=== PATIENT | female | born 1980 | race Caucasian/White ===

== ENCOUNTER 2017-05-16 14:51 | Emergency (ER) | payer OTHER ==
[~2017-05-16] VITALS: Wt 93.5 kg
[~2017-05-16 14:51] MED LIST: ACET500C5 PO; BEN25 PO; SULF15DR19 RIGHT EYE
[2017-05-16] MEDS ORDERED: PRED20TA PO (15:53)
[2017-05-16] MEDS ORDERED: BEN25 PO (15:53)
[2017-05-16] MEDS ORDERED: DIPHENHYDRAMINE 50 MG INJ IM ONE (16:00)
[2017-05-16] MEDS ORDERED: predniSONE 20 MG TAB PO ONE (16:00)
--- NOTE | 2017-05-16 23:01 | ERD ---
ER Documentation Chief Complaint Date/Time DATE: 05/16/17 TIME: 22:58 Chief Complaint rash x 3 days, no sob HPI 36-year-old woman complains of itchy red rash to her low back and abdomen just below the breasts. Rash 3 days. She has been wearing very tight fitting clothes and spanks type clothing in the heat. She denies fevers or chills, no chest pain or shortness of breath, no vomiting or diarrhea, no difficulty breathing. ROS All systems reviewed and are negative except as per history of present illness. Medications Home Meds Active Scripts Prednisone* (Prednisone*) 20 Mg Tab, 40 MG PO DAILY for 2 Days, TAB Prov:AUDI MIDDLETON MD 05/16/17 Diphenhydramine Hcl* (Benadryl*) 25 Mg Cap, 25 MG PO Q6 Y for ITCHING/RASH, #30 TAB Prov:AUDI MIDDLETON MD 05/16/17 Diphenhydramine Hcl* (Benadryl*) 25 Mg Cap, 25 MG PO Q6, #15 CAP Prov:KELLI MCCLELLAN MD 07/18/15 Acetaminophen* (Tylophen*) 500 Mg Capsule, 500 MG PO Q6H Y for PAIN, #15 TAB Prov:KELLI MCCLELLAN MD 07/18/15 Sulfacetamide Sodium* (Bleph-10*) 10%-15 Ml Opht Drops, 1 DROP RIGHT EYE QID for 7 Days, EA Prov:KELLI MCCLELLAN MD 07/18/15 Allergies Allergies: Uncoded Allergies: PCN (Allergy, Intermediate, Hives, 07/18/15) PMhx/Soc Obesity History of Surgery: Yes (csection) Anesthesia Reaction: No Hx Neurological Disorder: No Hx Respiratory Disorders: No Hx Cardiac Disorders: No Hx Psychiatric Problems: No Hx Miscellaneous Medical Probl: No Hx Alcohol Use: No Hx Substance Use: No Hx Tobacco Use: No Smoking Status: Never smoker FmHx Family History: No diabetes Physical Exam Vitals Vital Signs Date Time Temp Pulse Resp B/P Pulse Ox O2 Delivery O2 Flow Rate FiO2 05/16/17 14:53 98.9 81 18 138/90 99 Physical Exam GENERAL: Well-developed, well-nourished, well-hydrated, in no apparent distress , looks nontoxic in appearance HEENT: Moist mucous membranes, pink conjunctiva, no cervical spine tenderness or step-off deformities, no goiter, no jaundice or icterus, extraocular movements intact without pain. No submandibular induration, and no pharyngeal erythema NEURO: Alert and oriented 3, cranial nerves II through XII intact bilaterally, pupils equal round reactive to light, no focal deficits or facial asymmetry, sensation intact distally Strength 5/5 in upper and lower extremities bilaterally CARDIAC: Regular rate and rhythm, no murmurs rubs or gallops LUNGS: Clear bilaterally no wheezing crackles or stridor ABDOMEN: Soft nontender, no guarding, no rigidity, no rebound, no psoas sign no obturator sign. Normoactive bowel sounds SKIN: Localized maculopapular eruptions over the low back and over the skin just underneath the breasts, concerning for miliaria rubra. There are no ulcers or target lesions noted. EXTREMITIES: No clubbing cyanosis or edema, calves are bilaterally symmetrical, no Homans sign, no popliteal cord sign. Distal pulses equal and bilateral PSYCH: Normal affect without agitation or irritability Results 24 hrs Current Medications Medications (Trade) Dose Ordered Sig/Gigi Route PRN Reason Start Time Stop Time Status Last Admin Dose Admin Diphenhydramine HCl (Benadryl) 25 mg ONCE ONCE IM 05/16/17 16:00 05/16/17 16:01 DC 05/16/17 15:41 Prednisone (Prednisone) 40 mg ONCE ONCE PO 05/16/17 16:00 05/16/17 16:01 DC 05/16/17 15:40 Procedures/MDM I administered diphenhydramine 25 mg intramuscular injection and prednisone 40 mg p.o. Reassurance was provided. Differential diagnoses considered, included but not limited to acute coronary syndrome, pulmonary embolism, aortic dissection, abdominal aortic aneurysm, sepsis, stroke, meningitis, encephalitis, pneumonia, appendicitis, cholecystitis , bowel obstruction, pyelonephritis, nephrolithiasis, cystitis, as well as metabolic, hematologic, and electrolyte abnormalities. As well as abscess, cellulitis, fractures, and dislocations. Patient feels much better at this time, and vital signs are normal, symptoms have improved. I did give strict instructions to return to the ED if symptoms continue or worsen, patient will otherwise follow-up with primary care physician. Patient understood instructions and agreed to plan. Disclaimer: Inadvertent spelling and grammatical errors are likely due to EHR/ dictation software use and do not reflect on the overall quality of patient care. Also, please note that the electronic time recorded on this note does not necessarily reflect the actual time of the patient encounter. Departure Diagnosis: Primary Impression: Miliaria rubra Condition: Good Patient Instructions: When Your Child Has Heat Rash (Prickly Heat), Dermatitis , Non-Specific AUDI MIDDLETON MD May 16, 2017 23:00
== END 2017-05-16 16:20 | disposition home or self-care (01) ==
LOC: FTE 14:51
DX: L74.0 Miliaria rubra (principal)
CPT/HCPCS: 96372; J1200; J7512; Z7502

== ENCOUNTER 2017-06-19 07:44 | Emergency (ER) | payer OTHER ==
[~2017-06-19] VITALS: Ht 160 cm; Wt 94.0 kg
[~2017-06-19 07:44] MED LIST changes: +PRED20TA PO
[2017-06-19 07:50] VITALS: Ht 160 cm; Wt 94.0 kg
[2017-06-19] MEDS ORDERED: LIDOCAINE/MYLANTA 40 ML BTL PO STA (08:13)
[2017-06-19] MEDS ORDERED: ONDANSETRON 4 MG INJ IV STA (08:13)
[2017-06-19] MEDS ORDERED: HYDROmorphONE 1 MG/ML SYG IV STA (08:13)
[2017-06-19 08:51] LABS: BASOPHIL # 0.1 10^3/ul (0.0-0.1); BASOPHILS % 0.5 % (0.0-2.0); EOSINOPHILS # 0.3 10^3/ul (0.0-0.5); EOSINOPHILS % 2.3 % (0.0-7.0); HEMATOCRIT 40.6 % (37.0-47.0); HEMOGLOBIN 13.8 g/dl (12.0-16.0); LYMPHOCYTES # 2.3 10^3/ul (0.8-2.9); LYMPHOCYTES % 20.3 % (15.0-51.0); MEAN CORPUSCULAR HEMOGLOBIN 27.2 pg (29.0-33.0); MEAN CORPUSCULAR VOLUME 80.1 fl (82.0-101.0); MEAN PLATELET VOLUME 9.6 fl (7.4-10.4); MONOCYTE # 0.7 10^3/ul (0.3-0.9); MONOCYTES % 6.3 % (0.0-11.0); NEUTROPHIL # 7.9 10^3/ul (1.6-7.5); NEUTROPHILS % 70.2 % (39.0-77.0); PLATELET COUNT 331 10^3/UL (140-415); RED BLOOD COUNT 5.07 10^6/ul (4.20-5.40); WHITE BLOOD COUNT 11.3 10^3/ul (4.8-10.8)
[2017-06-19 09:09] LABS: ALBUMIN 4.1 g/dl (3.3-4.9); ALBUMIN/GLOBULIN RATIO 1.2; BILIRUBIN,INDIRECT 0.4 mg/dl (0-1.1); BILIRUBIN,TOTAL 0.4 mg/dl (0.2-1.3); CALCIUM 9.2 mg/dl (8.4-10.2); CREATININE 0.68 mg/dl (0.44-1.00); POTASSIUM 4.1 mmol/L (3.5-5.1); TOTAL PROTEIN 7.5 g/dl (6.1-8.1)
--- NOTE | 2017-06-19 09:13 | RADRPT ---
PROCEDURE: US Abdomen. CLINICAL INDICATION: abdominal pain TECHNIQUE: Multiple real-time images were acquired of the patient's right upper quadrant abdomen a nd retroperitoneum utilizing a high resolution transducer. COMPARISON: None FINDINGS: The liver demonstrates increased echogenicity. The liver is enlarged in size and no focal solid les ions are seen. The liver measures 19.5 cm in length. The portal vein is patent with normal direction of flow. No intrahepatic biliary dilatation is seen. Multiple calcified gallstones are identified within the gallbladder. There is no pericholecystic fl uid or gallbladder wall thickening. The common bile duct measures 4.7 mm in maximal dimension. The pancreas is not well seen due to overlying bowel gas. No free fluid is identified. The right kidney is normal in size, and demonstrate normal echogenicity and cortical thickness. The right kidney measures 11.0 cm in long dimension. There is no evidence of hydronephrosis. There are no kidney stones. RPTAT: AA IMPRESSION: Hepatomegaly with diffuse fatty infiltration of the liver. Cholelithiasis. No evidence of gallbladder wall thickening or pericholecystic fluid. .Ted Dominguez MD, MD Date Time Electronically viewed and signed by .Ted Dominguez MD, MD on 06/19/2017 09:13 .S/
[2017-06-19] MEDS ORDERED: DICY10CA60 PO (10:02)
[2017-06-19] MEDS ORDERED: HYDR-902 PO (10:02)
--- NOTE | 2017-06-19 10:05 | ERD ---
ER Documentation Chief Complaint Date/Time DATE: 06/19/17 TIME: 10:02 Chief Complaint epigastric pain this morning and vomiting HPI This a 36-year-old female complains of this morning onset of epigastric right upper quadrant pain described as sharp and crampy without radiation. No chest pain shortness of breath. She has nausea but no vomiting or diarrhea. She has never had this before. No pain in the back ROS All systems reviewed and are negative except as per history of present illness. Medications Home Meds Active Scripts Dicyclomine Hcl* (Bentyl*) 10 Mg Capsule, 20 MG PO QID, #60 CAP Prov:TRINH THOMAS DO 06/19/17 Hydrocodone/Acetaminophen ([place] 10-325 Tablet) 1 Each Tablet, 1 TAB PO Q6H Y for PAIN, #20 TAB Prov:TRINH THOMAS DO 06/19/17 Prednisone* (Prednisone*) 20 Mg Tab, 40 MG PO DAILY for 2 Days, TAB Prov:AUDI MIDDLETON MD 05/16/17 Diphenhydramine Hcl* (Benadryl*) 25 Mg Cap, 25 MG PO Q6 Y for ITCHING/RASH, #30 TAB Prov:AUDI MIDDLETON MD 05/16/17 Diphenhydramine Hcl* (Benadryl*) 25 Mg Cap, 25 MG PO Q6, #15 CAP Prov:KELLI MCCLELLAN MD 07/18/15 Acetaminophen* (Tylophen*) 500 Mg Capsule, 500 MG PO Q6H Y for PAIN, #15 TAB Prov:KELLI MCCLELLAN MD 07/18/15 Sulfacetamide Sodium* (Bleph-10*) 10%-15 Ml Opht Drops, 1 DROP RIGHT EYE QID for 7 Days, EA Prov:KELLI MCCLELLAN MD 07/18/15 Allergies Allergies: Uncoded Allergies: PCN (Allergy, Intermediate, Hives, 07/18/15) PMhx/Soc History of Surgery: Yes (c section) Anesthesia Reaction: No Hx Neurological Disorder: No Hx Respiratory Disorders: No Hx Cardiac Disorders: No Hx Psychiatric Problems: No Hx Miscellaneous Medical Probl: No Hx Alcohol Use: No Hx Substance Use: No Hx Tobacco Use: No Smoking Status: Never smoker FmHx Family History: No coronary disease Physical Exam Vitals Vital Signs Date Time Temp Pulse Resp B/P Pulse Ox O2 Delivery O2 Flow Rate FiO2 06/19/17 09:06 98.0 66 18 101/57 96 Room Air 06/19/17 07:50 97.5 55 18 164/104 98 Physical Exam Const: Well-developed, well-nourished Head: Atraumatic, normocephalic Eyes: Normal Conjunctiva, PERRLA, EOMI, normal sclera, no nystagmus ENT: Normal External Ears, Nose and Mouth, moist mucus membranes. Neck: Full range of motion. No meningismus, no lymphadenopathy. Resp: Clear to auscultation bilaterally, no wheezing, rhonchi, rales Cardio: Regular rate and rhythm, no murmurs, S1 S2 present Abd: Soft, tender epigastric and right upper quadrant mild to moderate , non distended. Normal bowel sounds, no guarding or rebound, no pulsitile abdominal masses or bruits Skin: No petechiae or rashes, no ecchymosis , no maculopapular rash Back: No midline or flank tenderness Ext: No cyanosis, or edema, FROM x 4, normal inspection, neurovascularly intact x 4 Neur: Awake and alert, STR 5/5 x 4, sensation intact x 4, no focal findings, cerebellum intact Psych: Normal Mood and Affect Result Diagram: 06/19/1720 06/19/17 0820 Results 24 hrs Laboratory Tests Test 06/19/17 08:20 White Blood Count 11.310^3/ul Red Blood Count 5.0710^6/ul Hemoglobin 13.8g/dl Hematocrit 40.6% Mean Corpuscular Volume 80.1fl Mean Corpuscular Hemoglobin 27.2pg Mean Corpuscular Hemoglobin Concent 34.0g/dl Red Cell Distribution Width 13.0% Platelet Count 25423^3/UL Mean Platelet Volume 9.6fl Neutrophils % 70.2% Lymphocytes % 20.3% Monocytes % 6.3% Eosinophils % 2.3% Basophils % 0.5% Nucleated Red Blood Cells % 0.0/100WBC Neutrophils # 7.910^3/ul Lymphocytes # 2.310^3/ul Monocytes # 0.710^3/ul Eosinophils # 0.310^3/ul Basophils # 0.110^3/ul Nucleated Red Blood Cells # 0.010^3/ul Sodium Level 142mmol/L Potassium Level 4.1mmol/L Chloride Level 103mmol/L Carbon Dioxide Level 25mmol/L Anion Gap 18 Blood Urea Nitrogen 11mg/dl Creatinine 0.68mg/dl Glucose Level 107mg/dl Calcium Level 9.2mg/dl Total Bilirubin 0.4mg/dl Direct Bilirubin 0.00mg/dl Indirect Bilirubin 0.4mg/dl Aspartate Amino Transf (AST/SGOT) 40IU/L Alanine Aminotransferase (ALT/SGPT) 67IU/L Alkaline Phosphatase 106IU/L Total Protein 7.5g/dl Albumin 4.1g/dl Globulin 3.40g/dl Albumin/Globulin Ratio 1.20 Lipase 106U/L Current Medications Medications (Trade) Dose Ordered Sig/Gigi Route PRN Reason Start Time Stop Time Status Last Admin Dose Admin Hydromorphone HCl (Dilaudid) 1 mg ONCE STAT IV 06/19/17 08:13 06/19/17 08:14 DC 06/19/17 08:30 Ondansetron HCl (Zofran Inj) 4 mg ONCE STAT IV 06/19/17 08:13 06/19/17 08:15 DC 06/19/17 08:30 Miscellaneous Medication (Gi Cocktail (2)) 40 ml ONCE STAT PO 06/19/17 08:13 06/19/17 08:15 DC 06/19/17 08:30 Procedures/MDM PROCEDURE: US Abdomen. CLINICAL INDICATION: abdominal pain TECHNIQUE: Multiple real-time images were acquired of the patient's right upper quadrant abdomen and retroperitoneum utilizing a high resolution transducer. COMPARISON: None FINDINGS: The liver demonstrates increased echogenicity. The liver is enlarged in size and no focal solid lesions are seen. The liver measures 19.5 cm in length. The portal vein is patent with normal direction of flow. No intrahepatic biliary dilatation is seen. Multiple calcified gallstones are identified within the gallbladder. There is no pericholecystic fluid or gallbladder wall thickening. The common bile duct measures 4.7 mm in maximal dimension. The pancreas is not well seen due to overlying bowel gas. No free fluid is identified. The right kidney is normal in size, and demonstrate normal echogenicity and cortical thickness. The right kidney measures 11.0 cm in long dimension. There is no evidence of hydronephrosis. There are no kidney stones. RPTAT: AA IMPRESSION: Hepatomegaly with diffuse fatty infiltration of the liver. Cholelithiasis. No evidence of gallbladder wall thickening or pericholecystic fluid. .Ted Dominguez MD, MD Date Time Electronically viewed and signed by .Ted Dominguez MD, MD on 06/19/2017 09: 13 .S/ CC: TRINH THOMAS DO Patient is pain-free. No signs of elevated liver function tests or cholecystitis. Discharged home on [place] and Bentyl. Follow up with general surgery Departure Diagnosis: Primary Impression: Gallstones Condition: Stable Patient Instructions: Biliary Colic With Gallstone (Confirmed) Referrals: ISAAC OJEDA APOSTOLOS A. DO Jun 19, 2017 10:05
[2017-06-19 10:25] VITALS: BP 104/58; PULSE 60; RESP 16; TEMP 97.1
[2017-06-19] MEDS ORDERED: HYDROCODONE/APAP (10/325) TAB PO ONE (10:30)
== END 2017-06-19 10:25 | disposition home or self-care (01) ==
LOC: E/R 07:44
DX: K80.20 Calculus of gallbladder without cholecystitis without obstruction (principal); R11.10 Vomiting, unspecified
CPT/HCPCS: 36415; 76705; 80053; 83690; 85025; 96374; 96375; J1170; J2405; Z7502; Z7610

== ENCOUNTER 2017-08-02 05:37 | Emergency (ER) | payer OTHER ==
[~2017-08-02] VITALS: Ht 160 cm; Wt 92.5 kg
[~2017-08-02 05:37] MED LIST changes: +DICY10CA60 PO; +HYDR-902 PO
[2017-08-02 05:50] VITALS: Ht 160 cm; Wt 92.5 kg
[2017-08-02] MEDS ORDERED: SOD CHLORIDE 0.9% 1,000 ML IV STA (06:31)
[2017-08-02] MEDS ORDERED: ONDANSETRON 4 MG INJ IV STA (06:31)
[2017-08-02] MEDS ORDERED: morphine 4 MG/ML VIAL IV STA (06:31)
[2017-08-02 07:06] LABS: BASOPHIL # 0.1 10^3/ul (0.0-0.1); BASOPHILS % 0.6 % (0.0-2.0); EOSINOPHILS # 0.4 10^3/ul (0.0-0.5); EOSINOPHILS % 3.3 % (0.0-7.0); HEMATOCRIT 41.9 % (37.0-47.0); HEMOGLOBIN 14.1 g/dl (12.0-16.0); LYMPHOCYTES # 2.3 10^3/ul (0.8-2.9); LYMPHOCYTES % 21.6 % (15.0-51.0); MEAN CORPUSCULAR HEMOGLOBIN 27.7 pg (29.0-33.0); MEAN CORPUSCULAR HGB CONC 33.7 g/dl (32.0-37.0); MEAN CORPUSCULAR VOLUME 82.3 fl (82.0-101.0); MEAN PLATELET VOLUME 9.4 fl (7.4-10.4); MONOCYTE # 0.7 10^3/ul (0.3-0.9); MONOCYTES % 6.6 % (0.0-11.0); NEUTROPHIL # 7.3 10^3/ul (1.6-7.5); NEUTROPHILS % 67.7 % (39.0-77.0); PLATELET COUNT 342 10^3/UL (140-415); RED BLOOD COUNT 5.09 10^6/ul (4.20-5.40); RED CELL DISTRIBUTION WIDTH 12.5 % (11.5-14.5); WHITE BLOOD COUNT 10.8 10^3/ul (4.8-10.8)
[2017-08-02 07:14] LABS: ADD UMIC YES; UR ASCORBIC ACID 20 mg/dL (NEGATIVE); UR BACTERIA FEW /HPF (NONE SEEN); UR BILIRUBIN (Dip) NEGATIVE (NEGATIVE); UR BLOOD (Dip) NEGATIVE (NEGATIVE); UR CLARITY SLIGHTLY CLOUDY (CLEAR); UR COLOR YELLOW (YELLOW); UR GLUCOSE (Dip) NEGATIVE (NEGATIVE); UR KETONES (Dip) NEGATIVE (NEGATIVE); UR LEUKOCYTE ESTERASE (Dip) TRACE Leu/ul (NEGATIVE); UR MUCUS MODERATE /HPF (NONE SEEN); UR NITRITE (Dip) NEGATIVE (NEGATIVE); UR RBC 1 /HPF (0-5); UR SPECIFIC GRAVITY (Dip) 1.031 (1.003-1.030); UR SQUAMOUS EPITHELIAL CELL MODERATE /HPF (FEW); UR TOTAL PROTEIN (Dip) NEGATIVE (NEGATIVE); UR UROBILINOGEN (Dip) NEGATIVE (NEGATIVE)
[2017-08-02 07:30] LABS: ALBUMIN 4.3 g/dl (3.3-4.9); ALBUMIN/GLOBULIN RATIO 1.19; BILIRUBIN,INDIRECT 0.3 mg/dl (0-1.1); BILIRUBIN,TOTAL 0.3 mg/dl (0.2-1.3); CALCIUM 9.1 mg/dl (8.4-10.2); CREATININE 0.69 mg/dl (0.44-1.00); TOTAL PROTEIN 7.9 g/dl (6.1-8.1)
--- NOTE | 2017-08-02 07:36 | RADRPT ---
PROCEDURE: US Abdomen Limited . CLINICAL INDICATION: Abdominal pain TECHNIQUE: Multiple real-time images were acquired of the patient's right upper quadrant abdomen u tilizing a high resolution transducer. COMPARISON: June 19, 2017 FINDINGS: The liver measures 19.6 cm and demonstrates a coarsened echogenicity. The gallbladder is filled with a moderate amount of bile. Multiple echogenic, shadowing stones are identified in the gallbladder. The largest distinct stone measures up to approximately 13 mm. A non mobile stone is identified in the gallbladder neck. The gallbladder wall is not thickened at 1.0 mm. No pericholecystic fluid is n oted. The common bile duct measures 5.4 mm in diameter. The visualized portions of the proximal de jesus creas are unremarkable. The tail of the pancreas is not well visualized. Antegrade flow is seen in the portal vein. Right kidney measures 11.6 cm. Right kidney demonstrates a normal echogenicity. No hydronephrosis, masses or stones are noted. IMPRESSION: Diffuse fatty infiltration of an enlarged liver. Cholelithiasis. Tail of the pancreas not well visualized. If characterization of this structure is needed repeat exa m or CT/MRI is recommended. RPTAT: AA .Jay Carey MD, Date Time Electronically viewed and signed by .Jay Carey MD, on 08/02/2017 07:36 .P/
--- NOTE | 2017-08-02 07:53 | ERD ---
ER Documentation Chief Complaint Date/Time DATE: 08/02/17 TIME: 07:46 Chief Complaint upper abd pain/vomiting since last night, hx of gallstone HPI This is a 36-year-old female presents the emergency department today complaining of abdominal pain and nausea and vomiting that started last night. Patient states she has a known history of gallstones and she has seen a surgeon who she is unsure of his name but she is waiting for authorization for surgery. Denies any fevers or chills, dysuria. ROS All systems reviewed and are negative except as per history of present illness. Medications Home Meds Active Scripts Acetaminophen* (Tylophen*) 500 Mg Capsule, 1 CAP PO Q6H Y for PAIN AND OR ELEVATED TEMP, #30 CAP Prov:EDDA DACOSTA PA-C 08/02/17 Famotidine* (Pepcid*) 20 Mg Tablet, 20 MG PO BID for 10 Days, TAB Prov:EDDA DACOSTA PA-C 08/02/17 Ondansetron Hcl* (Zofran*) 4 Mg Tablet, 4 MG PO Q6H for NAUSEA AND/OR VOMITING, #30 TAB Prov:EDDA DACOSTA PA-C 08/02/17 Hydrocodone/Acetaminophen ([place] 5-325 Tablet) 1 Each Tablet, 1 TAB PO Q6H Y for PAIN, #12 TAB Prov:EDDA DACOSTA PA-C 08/02/17 Dicyclomine Hcl* (Bentyl*) 10 Mg Capsule, 20 MG PO QID, #60 CAP Prov:TRINH THOMAS DO 06/19/17 Hydrocodone/Acetaminophen ([place] 10-325 Tablet) 1 Each Tablet, 1 TAB PO Q6H Y for PAIN, #20 TAB Prov:TRINH THOMAS DO 06/19/17 Prednisone* (Prednisone*) 20 Mg Tab, 40 MG PO DAILY for 2 Days, TAB Prov:AUDI MIDDLETON MD 05/16/17 Diphenhydramine Hcl* (Benadryl*) 25 Mg Cap, 25 MG PO Q6 Y for ITCHING/RASH, #30 TAB Prov:AUDI MIDDLETON MD 05/16/17 Diphenhydramine Hcl* (Benadryl*) 25 Mg Cap, 25 MG PO Q6, #15 CAP Prov:KELLI MCCLELLAN MD 07/18/15 Acetaminophen* (Tylophen*) 500 Mg Capsule, 500 MG PO Q6H Y for PAIN, #15 TAB Prov:KELLI MCCLELLAN MD 07/18/15 Sulfacetamide Sodium* (Bleph-10*) 10%-15 Ml Opht Drops, 1 DROP RIGHT EYE QID for 7 Days, EA Prov:KELLI MCCLELLAN MD 07/18/15 Allergies Allergies: Coded Allergies: Penicillins (Verified Allergy, Unknown, rash, 08/02/17) Uncoded Allergies: PCN (Allergy, Intermediate, Hives, 07/18/15) PMhx/Soc History of Surgery: Yes (c section) Anesthesia Reaction: No Hx Neurological Disorder: No Hx Respiratory Disorders: No Hx Cardiac Disorders: No Hx Psychiatric Problems: No Hx Miscellaneous Medical Probl: Yes (gall stones ) Hx Alcohol Use: No Hx Substance Use: No Hx Tobacco Use: No Smoking Status: Never smoker Physical Exam Vitals Vital Signs Date Time Temp Pulse Resp B/P Pulse Ox O2 Delivery O2 Flow Rate FiO2 08/02/17 05:50 97.0 62 20 143/76 99 Physical Exam Const: NAD Head: Atraumatic Eyes: Normal Conjunctiva ENT: Normal External Ears, Nose and Mouth. Neck: Full range of motion..~ No meningismus. Resp: Clear to auscultation bilaterally Cardio: Regular rate and rhythm, no murmurs Abd: Soft, epigastric and right upper quadrant tenderness non distended. Normal bowel sounds no lower abdominal pain. No tenderness to McBurney's. Skin: No petechiae or rashes Back: No midline or flank tenderness Ext: No cyanosis, or edema Neur: Awake and alert Psych: Normal Mood and Affect Result Diagram: 08/02/17 0640 08/02/17 0640 Results 24 hrs Laboratory Tests Test 08/02/17 06:40 08/02/17 06:45 White Blood Count 10.810^3/ul Red Blood Count 5.0910^6/ul Hemoglobin 14.1g/dl Hematocrit 41.9% Mean Corpuscular Volume 82.3fl Mean Corpuscular Hemoglobin 27.7pg Mean Corpuscular Hemoglobin Concent 33.7g/dl Red Cell Distribution Width 12.5% Platelet Count 92863^3/UL Mean Platelet Volume 9.4fl Neutrophils % 67.7% Lymphocytes % 21.6% Monocytes % 6.6% Eosinophils % 3.3% Basophils % 0.6% Nucleated Red Blood Cells % 0.0/100WBC Neutrophils # 7.310^3/ul Lymphocytes # 2.310^3/ul Monocytes # 0.710^3/ul Eosinophils # 0.410^3/ul Basophils # 0.110^3/ul Nucleated Red Blood Cells # 0.010^3/ul Sodium Level 143mmol/L Potassium Level 4.0mmol/L Chloride Level 109mmol/L Carbon Dioxide Level 25mmol/L Anion Gap 13 Blood Urea Nitrogen 11mg/dl Creatinine 0.69mg/dl Glucose Level 103mg/dl Calcium Level 9.1mg/dl Total Bilirubin 0.3mg/dl Direct Bilirubin 0.00mg/dl Indirect Bilirubin 0.3mg/dl Aspartate Amino Transf (AST/SGOT) 35IU/L Alanine Aminotransferase (ALT/SGPT) 51IU/L Alkaline Phosphatase 104IU/L Total Protein 7.9g/dl Albumin 4.3g/dl Globulin 3.60g/dl Albumin/Globulin Ratio 1.19 Lipase 108U/L Urine Color YELLOW Urine Clarity SLIGHTLY CLOUDY Urine pH 5.0 Urine Specific [place] 1.031 Urine Ketones NEGATIVEmg/dL Urine Nitrite NEGATIVEmg/dL Urine Bilirubin NEGATIVEmg/dL Urine Urobilinogen NEGATIVEmg/dL Urine Leukocyte Esterase TRACELeu/ul Urine Microscopic RBC 1/HPF Urine Microscopic WBC 4/HPF Urine Squamous Epithelial Cells MODERATE/HPF Urine Bacteria FEW/HPF Urine Mucus MODERATE/HPF Urine Hemoglobin NEGATIVEmg/dL Urine Glucose NEGATIVEmg/dL Urine Total Protein NEGATIVEmg/dl Current Medications Medications (Trade) Dose Ordered Sig/Gigi Route PRN Reason Start Time Stop Time Status Last Admin Dose Admin Sodium Chloride (NS) 1,000 ml @ 1,000 mls/hr Q1H STAT IV 08/02/17 06:31 08/02/17 07:30 DC 08/02/17 06:52 Morphine Sulfate (morphine) 4 mg ONCE STAT IV 08/02/17 06:31 08/02/17 06:33 DC 08/02/17 06:51 Ondansetron HCl (Zofran Inj) 4 mg ONCE STAT IV 08/02/17 06:31 08/02/17 06:33 DC 08/02/17 06:52 Famotidine (Pepcid) 20 mg ONCE ONCE PO 08/02/17 10:00 08/02/17 10:01 08/02/17 09:36 DIAGNOSTIC IMAGING REPORT Patient: PAYAL MOSS : 1980 Age: 36 Sex: F MR #: [id number] DOS: 08/02/17 0631 Ordering MD: EDDA DACOSTA PA-C Location: [facility] Room/Bed: PROCEDURE: US Abdomen Limited . CLINICAL INDICATION: Abdominal pain TECHNIQUE: Multiple real-time images were acquired of the patient's right upper quadrant abdomen utilizing a high resolution transducer. COMPARISON: June 19, 2017 FINDINGS: The liver measures 19.6 cm and demonstrates a coarsened echogenicity. The gallbladder is filled with a moderate amount of bile. Multiple echogenic, shadowing stones are identified in the gallbladder. The largest distinct stone measures up to approximately 13 mm. A non mobile stone is identified in the gallbladder neck. The gallbladder wall is not thickened at 1.0 mm. No pericholecystic fluid is noted. The common bile duct measures 5.4 mm in diameter. The visualized portions of the proximal pancreas are unremarkable. The tail of the pancreas is not well visualized. Antegrade flow is seen in the portal vein. Right kidney measures 11.6 cm. Right kidney demonstrates a normal echogenicity. No hydronephrosis, masses or stones are noted. IMPRESSION: Diffuse fatty infiltration of an enlarged liver. Cholelithiasis. Tail of the pancreas not well visualized. If characterization of this structure is needed repeat exam or CT/MRI is recommended. RPTAT: AA .Jay Carey MD, MD Date Time Electronically viewed and signed by .Jay Carey MD, MD on 08/02/2017 07:36 .P/ CC: EDDA DACOSTA PA-C Procedures/MDM This is a 36-year-old female who presents emergency department today complaining of abdominal pain and nausea vomiting. 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 Patient does have a known history of gallstones as I did do laboratory workup as well as an ultrasound Laboratory workup shows no elevated white blood cell count. She is not anemic. Platelets are within normal limits. Electrolytes are within normal limits. Glucose within normal limits. Bilirubin is within normal limits. Liver enzymes within normal limits. Lipase is normal limits. UA shows trace leukocyte esterase. Negative nitrites. urine test is negative right upper quadrant ultrasound shows multiple gallstones. Largest stone measures approximately 13 mm. There is a nonmobile stone identified in the gallbladder neck. Gallbladder wall is not thickened. There is no pericholecystic fluid. There is diffuse fatty infiltration of an enlarged liver. Symptoms at this time is consistent with gallstones and biliary colic. There is no evidence to suggest acute surgical abdomen at this time or acute cholecystitis. Patient was given morphine, Zofran, Pepcid .IV fluids here in the emergency department and pain improved. Patient was given a prescription for [place], Zofran, Pepcid and Tylenol for home. She was instructed to follow back up with her surgeon to find out about her referral. Patient understood. She was given a work note. Discussed patient with Dr. Thomas and he is in agreement with the plan. Departure Diagnosis: Primary Impression: Biliary colic Condition: EDDA Becker PA-C Aug 02, 2017 07:53
[2017-08-02] MEDS ORDERED: FAMO-96 PO (09:37)
[2017-08-02] MEDS ORDERED: HYDR-906 PO (09:37)
[2017-08-02] MEDS ORDERED: ONDA4TAB8 PO (09:37)
[2017-08-02] MEDS ORDERED: ACET500C5 PO (09:38)
[2017-08-02 09:46] VITALS: BP 115/60; PULSE 72; RESP 20; TEMP 98.1
[2017-08-02] MEDS ORDERED: FAMOTIDINE 20 MG TAB PO ONE (10:00)
== END 2017-08-02 09:47 | disposition home or self-care (01) ==
LOC: FTE 05:37
DX: K80.50 Calculus of bile duct without cholangitis or cholecystitis without obstruction (principal)
CPT/HCPCS: 36415; 76705; 80053; 81001; 83690; 85025; 96374; 96375; J2270; J2405; J7030; Z7502; Z7610

== ENCOUNTER 2017-08-10 07:45 | Emergency (ER) | payer OTHER ==
[~2017-08-10] VITALS: Wt 78.0 kg
[~2017-08-10 07:45] MED LIST changes: +FAMO-96 PO; +HYDR-906 PO; +ONDA4TAB8 PO
[2017-08-10] MEDS ORDERED: ONDANSETRON (ODT) 4 MG TAB ODT STA (07:54)
[2017-08-10] MEDS ORDERED: MECLIZINE 12.5 MG TAB PO ONE (08:00)
[2017-08-10] MEDS ORDERED: IBUPROFEN 800 MG TAB PO ONE (08:00)
[2017-08-10] MEDS ORDERED: SOD CHLORIDE 0.9% 1,000 ML IV STA (08:23)
[2017-08-10 08:41] LABS: BASOPHIL # 0.1 10^3/ul (0.0-0.1); BASOPHILS % 0.6 % (0.0-2.0); EOSINOPHILS # 0.2 10^3/ul (0.0-0.5); EOSINOPHILS % 2.1 % (0.0-7.0); HEMOGLOBIN 13.7 g/dl (12.0-16.0); LYMPHOCYTES # 2.5 10^3/ul (0.8-2.9); LYMPHOCYTES % 25.2 % (15.0-51.0); MEAN CORPUSCULAR HEMOGLOBIN 27.2 pg (29.0-33.0); MEAN CORPUSCULAR HGB CONC 33.4 g/dl (32.0-37.0); MEAN CORPUSCULAR VOLUME 81.3 fl (82.0-101.0); MEAN PLATELET VOLUME 9.2 fl (7.4-10.4); MONOCYTE # 0.7 10^3/ul (0.3-0.9); MONOCYTES % 6.6 % (0.0-11.0); NEUTROPHIL # 6.4 10^3/ul (1.6-7.5); PLATELET COUNT 335 10^3/UL (140-415); RED BLOOD COUNT 5.04 10^6/ul (4.20-5.40); RED CELL DISTRIBUTION WIDTH 12.7 % (11.5-14.5); WHITE BLOOD COUNT 9.8 10^3/ul (4.8-10.8)
[2017-08-10 08:59] LABS: ALBUMIN 4.1 g/dl (3.3-4.9); ALBUMIN/GLOBULIN RATIO 1.07; BILIRUBIN,INDIRECT 0.5 mg/dl (0-1.1); BILIRUBIN,TOTAL 0.5 mg/dl (0.2-1.3); CALCIUM 9.1 mg/dl (8.4-10.2); CREATININE 0.74 mg/dl (0.44-1.00); POTASSIUM 3.8 mmol/L (3.5-5.1); TOTAL PROTEIN 7.9 g/dl (6.1-8.1)
[2017-08-10] MEDS ORDERED: ONDA4TAB14 PO (10:14)
[2017-08-10] MEDS ORDERED: MECL-77 PO (10:14)
--- NOTE | 2017-08-10 10:15 | ERD ---
ER Documentation Chief Complaint Date/Time DATE: 08/10/17 TIME: 10:15 Chief Complaint dizziness while at work. nausea and vomiting. mild epigastric pain HPI Patient is a 36-year-old female with gallstones who presents as a code green. 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 She was recently diagnosed with gallstones and is seeing a surgeon tomorrow the plan for gallbladder removal. She is taking [place] for pain. She had no fever today. She denies diarrhea. Upon review of old medical records this is the patient's fifth visit to the ER since 2014. She does complain of right upper quadrant abdominal pain. ROS All systems reviewed and are negative except as per history of present illness. Medications Home Meds Active Scripts Ondansetron (Ondansetron Odt) 4 Mg Tab.rapdis, 4 MG PO Q6H Y for NAUSEA AND/OR VOMITING, #10 TAB Prov:LOLLY BARRON MD 08/10/17 Meclizine Hcl* (Meclizine Hcl*) 25 Mg Tablet, 25 MG PO Q8H Y for DIZZINESS, #20 TAB Prov:LOLLY BARRON MD 08/10/17 Discontinued Scripts Acetaminophen* (Tylophen*) 500 Mg Capsule, 1 CAP PO Q6H Y for PAIN AND OR ELEVATED TEMP, #30 CAP Prov:EDDA DACOSTA PA-C 08/02/17 Famotidine* (Pepcid*) 20 Mg Tablet, 20 MG PO BID for 10 Days, TAB Prov:EDDA DACOSTA PA-C 08/02/17 Ondansetron Hcl* (Zofran*) 4 Mg Tablet, 4 MG PO Q6H for NAUSEA AND/OR VOMITING, #30 TAB Prov:EDDA DACOSTA PA-C 08/02/17 Hydrocodone/Acetaminophen ([place] 5-325 Tablet) 1 Each Tablet, 1 TAB PO Q6H Y for PAIN, #12 TAB Prov:EDDA DACOSTA PA-C 08/02/17 Dicyclomine Hcl* (Bentyl*) 10 Mg Capsule, 20 MG PO QID, #60 CAP Prov:TRINH THOMAS DO 06/19/17 Hydrocodone/Acetaminophen ([place] 10-325 Tablet) 1 Each Tablet, 1 TAB PO Q6H Y for PAIN, #20 TAB Prov:TRINH THOMAS DO 06/19/17 Prednisone* (Prednisone*) 20 Mg Tab, 40 MG PO DAILY for 2 Days, TAB Prov:AUDI MIDDLETON MD 05/16/17 Diphenhydramine Hcl* (Benadryl*) 25 Mg Cap, 25 MG PO Q6 Y for ITCHING/RASH, #30 TAB Prov:AUDI MIDDLETON MD 05/16/17 Diphenhydramine Hcl* (Benadryl*) 25 Mg Cap, 25 MG PO Q6, #15 CAP Prov:KELLI MCCLELLAN MD 07/18/15 Acetaminophen* (Tylophen*) 500 Mg Capsule, 500 MG PO Q6H Y for PAIN, #15 TAB Prov:KELLI MCCLELLAN MD 07/18/15 Sulfacetamide Sodium* (Bleph-10*) 10%-15 Ml Opht Drops, 1 DROP RIGHT EYE QID for 7 Days, EA Prov:KELLI MCCLELLAN MD 07/18/15 Allergies Allergies: Coded Allergies: Penicillins (Verified Allergy, Unknown, rash, 08/02/17) PMhx/Soc History of Surgery: Yes (c section) Anesthesia Reaction: No Hx Neurological Disorder: No Hx Respiratory Disorders: No Hx Cardiac Disorders: No Hx Psychiatric Problems: No Hx Miscellaneous Medical Probl: Yes (gall stones ) Hx Alcohol Use: No Hx Substance Use: No Hx Tobacco Use: No Smoking Status: Never smoker FmHx Family History: diabetes Physical Exam Vitals Vital Signs Date Time Temp Pulse Resp B/P Pulse Ox O2 Delivery O2 Flow Rate FiO2 08/10/17 08:02 97.6 84 20 129/84 98 Physical Exam Const: Moderate distress secondary to pain and vomiting Head: Atraumatic Eyes: Normal Conjunctiva ENT: Normal External Ears, Nose and Mouth. Neck: Full range of motion..~ No meningismus. Resp: Clear to auscultation bilaterally Cardio: Regular rate and rhythm, no murmurs Abd: Right upper quadrant tenderness to palpation without rebound or guarding Skin: No petechiae or rashes Back: No midline or flank tenderness Ext: No cyanosis, or edema Neur: Awake and alert Psych: Normal Mood and Affect Result Diagram: 08/10/17 0830 08/10/17 0830 Results 24 hrs Laboratory Tests Test 08/10/17 08:30 White Blood Count 9.810^3/ul Red Blood Count 5.0410^6/ul Hemoglobin 13.7g/dl Hematocrit 41.0% Mean Corpuscular Volume 81.3fl Mean Corpuscular Hemoglobin 27.2pg Mean Corpuscular Hemoglobin Concent 33.4g/dl Red Cell Distribution Width 12.7% Platelet Count 89099^3/UL Mean Platelet Volume 9.2fl Neutrophils % 65.0% Lymphocytes % 25.2% Monocytes % 6.6% Eosinophils % 2.1% Basophils % 0.6% Nucleated Red Blood Cells % 0.0/100WBC Neutrophils # 6.410^3/ul Lymphocytes # 2.510^3/ul Monocytes # 0.710^3/ul Eosinophils # 0.210^3/ul Basophils # 0.110^3/ul Nucleated Red Blood Cells # 0.010^3/ul Sodium Level 143mmol/L Potassium Level 3.8mmol/L Chloride Level 108mmol/L Carbon Dioxide Level 25mmol/L Anion Gap 14 Blood Urea Nitrogen 14mg/dl Creatinine 0.74mg/dl Glucose Level 95mg/dl Calcium Level 9.1mg/dl Total Bilirubin 0.5mg/dl Direct Bilirubin 0.00mg/dl Indirect Bilirubin 0.5mg/dl Aspartate Amino Transf (AST/SGOT) 35IU/L Alanine Aminotransferase (ALT/SGPT) 60IU/L Alkaline Phosphatase 110IU/L Total Protein 7.9g/dl Albumin 4.1g/dl Globulin 3.80g/dl Albumin/Globulin Ratio 1.07 Lipase 143U/L Serum HCG, Qualitative NEGATIVE Current Medications Medications (Trade) Dose Ordered Sig/Gigi Route PRN Reason Start Time Stop Time Status Last Admin Dose Admin Ibuprofen (Motrin) 800 mg ONCE ONCE PO 08/10/17 08:00 08/10/17 08:01 DC Ondansetron HCl (Zofran Odt) 4 mg ONCE STAT ODT 08/10/17 07:54 08/10/17 07:56 DC 08/10/17 07:54 Meclizine HCl 25 mg 25 mg ONCE ONCE PO 08/10/17 08:00 08/10/17 08:01 DC Sodium Chloride (NS) 1,000 ml @ 1,000 mls/hr Q1H STAT IV 08/10/17 08:23 08/10/17 09:22 DC 08/10/17 08:42 Procedures/MDM EKG read by me: Rate/Rhythm: Regular rate and rhythm at a rate of 61 Intervals: Normal Impression: No evidence of ischemia or arrhythmia Patient is a 36-year-old female with gallstones who presents with right upper quadrant abdominal pain and vomiting and dizziness. Laboratory studies are normal. EKG shows no signs of ischemia or arrhythmia. Vital signs are normal. At this point I doubt acute cholecystitis, pancreatitis, appendicitis, or bowel obstruction. The patient will be seeing a surgeon tomorrow to discuss gallbladder removal. I believe outpatient management is appropriate but the patient will be given meclizine, ibuprofen, and Zofran. The patient could return for any worsening symptoms. Departure Diagnosis: Primary Impression: Vomiting Vomiting type: unspecified Vomiting Intractability: non-intractable Nausea presence: with nausea Qualified Code: R11.2 - Non-intractable vomiting with nausea, unspecified vomiting type Additional Impressions: Dizziness Abdominal pain Abdominal location: right upper quadrant Qualified Code: R10.11 - Right upper quadrant abdominal pain Condition: Fair Patient Instructions: Nausea and Vomiting-Adult, Abdominal Pain, Unknown Cause , (Female), Dizziness, Unk Cause Additional Instructions: Llame al doctor MAANA y lurdes jacobo MATEO PARA DENTRO DE 1-2 FLORES.Dgale a la secretaria que nosotros le instruimos hacer esta mateo.Avise o llame si finnegan condicin se empeora antes de la mateo. Regresa aqui si peor o no mejor. LOLLY BARRON MD Aug 10, 2017 10:15
[2017-08-10 11:50] VITALS: BP 128/69; PULSE 88; RESP 18; TEMP 98.6
== END 2017-08-10 11:51 | disposition home or self-care (01) ==
LOC: E/R 07:45
DX: R11.2 Nausea with vomiting, unspecified (principal); R10.11 Right upper quadrant pain; R40.2142 Coma scale, eyes open, spontaneous, at arrival to emergency department; R40.2252 Coma scale, best verbal response, oriented, at arrival to emergency department; R40.2362 Coma scale, best motor response, obeys commands, at arrival to emergency department
CPT/HCPCS: 36415; 80053; 83690; 84703; 85025; 93005; J7030; Z7502; Z7610

== ENCOUNTER 2017-08-18 10:23 | Inpatient (IN) | payer OTHER ==
[~2017-08-18] VITALS: Ht 160 cm; Wt 100.0 kg
[~2017-08-18 10:23] MED LIST changes: -ACET500C5 PO; -BEN25 PO; -DICY10CA60 PO; -FAMO-96 PO; -HYDR-902 PO; -HYDR-906 PO; +MECL-77 PO; +ONDA4TAB14 PO; -ONDA4TAB8 PO; -PRED20TA PO; -SULF15DR19 RIGHT EYE
[2017-08-18] MEDS ORDERED: SOD CHLORIDE 0.9% 1,000 ML IV STA (12:44)
[2017-08-18] MEDS ORDERED: morphine 4 MG/ML VIAL IV STA (12:44)
[2017-08-18] MEDS ORDERED: ONDANSETRON 4 MG INJ IV STA (12:44)
[2017-08-18 13:29] LABS: BASOPHIL # 0.1 10^3/ul (0.0-0.1); BASOPHILS % 0.6 % (0.0-2.0); EOSINOPHILS # 0.3 10^3/ul (0.0-0.5); EOSINOPHILS % 2.9 % (0.0-7.0); HEMATOCRIT 44.6 % (37.0-47.0); LYMPHOCYTES # 2.7 10^3/ul (0.8-2.9); MEAN CORPUSCULAR HEMOGLOBIN 27.7 pg (29.0-33.0); MEAN CORPUSCULAR HGB CONC 33.6 g/dl (32.0-37.0); MEAN CORPUSCULAR VOLUME 82.3 fl (82.0-101.0); MEAN PLATELET VOLUME 9.7 fl (7.4-10.4); MONOCYTE # 0.6 10^3/ul (0.3-0.9); MONOCYTES % 6.2 % (0.0-11.0); NEUTROPHIL # 6.6 10^3/ul (1.6-7.5); NEUTROPHILS % 64.1 % (39.0-77.0); PLATELET COUNT 381 10^3/UL (140-415); RED BLOOD COUNT 5.42 10^6/ul (4.20-5.40); RED CELL DISTRIBUTION WIDTH 12.5 % (11.5-14.5); WHITE BLOOD COUNT 10.3 10^3/ul (4.8-10.8)
[2017-08-18 13:38] LABS: ADD UMIC YES; UR ASCORBIC ACID NEGATIVE (NEGATIVE); UR BACTERIA FEW /HPF (NONE SEEN); UR BILIRUBIN (Dip) NEGATIVE (NEGATIVE); UR BLOOD (Dip) NEGATIVE (NEGATIVE); UR CLARITY SLIGHTLY CLOUDY (CLEAR); UR COLOR YELLOW (YELLOW); UR GLUCOSE (Dip) NEGATIVE (NEGATIVE); UR KETONES (Dip) NEGATIVE (NEGATIVE); UR LEUKOCYTE ESTERASE (Dip) TRACE Leu/ul (NEGATIVE); UR NITRITE (Dip) NEGATIVE (NEGATIVE); UR RBC 1 /HPF (0-5); UR SPECIFIC GRAVITY (Dip) 1.019 (1.003-1.030); UR SQUAMOUS EPITHELIAL CELL FEW /HPF (FEW); UR TOTAL PROTEIN (Dip) NEGATIVE (NEGATIVE); UR UROBILINOGEN (Dip) NEGATIVE (NEGATIVE)
[2017-08-18 13:44] LABS: INR 0.9; PROTIME 12.1 Sec (12.2-14.2); PT RATIO 0.9
[2017-08-18 13:49] LABS: ALANINE AMINOTRANSFERASE 55 IU/L (13-69); ALBUMIN 4.7 g/dl (3.3-4.9); ALBUMIN/GLOBULIN RATIO 1.17; ALKALINE PHOSPHATASE 99 IU/L (42-121); ANION GAP 15 (8-16); ASPARTATE AMINO TRANSFERASE 44 IU/L (15-46); BILIRUBIN,INDIRECT 0.7 mg/dl (0-1.1); BILIRUBIN,TOTAL 0.7 mg/dl (0.2-1.3); BLOOD UREA NITROGEN 11 mg/dl (7-20); CALCIUM 9.3 mg/dl (8.4-10.2); CARBON DIOXIDE 26 mmol/L (21-31); CHLORIDE 104 mmol/L (97-110); CREATININE 0.72 mg/dl (0.44-1.00); GLUCOSE 83 mg/dl (70-220); POTASSIUM 4.3 mmol/L (3.5-5.1); SODIUM 141 mmol/L (135-144); TOTAL PROTEIN 8.7 g/dl (6.1-8.1)
[2017-08-18 14:03] LABS: TROPONIN-I < 0.012 ng/ml (0.00-0.12)
[2017-08-18] MEDS ORDERED: FAMOTIDINE 20 MG TAB PO STA (14:28)
[2017-08-18] MEDS ORDERED: LIDOCAINE/MYLANTA 40 ML BTL PO STA (14:28)
[2017-08-18] MEDS ORDERED: BELLADONNA/PHENOBARBITAL TAB PO STA (14:28)
--- NOTE | 2017-08-18 15:14 | ERA ---
ER Documentation Chief Complaint Date/Time DATE: 08/18/17 TIME: 14:59 Chief Complaint sent by PCP for surgery HPI 36-year-old woman complains of right upper quadrant abdominal pain similar previous episodes, she has had multiple episodes of clear nonbloody nonbilious emesis yesterday. Patient has been using oral opioid analgesics at home without relief. She has a history of cholelithiasis and is scheduled for possible ERCP versus cholecystectomy tomorrow. Surgeon is Dr. Smith. Patient denies hematemesis, no fevers or chills, no blood per rectum or melena, no chest pain or shortness of breath. Patient was seen and evaluated here last week and diagnosed with cholelithiasis. ROS All systems reviewed and are negative except as per history of present illness. Medications Home Meds Active Scripts Ondansetron (Ondansetron Odt) 4 Mg Tab.rapdis, 4 MG PO Q6H Y for NAUSEA AND/OR VOMITING, #10 TAB Prov:LOLLY BARRON MD 08/10/17 Meclizine Hcl* (Meclizine Hcl*) 25 Mg Tablet, 25 MG PO Q8H Y for DIZZINESS, #20 TAB Prov:LOLLY BARRON MD 08/10/17 Allergies Allergies: Coded Allergies: Penicillins (Verified Allergy, Unknown, rash, 08/18/17) PMhx/Soc Cholelithiasis History of Surgery: Yes (c section) Anesthesia Reaction: No Hx Neurological Disorder: No Hx Respiratory Disorders: No Hx Cardiac Disorders: No Hx Psychiatric Problems: No Hx Miscellaneous Medical Probl: Yes (gall stones ) Hx Alcohol Use: No Hx Substance Use: No Hx Tobacco Use: No Smoking Status: Never smoker FmHx Family History: No diabetes Physical Exam Vitals Vital Signs Date Time Temp Pulse Resp B/P Pulse Ox O2 Delivery O2 Flow Rate FiO2 08/18/17 10:37 97.6 64 19 134/64 99 Physical Exam GENERAL: Well-developed, well-nourished, moderate discomfort, afebrile HEENT: Moist mucous membranes, pink conjunctiva, no cervical spine tenderness or step-off deformities, no goiter, no jaundice or icterus, extraocular movements intact without pain. No submandibular induration, and no pharyngeal erythema NEURO: Alert and oriented 3, cranial nerves II through XII intact bilaterally, pupils equal round reactive to light, no focal deficits or facial asymmetry, sensation intact distally Strength 5/5 in upper and lower extremities bilaterally CARDIAC: Bradycardic and regular, no murmurs rubs or gallops LUNGS: Clear bilaterally no wheezing crackles or stridor ABDOMEN: Positive Llanes sign with voluntary guarding, no rigidity, no rebound, no psoas sign no obturator sign. SKIN: Warm and dry to touch, no abrasions, contusions, or hematomas, no lacerations, no ecchymosis, no target lesions, and without ulcers EXTREMITIES: No clubbing cyanosis or edema, calves are bilaterally symmetrical, no Homans sign, no popliteal cord sign. Distal pulses equal and bilateral PSYCH: Normal affect without agitation or irritability Result Diagram: 08/18/17 1255 08/18/17 1255 Results 24 hrs Laboratory Tests Test 08/18/17 12:55 08/18/17 13:05 White Blood Count 10.310^3/ul Red Blood Count 5.4210^6/ul Hemoglobin 15.0g/dl Hematocrit 44.6% Mean Corpuscular Volume 82.3fl Mean Corpuscular Hemoglobin 27.7pg Mean Corpuscular Hemoglobin Concent 33.6g/dl Red Cell Distribution Width 12.5% Platelet Count 36389^3/UL Mean Platelet Volume 9.7fl Neutrophils % 64.1% Lymphocytes % 26.0% Monocytes % 6.2% Eosinophils % 2.9% Basophils % 0.6% Nucleated Red Blood Cells % 0.0/100WBC Neutrophils # 6.610^3/ul Lymphocytes # 2.710^3/ul Monocytes # 0.610^3/ul Eosinophils # 0.310^3/ul Basophils # 0.110^3/ul Nucleated Red Blood Cells # 0.010^3/ul Prothrombin Time 12.1Sec Prothrombin Time Ratio 0.9 INR International Normalized Ratio 0.90 Sodium Level 141mmol/L Potassium Level 4.3mmol/L Chloride Level 104mmol/L Carbon Dioxide Level 26mmol/L Anion Gap 15 Blood Urea Nitrogen 11mg/dl Creatinine 0.72mg/dl Glucose Level 83mg/dl Calcium Level 9.3mg/dl Total Bilirubin 0.7mg/dl Direct Bilirubin 0.00mg/dl Indirect Bilirubin 0.7mg/dl Aspartate Amino Transf (AST/SGOT) 44IU/L Alanine Aminotransferase (ALT/SGPT) 55IU/L Alkaline Phosphatase 99IU/L Troponin I < 0.012ng/ml Total Protein 8.7g/dl Albumin 4.7g/dl Globulin 4.00g/dl Albumin/Globulin Ratio 1.17 Lipase 120U/L Urine Color YELLOW Urine Clarity SLIGHTLY CLOUDY Urine pH 5.0 Urine Specific [place] 1.019 Urine Ketones NEGATIVEmg/dL Urine Nitrite NEGATIVEmg/dL Urine Bilirubin NEGATIVEmg/dL Urine Urobilinogen NEGATIVEmg/dL Urine Leukocyte Esterase TRACELeu/ul Urine Microscopic RBC 1/HPF Urine Microscopic WBC 2/HPF Urine Squamous Epithelial Cells FEW/HPF Urine Bacteria FEW/HPF Urine Hemoglobin NEGATIVEmg/dL Urine Glucose NEGATIVEmg/dL Urine Total Protein NEGATIVEmg/dl Current Medications Medications (Trade) Dose Ordered Sig/Gigi Route PRN Reason Start Time Stop Time Status Last Admin Dose Admin Sodium Chloride (NS) 1,000 ml @ 1,000 mls/hr Q1H STAT IV 08/18/17 12:44 08/18/17 13:43 DC 08/18/17 13:07 Morphine Sulfate (morphine) 4 mg ONCE STAT IV 08/18/17 12:44 08/18/17 12:46 DC 08/18/17 13:07 Ondansetron HCl (Zofran Inj) 4 mg ONCE STAT IV 08/18/17 12:44 08/18/17 12:46 DC 08/18/17 13:07 Famotidine (Pepcid) 40 mg ONCE STAT PO 08/18/17 14:28 08/18/17 14:29 DC 08/18/17 14:43 Miscellaneous Medication (Gi Cocktail (2)) 40 ml ONCE STAT PO 08/18/17 14:28 08/18/17 14:29 DC 08/18/17 14:44 [place]/ Phenobarbital () 2 tab ONCE STAT PO 08/18/17 14:28 08/18/17 14:29 DC 08/18/17 14:42 Procedures/MDM IV line was established patient was placed on surveillance monitor rhythm strip revealed a sinus bradycardia at about 60 bpm. Patient was afebrile. EKG performed, read by me: Sinus bradycardia at 54 bpm, normal sinus rhythm, normal axis, no acute ST segment changes, narrow QRS complex, with good R-wave progression in precordial leads. I administered 1 L normal saline intravenously, morphine 4 mg IV, Zofran 4 mg IV with good response. For later epigastric discomfort I administered a GI cocktail 30 cc p.o., and famotidine 40 mg p.o. CBC and electrolytes were within normal limits, liver function tests were normal , coagulation profile was normal. Troponin was negative urinalysis was unremarkable. I spoke to surgeon Dr. Smith regarding the patient's presentation and symptomatology, he recommended admission for possible surgical intervention, and recommended MRCP. I ordered MRCP. Patient's pain has improved although she remains symptomatic and has continued discomfort, she will be admitted to [facility] for continued medical management, MRCP, and surgery consultation. Departure Diagnosis: Primary Impression: Intractable abdominal pain Additional Impressions: Cholelithiasis and acute cholecystitis without obstruction Gastritis Qualified Code: K29.00 - Acute superficial gastritis, presence of bleeding unspecified Condition: AUDI Grier MD Aug 18, 2017 15:09
--- NOTE | 2017-08-18 17:03 | RADRPT ---
PROCEDURE: MRCP. CLINICAL INDICATION: Abdominal pain. Gallstones. TECHNIQUE: MRCP was performed on the a high-resolution, high Elsy field strength scanner. No intr avenous contrast. 3-D coronal rotating MIP images of the biliary tree were reviewed. COMPARISON: Ultrasound 08/02/2017 FINDINGS: Nondistended gallbladder with multiple stones. No intrahepatic nor extrahepatic biliary dilatation. Common bile duct measures 5 mm. No biliary duct filling defect. No obstructing mass visualized. The pancreatic duct is nondilated. No pleural effusion. No peritoneal free fluid. Normal T2 signal of the liver, pancreas, spleen, adrenal glands and kidneys. No hydronephrosis. IMPRESSION: Gallbladder contains multiple stones. No evidence of biliary duct obstruction. RPTAT:AAJJ Physician Van Date Time Electronically viewed and signed by Physician Van on 08/18/2017 17:03 /
[2017-08-18] MEDS ORDERED: ONDANSETRON 4 MG INJ IV PRN (18:30)
[2017-08-18 21:25] VITALS: Ht 160 cm; Wt 100.0 kg
[2017-08-18 21:35] VITALS: BP 109/68; PULSE 58; RESP 18
[2017-08-18] MEDS: FAMOTIDINE 20 MG INJ IV SCH (22:25)
[2017-08-18] MEDS: morphine 2 MG INJ IV PRN (22:28)
[2017-08-19] VITALS (14 sets, daily range): BP systolic 91–119; BP diastolic 54–61; PULSE 52–61; RESP 16–24
[2017-08-19] MEDS: D5W-0.45 NACL + KCL 20 MEQ 1,000 ML IV SCH ×3 (04:12→14:12)
--- NOTE | 2017-08-19 04:42 | HP ---
DATE OF ADMISSION: 08/18/2017 CHIEF COMPLAINT: Significant right upper quadrant pain and fever. HISTORY OF PRESENT ILLNESS: The patient is a 36-year-old female with known gallstones. The patient denies any other chronic condition except for the patient has a claustrophobia. The patient was di agnosed with cholelithiasis and was evaluated by Dr. Smith in surgical consultation and patient was sent to the emergency room from his office. The patient complains of right upper quadrant abdominal pain with multiple episodes of clear, nonbloody, nonbilious emesis yesterday. Patient also stated she had fever a couple of days ago. Patient was taking some oral p.o. analgesic; however, it did no t relieve her pain. Patient denies any shortness of breath, denies any chest pain, denies any bilat eral lower extremity swelling. Denies any diarrhea. The patient will undergo MRCP and patient will be admitted for further evaluation and management. PAST MEDICAL HISTORY: Per HPI. PAST SURGICAL HISTORY: Patient is status post x2 with history of some postoperative bleed ing. FAMILY HISTORY: Negative for diabetes. SOCIAL HISTORY: Patient lives at home with her family. The patient denies any tobacco, denies any alcohol use, denies any illicit drug use. ALLERGIES: THE PATIENT IS ALLERGIC TO PENICILLIN ANTIBIOTICS. HOME MEDICATIONS: Include: 1. Zofran. 2. Meclizine p.r.n. REVIEW OF SYSTEMS: A 12-point review of systems is negative unless what mentioned in the HPI. PHYSICAL ASSESSMENT: GENERAL: Well-developed, obese female currently is awake, alert. VITAL SIGNS: Temperature is 97.6, pulse is 76, blood pressure 118/65, respiratory rate 20, oxygen s aturation 99% on room air. HEENT: Head is atraumatic, normocephalic. Pupils equal, round, reactive to light and accommodation . Oral mucosa is pink and moist. NECK: Supple, no cervical lymphadenopathy, no thyromegaly. CHEST: Lungs clear bilaterally. There are no rhonchi, wheezes, rales noted. CARDIOVASCULAR: Normal S1, S2. No murmurs, gallops, clicks, rubs noted. ABDOMEN: Round, soft. Patient has right upper quadrant tenderness, no guarding, no rebound tendern ess. EXTREMITIES: No edema, clubbing, cyanosis. Pulses equal bilaterally 2+. SKIN: There is no rash, petechiae noted. NEUROLOGIC: Patient is awake, alert and oriented x4. No focal deficits noted. MUSCULOSKELETAL: Patient moves all extremities. LABORATORY DATA: On admission, CBC: White blood cells 10.3, hemoglobin 15.0, hematocrit 44.6, plat elets 381. Chemistry: Sodium is 141, potassium 3.4, chloride 104, carbon dioxide 26, anion gap is 10, BUN is 11, creatinine 0.72, glucose 83. Troponin is less than 0.012. Lipase is 120. PT is 12. 1, INR 0.9. PT ratio 0.9. Urine is with trace leukocyte esterase. ASSESSMENT AND PLAN 1. Intractable abdominal pain. We will continue morphine p.r.n. for pain and Zofran p.r.n. for [place]. 2. Cholelithiasis and acute cholecystitis. I will start patient on Zosyn. Dr. Smith will see rosalee ent in general surgery consultation. We will continue IV fluids. Monitor electrolytes. 3. Rule out choledocholithiasis. The patient will undergo magnetic resonance cholangiopancreatogra phy. We will continue sequential compression devices for deep venous thrombosis prophylaxis and Pro tonix for peptic ulcer disease prophylaxis. Further recommendations based on clinical course. Plan of care discussed with Dr. Wright. Dictated By: JAROCHO YOUNG PULP SCREEN OPERATOR for KATHLEEN WRIGHT MD, SR/NTS Conf#: [id number] DID#: [id number]
[2017-08-19 07:22] LABS: WHITE BLOOD COUNT 8.5 10^3/ul (4.8-10.8)
[2017-08-19 07:23] LABS: BASOPHIL # 0.1 10^3/ul (0.0-0.1); BASOPHILS % 0.6 % (0.0-2.0); EOSINOPHILS # 0.3 10^3/ul (0.0-0.5); EOSINOPHILS % 3.9 % (0.0-7.0); HEMATOCRIT 40.8 % (37.0-47.0); HEMOGLOBIN 13.5 g/dl (12.0-16.0); LYMPHOCYTES # 2.1 10^3/ul (0.8-2.9); LYMPHOCYTES % 25.1 % (15.0-51.0); MEAN CORPUSCULAR HEMOGLOBIN 27.4 pg (29.0-33.0); MEAN CORPUSCULAR HGB CONC 33.1 g/dl (32.0-37.0); MEAN CORPUSCULAR VOLUME 82.9 fl (82.0-101.0); MEAN PLATELET VOLUME 9.7 fl (7.4-10.4); MONOCYTE # 0.5 10^3/ul (0.3-0.9); MONOCYTES % 5.8 % (0.0-11.0); NEUTROPHIL # 5.5 10^3/ul (1.6-7.5); NEUTROPHILS % 64.2 % (39.0-77.0); PLATELET COUNT 352 10^3/UL (140-415); RED BLOOD COUNT 4.92 10^6/ul (4.20-5.40); RED CELL DISTRIBUTION WIDTH 12.6 % (11.5-14.5)
[2017-08-19 07:45] LABS: ALBUMIN 3.6 g/dl (3.3-4.9); ALBUMIN/GLOBULIN RATIO 1.09; BILIRUBIN,INDIRECT 0.7 mg/dl (0-1.1); BILIRUBIN,TOTAL 0.7 mg/dl (0.2-1.3); CALCIUM 8.3 mg/dl (8.4-10.2); CREATININE 0.8 mg/dl (0.44-1.00); MAGNESIUM 1.9 mg/dl (1.7-2.5); POTASSIUM 4.2 mmol/L (3.5-5.1); TOTAL PROTEIN 6.9 g/dl (6.1-8.1)
[2017-08-19] MEDS: FAMOTIDINE 20 MG INJ IV SCH ×2 (09:00→20:28)
[2017-08-19] MEDS: morphine 2 MG INJ IV PRN ×2 (12:17→21:02)
[2017-08-19] MEDS: CIPROFLOXACIN 400MG/D5W 200 ML IVPB SCH (16:57)
--- NOTE | 2017-08-19 17:19 | CONS ---
DATE OF ADMISSION: 08/18/2017 DATE OF CONSULTATION: 08/19/2017 REQUESTING PHYSICIAN: Dr. Smith and I see the patient for Dr. Smith. REASON FOR CONSULTATION: Gallbladder disease. CHIEF COMPLAINT: This is a 36-year-old female who was referred to the emergency room last night com plaining of intractable right upper quadrant abdominal pain for almost 3 weeks' duration, nausea, so metimes vomiting and 5 days ago had also probably fever. The patient states that about 3 weeks ago had this pain, came to the emergency room here, ultrasound . They told her that she has a gallstone and she was referred to Dr. Smith' office yesterday. She was seen in the morning with Dr. Smith' office and the impression was that she has acute cholecystit is and was sent to the emergency room, was evaluated and was admitted with the impression of acute c holecystitis and intractable abdominal pain. PAST MEDICAL HISTORY: Unremarkable. PAST SURGICAL HISTORY: Two sections. ALLERGIES: PENICILLIN. MEDICATIONS: 1. Zofran. 2. Meclizine p.r.n. PHYSICAL EXAMINATION: GENERAL: The patient is awake, alert, oriented x3. VITAL SIGNS: Temperature 97.8, heart rate 61 regular, respirations 18, blood pressure 110/60, satur ation 98% room air. It should be mentioned that the patient's BMI is 39 kilograms per square meter. She weighs 100 kilograms. HEAD: Normocephalic. EYES: Pupils equally round, reactive to light and accommodative. Extraocular muscles, full range o f motion. CHEST: Symmetrical expansion of hemithorax. LUNGS: Clear. HEART: Regular rhythm, no murmur. ABDOMEN: Protruded with fat. Bowel sound is present. Abdomen is soft, all around except in the righ t upper quadrant which is painful on pressure and Llanes sign is positive. There is no guarding. T here is no rebound tenderness. LOWER EXTREMITIES: No pitting edema. LABS ON ADMISSION LAST NIGHT: WBC 10,300. Today 8500 shift 64% neutrophils, which is normal. Hemo globin 13.5, hematocrit 40. Chemistry: Sodium, potassium, BUN and creatinine normal. Note: AST i s elevated at 179, ALT 171, elevated alkaline phosphatase 129, elevated bilirubin is 0.7, normal. C oagulation profile is normal. Urinalysis is normal. IMAGING: Yesterday she had MRCP which the impression was gallbladder containing multiple stones and no evidence of biliary obstruction. IMPRESSION: This is a 36-year-old female who has been having symptomatic gallbladder disease and ga llstones since 3 weeks ago, recently got worse and pain has been intractable associated nausea and s ome vomiting. The chemistry shows elevated liver enzymes, but no bilirubin so the impression is pos sibly she has passed the stone or she is passing a stone from common bile duct. PLAN: Dr. Smith wants the GI colleague, Dr. Christiansen, to proceed with doing an ERCP and I consulted w issac Christiansen myself. I called him and he is planning to do that considering that the MRCP has not been conclusive and enzymes are elevated and after that we will make further decision for removal o f the gallbladder. Meanwhile, the patient is going to be started on antibiotics, ciprofloxacin and pain medication. Dictated By: BRANDO CHRISTINE/MAVERICK Conf#: [id number] DID#: [id number]
--- NOTE | 2017-08-19 17:53 | PN ---
Date/Time of Note Date/Time of Note DATE: 08/19/17 TIME: 17:47 Assessment/Plan Lines/Catheters IV Catheter Type (from Nrsg): Peripheral IV Assessment/Plan Assessment/Plan 1. Intractable abdominal pain. We will continue morphine p.r.n. for pain and Zofran p.r.n. for nausea. 2. Cholelithiasis and acute cholecystitis. I will start patient on Zosyn. Dr. Smith will see patient in general surgery consultation. We will continue IV fluids. Monitor electrolytes. 3. Rule out choledocholithiasis. The patient will undergo magnetic resonance cholangiopancreatography. We will continue sequential compression devices for deep venous thrombosis prophylaxis and Protonix for peptic ulcer disease prophylaxis. Further recommendations based on clinical course. Plan of care discussed with Dr. Wright. Exam/Review of Systems Vital Signs Vitals Vital Signs Date Time Temp Pulse Resp B/P Pulse Ox O2 Delivery O2 Flow Rate FiO2 08/19/17 07:00 97.8 61 18 110/60 100 Room Air Results Result Diagram: 08/19/17 0643 08/19/17 0643 Results 24 hrs Laboratory Tests Test 08/19/17 06:43 White Blood Count 8.5 Red Blood Count 4.92 Hemoglobin 13.5 Hematocrit 40.8 Mean Corpuscular Volume 82.9 Mean Corpuscular Hemoglobin 27.4 L Mean Corpuscular Hemoglobin Concent 33.1 Red Cell Distribution Width 12.6 Platelet Count 352 Mean Platelet Volume 9.7 Neutrophils % 64.2 Lymphocytes % 25.1 Monocytes % 5.8 Eosinophils % 3.9 Basophils % 0.6 Nucleated Red Blood Cells % 0.0 Neutrophils # 5.5 Lymphocytes # 2.1 Monocytes # 0.5 Eosinophils # 0.3 Basophils # 0.1 Nucleated Red Blood Cells # 0.0 Sodium Level 140 Potassium Level 4.2 Chloride Level 107 Carbon Dioxide Level 27 Anion Gap 10 # Blood Urea Nitrogen 11 Creatinine 0.80 Glucose Level 97 Calcium Level 8.3 L Magnesium Level 1.9 Total Bilirubin 0.7 Direct Bilirubin 0.00 Indirect Bilirubin 0.7 Aspartate Amino Transf (AST/SGOT) 179 H Alanine Aminotransferase (ALT/SGPT) 171 H Alkaline Phosphatase 129 H Total Protein 6.9 # Albumin 3.6 # Globulin 3.30 H Albumin/Globulin Ratio 1.09 Medications Medications Current Medications Potassium Chloride/Dextrose/ Sod Cl (D5-1/2ns + KCl 20 Meq) 1,000 ml @ 100 mls/ hr Q10H IV Last administered on 08/19/17 04:12; Admin Dose 100 MLS/HR; Start 08/18/17 at 18:12 Ondansetron HCl (Zofran Inj) 4 mg Q6H PRN IV NAUSEA AND/OR VOMITING; Start 09/24 at 18:30 Morphine Sulfate (morphine) 2 mg Q4H PRN IV SEVERE PAIN LEVEL 7-10 Last administered on 08/19/17 12:17; Admin Dose 2 MG; Start 08/18/17 at 18:30 Famotidine 20 mg 20 mg Q12 IV Last administered on 08/19/17 09:00; Admin Dose 20 MG; Start 08/18/17 at 21:00 Ciprofloxacin/ Dextrose (Cipro Ivpb) 200 ml @ 200 mls/hr Q12 IVPB Last administered on 08/19/17 16:57; Admin Dose 200 MLS/HR; Start 08/19/17 at 16: 45 GABRIEL EPSTEIN Aug 19, 2017 17:53
[2017-08-19] MEDS ORDERED: ROCURONIUM 50 MG INJ ONE (18:03)
[2017-08-19] MEDS ORDERED: PROPOFOL 20 ML ONE (18:03)
[2017-08-19] MEDS ORDERED: FENTAnyl 50 MCG/ML VIAL ONE (18:17)
[2017-08-19] MEDS ORDERED: KETOROLAC 30 MG INJ IV PRN (18:30)
[2017-08-19] MEDS ORDERED: DIPHENHYDRAMINE 50 MG INJ IV PRN (18:30)
[2017-08-19] MEDS ORDERED: hydrALAzine 20 MG INJ IV PRN (18:30)
[2017-08-19] MEDS ORDERED: ONDANSETRON 4 MG INJ IV PRN (18:30)
[2017-08-19] MEDS ORDERED: LABETALOL HCL 20MG INJ IV PRN (18:30)
[2017-08-19] MEDS ORDERED: METOCLOPRAMIDE 10 MG INJ IV PRN (18:30)
[2017-08-19] MEDS ORDERED: OXYCODONE/ACETAMINOPHEN (5/325) TAB PO PRN ×2 (18:30)
[2017-08-19] MEDS ORDERED: FENTAnyl 50 MCG/ML VIAL IV PRN ×3 (18:30)
[2017-08-19] MEDS ORDERED: HYDROmorphONE (0.2 MG/ML) 10ML SYG IV PRN ×3 (18:30)
[2017-08-19] MEDS ORDERED: MEPERIDINE 25 MG INJ IV PRN (18:30)
[2017-08-19] MEDS ORDERED: EPHEDrine SULFATE 50 MG/5 ML SYG IV PRN (18:30)
[2017-08-19] MEDS ORDERED: DEXAMETHASONE 4 MG/ML 1 ML INJ ONE (18:37)
[2017-08-19] MEDS ORDERED: ONDANSETRON 4 MG INJ ONE (18:37)
[2017-08-19] MEDS ORDERED: LIDOCAINE 2% (SDV) 5 ML INJ ONE (18:37)
[2017-08-19] MEDS ORDERED: GLYCOPYRROLATE 0.4 MG INJ ONE (19:03)
[2017-08-19] MEDS ORDERED: NEOSTIGMINE 3 MG/3 ML SYRINGE ONE (19:03)
--- NOTE | 2017-08-19 19:12 | OPR ---
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
--- NOTE | 2017-08-19 20:43 | RADRPT ---
PROCEDURE: Intraoperative imaging for ERCP with fluoroscopy. CLINICAL INDICATION: Right upper quadrant pain. Intraoperative. TECHNIQUE: 6 images of the right upper quadrant of the abdomen were obtained in the operating room with an image intensifier. No radiologist was in attendance. 125 seconds of fluoroscopy time was used. COMPARISON: MRCP dated 08/18/2017. FINDINGS: Images demonstrate the endoscope in position. Contrast was initially injected into the pancreatic du ct which appears normal. Contrast was injected into the common bile duct. There is no filling defect or dilation. The common bile duct stent was placed. IMPRESSION: 1. ERCP as described above. RPTAT: QQ .Marcin Gross MD, MD Date Time Electronically viewed and signed by .Marcin Gross MD, on 08/19/2017 20:43 .R/
[2017-08-20] MEDS: D5W-0.45 NACL + KCL 20 MEQ 1,000 ML IV SCH ×4 (00:12→19:48)
[2017-08-20] MEDS ORDERED: HYDROmorphONE 1 MG/ML SYG IV ONE (00:18)
[2017-08-20] MEDS: ONDANSETRON 4 MG INJ IV PRN ×3 (00:25→22:12)
[2017-08-20 01:37] VITALS: BP 132/74; RESP 20
[2017-08-20] MEDS: CIPROFLOXACIN 400MG/D5W 200 ML IVPB SCH ×3 (01:47→19:46)
[2017-08-20] MEDS: morphine 2 MG INJ IV PRN (03:33)
[2017-08-20 05:43] LABS: BASOPHILS % 0.1 % (0.0-2.0); HEMATOCRIT 43.8 % (37.0-47.0); HEMOGLOBIN 14.4 g/dl (12.0-16.0); LYMPHOCYTES # 0.7 10^3/ul (0.8-2.9); LYMPHOCYTES % 5.7 % (15.0-51.0); MEAN CORPUSCULAR HEMOGLOBIN 26.9 pg (29.0-33.0); MEAN CORPUSCULAR HGB CONC 32.9 g/dl (32.0-37.0); MEAN CORPUSCULAR VOLUME 81.9 fl (82.0-101.0); MEAN PLATELET VOLUME 9.8 fl (7.4-10.4); MONOCYTE # 0.2 10^3/ul (0.3-0.9); MONOCYTES % 1.3 % (0.0-11.0); NEUTROPHIL # 11.8 10^3/ul (1.6-7.5); NEUTROPHILS % 92.3 % (39.0-77.0); PLATELET COUNT 363 10^3/UL (140-415); RED BLOOD COUNT 5.35 10^6/ul (4.20-5.40); RED CELL DISTRIBUTION WIDTH 12.6 % (11.5-14.5); WHITE BLOOD COUNT 12.7 10^3/ul (4.8-10.8)
[2017-08-20] MEDS: HYDROmorphONE 2 MG/ML SYG IV PRN ×5 (05:53→22:11)
[2017-08-20 06:32] LABS: CALCIUM 9.2 mg/dl (8.4-10.2); CREATININE 0.81 mg/dl (0.44-1.00); POTASSIUM 4.2 mmol/L (3.5-5.1)
--- NOTE | 2017-08-20 07:00 | CONS ---
DATE OF ADMISSION: 08/18/2017 DATE OF CONSULTATION: Dear Dr. Casarez and Dr. Smith: Thank you for asking me to see Mrs. Berumen in GI consultation. HISTORY OF PRESENT ILLNESS: As you know, the patient is a 36-year-old female who has been experiencing right upper quadrant pain radiating to the right back, in the middle of the back which has been going on for the past 3 weeks. She was seen in the emergency room, she was also seen by Dr Jose C Voss. She does have cholelithiasis, cholecystectomy has been planned. Because of the persistent abdominal pain she has been admitted to the hospital. No history of alcoholism. No history of any other GI problems. PAST MEDICAL HISTORY: She had 2 C-sections in the past. REVIEW OF SYSTEM: Grossly unremarkable. MEDICATION LIST: Please review the chart. SOCIAL HISTORY: Does not smoke or drink. No history of hepatitis in the past. PHYSICAL EXAMINATION: GENERAL: The patient is a 36-year-old female who at this time she is well built. VITAL SIGNS: Afebrile. CARDIOVASCULAR: Normal heart sounds. RESPIRATORY: Normal breath sounds. ABDOMEN: Showed very minimal right upper quadrant tenderness. The MRCP showed multiple gallstones but no significant dilatation of the common bile duct. LABORATORY FUNCTIONS: Her white count is not very high and the liver enzymes are in the range of 4 0 to 50 on admission, however the liver enzymes went up to almost close to 200 and patient continues to have the pain. CLINICAL IMPRESSION: Right upper quadrant pain persistent for the past 3 weeks. Patient seen by a surgeon and surgeon has requested ERCP and MRCP. Dictated By: BREA FRANKLIN MD NC/NTS Conf#: [id number] DID#: [id number] CC: KATHLEEN CASAREZ MD; BREA FRANKLIN MD; ANUEL SMITH MD;*EndCC*
[2017-08-20 07:19] VITALS: BP 149/74; RESP 20
[2017-08-20] MEDS: FAMOTIDINE 20 MG INJ IV SCH ×2 (11:35→19:46)
[2017-08-20 13:57] VITALS: BP 138/86; RESP 20
--- NOTE | 2017-08-20 16:40 | PN ---
Date/Time of Note Date/Time of Note DATE: 08/20/17 TIME: 16:33 Assessment/Plan VTE Prophylaxis VTE Prophylaxis Intervention: SCD's Lines/Catheters IV Catheter Type (from Nrs): Peripheral IV Assessment/Plan Chief Complaint/Hosp Course Patient's continues to have non-bilious nonbloody emesis and nausea and abdominal pain. Problems: Assessment/Plan - Intractable abdominal pain. Continue Dilaudid p.r.n. for pain and Zofran p.r.n. for nausea. - Cholelithiasis and acute cholecystitis. Dr. Smith is following in general surgery consultation. Patient is allergic to penicillin antibiotics, continue ciprofloxacin and Flagyl. - Rule out choledocholithiasis. S/P ERCP and common bile duct stent placement by Dr Christiansen. Further recommendations based on clinical course. Plan of care discussed with Dr. Wright. Exam/Review of Systems Vital Signs Vitals Vital Signs Date Time Temp Pulse Resp B/P Pulse Ox O2 Delivery O2 Flow Rate FiO2 08/20/17 13:57 97.6 59 20 138/86 96 08/19/17 20:02 Room Air Intake and Output 08/19/17 08/19/17 08/20/17 15:00 23:00 07:00 Intake Total 700 ml 2080 ml Balance 700 ml 2080 ml Exam Constitutional: oriented Neck: supple Respiratory: normal air movement Cardiovascular: nl pulses Gastrointestinal: soft, tender Extremities: normal pulses Results Result Diagram: 08/20/17 0501 08/20/17 0501 Results 24 hrs Laboratory Tests Test 08/20/17 05:01 White Blood Count 12.7 #H Red Blood Count 5.35 Hemoglobin 14.4 Hematocrit 43.8 Mean Corpuscular Volume 81.9 L Mean Corpuscular Hemoglobin 26.9 L Mean Corpuscular Hemoglobin Concent 32.9 Red Cell Distribution Width 12.6 Platelet Count 363 Mean Platelet Volume 9.8 Neutrophils % 92.3 H Lymphocytes % 5.7 L Monocytes % 1.3 Eosinophils % 0.0 Basophils % 0.1 Nucleated Red Blood Cells % 0.0 Neutrophils # 11.8 H Lymphocytes # 0.7 L Monocytes # 0.2 L Eosinophils # 0.0 Basophils # 0.0 Nucleated Red Blood Cells # 0.0 Sodium Level 137 Potassium Level 4.2 Chloride Level 103 Carbon Dioxide Level 24 Anion Gap 14 Blood Urea Nitrogen 12 Creatinine 0.81 Glucose Level 216 # Calcium Level 9.2 Medications Medications Current Medications Potassium Chloride/Dextrose/ Sod Cl (D5-1/2ns + KCl 20 Meq) 1,000 ml @ 100 mls/ hr Q10H IV Last administered on 08/20/17 16:29; Admin Dose 100 MLS/HR; Start 08/18/17 at 18:12 Famotidine 20 mg 20 mg Q12 IV Last administered on 08/20/17 11:35; Admin Dose 20 MG; Start 08/18/17 at 21:00 Ciprofloxacin/ Dextrose (Cipro Ivpb) 200 ml @ 200 mls/hr Q12 IVPB Last administered on 08/20/17 10:03; Admin Dose 200 MLS/HR; Start 08/19/17 at 16: 45 Ondansetron HCl (Zofran Inj) 4 mg Q4H PRN IV NAUSEA AND/OR VOMITING Last administered on 08/20/17 13:32; Admin Dose 4 MG; Start 08/20/17 at 00:10 Hydromorphone HCl (Dilaudid) 2 mg Q3H PRN IV PAIN Last administered on 14:25; Admin Dose 2 MG; Start 08/20/17 at 15:00 JAROCHO YOUNG Aug 20, 2017 16:40
[2017-08-20] MEDS: metroNIDAZOLE 500 MG/NS (PMX) 100 ML IVPB SCH (17:40)
[2017-08-20] MEDS: KETOROLAC 30 MG INJ IV SCH ×2 (18:30→19:46)
[2017-08-20 20:00] VITALS: BP 127/74; RESP 20
[2017-08-20 20:00] LABS: ALBUMIN 4.1 g/dl (3.3-4.9); BILIRUBIN,INDIRECT 0.3 mg/dl (0-1.1); BILIRUBIN,TOTAL 0.3 mg/dl (0.2-1.3); CALCIUM 8.6 mg/dl (8.4-10.2); CREATININE 0.73 mg/dl (0.44-1.00); POTASSIUM 4.4 mmol/L (3.5-5.1); TOTAL PROTEIN 8.2 g/dl (6.1-8.1)
[2017-08-21] MEDS: KETOROLAC 30 MG INJ IV SCH ×4 (00:49→18:26)
[2017-08-21] MEDS: metroNIDAZOLE 500 MG/NS (PMX) 100 ML IVPB SCH ×4 (00:50→22:26)
[2017-08-21 02:00] VITALS: BP 119/64; RESP 20
[2017-08-21] MEDS: HYDROmorphONE 2 MG/ML SYG IV PRN ×6 (03:20→22:28)
[2017-08-21] MEDS: D5W-0.45 NACL + KCL 20 MEQ 1,000 ML IV SCH ×3 (03:48→19:35)
--- NOTE | 2017-08-21 06:19 | PN ---
DATE: 08/20/2017 Post-ERCP postop day #1 SUBJECTIVE: The patient continues to complain of severe upper quadrant right and left abdominal alex n with nausea and vomiting, even has not tolerated liquid diet. Has required pain medication, 2 mg of Dilaudid every 4 hours. The patient is on antibiotics, Flagyl and ciprofloxacin. Dr. Christiansen, GI colleague, yesterday did ERCP and the report is in the computer. OBJECTIVE: GENERAL: Alert, awake, oriented x3. VITAL SIGNS: Temperature 98.5, heart rate 59, respirations 20, blood pressure 138/86, saturation 96 % on room air. HEAD: Normocephalic. HEART: Regular. LUNGS: Clear. ABDOMEN: Not distended, is soft but is tender all over the right upper quadrant and left upper quad rant and epigastric area and also some part of the right lower quadrant. No rebound tenderness. No rigidity. LABORATORY DATA: Sodium, potassium, BUN and creatinine is normal today. Glucose was reported today 216. Unfortunately, today they have not done CMP. They did BMP and we do not know what is the res ult of AST, alkaline phosphatase and lipase today. Hematology: WBC increased to 12,700 with 92% ne utrophils, which is shift to the left, hemoglobin 14.4, hematocrit 43.8. ASSESSMENT AND PLAN: A 36-year-old female who was admitted with gallbladder disease and gallstones. Magnetic resonance cholangiopancreatography showed only gallbladder stone. They did not mention a nything about acute cholecystitis, but the patient continues to complain of pain and enzymes were el evated. Therefore, GI colleague was consulted. They recommended endoscopic retrograde cholangiopan creatography. Endoscopic retrograde cholangiopancreatography was done last night and patient states that since his endoscopic retrograde cholangiopancreatography, the pain has gotten worse today and more nausea and more vomiting, so I am going to get a stat CMP and lipase and keep the patient n.p.o . and increase the IV to 125 mL per hour and keep the patient in the hospital to see what happens an d how the patient is going to be doing by tomorrow. Dictated By: BRANDO CHRISTINE/MAVERICK Conf#: [id number] DID#: [id number]
[2017-08-21 06:31] LABS: ABNORMAL IP MESSAGE 1; HEMATOCRIT 43.9 % (37.0-47.0); HEMOGLOBIN 15.1 g/dl (12.0-16.0); MEAN CORPUSCULAR HEMOGLOBIN 28.3 pg (29.0-33.0); MEAN CORPUSCULAR HGB CONC 34.4 g/dl (32.0-37.0); MEAN CORPUSCULAR VOLUME 82.2 fl (82.0-101.0); MEAN PLATELET VOLUME 9.8 fl (7.4-10.4); PLATELET COUNT 355 10^3/UL (140-415); RED BLOOD COUNT 5.34 10^6/ul (4.20-5.40); RED CELL DISTRIBUTION WIDTH 12.9 % (11.5-14.5); WHITE BLOOD COUNT 27.2 10^3/ul (4.8-10.8)
[2017-08-21 06:41] LABS: POSITIVE DIFF @See below
--- NOTE | 2017-08-21 07:05 | CONS ---
DATE OF ADMISSION: 08/18/2017 DATE OF CONSULTATION: The patient had an ERCP yesterday. She has some abdominal pain at this time, with little vomiting. PHYSICAL EXAMINATION: Examination of the abdomen is unremarkable, soft and nontender. LABORATORY WORKUP: WBC is 12,700 and liver panel is pending. CLINICAL IMPRESSION: The patient presenting with what appeared like cholangitis. Endoscopic retrog rade cholangiopancreatography was performed which showed evidence of a small distal bile duct strict ure and because of that, a CBD stent was placed after balloon sweeping. Sludge was removed at that time. Clinical impression was cholangitis, improving. She has got some white count elevation. Forest t for the liver panel. PLAN: Continue n.p.o. and continue present management, IV fluids, antibiotics and I will be happy t o follow this patient with you. Dictated By: BREA HOOK/NTS Conf#: [id number] DID#: [id number] CC: KATHLEEN CASAREZ MD;*EndCC*
[2017-08-21 07:07] LABS: ALBUMIN 3.7 g/dl (3.3-4.9); ALBUMIN/GLOBULIN RATIO 1.15; BILIRUBIN,INDIRECT 0.7 mg/dl (0-1.1); BILIRUBIN,TOTAL 0.7 mg/dl (0.2-1.3); CALCIUM 7.7 mg/dl (8.4-10.2); CREATININE 0.72 mg/dl (0.44-1.00); POTASSIUM 4.5 mmol/L (3.5-5.1); TOTAL PROTEIN 6.9 g/dl (6.1-8.1)
[2017-08-21 07:37] LABS: MONOCYTES % (M) 4 % (0-11); PLATELET ESTIMATE NORMAL; POLYCHROMASIA 1+ (0-0)
[2017-08-21 07:50] VITALS: BP 142/75; RESP 18
[2017-08-21] MEDS: FAMOTIDINE 20 MG INJ IV SCH ×2 (08:17→20:45)
[2017-08-21] MEDS: CIPROFLOXACIN 400MG/D5W 200 ML IVPB SCH ×2 (08:17→20:45)
--- NOTE | 2017-08-21 10:52 | PN ---
Date/Time of Note Date/Time of Note DATE: 08/21/17 TIME: 10:51 Assessment/Plan VTE Prophylaxis VTE Prophylaxis Intervention: other Lines/Catheters IV Catheter Type (from Nrs): Peripheral IV Assessment/Plan Chief Complaint/Hosp Course - Intractable abdominal pain. Continue Dilaudid p.r.n. for pain and Zofran p.r.n. for nausea. - Cholelithiasis and acute cholecystitis. Dr. Smith is following in general surgery consultation. Patient is allergic to penicillin antibiotics, continue ciprofloxacin and Flagyl. - Rule out choledocholithiasis. S/P ERCP and common bile duct stent placement by Dr Christiansen. Problems: Subjective 24 Hr Interval Summary Free Text/Dictation Patient complain of abdominal pain, awaiting cholecystectomy Exam/Review of Systems Vital Signs Vitals Vital Signs Date Time Temp Pulse Resp B/P Pulse Ox O2 Delivery O2 Flow Rate FiO2 08/21/17 07:50 98.8 76 18 142/75 96 08/19/17 20:02 Room Air Intake and Output 08/20/17 08/20/17 08/21/17 15:00 23:00 07:00 Intake Total 600 ml 1380 ml 500 ml Output Total 0 ml Balance 600 ml 1380 ml 500 ml Exam Constitutional: well developed Head: atraumatic, normocephalic Neck: supple Respiratory: clear to auscultation Cardiovascular: regular rate and rhythm Gastrointestinal: non-tender, soft Extremities: normal pulses Results Result Diagram: 08/21/17 0510 08/21/17 0510 Results 24 hrs Laboratory Tests Test 08/20/17 19:17 08/21/17 05:10 Sodium Level 131 L 137 Potassium Level 4.4 4.5 Chloride Level 102 104 Carbon Dioxide Level 26 23 Anion Gap 7 L 15 # Blood Urea Nitrogen 10 8 Creatinine 0.73 0.72 Glucose Level 145 # 125 Calcium Level 8.6 7.7 L Total Bilirubin 0.3 0.7 Direct Bilirubin 0.00 0.00 Indirect Bilirubin 0.3 0.7 Aspartate Amino Transf (AST/SGOT) 119 H 82 H Alanine Aminotransferase (ALT/SGPT) 233 H 164 H Alkaline Phosphatase 154 H 137 H Total Protein 8.2 H 6.9 # Albumin 4.1 3.7 Globulin 4.10 H 3.20 Albumin/Globulin Ratio 1.00 1.15 Lipase 10529 H White Blood Count 27.2 #H Red Blood Count 5.34 Hemoglobin 15.1 Hematocrit 43.9 Mean Corpuscular Volume 82.2 Mean Corpuscular Hemoglobin 28.3 L Mean Corpuscular Hemoglobin Concent 34.4 Red Cell Distribution Width 12.9 Platelet Count 355 Mean Platelet Volume 9.8 Neutrophils % Segmented Neutrophils % (Manual) 73 Band Neutrophils % (Manual) 20 H Lymphocytes % Lymphocytes % (Manual) 3 L Monocytes % Monocytes % (Manual) 4 Eosinophils % Basophils % Nucleated Red Blood Cells % 0.0 Neutrophils # Neutrophils # (Manual) 21.3 H Band Neutrophils # 5.4 H Absolute Lymphocytes (Manual) 0.8 Lymphocytes # Monocytes # Absolute Monocytes (Manual) 1.0 H Eosinophils # Basophils # Nucleated Red Blood Cells # Platelet Estimate NORMAL Polychromasia 1+ Medications Medications Current Medications Potassium Chloride/Dextrose/ Sod Cl (D5-1/2ns + KCl 20 Meq) 1,000 ml @ 125 mls/ hr Q8H IV Last administered on 08/21/17 08:19; Admin Dose 125 MLS/HR; Start 08/18/17 at 18:12 Famotidine 20 mg 20 mg Q12 IV Last administered on 08/21/17 08:17; Admin Dose 20 MG; Start 08/18/17 at 21:00 Ciprofloxacin/ Dextrose (Cipro Ivpb) 200 ml @ 200 mls/hr Q12 IVPB Last administered on 08/21/17 08:17; Admin Dose 200 MLS/HR; Start 08/19/17 at 16: 45 Ondansetron HCl (Zofran Inj) 4 mg Q4H PRN IV NAUSEA AND/OR VOMITING Last administered on 08/20/17 22:12; Admin Dose 4 MG; Start 08/20/17 at 00:10 Hydromorphone HCl 2 mg 2 mg Q3H PRN IV PAIN Last administered on 08/21/17 08: 08; Admin Dose 2 MG; Start 08/20/17 at 15:00 Metronidazole (Flagyl 500 Mg (Pmx)) 100 ml @ 100 mls/hr Q8 IVPB Last administered on 08/21/17 06:08; Admin Dose 100 MLS/HR; Start 08/20/17 at 17: 00 Ketorolac Tromethamine (Toradol) 30 mg Q6H IV Last administered on 08/21/17 06:07; Admin Dose 30 MG; Start 08/20/17 at 18:30; Stop 08/23/17 at 18:29 JESSI FAUST Aug 21, 2017 10:52
[2017-08-21 20:00] VITALS: BP 113/54; RESP 20
[2017-08-21] MEDS: ONDANSETRON 4 MG INJ IV PRN (21:56)
[2017-08-22] MEDS: KETOROLAC 30 MG INJ IV SCH ×4 (00:32→19:28)
[2017-08-22 02:00] VITALS: BP 122/59; RESP 20
[2017-08-22] MEDS: HYDROmorphONE 2 MG/ML SYG IV PRN ×8 (02:10→23:48)
[2017-08-22] MEDS: D5W-0.45 NACL + KCL 20 MEQ 1,000 ML IV SCH ×4 (05:17→19:28)
[2017-08-22] MEDS: metroNIDAZOLE 500 MG/NS (PMX) 100 ML IVPB SCH ×3 (05:17→22:31)
[2017-08-22 06:39] LABS: ABNORMAL IP MESSAGE 1; BASOPHIL # 0.1 10^3/ul (0.0-0.1); BASOPHILS % 0.2 % (0.0-2.0); HEMATOCRIT 39.8 % (37.0-47.0); HEMOGLOBIN 13.3 g/dl (12.0-16.0); LYMPHOCYTES # 1.2 10^3/ul (0.8-2.9); LYMPHOCYTES % 4.7 % (15.0-51.0); MEAN CORPUSCULAR HEMOGLOBIN 28.2 pg (29.0-33.0); MEAN CORPUSCULAR HGB CONC 33.4 g/dl (32.0-37.0); MEAN CORPUSCULAR VOLUME 84.5 fl (82.0-101.0); MONOCYTE # 1.2 10^3/ul (0.3-0.9); MONOCYTES % 4.4 % (0.0-11.0); NEUTROPHIL # 23.3 10^3/ul (1.6-7.5); NEUTROPHILS % 89.1 % (39.0-77.0); PLATELET COUNT 272 10^3/UL (140-415); RED BLOOD COUNT 4.71 10^6/ul (4.20-5.40); RED CELL DISTRIBUTION WIDTH 13.1 % (11.5-14.5); WHITE BLOOD COUNT 26.1 10^3/ul (4.8-10.8)
[2017-08-22 06:41] LABS: POSITIVE DIFF @See below
[2017-08-22 07:20] LABS: ALBUMIN 3.3 g/dl (3.3-4.9); ALBUMIN/GLOBULIN RATIO 1.06; BILIRUBIN,INDIRECT 0.8 mg/dl (0-1.1); BILIRUBIN,TOTAL 0.8 mg/dl (0.2-1.3); CALCIUM 7.1 mg/dl (8.4-10.2); CREATININE 0.7 mg/dl (0.44-1.00); POTASSIUM 4.1 mmol/L (3.5-5.1); TOTAL PROTEIN 6.4 g/dl (6.1-8.1)
[2017-08-22] MEDS: FAMOTIDINE 20 MG INJ IV SCH ×2 (08:00→20:21)
[2017-08-22] MEDS: CIPROFLOXACIN 400MG/D5W 200 ML IVPB SCH ×2 (08:00→20:21)
[2017-08-22 08:26] VITALS: BP 104/56; RESP 18
--- NOTE | 2017-08-22 11:09 | CONS ---
DATE OF ADMISSION: 08/18/2017 DATE OF CONSULTATION: SUBJECTIVE: Subjectively, at this time is not complaining of anything. She is sleepy. PHYSICAL EXAMINATION: GENERAL: The patient is a 36-year-old female who at this time is alert and to some extent is sleepy because she is on a sleeping medication. VITAL SIGNS: She is afebrile. Pulse is 76, blood pressure 142/75. ABDOMEN: Unremarkable. LABORATORY WORKUP: White count went up to 27,000. The liver enzymes are coming down, AST is 82, ALT is 164, alkaline phosphatase 137. The lipase is 1 7,066 yesterday and to be coming down. CLINICAL IMPRESSION: 1. Post-ERCP pancreatitis. She has evidence of cholangitis which seems to be improving. 2. She has cholelithiasis, possible cholecystitis. PLAN: At this time, recommend continue present management with antibiotic therapy. Dictated By: BREA HOOK/MAVERICK Conf#: [id number] DID#: [id number]
--- NOTE | 2017-08-22 11:54 | PN ---
Date/Time of Note Date/Time of Note DATE: 08/22/17 TIME: 11:54 Assessment/Plan VTE Prophylaxis VTE Prophylaxis Intervention: other Lines/Catheters IV [facility]from [facility] Peripheral IV Urinary Cath still in place: No Assessment/Plan Chief Complaint/Hosp Course - Intractable abdominal pain. Continue Dilaudid p.r.n. for pain and Zofran p.r.n. for nausea. - Cholelithiasis and acute cholecystitis. Dr. Smith is following in general surgery consultation. Patient is allergic to penicillin antibiotics, continue ciprofloxacin and Flagyl. - Rule out choledocholithiasis. S/P ERCP and common bile duct stent placement by Dr Christiansen. Problems: Subjective 24 Hr Interval Summary Free Text/Dictation Patient is complaining of severe abdominal pain Exam/Review of Systems Vital Signs Vitals Vital Signs Date Time Temp Pulse Resp B/P Pulse Ox O2 Delivery O2 Flow Rate FiO2 08/22/17 08:26 98.4 91 18 104/56 91 08/19/17 20:02 Room Air Intake and Output 08/21/17 08/21/17 08/22/17 15:00 23:00 07:00 Intake Total 1700 ml 500 ml 1325 ml Balance 1700 ml 500 ml 1325 ml Exam Constitutional: well developed Head: atraumatic, normocephalic Neck: supple Respiratory: clear to auscultation Cardiovascular: regular rate and rhythm Gastrointestinal: non-tender, soft Extremities: normal pulses Results Result Diagram: 08/22/17 0537 08/22/17 0537 Results 24 hrs Laboratory Tests Test 08/22/17 05:37 White Blood Count 26.1 H Red Blood Count 4.71 Hemoglobin 13.3 Hematocrit 39.8 Mean Corpuscular Volume 84.5 Mean Corpuscular Hemoglobin 28.2 L Mean Corpuscular Hemoglobin Concent 33.4 Red Cell Distribution Width 13.1 Platelet Count 272 # Mean Platelet Volume 10.0 Neutrophils % 89.1 H Lymphocytes % 4.7 L Monocytes % 4.4 Eosinophils % 0.0 Basophils % 0.2 Nucleated Red Blood Cells % 0.0 Neutrophils # 23.3 H Lymphocytes # 1.2 Monocytes # 1.2 H Eosinophils # 0.0 Basophils # 0.1 Nucleated Red Blood Cells # 0.0 Sodium Level 136 Potassium Level 4.1 Chloride Level 105 Carbon Dioxide Level 23 Anion Gap 12 Blood Urea Nitrogen 7 Creatinine 0.70 Glucose Level 108 Calcium Level 7.1 L Total Bilirubin 0.8 Direct Bilirubin 0.00 Indirect Bilirubin 0.8 Aspartate Amino Transf (AST/SGOT) 48 H Alanine Aminotransferase (ALT/SGPT) 105 H Alkaline Phosphatase 129 H Total Protein 6.4 Albumin 3.3 Globulin 3.10 Albumin/Globulin Ratio 1.06 Lipase 6100 H Medications Medications Current Medications Potassium Chloride/Dextrose/ Sod Cl (D5-1/2ns + KCl 20 Meq) 1,000 ml @ 125 mls/ hr Q8H IV Last administered on 08/22/17 05:17; Admin Dose 125 MLS/HR; Start 08/18/17 at 18:12 Famotidine 20 mg 20 mg Q12 IV Last administered on 08/22/17 08:00; Admin Dose 20 MG; Start 08/18/17 at 21:00 Ciprofloxacin/ Dextrose (Cipro Ivpb) 200 ml @ 200 mls/hr Q12 IVPB Last administered on 08/22/17 08:00; Admin Dose 200 MLS/HR; Start 08/19/17 at 16: 45 Ondansetron HCl (Zofran Inj) 4 mg Q4H PRN IV NAUSEA AND/OR VOMITING Last administered on 08/21/17 21:56; Admin Dose 4 MG; Start 08/20/17 at 00:10 Hydromorphone HCl 2 mg 2 mg Q3H PRN IV PAIN Last administered on 08/22/17 11: 01; Admin Dose 2 MG; Start 08/20/17 at 15:00 Metronidazole (Flagyl 500 Mg (Pmx)) 100 ml @ 100 mls/hr Q8 IVPB Last administered on 08/22/17 05:17; Admin Dose 100 MLS/HR; Start 08/20/17 at 17: 00 Ketorolac Tromethamine (Toradol) 30 mg Q6H IV Last administered on 08/22/17 07:02; Admin Dose 30 MG; Start 08/20/17 at 18:30; Stop 08/23/17 at 18:29 JESSI FAUST Aug 22, 2017 11:54
[2017-08-22 14:00] VITALS: BP 135/63; RESP 20
[2017-08-22] MEDS: ONDANSETRON 4 MG INJ IV PRN (14:13)
[2017-08-22] MEDS ORDERED: CALCIUM GLUCONATE 10% 2 GM in SOD CHLORIDE 0.9% 100 ML IVPB ONE (14:30)
--- NOTE | 2017-08-22 15:35 | PN ---
DATE: 08/22/2017 SUBJECTIVE: Complaining of too much pain in the epigastric area and right upper quadrant and left u pper quadrant. Also, nausea and occasional vomiting. The patient is status post ERCP, sphincteroto my and common bile duct sweep and placement of common bile duct stent. OBJECTIVE: GENERAL: Awake, alert, oriented x3. VITAL SIGNS: Temperature 98.4, heart rate 91, respirations 18, blood pressure 104/66, saturation 91 %. LABORATORY DATA: Sodium and potassium normal, BUN 7, creatinine 0.70. Calcium dropped to 7.1, bili contreras 0.8, AST dropped to 48, ALT decreased to 105. Alkaline phosphatase is decreased to 129. Lipa se has decreased to 6100, WBC 26,000 with 89% neutrophils, but no bands today. Hemoglobin 13.3, hem atocrit 39.8. ASSESSMENT AND PLAN: This is a 36-year-old female who presented to emergency room complaining of se demi lower quadrant abdominal pain radiating to the back. An ultrasound showed that the patient has gallstones and MRCP showed that the patient has gallstones and also enzymes AST, ALT, alkaline joshua sphatase are elevated. GI consultation from Dr. Christiansen was obtained suspecting common bile duct sto ne. ERCP was done 08/19/2017. Following that, the next day the patient was complaining of more alex n in the abdomen, especially in the upper quadrant and epigastric status. Lipase revealed 17,000 wi th a diagnosis of post-ERCP pancreatitis was made. The patient was kept n.p.o., IV hydration and pa in medication. WBC yesterday was 27,000 and today 26,000 and lipase today decreased to 6000, but pa tient is still complaining of too much pain. Calcium was following yesterday was 7.7, while a lbumin was normal. Today's calcium is 7.1. I checked with Dr. Wright, the primary care physician of this patient, and the decision was made to give her 2 grams of 10% calcium gluconate IV piggybac k today. Will check lab results again tomorrow and keep the patient n.p.o., IV hydration, pain medi cation and antibiotics. Dictated By: BRANDO ENRIQUEZ MD PS/MAVERICK Conf#: [id number] [facility]#: [id number]
[2017-08-22 19:48] VITALS: BP 113/59; RESP 18
[2017-08-23] MEDS: KETOROLAC 30 MG INJ IV SCH ×3 (00:21→12:14)
[2017-08-23 01:41] VITALS: BP 116/66; RESP 19
[2017-08-23] MEDS: HYDROmorphONE 2 MG/ML SYG IV PRN ×7 (02:42→22:33)
[2017-08-23 05:57] LABS: BASOPHILS % 0.2 % (0.0-2.0); EOSINOPHILS # 0.1 10^3/ul (0.0-0.5); EOSINOPHILS % 0.4 % (0.0-7.0); HEMATOCRIT 36.5 % (37.0-47.0); HEMOGLOBIN 11.8 g/dl (12.0-16.0); LYMPHOCYTES # 1.3 10^3/ul (0.8-2.9); MEAN CORPUSCULAR HEMOGLOBIN 26.9 pg (29.0-33.0); MEAN CORPUSCULAR HGB CONC 32.3 g/dl (32.0-37.0); MEAN CORPUSCULAR VOLUME 83.3 fl (82.0-101.0); MEAN PLATELET VOLUME 9.5 fl (7.4-10.4); MONOCYTE # 1.3 10^3/ul (0.3-0.9); MONOCYTES % 6.3 % (0.0-11.0); NEUTROPHIL # 17.8 10^3/ul (1.6-7.5); NEUTROPHILS % 85.8 % (39.0-77.0); PLATELET COUNT 247 10^3/UL (140-415); RED BLOOD COUNT 4.38 10^6/ul (4.20-5.40); RED CELL DISTRIBUTION WIDTH 13.4 % (11.5-14.5); WHITE BLOOD COUNT 20.7 10^3/ul (4.8-10.8)
[2017-08-23] MEDS: metroNIDAZOLE 500 MG/NS (PMX) 100 ML IVPB SCH ×3 (06:18→22:25)
[2017-08-23] MEDS: D5W-0.45 NACL + KCL 20 MEQ 1,000 ML IV SCH ×4 (06:19→16:27)
[2017-08-23 06:31] LABS: ALBUMIN 2.9 g/dl (3.3-4.9); ALBUMIN/GLOBULIN RATIO 0.85; BILIRUBIN,INDIRECT 0.6 mg/dl (0-1.1); BILIRUBIN,TOTAL 0.6 mg/dl (0.2-1.3); CREATININE 0.69 mg/dl (0.44-1.00); PHOSPHORUS 2.1 mg/dl (2.5-4.9); TOTAL PROTEIN 6.3 g/dl (6.1-8.1)
--- NOTE | 2017-08-23 07:13 | PN ---
DATE: 08/22/2017 HISTORY OF PRESENT ILLNESS: The patient underwent ERCP a few days ago and sludge was removed from t he common bile duct. She had a stitch in the distal bile duct. CBD stent was placed and she develo ped post-ERCP pancreatitis, now she is improving very much. PHYSICAL EXAMINATION: VITAL SIGNS: She is afebrile. The blood pressure is 104/56. CARDIOVASCULAR: Normal heart sounds. RESPIRATORY: Normal breath sounds. ABDOMEN: Shows soft abdomen. No tenderness noted. Currently, she is on Dilaudid. LABORATORY WORKUP: The serum lipase is down to 6100 from 17,000. The WBC count improving to 26,000 from 27,000. IMPRESSION: Post-ERCP pancreatitis, improving. The cholangitis is getting better. PLAN: At this time, recommend continue present management. Keep her n.p.o. Dictated By: BREA FRANKLIN MD NC/NTS Conf#: [id number] DID#: [id number] CC: KATHLEEN CASAREZ MD;*EndCC*
[2017-08-23 08:00] VITALS: BP 101/53; RESP 18
[2017-08-23] MEDS: ONDANSETRON 4 MG INJ IV PRN ×3 (09:21→22:28)
[2017-08-23] MEDS: FAMOTIDINE 20 MG INJ IV SCH ×2 (09:21→20:40)
[2017-08-23] MEDS: CIPROFLOXACIN 400MG/D5W 200 ML IVPB SCH (09:24)
--- NOTE | 2017-08-23 12:30 | PN ---
DATE: 08/21/2017 Postop day #2 status post ERCP and sphincterotomy and placement of a stent in the common bile duct. SUBJECTIVE: Still is complaining of too much pain in the epigastric area, but may be slightly better, but also has been nauseous all the day and vomited a couple of times, yellowish fluid. No blood. OBJECTIVE: GENERAL: Awake, alert, oriented x3. VITAL SIGNS: Temperature 98.8, heart rate 76, respirations 18, blood pressure 142/75, saturation 96% on room air. HEART: Regular. LUNGS: Clear. ABDOMEN: Soft, but there is tenderness in the right upper quadrant and more tenderness in the epigastric and left upper quadrant and some tenderness in the right lower quadrant. Bowel sounds hypoactive. LABORATORY DATA: HEENT: Last night at 7 p.m. the lipase was 17,066. Today, sodium and potassium are normal, BUN and creatinine are normal. Calcium is slightly low at 7.7. AST decreased to 82, ALT decreased to 164, alkaline phosphatase was obtained, . Unfortunately, lipase has not been done. HEMATOLOGY: WBC increased to 27,200 with 70% neutrophils and 20% bands. Hemoglobin is stable at _14,, hematocrit 43.9. ASSESSMENT: A 36-year-old female with gallstones and elevated enzymes, for which she underwent ERCP with sphincterotomy and removal of sludge and placement of a stent. Postop, she developed severe pancreatitis. Lipase is elevated to 17,000. WBC increased to 27,000. PLAN: We are going to keep the patient n.p.o., continue IV 125 mL/hour. The patient is already on antibiotics, Flagyl and ciprofloxacin, pain medications, Toradol and also Dilaudid. Plan to continue. Keep patient n.p.o. and repeat blood test . Dictated By: BRANDO ENRIQUEZ MD PS/MAVERICK Conf#: [id number] DID#: [id number] [facility]
[2017-08-23 14:00] VITALS: BP 136/62; RESP 20
[2017-08-23] MEDS ORDERED: BARIUM SULFATE 0.1% 450 ML BTL (VOLUMEN) PO ONE (17:02)
[2017-08-23] MEDS ORDERED: SOD CHLORIDE 0.9% 100 ML ONE (17:42)
[2017-08-23] MEDS ORDERED: IOHEXOL 100 ML ONE (17:42)
--- NOTE | 2017-08-23 18:28 | PN ---
Date/Time of Note Date/Time of Note DATE: 08/23/17 TIME: 18:23 Assessment/Plan VTE Prophylaxis VTE Prophylaxis Intervention: SCD's Lines/Catheters IV Catheter Type (from [facility]): Saline Lock Urinary Cath still in place: No Assessment/Plan Chief Complaint/Hosp Course Patient's complaints of nausea and vomiting, going for a CT of the abdomen Assessment/Plan - Post ERCP pancreatitis, continue IV fluids and antiemetics. - Intractable abdominal pain. Continue Dilaudid p.r.n. for pain and Zofran p.r.n. for nausea. - Cholelithiasis and acute cholecystitis. Dr. Smith is following in general surgery consultation. Patient is allergic to penicillin antibiotics, continue ciprofloxacin and Flagyl. - S/P ERCP and common bile duct stent placement by Dr Christiansen. Further recommendations based on clinical course. Plan of care discussed with Dr. Wright. Problems: Exam/Review of Systems Vital Signs Vitals Vital Signs Date Time Temp Pulse Resp B/P Pulse Ox O2 Delivery O2 Flow Rate FiO2 08/23/17 14:00 97.6 62 20 136/62 97 08/19/17 20:02 Room Air Intake and Output 08/22/17 08/22/17 08/23/17 15:00 23:00 07:00 Intake Total 200 ml 420 ml 100 ml Balance 200 ml 420 ml 100 ml Exam Constitutional: alert, oriented Head: normocephalic Neck: supple Respiratory: normal air movement Cardiovascular: nl pulses Gastrointestinal: soft, tender Extremities: normal pulses Results Result Diagram: 08/23/17 0534 08/23/17 0534 Results 24 hrs Laboratory Tests Test 08/23/17 05:34 White Blood Count 20.7 #H Red Blood Count 4.38 Hemoglobin 11.8 L Hematocrit 36.5 L Mean Corpuscular Volume 83.3 Mean Corpuscular Hemoglobin 26.9 L Mean Corpuscular Hemoglobin Concent 32.3 Red Cell Distribution Width 13.4 Platelet Count 247 Mean Platelet Volume 9.5 Neutrophils % 85.8 H Lymphocytes % 6.0 L Monocytes % 6.3 Eosinophils % 0.4 Basophils % 0.2 Nucleated Red Blood Cells % 0.0 Neutrophils # 17.8 H Lymphocytes # 1.3 Monocytes # 1.3 H Eosinophils # 0.1 Basophils # 0.0 Nucleated Red Blood Cells # 0.0 Sodium Level 136 Potassium Level 4.0 Chloride Level 102 Carbon Dioxide Level 27 Anion Gap 11 Blood Urea Nitrogen 6 L Creatinine 0.69 Glucose Level 105 Calcium Level 8.0 L Phosphorus Level 2.1 L Total Bilirubin 0.6 Direct Bilirubin 0.00 Indirect Bilirubin 0.6 Aspartate Amino Transf (AST/SGOT) 35 Alanine Aminotransferase (ALT/SGPT) 84 H Alkaline Phosphatase 116 Total Protein 6.3 Albumin 2.9 L Globulin 3.40 H Albumin/Globulin Ratio 0.85 Lipase 693 H Medications Medications Current Medications Potassium Chloride/Dextrose/ Sod Cl (D5-1/2ns + KCl 20 Meq) 1,000 ml @ 150 mls/ hr Q6H40M IV Last administered on 08/23/17 16:27; Admin Dose 150 MLS/HR; Start 08/18/17 at 18:12 Famotidine (Pepcid Iv) 20 mg Q12 IV Last administered on 08/23/17 09:21; Admin Dose 20 MG; Start 08/18/17 at 21:00 Ondansetron HCl 4 mg 4 mg Q4H PRN IV NAUSEA AND/OR VOMITING Last administered on 08/23/17 16:23; Admin Dose 4 MG; Start 08/20/17 at 00:10 Metronidazole (Flagyl 500 Mg (Pmx)) 100 ml @ 100 mls/hr Q8 IVPB Last administered on 08/23/17 14:07; Admin Dose 100 MLS/HR; Start 08/20/17 at 17: 00 Ketorolac Tromethamine (Toradol) 30 mg Q6H IV Last administered on 08/23/17 12:14; Admin Dose 30 MG; Start 08/20/17 at 18:30; Stop 08/23/17 at 18:29 Hydromorphone HCl 3 mg 3 mg Q3H PRN IV PAIN Last administered on 08/23/17 16: 27; Admin Dose 3 MG; Start 08/22/17 at 15:00 Meropenem/Sodium Chloride 50 ml @ 100 mls/hr Q8 IVPB ; Start 08/23/17 at 17:30 Potassium Phosphate/Sodium Chloride (K Phos (Meq)/NS) 254.5455 ml @ 63.636 m... ONCE ONCE IVPB ; Start 08/23/17 at 19:30; Stop 10/16/17 at 23:29 JAROCHO YOUNG Aug 23, 2017 18:27
[2017-08-23] MEDS: MEROPENEM 1 GM/50ML(PMX) 50 ML IVPB SCH ×2 (18:38→22:33)
[2017-08-23] MEDS ORDERED: POTASSIUM PHOSPHATE 20 MEQ in SOD CHLORIDE 0.9% 250 ML IVPB ONE (19:30)
[2017-08-23 19:44] VITALS: BP 130/61; RESP 18
[2017-08-24] MEDS: HYDROmorphONE 2 MG/ML SYG IV PRN ×6 (01:35→21:39)
[2017-08-24 01:45] VITALS: BP 131/69; RESP 19
[2017-08-24] MEDS: D5W-0.45 NACL + KCL 20 MEQ 1,000 ML IV SCH ×4 (04:20→23:03)
[2017-08-24] MEDS: metroNIDAZOLE 500 MG/NS (PMX) 100 ML IVPB SCH ×3 (05:58→23:02)
[2017-08-24] MEDS: MEROPENEM 1 GM/50ML(PMX) 50 ML IVPB SCH ×3 (05:59→22:23)
[2017-08-24 06:38] LABS: BASOPHILS % 0.2 % (0.0-2.0); EOSINOPHILS # 0.1 10^3/ul (0.0-0.5); EOSINOPHILS % 0.4 % (0.0-7.0); HEMOGLOBIN 11.3 g/dl (12.0-16.0); LYMPHOCYTES # 1.3 10^3/ul (0.8-2.9); LYMPHOCYTES % 7.2 % (15.0-51.0); MEAN CORPUSCULAR HGB CONC 32.3 g/dl (32.0-37.0); MEAN CORPUSCULAR VOLUME 83.5 fl (82.0-101.0); MEAN PLATELET VOLUME 9.8 fl (7.4-10.4); MONOCYTE # 1.3 10^3/ul (0.3-0.9); PLATELET COUNT 286 10^3/UL (140-415); RED BLOOD COUNT 4.19 10^6/ul (4.20-5.40); RED CELL DISTRIBUTION WIDTH 13.5 % (11.5-14.5); WHITE BLOOD COUNT 17.9 10^3/ul (4.8-10.8)
[2017-08-24 07:03] LABS: CALCIUM 7.7 mg/dl (8.4-10.2); CREATININE 0.64 mg/dl (0.44-1.00); MAGNESIUM 1.7 mg/dl (1.7-2.5); PHOSPHORUS 3.1 mg/dl (2.5-4.9); POTASSIUM 3.8 mmol/L (3.5-5.1)
--- NOTE | 2017-08-24 07:12 | PN ---
DATE: 08/23/2017 Status post ERCP, sphincterotomy, placement of a stent for elevated liver enzymes. Status post ERCP, pancreatitis. SUBJECTIVE: Patient is still complaining of pain mainly on the left upper quadrant. No bowel movement, no passing gas. Nausea positive, vomiting positive, greenish in color. OBJECTIVE: GENERAL: Awake, alert. VITAL SIGNS: Temperature 97.6, heart rate 62, on one occasion 91, respirations 20, blood pressure 136/62, saturation 97% on room air. LABORATORY DATA: WBC dropped to 20,700 with 85% segmented. Hemoglobin dropped to 11.8, hematocrit 36.5. Bilirubin total is 0.6. Calcium increased to 8. AST dropped to 35, normal, ALT dropped to 84, slightly elevated, alkaline phosphatase dropped to 116, normal. Albumin dropped to 2.9. Lipase dropped to 693, ___it was 17,000. HEART: Regular. LUNGS: Clear. ABDOMEN: Softer than before. Some tenderness left upper quadrant and milder tenderness right upper quadrant. No rigidity. ASSESSMENT: A 36-year-old female who presented with abdominal pain. Ultrasound revealed presence of gallstones. MRCP revealed presence of gallstones, but did not mention acute cholecystitis. But enzymes are elevated, AST, ALT, alkaline phosphatase. Consultation with GI colleague was performed, recommended ERCP. ERCP was done. Post-ERCP, patient developed severe abdominal pain, elevated enzymes including lipase to 17,000, and gradually WBC increased to 27,000, now today decreased to 20,000. Patient was in severe pain , now is better today. PLAN: 1. Continue to keep patient n.p.o. 2. Consider TPN if the patient is not going to be able to eat anything within the next couple of days. Today we are getting a CT scan of the abdomen to figure out the extent of the damage. Dictated By: BRANDO ENRIQUEZ MD PS/NTS Conf#: [id number] DID#: [id number] CC: KATHLEEN CASAREZ MD;*EndCC* MTDD
--- NOTE | 2017-08-24 07:12 | PN ---
DATE: 08/23/2017 CHIEF COMPLAINT: Abdominal pain is much better, although still has minimal degree of the pain. The patient underwent ERCP, sphincterotomy, removal of sludge. There was a small stricture noted in the distal bile duct. CBD stent was placed. She developed post-ERCP pancreatitis, but the laborat ory functions are improving. The lipase is 693, it came down from 17,000. The WBC is improved to 2 0,000 from 26,000. Examination of the abdomen showed no tenderness, no significant distention. CAT scan of the abdomen was done, report is pending. CLINICAL IMPRESSION: Improving pancreatitis. PLAN: At this time, continue present management, maybe we will start clear liquids in a day or 2. Dictated By: BREA FRANKLIN MD NC/MAVERICK Conf#: [id number] DID#: [id number] CC: KATHLEEN CASAREZ MD;*EndCC*
[2017-08-24 07:48] VITALS: BP 126/62; RESP 20
[2017-08-24] MEDS: FAMOTIDINE 20 MG INJ IV SCH ×2 (08:50→20:58)
--- NOTE | 2017-08-24 09:51 | RADRPT ---
PROCEDURE: CT Abdomen with and without contrast CLINICAL INDICATION: post ERCP pancreatitis TECHNIQUE: CT scan of the abdomen with and without contrast was performed on a multidetector high- resolution CT scan. Images were obtained during the arterial, and portal venous phases. Coronal and sagittal reformatted images were obtained from the axial source images. Images were reviewed on a h igh-resolution PACS workstation. The total exam CTDI equals 19.66, 19.54, 19.60 mGy and the total ex am DLP equals 2347.57 mGy-cm. One or more of the following dose reduction techniques were used: auto mated exposure control, adjustment of the mA and/or kV according to patient size, or use of iterativ e reconstruction technique. COMPARISON: MR 08/18/2017 FINDINGS: CT abdomen: There is subsegmental atelectasis in the lingula and lung bases. Small bilateral pleural effusions. The heart size is normal, without pericardial thickening or effusion. The liver is enlarged and de creased in density without focal mass or intrahepatic biliary dilatation. The portal veins are patel nt. The spleen is normal in size and homogeneous in density. The stomach is distended with fluid.. There are retroperitoneal, diffuse peripancreatic inflammatory changes and fluid. Normal enhanceme nt of the pancreas is visualized. The gallbladder is contracted with multiple stones. CBD stent is in place. The adrenal glands are symmetric and normal. The kidneys are normal in size and contour. No renal calculus or obstructive uropathy or mass lesion is seen. Symmetric renal enhancement is d emonstrated. The aorta is of normal caliber. There is no retroperitoneal lymphadenopathy. Mildly enlarged mese nteric lymph nodes. The tia hepatis region is edematous. Multiple fluid-filled distended loops of small bowel are present in the left abdomen. There is no evidence of bowel obstruction. The ascendin g and transverse colon are distended. There is moderate retained fecal material and residual contras t in the ascending colon. The appendix is not visualized. There is a small amount of free fluid. The osseous structures are intact. No osteolytic or osteoblastic lesion is detected. IMPRESSION: Interval development of acute pancreatitis. No evidence of an abscess. Contracted gallbladder with multiple stones. CBD stent in place. Mild ascites. Enlarged, fatty liver. Lingular and bibasilar atelectasis. Small pleural effusions. Phill Nieto, Physician Date Time Electronically viewed and signed by Phill Nieto, Physician on 08/24/2017 09:51 CS/
--- NOTE | 2017-08-24 11:42 | PN ---
Date/Time of Note Date/Time of Note DATE: 08/24/17 TIME: 11:41 Assessment/Plan VTE Prophylaxis VTE Prophylaxis Intervention: SCD's Lines/Catheters IV Catheter Type (from [facility]): Saline Lock Urinary Cath still in place: No Assessment/Plan Chief Complaint/Hosp Course Assessment/Plan - Post ERCP pancreatitis, continue IV fluids and antiemetics. - Intractable abdominal pain. Continue Dilaudid p.r.n. for pain and Zofran p.r.n. for nausea. - Cholelithiasis and acute cholecystitis. Dr. Smith is following in general surgery consultation. Patient is allergic to penicillin antibiotics, continue Meropenem and Flagyl. - S/P ERCP and common bile duct stent placement by Dr Christiansen. Further recommendations based on clinical course. Plan of care discussed with Dr. Wright. Problems: Exam/Review of Systems Vital Signs Vitals Vital Signs Date Time Temp Pulse Resp B/P Pulse Ox O2 Delivery O2 Flow Rate FiO2 08/24/17 07:48 97.4 88 20 126/62 95 Intake and Output 08/23/17 08/23/17 08/24/17 15:00 23:00 07:00 Intake Total 200 ml 1225 ml 900 ml Output Total 0 ml Balance 200 ml 1225 ml 900 ml Exam Constitutional: alert, oriented Head: normocephalic Neck: supple Respiratory: normal air movement Cardiovascular: nl pulses Gastrointestinal: soft, tender Extremities: normal pulses Results Result Diagram: 08/24/17 0525 08/24/17 0525 Results 24 hrs Laboratory Tests Test 08/24/17 05:25 White Blood Count 17.9 H Red Blood Count 4.19 L Hemoglobin 11.3 L Hematocrit 35.0 L Mean Corpuscular Volume 83.5 Mean Corpuscular Hemoglobin 27.0 L Mean Corpuscular Hemoglobin Concent 32.3 Red Cell Distribution Width 13.5 Platelet Count 286 Mean Platelet Volume 9.8 Neutrophils % 84.0 H Lymphocytes % 7.2 L Monocytes % 7.0 Eosinophils % 0.4 Basophils % 0.2 Nucleated Red Blood Cells % 0.0 Neutrophils # 15.0 H Lymphocytes # 1.3 Monocytes # 1.3 H Eosinophils # 0.1 Basophils # 0.0 Nucleated Red Blood Cells # 0.0 Sodium Level 136 Potassium Level 3.8 Chloride Level 102 Carbon Dioxide Level 26 Anion Gap 12 Blood Urea Nitrogen 7 Creatinine 0.64 Glucose Level 110 Calcium Level 7.7 L Phosphorus Level 3.1 Magnesium Level 1.7 Medications Medications Current Medications Potassium Chloride/Dextrose/ Sod Cl (D5-1/2ns + KCl 20 Meq) 1,000 ml @ 150 mls/ hr Q6H40M IV Last administered on 08/24/17 10:27; Admin Dose 150 MLS/HR; Start 08/18/17 at 18:12 Famotidine (Pepcid Iv) 20 mg Q12 IV Last administered on 08/24/17 08:50; Admin Dose 20 MG; Start 08/18/17 at 21:00 Ondansetron HCl 4 mg 4 mg Q4H PRN IV NAUSEA AND/OR VOMITING Last administered on 08/23/17 22:28; Admin Dose 4 MG; Start 08/20/17 at 00:10 Metronidazole (Flagyl 500 Mg (Pmx)) 100 ml @ 100 mls/hr Q8 IVPB Last administered on 08/24/17 05:58; Admin Dose 100 MLS/HR; Start 08/20/17 at 17: 00 Hydromorphone HCl 3 mg 3 mg Q3H PRN IV PAIN Last administered on 08/24/17 10: 57; Admin Dose 3 MG; Start 08/22/17 at 15:00 Meropenem/Sodium Chloride (Merrem 1 Gm/50 ml (Pmx)) 50 ml @ 100 mls/hr Q8 IVPB Last administered on 08/24/17 05:59; Admin Dose 100 MLS/HR; Start 08/23/17 at 17:30 JAROCHO YOUNG Aug 24, 2017 11:42
[2017-08-24 14:00] VITALS: BP 111/63; RESP 18
--- NOTE | 2017-08-24 14:05 | PN ---
DATE: 08/24/2017 PROGRESS NOTE FOLLOWUP Status post ERCP and post-ERCP pancreatitis. SUBJECTIVE: Still complaining of pain, is slightly better than days before, no bowel movement, is not passing gas and some nausea. OBJECTIVE GENERAL: Awake, alert, oriented x3. VITAL SIGNS: Temperature 99.1 to 97.4, heart rate 80, respirations 20, blood pressure 126/62, saturation 95% room air. LABORATORY: WBC dropped to 17,900 with 84% segmented, hemoglobin 11.3, hematocrit 35. Chemistry: Sodium, potassium normal, BUN and creatinine normal. Calcium is down to 7.7. Phosphorus is okay, normal. Magnesium is normal. CT scan of the abdomen performed yesterday has revealed the followin. Interval development of acute pancreatitis. No evidence of an abscess, contracted gallbladder with multiple stones. CBD stent in place. 1. Mild ascites, enlarged fatty liver. 2. Lingular and bibasilar atelectasis and small pleural effusions. ASSESSMENT: A 36-year-old female who has presented with abdominal pain. Ultrasound and magnetic resonance cholangiopancreatography revealed presence of gallstones, probably no cholecystitis. Enzymes, AST, alkaline phosphatase elevated. A consultation was obtained cholangitis. Endoscopic retrograde cholangiopancreatography was performed and a stent was placed and sludge was removed. Post endoscopic retrograde cholangiopancreatography, the patient developed pancreatitis, very severe. Now has not recovered from that yet but getting better. PLAN: Continue current regimen. Continue antibiotic and IV fluids. Starting today on ice chips. If the patient cannot tolerate, take fluids and diet for a couple of more days, we probably will have to start patient on total parenteral nutrition. Discussed with the medical service. Dictated By: BRANDO CHRISTINE/MAVERICK Conf#: [id number] DID#: [id number] PALOMA
[2017-08-24] MEDS ORDERED: HYDROmorphONE 2 MG/ML SYG IV PRN (15:00)
[2017-08-24 19:28] VITALS: BP 141/77; RESP 20
[2017-08-24] MEDS: CIPROFLOXACIN 400MG/D5W 200 ML IVPB SCH (20:57)
[2017-08-25] MEDS: HYDROmorphONE 2 MG/ML SYG IV PRN ×10 (00:42→23:43)
[2017-08-25 01:52] VITALS: BP 121/64; RESP 20
[2017-08-25] MEDS: MEROPENEM 1 GM/50ML(PMX) 50 ML IVPB SCH ×3 (05:20→21:30)
[2017-08-25] MEDS: metroNIDAZOLE 500 MG/NS (PMX) 100 ML IVPB SCH ×3 (05:52→22:17)
[2017-08-25] MEDS: D5W-0.45 NACL + KCL 20 MEQ 1,000 ML IV SCH ×3 (06:10→17:43)
[2017-08-25 06:41] LABS: BASOPHIL # 0.1 10^3/ul (0.0-0.1); BASOPHILS % 0.3 % (0.0-2.0); EOSINOPHILS # 0.2 10^3/ul (0.0-0.5); HEMATOCRIT 34.7 % (37.0-47.0); HEMOGLOBIN 11.3 g/dl (12.0-16.0); LYMPHOCYTES # 1.5 10^3/ul (0.8-2.9); LYMPHOCYTES % 9.6 % (15.0-51.0); MEAN CORPUSCULAR HEMOGLOBIN 27.1 pg (29.0-33.0); MEAN CORPUSCULAR HGB CONC 32.6 g/dl (32.0-37.0); MEAN CORPUSCULAR VOLUME 83.2 fl (82.0-101.0); MEAN PLATELET VOLUME 9.9 fl (7.4-10.4); MONOCYTE # 1.4 10^3/ul (0.3-0.9); MONOCYTES % 8.8 % (0.0-11.0); NEUTROPHIL # 12.4 10^3/ul (1.6-7.5); NEUTROPHILS % 76.9 % (39.0-77.0); PLATELET COUNT 275 10^3/UL (140-415); RED BLOOD COUNT 4.17 10^6/ul (4.20-5.40); RED CELL DISTRIBUTION WIDTH 13.4 % (11.5-14.5); WHITE BLOOD COUNT 16.1 10^3/ul (4.8-10.8)
[2017-08-25 07:03] LABS: ALBUMIN 2.9 g/dl (3.3-4.9); ALBUMIN/GLOBULIN RATIO 0.96; BILIRUBIN,INDIRECT 0.3 mg/dl (0-1.1); BILIRUBIN,TOTAL 0.3 mg/dl (0.2-1.3); CREATININE 0.62 mg/dl (0.44-1.00); TOTAL PROTEIN 5.9 g/dl (6.1-8.1)
[2017-08-25 07:20] VITALS: BP 126/70; RESP 18
[2017-08-25] MEDS: CIPROFLOXACIN 400MG/D5W 200 ML IVPB SCH (09:54)
[2017-08-25] MEDS: FAMOTIDINE 20 MG INJ IV SCH ×2 (09:54→20:45)
--- NOTE | 2017-08-25 12:02 | PN ---
DATE: 08/24/2017 CHIEF COMPLAINT: At this time, patient admitted with cholecystitis with abnormal liver functions an d cholangitis. ERCP showed a stricture in the distal bile duct. Patient underwent ERCP and stent p lacement. Patient showed evidence of pancreatitis, but now patient's abdominal pain is much better. VITAL SIGNS: Show a temperature of 99.6, blood pressure 111/63. MEDICATIONS: Include hydromorphone. LABORATORY WORKUP: WBC came down from 17,900. The AST 35, ALT is 84, alkaline phosphatase is 116. The lipase is 693, that is as of yesterday. IMAGING: CAT scan of the abdomen shows pancreatitis. CLINICAL IMPRESSION: The patient at this time recovering slowly and seems to be resolving the pancr eatitis. PLAN: Recommend continue present management. It appears that patient is not on any antibiotics. I would recommend Zosyn. I must mention, patient is on Flagyl, which needs to be continued. Dictated By: BREA FRANKLIN MD NC/NTS Conf#: [id number] DID#: [id number] CC: KATHLEEN CASAREZ MD;*EndCC*
[2017-08-25 13:50] VITALS: BP 112/63; RESP 18
--- NOTE | 2017-08-25 17:26 | PN ---
Date/Time of Note Date/Time of Note DATE: 08/25/17 TIME: 17:26 Assessment/Plan VTE Prophylaxis VTE Prophylaxis Intervention: SCD's Lines/Catheters [facility] Saline Lock Urinary Cath still in place: No Assessment/Plan Chief Complaint/Hosp Course Patient's continues to have mild nausea and abdominal pain, started on clear liquid diet Assessment/Plan - Post ERCP pancreatitis, continue IV fluids and antiemetics. - Intractable abdominal pain. Continue Dilaudid p.r.n. for pain and Zofran p.r.n. for nausea. - Cholelithiasis and acute cholecystitis. Dr. Smith is following in general surgery consultation. Patient is allergic to penicillin antibiotics, continue Meropenem and Flagyl. - S/P ERCP and common bile duct stent placement by Dr Christiansen. Further recommendations based on clinical course. Plan of care discussed with Dr. Wright. Problems: Exam/Review of Systems Vital Signs Vitals Vital Signs Date Time Temp Pulse Resp B/P Pulse Ox O2 Delivery O2 Flow Rate FiO2 08/25/17 13:50 98.7 86 18 112/63 93 Intake and Output 08/24/17 08/24/17 08/25/17 15:00 23:00 07:00 Intake Total 325 ml 1400 ml 1050 ml Output Total 1 ml Balance 325 ml 1399 ml 1050 ml Exam Constitutional: alert, oriented Head: normocephalic Neck: supple Respiratory: normal air movement Cardiovascular: nl pulses Gastrointestinal: soft, tender Extremities: normal pulses Results Result Diagram: 08/25/17 0559 08/25/17 0559 Results 24 hrs Laboratory Tests Test 08/25/17 05:59 White Blood Count 16.1 H Red Blood Count 4.17 L Hemoglobin 11.3 L Hematocrit 34.7 L Mean Corpuscular Volume 83.2 Mean Corpuscular Hemoglobin 27.1 L Mean Corpuscular Hemoglobin Concent 32.6 Red Cell Distribution Width 13.4 Platelet Count 275 Mean Platelet Volume 9.9 Neutrophils % 76.9 Lymphocytes % 9.6 L Monocytes % 8.8 Eosinophils % 1.0 Basophils % 0.3 Nucleated Red Blood Cells % 0.0 Neutrophils # 12.4 H Lymphocytes # 1.5 Monocytes # 1.4 H Eosinophils # 0.2 Basophils # 0.1 Nucleated Red Blood Cells # 0.0 Sodium Level 135 Potassium Level 4.0 Chloride Level 101 Carbon Dioxide Level 29 Anion Gap 9 Blood Urea Nitrogen 6 L Creatinine 0.62 Glucose Level 109 Calcium Level 8.0 L Total Bilirubin 0.3 Direct Bilirubin 0.00 Indirect Bilirubin 0.3 Aspartate Amino Transf (AST/SGOT) 23 Alanine Aminotransferase (ALT/SGPT) 48 Alkaline Phosphatase 124 H Total Protein 5.9 L Albumin 2.9 L Globulin 3.00 Albumin/Globulin Ratio 0.96 Lipase 116 Medications Medications Current Medications Potassium Chloride/Dextrose/ Sod Cl (D5-1/2ns + KCl 20 Meq) 1,000 ml @ 150 mls/ hr Q6H40M IV Last administered on 08/25/17 08:22; Admin Dose 150 MLS/HR; Start 08/18/17 at 18:12 Famotidine (Pepcid Iv) 20 mg Q12 IV Last administered on 08/25/17 09:54; Admin Dose 20 MG; Start 08/18/17 at 21:00 Ondansetron HCl 4 mg 4 mg Q4H PRN IV NAUSEA AND/OR VOMITING Last administered on 08/23/17 22:28; Admin Dose 4 MG; Start 08/20/17 at 00:10 Metronidazole 100 ml @ 100 mls/hr Q8 IVPB Last administered on 08/25/17 13: 59; Admin Dose 100 MLS/HR; Start 08/20/17 at 17:00 Meropenem/Sodium Chloride 50 ml @ 100 mls/hr Q8 IVPB Last administered on 13:24; Admin Dose 100 MLS/HR; Start 08/23/17 at 17:30 Ciprofloxacin/ Dextrose (Cipro Ivpb) 200 ml @ 200 mls/hr Q12 IVPB Last administered on 08/25/17 09:54; Admin Dose 200 MLS/HR; Start 08/24/17 at 21: 00 Hydromorphone HCl (Dilaudid) 2 mg Q2H PRN IV PAIN Last administered on 16:21; Admin Dose 2 MG; Start 08/25/17 at 03:30 JAROCHO YOUNG Aug 25, 2017 17:26
[2017-08-25 19:25] VITALS: BP 127/73; RESP 20
[2017-08-26] MEDS: HYDROmorphONE 2 MG/ML SYG IV PRN ×7 (01:52→21:54)
[2017-08-26 01:54] VITALS: BP 139/67; RESP 20
--- NOTE | 2017-08-26 02:30 | CONS ---
DATE OF ADMISSION: 08/18/2017 DATE OF CONSULTATION: 08/25/2017 Patient at this time has a little pain, but it has been improving every day. No nausea, no vomiting , no GI bleeding, no fever. PHYSICAL EXAMINATION: GENERAL: Patient appears to be alert. VITAL SIGNS: Temperature is 98.7, blood pressure 112/63. CARDIOVASCULAR: Normal heart sounds. RESPIRATORY: Normal breath sounds. ABDOMEN: No significant tenderness. LABORATORY WORKUP: WBC count is down to 16,100, hemoglobin 11.3, potassium is 4.0. Lipase is 116. CLINICAL IMPRESSION: Improving pancreatitis. Patient has been started on clear liquids. PLAN: Continue clear liquids. Continue to observe the patient. She can probably be discharged melisa n. Dictated By: BREA HOOK/MAVERICK Conf#: [id number] DID#: [id number]
--- NOTE | 2017-08-26 02:56 | GILP ---
DATE OF PROCEDURE: 08/19/2017 PREOPERATIVE DIAGNOSIS: Patient presenting with history of abdominal pain, abnormal liver functions with a history of cholangitis. Because of the cholangitis and because the patient has cholelithias is. At this time, procedure is performed to rule out choledocholithiasis. POSTOPERATIVE DIAGNOSES: Small stricture noted in the distal common bile duct, and because of the stricture, sphincterotomy w as performed and CBD stent was placed. DESCRIPTION OF PROCEDURE: After informed written consent was obtained, the patient was intubated by anesthesiologist. While the patient was in prone position, Olympus video side-viewing duodenoscope was inserted into the oropharynx, then into the esophagus, subsequently into the stomach and duoden um. Ampulla was located in normal location with normal morphology. At this time, cannulation was p erformed. Initially pancreatic duct was cannulated. Subsequently common bile duct was also cannula belem. Common bile duct showed evidence of a stricture in the distal bile duct. There were no fillin g defects noted. Because of the stricture, which may be contributing to cholangitis, I elected to d o a sphincterotomy. About a 6 mm cut was made with the cutting wire of the Dreamtome and following this, the bile drained freely. No filling defects noted. At this time, a 10 x 7 Estero type of endobiliary prosthesis was inserted into the bile duct across the ampulla into the duodenum, and sev eral photographs were obtained and the procedure was terminated. PLAN: Recommend to remove the stent in about 4 weeks. Dictated By: BREA HOOK/MAVERICK Conf#: [id number] DID#: [id number] CC: KATHLEEN CASAREZ MD;*EndCC*
[2017-08-26] MEDS: D5W-0.45 NACL + KCL 20 MEQ 1,000 ML IV SCH ×3 (03:56→16:31)
[2017-08-26] MEDS: MEROPENEM 1 GM/50ML(PMX) 50 ML IVPB SCH ×3 (05:11→22:40)
[2017-08-26 05:43] LABS: ABNORMAL IP MESSAGE 1; BASOPHILS % 0.3 % (0.0-2.0); EOSINOPHILS # 0.3 10^3/ul (0.0-0.5); EOSINOPHILS % 1.9 % (0.0-7.0); HEMATOCRIT 34.8 % (37.0-47.0); HEMOGLOBIN 11.4 g/dl (12.0-16.0); LYMPHOCYTES # 1.5 10^3/ul (0.8-2.9); LYMPHOCYTES % 11.1 % (15.0-51.0); MEAN CORPUSCULAR HEMOGLOBIN 27.1 pg (29.0-33.0); MEAN CORPUSCULAR HGB CONC 32.8 g/dl (32.0-37.0); MEAN CORPUSCULAR VOLUME 82.7 fl (82.0-101.0); MEAN PLATELET VOLUME 9.5 fl (7.4-10.4); MONOCYTE # 1.4 10^3/ul (0.3-0.9); NEUTROPHIL # 9.8 10^3/ul (1.6-7.5); NEUTROPHILS % 70.9 % (39.0-77.0); PLATELET COUNT 286 10^3/UL (140-415); RED BLOOD COUNT 4.21 10^6/ul (4.20-5.40); RED CELL DISTRIBUTION WIDTH 13.4 % (11.5-14.5); WHITE BLOOD COUNT 13.8 10^3/ul (4.8-10.8)
--- NOTE | 2017-08-26 05:53 | PN ---
DATE: 08/25/2017 Status post endoscopic retrograde cholangiopancreatography, placement of a stent in the common bile duct, status post endoscopic retrograde cholangiopancreatography pancreatitis. SUBJECTIVE: The patient is complaining of pain requiring pain medication, Dilaudid 2 mg every 2 deborah rs. Has passed gas. No bowel movement, no vomiting, some nausea. OBJECTIVE: Alert, awake, oriented x3. VITAL SIGNS: Temperature 99.8 and 98.7, heart rate 85 regular, respirations 18, blood pressure 126/ 70, saturation 95% room air. HEAD AND NECK: Normocephalic chest symmetrical expansion. HEART: Regular. LUNGS: Minimal. Decreased breathing sound at bases. ABDOMEN: Soft, bowel sounds present. Tenderness in both upper quadrants and epigastric on deep pre ssure. LABORATORY DATA: Sodium, potassium normal, BUN and creatinine normal. AST, ALT dropped to normal a lkaline phosphatase 174, AST is elevated lipase today is 116, which is normal. Hematology: WBC nando pped to 16,100 with 76% segmented, hemoglobin is stable at 11.3. ASSESSMENT AND PLAN: A 36-year-old female presented with abdominal pain, epigastric and right upper quadrant, was found to have gallstones by ultrasound and MRCP. AST, alkaline phosphatase elevated. Gastroenterology colleague consulted decided to do ERCP, possible impacted stone or passed a stone and cholangitis. There was fibrosis of the distal common bile duct at the ampulla. He did remove the sludge, put a stent. Post-ERCP patient developed severe pancreatitis, and lipase 17,000, leukoc yte eventually went up to 27,000, today is now back down to 16,000. Lipase is normalized. Enzymes within normal limits. The patient is better but still has a lot of pain. We are going to start on clear liquids and observe. Dictated By: BRANDO CHRISTINE/MAVERICK Conf#: [id number] DID#: [id number]
[2017-08-26] MEDS: metroNIDAZOLE 500 MG/NS (PMX) 100 ML IVPB SCH ×3 (06:27→21:07)
[2017-08-26 06:37] LABS: POSITIVE DIFF @See below
[2017-08-26 07:48] VITALS: BP_SYST 101; RESP 16
[2017-08-26] MEDS: FAMOTIDINE 20 MG INJ IV SCH ×2 (08:57→21:05)
[2017-08-26] MEDS: ONDANSETRON 4 MG INJ IV PRN ×3 (09:15→21:48)
[2017-08-26] MEDS ORDERED: SENNA TAB PO PRN (10:30)
[2017-08-26] MEDS: HYDROCODONE/APAP (5/325) TAB PO PRN ×2 (11:18→16:22)
[2017-08-26 13:50] VITALS: BP 126/75; RESP 16
[2017-08-26 20:00] VITALS: BP 118/69; RESP 20
[2017-08-26 20:04] LABS: ALBUMIN 2.8 g/dl (3.3-4.9); ALBUMIN/GLOBULIN RATIO 0.96; BILIRUBIN,INDIRECT 0.3 mg/dl (0-1.1); BILIRUBIN,TOTAL 0.3 mg/dl (0.2-1.3); CALCIUM 7.9 mg/dl (8.4-10.2); CREATININE 0.58 mg/dl (0.44-1.00); POTASSIUM 3.5 mmol/L (3.5-5.1); TOTAL PROTEIN 5.7 g/dl (6.1-8.1)
--- NOTE | 2017-08-26 21:04 | RADRPT ---
PROCEDURE: XR Abdomen. CLINICAL INDICATION: Pain TECHNIQUE: AP abdomen x-ray. COMPARISON: None. FINDINGS: Right upper quadrant biliary stent is present. The bowel gas pattern is normal. There is no evidence of obstruction or ileus. There are no abnormal calcifications. The osseus structures are unremar kable. IMPRESSION: No evidence for obstruction or ileus. Right upper quadrant biliary stent. RPTAT: HMVK .Giorgio Vera MD, MD Date Time Electronically viewed and signed by .Giorgio Vera MD, MD on 08/26/2017 21:03 .K/
--- NOTE | 2017-08-26 23:03 | PN ---
DATE: 08/26/2017 Status post ERCP and status post ERCP-induced pancreatitis. SUBJECTIVE: Feels slightly better. Has been passing gas. No bowel movement. She vomited twice today. OBJECTIVE: GENERAL: Awake, alert, oriented x3. VITAL SIGNS: Temperature 98.8, heart rate 65, respirations 16, blood pressure 126/75, saturation 98% on room air. HEART: Regular. LUNGS: Clear. ABDOMEN: Soft with tenderness in right upper quadrant and left upper quadrant. LABORATORIES: WBC dropped to 13,800 with 71% segmented, hemoglobin 11.4, hematocrit 34.8. Chemistry: Sodium and potassium normal. BUN and creatinine normal. Calcium 8. . Albumin is 3.9. Lipase is 85, normal. ASSESSMENT AND PLAN: A 36-year-old female with a body mass index of 39.1 kilograms per square meter who presented with abdominal pain. Was found to have a gallstone but ultrasound or MRCP did not show cholecystitis. Enzymes were elevated with the impression of cholangitis and possibly passed a stone. Was seen by gastroenterology colleague. Decided to perform ERCP. ERCP was done. A stent was placed. Sludge was removed. Postop, the patient developed pancreatitis. Now, gradually pancreatitis is resolving, although the patient is still not able to tolerate diet, but the lipase has been normalized. The WBC was 55373 ,. Now, it is down to 13,000. PLAN: Continue current care and observation and only clear liquids. Dictated By: BRANDO ENRIQUEZ MD PS/NTS Conf#: [id number] DID#: [id number] MTDD
[2017-08-27] MEDS: D5W-0.45 NACL + KCL 20 MEQ 1,000 ML IV SCH ×5 (00:52→23:34)
--- NOTE | 2017-08-27 01:03 | PN ---
DATE: 08/26/2017 SUBJECTIVE: Follow up on pancreatitis. The patient also has gallstone and recently had post-ERCP s evere pancreatitis. The patient continues to have abdominal pain. The patient in the morning reque sted to reduce the dose of Dilaudid she was on, and the patient's dose was reduced to 1 mg Dilaudid from 2 mg and also the patient was started on Aurora. The patient did receive p.o. Aurora; however, t he patient started having vomiting. The patient also has increasing abdominal pain. The patient re ported that she has not had any BM for the last 9 days, although she does have flatus. The patient did not have fever, chills or shortness of breath. The patient remains awake, alert. PHYSICAL EXAMINATION: GENERAL: The patient is conscious, awake, alert. VITAL SIGNS: Temperature 98.8, pulse 65, respirations 16, blood pressure 126/75, O2 saturation 98% on room air. NECK: No mass. CHEST: Fairly clear. CARDIOVASCULAR: S1, S2 normal. No murmur. ABDOMEN: Upper abdominal tenderness present, obese. EXTREMITIES: No leg tenderness. SKIN: Without acute rash. NEUROLOGIC: The patient is awake, alert, fairly oriented. LABORATORIES: WBC 13.8, hemoglobin 11.4. Labs this morning: Lipase was 85. IMPRESSION: Post-ERCP pancreatitis. The patient has continued to be symptomatic. Will increase in travenous Dilaudid. Will also continue intravenous meropenem and intravenous Flagyl. The patient i s being followed by Dr. Daly from surgery standpoint and Dr. Christiansen from gastroenterology standpoi nt. Will also repeat chemistry and repeat stat lipase and also will do a KUB. Further recommendati ons will depend on the patient's hospital course. Will also notify Dr. Christiansen due to increasing abd ominal pain. Dictated By: KATHLEEN PLAM/MAVERICK Conf#: [id number] DID#: [id number]
[2017-08-27] MEDS: HYDROmorphONE 2 MG/ML SYG IV PRN ×6 (02:16→21:57)
[2017-08-27] MEDS: ONDANSETRON 4 MG INJ IV PRN ×3 (02:16→21:57)
[2017-08-27 02:42] VITALS: BP 114/61; RESP 18
[2017-08-27] MEDS: metroNIDAZOLE 500 MG/NS (PMX) 100 ML IVPB SCH ×3 (05:05→21:59)
[2017-08-27] MEDS: MEROPENEM 1 GM/50ML(PMX) 50 ML IVPB SCH ×3 (06:13→21:59)
[2017-08-27 08:01] VITALS: BP 114/64; RESP 20
[2017-08-27] MEDS: FAMOTIDINE 20 MG INJ IV SCH ×2 (09:00→21:57)
--- NOTE | 2017-08-27 11:54 | PN ---
DATE: 08/27/2017 SUBJECTIVE: She feels slightly better. She had nausea but no vomiting today. No chills, no fever. No bowel movement today. OBJECTIVE GENERAL: Awake, alert, oriented. VITAL SIGNS: Temperature 98, 65, 20, 114/67, saturation 96% on room air. No CBC today. Chemistry lipase is 110 today is within normal limits. HEART: Regular. LUNGS: Clear. ABDOMEN: Soft, mild tenderness in the right and left upper quadrant on deep pressure. KUB done yesterday, which is normal. ASSESSMENT: A 36-year-old female followed by post-ERCP pancreatitis that was very severe, but the patient is getting gradually better and the lipase has normalized from 17,000. Patient is nauseous, vomited yesterday. The patient is on clear liquid. We will observe a few more days before advancing to regular diet. Dictated By: BRANDO ENRIQUEZ MD PS/MAVERICK Conf#: [id number] DID#: [id number] MTDD
--- NOTE | 2017-08-27 15:30 | CONS ---
DATE OF ADMISSION: 08/18/2017 DATE OF CONSULTATION: At this time, she complains of having abdominal pain. She had 3 episodes of vomiting yesterday. A KUB was done which was unremarkable. Apparently through the night she slept well and this morning she has no abdominal pain, no vomiting. PHYSICAL EXAMINATION: GENERAL: Patient is alert. VITAL SIGNS: Temperature 98, blood pressure 114/64, pulse is 65. HEART: Normal heart sounds. RESPIRATORY: Normal breath sounds. ABDOMEN: Showed very minimal tenderness in the right upper quadrant. LABORATORY WORKUP: Improved to 13,800 from 26,000. The amylase is 35 yesterday. Normal liver pane l this morning. The lipase is 110. CLINICAL IMPRESSION: Patient seems to be stabilizing from the pain. One should rule out the possib ility of acute cholecystitis. She does have gallstones. PLAN: Recommend HIDA scan. Once again doctor, thank you for this consultation. Dictated By: BREA HOOK/MAVERICK Conf#: [id number] DID#: [id number]
--- NOTE | 2017-08-27 16:50 | PN ---
Date/Time of Note Date/Time of Note DATE: 08/27/17 TIME: 16:48 Assessment/Plan VTE Prophylaxis VTE Prophylaxis Intervention: SCD's Lines/Catheters IV C[facility]ter Type (from [facility]): Peripheral IV Urinary Cath still in place: No Assessment/Plan Chief Complaint/Hosp Course Patient continues to have nausea and significant abdominal pain requiring IV Dilaudid, pending HIDA scan Assessment/Plan - Intractable abdominal pain. Continue Dilaudid p.r.n. for pain and Zofran p.r.n. for nausea. - Post ERCP pancreatitis, resolving, lipase is within normal limits, continue IV fluids and antiemetics. - Cholelithiasis and acute cholecystitis. Dr. Smith is following in general surgery consultation. Patient is allergic to penicillin antibiotics, continue Meropenem and Flagyl. - S/P ERCP and common bile duct stent placement by Dr Christiansen. Further recommendations based on clinical course. Plan of care discussed with Dr. Wright. Problems: Exam/Review of Systems Vital Signs Vitals Vital Signs Date Time Temp Pulse Resp B/P Pulse Ox O2 Delivery O2 Flow Rate FiO2 08/27/17 08:01 98.0 65 20 114/64 96 Intake and Output 08/26/17 08/26/17 08/27/17 15:00 23:00 07:00 Intake Total 900 ml 1070 ml 800 ml Output Total 800 ml Balance 100 ml 1070 ml 800 ml Exam Constitutional: alert, oriented Head: normocephalic Neck: supple Respiratory: normal air movement Cardiovascular: nl pulses Gastrointestinal: soft, tender Extremities: normal pulses Results Result Diagram: 08/26/17 0526 08/26/17 192 Results 24 hrs Laboratory Tests Test 08/26/17 19:21 08/27/17 05:19 Sodium Level 136 Potassium Level 3.5 Chloride Level 101 Carbon Dioxide Level 26 Anion Gap 13 Blood Urea Nitrogen 3 L Creatinine 0.58 Glucose Level 102 Calcium Level 7.9 L Total Bilirubin 0.3 Direct Bilirubin 0.00 Indirect Bilirubin 0.3 Aspartate Amino Transf (AST/SGOT) 19 Alanine Aminotransferase (ALT/SGPT) 39 Alkaline Phosphatase 97 Total Protein 5.7 L Albumin 2.8 L Globulin 2.90 Albumin/Globulin Ratio 0.96 Amylase Level 35 Lipase 87 110 Medications Medications Current Medications Potassium Chloride/Dextrose/ Sod Cl (D5-1/2ns + KCl 20 Meq) 1,000 ml @ 150 mls/ hr Q6H40M IV Last administered on 08/27/17 09:00; Admin Dose 150 MLS/HR; Start 08/18/17 at 18:12 Famotidine (Pepcid Iv) 20 mg Q12 IV Last administered on 08/27/17 09:00; Admin Dose 20 MG; Start 08/18/17 at 21:00 Ondansetron HCl 4 mg 4 mg Q4H PRN IV NAUSEA AND/OR VOMITING Last administered on 08/27/17 06:14; Admin Dose 4 MG; Start 08/20/17 at 00:10 Metronidazole 100 ml @ 100 mls/hr Q8 IVPB Last administered on 08/27/17 05: 05; Admin Dose 100 MLS/HR; Start 08/20/17 at 17:00 Meropenem/Sodium Chloride (Merrem 1 Gm/50 ml (Pmx)) 50 ml @ 100 mls/hr Q8 IVPB Last administered on 08/27/17 06:13; Admin Dose 100 MLS/HR; Start 08/23/17 at 17:30 Senna (Senokot) 1 tab BID PRN PO CONSTIPATION Last administered on 08/26/17 11:18; Admin Dose 1 TAB; Start 08/26/17 at 10:30 Hydromorphone HCl (Dilaudid) 2 mg Q3 PRN IV PAIN Last administered on 15:44; Admin Dose 2 MG; Start 08/26/17 at 21:00 JAROCHO YOUNG Aug 27, 2017 16:50
--- NOTE | 2017-08-27 17:52 | RADRPT ---
PROCEDURE: HIDA scan CLINICAL INDICATION: 36 -year-old patient with abdominal pain, CBD stent. TECHNIQUE: Following the intravenous injection of 8.4 mCi of Tc-99m Mebrofenin, multiple anterior dynamic images of the abdomen along with numerous planar spot images of the abdomen were obtained up to 3 hours post injection. COMPARISON: No prior HIDA scans. CT scan of the abdomen and pelvis dated August 23, 2017. FINDINGS: The liver is promptly visualized, demonstrates homogeneous distribution of radionuclide. There is a visualization of the common bile duct and gastrointestinal activity within normal time. The gallbladder is not visualized up to 3 hours post injection. IMPRESSION: 1. Nonvisualization of the gallbladder up to 3 hours post injection. 2. No evidence of a common bile duct obstruction. RPTAT: HH .Alicia Craig MD, Date Time Electronically viewed and signed by .Alicia Craig MD, on 08/27/2017 17:52 .L/
[2017-08-27 20:29] VITALS: BP 115/69; RESP 19
[2017-08-28] MEDS: HYDROmorphONE 2 MG/ML SYG IV PRN ×6 (01:14→23:14)
[2017-08-28 01:21] VITALS: BP 111/56; RESP 18
[2017-08-28] MEDS: MEROPENEM 1 GM/50ML(PMX) 50 ML IVPB SCH ×3 (05:28→21:17)
[2017-08-28] MEDS: metroNIDAZOLE 500 MG/NS (PMX) 100 ML IVPB SCH ×3 (05:31→22:13)
[2017-08-28 06:38] LABS: BASOPHIL # 0.1 10^3/ul (0.0-0.1); BASOPHILS % 0.5 % (0.0-2.0); EOSINOPHILS # 0.3 10^3/ul (0.0-0.5); EOSINOPHILS % 2.9 % (0.0-7.0); HEMATOCRIT 36.8 % (37.0-47.0); HEMOGLOBIN 12.2 g/dl (12.0-16.0); LYMPHOCYTES # 1.5 10^3/ul (0.8-2.9); LYMPHOCYTES % 13.7 % (15.0-51.0); MEAN CORPUSCULAR HEMOGLOBIN 27.4 pg (29.0-33.0); MEAN CORPUSCULAR HGB CONC 33.2 g/dl (32.0-37.0); MEAN CORPUSCULAR VOLUME 82.5 fl (82.0-101.0); MEAN PLATELET VOLUME 9.7 fl (7.4-10.4); MONOCYTE # 0.8 10^3/ul (0.3-0.9); NEUTROPHILS % 71.8 % (39.0-77.0); PLATELET COUNT 309 10^3/UL (140-415); RED BLOOD COUNT 4.46 10^6/ul (4.20-5.40); RED CELL DISTRIBUTION WIDTH 13.2 % (11.5-14.5); WHITE BLOOD COUNT 11.1 10^3/ul (4.8-10.8)
[2017-08-28 07:23] LABS: ALBUMIN 2.7 g/dl (3.3-4.9); ALBUMIN/GLOBULIN RATIO 0.77; BILIRUBIN,INDIRECT 0.2 mg/dl (0-1.1); BILIRUBIN,TOTAL 0.2 mg/dl (0.2-1.3); CALCIUM 8.5 mg/dl (8.4-10.2); CREATININE 0.64 mg/dl (0.44-1.00); TOTAL PROTEIN 6.2 g/dl (6.1-8.1)
[2017-08-28 07:32] VITALS: BP 113/57; RESP 18
[2017-08-28] MEDS: ONDANSETRON 4 MG INJ IV PRN (08:30)
[2017-08-28] MEDS: FAMOTIDINE 20 MG INJ IV SCH ×2 (08:30→21:16)
[2017-08-28] MEDS: D5W-0.45 NACL + KCL 20 MEQ 1,000 ML IV SCH ×4 (08:31→21:32)
[2017-08-28 14:10] VITALS: BP 112/63; RESP 18
--- NOTE | 2017-08-28 16:08 | PN ---
Date/Time of Note Date/Time of Note DATE: 08/28/17 TIME: 16:07 Assessment/Plan Lines/Catheters IV Catheter Type (from [facility]): Saline Lock Urinary Cath still in place: No Assessment/Plan Assessment/Plan - Intractable abdominal pain. Continue Dilaudid p.r.n. for pain and Zofran p.r.n. for nausea. - Post ERCP pancreatitis, resolving, lipase is within normal limits, continue IV fluids and antiemetics. - Cholelithiasis and acute cholecystitis. Dr. Smith is following in general surgery consultation. Patient is allergic to penicillin antibiotics, continue Meropenem and Flagyl. - S/P ERCP and common bile duct stent placement by Dr Christiansen. Further recommendations based on clinical course. Plan of care discussed with Dr. Wright Subjective 24 Hr Interval Summary Respiratory: no complaints Cardiovascular: no complaints Gastrointestinal: pain Genitourinary: no complaints Musculoskeletal: no complaints Exam/Review of Systems Vital Signs Vitals Vital Signs Date Time Temp Pulse Resp B/P Pulse Ox O2 Delivery O2 Flow Rate FiO2 08/28/17 14:10 98.2 62 18 112/63 96 Intake and Output 08/27/17 08/27/17 08/28/17 15:00 23:00 07:00 Intake Total 600 ml 1450 ml Balance 600 ml 1450 ml Exam Constitutional: alert, oriented, well developed Respiratory: clear to auscultation, diminished breath sounds Cardiovascular: nl pulses Gastrointestinal: non-tender, soft Musculoskeletal: nl extremities to inspection Extremities: normal pulses Neurological: nl mental status, nl speech Results Result Diagram: 08/28/17 0508 08/28/17 0508 Results 24 hrs Laboratory Tests Test 08/28/17 05:08 White Blood Count 11.1 H Red Blood Count 4.46 Hemoglobin 12.2 Hematocrit 36.8 L Mean Corpuscular Volume 82.5 Mean Corpuscular Hemoglobin 27.4 L Mean Corpuscular Hemoglobin Concent 33.2 Red Cell Distribution Width 13.2 Platelet Count 309 Mean Platelet Volume 9.7 Neutrophils % 71.8 Lymphocytes % 13.7 L Monocytes % 7.0 Eosinophils % 2.9 Basophils % 0.5 Nucleated Red Blood Cells % 0.0 Neutrophils # 8.0 H Lymphocytes # 1.5 Monocytes # 0.8 Eosinophils # 0.3 Basophils # 0.1 Nucleated Red Blood Cells # 0.0 Sodium Level 136 Potassium Level 4.0 Chloride Level 102 Carbon Dioxide Level 29 Anion Gap 9 Blood Urea Nitrogen 3 L Creatinine 0.64 Glucose Level 100 Calcium Level 8.5 Total Bilirubin 0.2 Direct Bilirubin 0.00 Indirect Bilirubin 0.2 Aspartate Amino Transf (AST/SGOT) 25 Alanine Aminotransferase (ALT/SGPT) 37 Alkaline Phosphatase 111 Total Protein 6.2 Albumin 2.7 L Globulin 3.50 H Albumin/Globulin Ratio 0.77 Lipase 231 Medications Medications Current Medications Potassium Chloride/Dextrose/ Sod Cl (D5-1/2ns + KCl 20 Meq) 1,000 ml @ 150 mls/ hr Q6H40M IV Last administered on 08/28/17 08:31; Admin Dose 150 MLS/HR; Start 08/18/17 at 18:12 Famotidine (Pepcid Iv) 20 mg Q12 IV Last administered on 08/28/17 08:30; Admin Dose 20 MG; Start 08/18/17 at 21:00 Ondansetron HCl 4 mg 4 mg Q4H PRN IV NAUSEA AND/OR VOMITING Last administered on 08/28/17 08:30; Admin Dose 4 MG; Start 08/20/17 at 00:10 Metronidazole 100 ml @ 100 mls/hr Q8 IVPB Last administered on 08/28/17 14: 33; Admin Dose 100 MLS/HR; Start 08/20/17 at 17:00 Meropenem/Sodium Chloride (Merrem 1 Gm/50 ml (Pmx)) 50 ml @ 100 mls/hr Q8 IVPB Last administered on 08/28/17 14:33; Admin Dose 100 MLS/HR; Start 08/23/17 at 17:30 Senna (Senokot) 1 tab BID PRN PO CONSTIPATION Last administered on 08/26/17 11:18; Admin Dose 1 TAB; Start 08/26/17 at 10:30 Hydromorphone HCl (Dilaudid) 1.5 mg Q3 PRN IV PAIN Last administered on 12:13; Admin Dose 1.5 MG; Start 08/28/17 at 11:30 GABRIEL EPSTEIN Aug 28, 2017 16:08
[2017-08-28 20:00] VITALS: BP 112/64; RESP 20
[2017-08-29 02:00] VITALS: BP 122/58; RESP 20
--- NOTE | 2017-08-29 02:32 | PN ---
DATE: 08/28/2017 SUBJECTIVE: Feels slightly better. She vomited this morning when she woke up, about half a cup of greenish fluid. No chills, no fever. No bowel movement, no passing gas today, requiring pain medic ation, Dilaudid 1 mg IV q.3 hours she is getting, but she is to get 3 mg before, so some improvement . OBJECTIVE: GENERAL: Alert, awake, oriented x3. She is taking a shower. VITAL SIGNS: Temperature 98, heart rate 71, respiration 18, blood pressure 111/56, saturation 93% t o 96% on room air. LABORATORY DATA: Sodium and potassium normal. BUN and creatinine normal. Albumin 2.7. Lipase is 231, which is normal range. WBC 11,100 today, yesterday was 14,000 with neutrophils today 71.8%, p latelet count 309. Hemoglobin is stable here. IMAGING: HIDA scan was ordered by the colleagues yesterday. The impression is nonvisualization of the gallbladder, up to 3 hours post-injection. No evidence of common bile duct obstruction. (Comme nt: I do not know what is the significance of this test at stage because the patient, as we know, h as a stent in the common bile duct. Therefore, the orifice of the cystic duct, assuming it is obstr ucted by the stent, therefore there is no visualization because the dye does not get to the cystic d uct. It just goes through the liver and through the common bile duct). ASSESSMENT AND PLAN: A 36-year-old female who was admitted because of the symptomatic gallstone, bi liary colic, most probably. She had the enzymes elevated, AST, alkaline phosphatase. She underwent ERCP for investigation and sludge was removed and a stent was placed. Postop, the patient develope d severe pancreatitis and is recovering from pancreatitis gradually. The amylase was 17,000, now to day is normal at 230, and WBC increased to 27,000, today is 11,000. Patient's requirement of pain m edication has decreased much, is on clear liquids, but sometimes vomits. PLAN: Continue current care. Do not advance the diet from my opinion. Continue antibiotics. Dictated By: BRANDO ENRIQUEZ MD PS/MAVERICK Conf#: [id number] DID#: [id number]
[2017-08-29] MEDS: ONDANSETRON 4 MG INJ IV PRN (02:38)
[2017-08-29] MEDS: D5W-0.45 NACL + KCL 20 MEQ 1,000 ML IV SCH ×4 (04:20→21:27)
[2017-08-29] MEDS: MEROPENEM 1 GM/50ML(PMX) 50 ML IVPB SCH ×3 (05:24→21:24)
[2017-08-29] MEDS: HYDROmorphONE 2 MG/ML SYG IV PRN ×4 (05:25→21:30)
[2017-08-29] MEDS: metroNIDAZOLE 500 MG/NS (PMX) 100 ML IVPB SCH ×3 (06:24→22:18)
[2017-08-29 07:40] VITALS: BP 110/57; RESP 18
[2017-08-29] MEDS: FAMOTIDINE 20 MG INJ IV SCH ×2 (09:44→20:06)
[2017-08-29 11:32] LABS: BASOPHIL # 0.1 10^3/ul (0.0-0.1); BASOPHILS % 0.5 % (0.0-2.0); EOSINOPHILS # 0.3 10^3/ul (0.0-0.5); EOSINOPHILS % 3.3 % (0.0-7.0); HEMATOCRIT 36.9 % (37.0-47.0); HEMOGLOBIN 12.2 g/dl (12.0-16.0); LYMPHOCYTES # 1.8 10^3/ul (0.8-2.9); LYMPHOCYTES % 17.8 % (15.0-51.0); MEAN CORPUSCULAR HEMOGLOBIN 27.5 pg (29.0-33.0); MEAN CORPUSCULAR HGB CONC 33.1 g/dl (32.0-37.0); MEAN CORPUSCULAR VOLUME 83.3 fl (82.0-101.0); MEAN PLATELET VOLUME 9.8 fl (7.4-10.4); MONOCYTE # 0.6 10^3/ul (0.3-0.9); MONOCYTES % 5.5 % (0.0-11.0); NEUTROPHILS % 70.5 % (39.0-77.0); PLATELET COUNT 323 10^3/UL (140-415); RED BLOOD COUNT 4.43 10^6/ul (4.20-5.40); RED CELL DISTRIBUTION WIDTH 13.1 % (11.5-14.5)
[2017-08-29 11:58] LABS: CALCIUM 8.4 mg/dl (8.4-10.2); CREATININE 0.67 mg/dl (0.44-1.00)
--- NOTE | 2017-08-29 15:29 | PN ---
DATE: 08/29/2017 SUBJECTIVE: She still has some pain about 4/10. She vomited today, morning, about half a cup. Some nausea is present too, but so far, somehow tolerating clear liquids. OBJECTIVE: GENERAL: Alert and oriented x3, in no acute distress. VITAL SIGNS: Temperature today 98.4, heart rate 62, respirations 18, blood pressure 110/57, saturation 97% room air. ABDOMEN: Soft, minimal tenderness in the right and left upper quadrant on deep pressure. EXTREMITIES: Legs: No calf tenderness. GASTROINTESTINAL: Has passed gas. LABORATORY DATA: WBC dropped to 10,000, which is normal. Differential is 70, which is normal. Hemoglobin 12.31, Chemistry was not done. ASSESSMENT: A 36-year-old female who presented with biliary colic, had the enzymes elevated, had ERCP, developed pancreatitis post-ERCP, gradually the pancreatitis is resolving. As of yesterday, lipase is normal. Today, WBC down to normal. She has been on clear liquids for a couple of days and continues to have some nausea and occasional vomiting. Vomiting is about 2 to 3 hours postprandial, she says. PLAN: We will increase diet to full liquid today and observe for any changes in the lipase and amylase and abdominal pain pattern. Dictated By: BRANDO CHRISTINE/MAVERICK Conf#: [id number] DID#: [id number] MTDD
[2017-08-29 16:07] VITALS: BP 114/72; RESP 18
--- NOTE | 2017-08-29 18:12 | PN ---
Date/Time of Note Date/Time of Note DATE: 08/29/17 TIME: 18:10 Assessment/Plan VTE Prophylaxis VTE Prophylaxis Intervention: other Lines/Catheters Urinary Cath still in place: No Assessment/Plan Assessment/Plan - Intractable abdominal pain. Continue Dilaudid p.r.n. for pain and Zofran p.r.n. for nausea. - Post ERCP pancreatitis, resolving, lipase is within normal limits, continue IV fluids and antiemetics. - Cholelithiasis and acute cholecystitis. Dr. Smith is following in general surgery consultation. Patient is allergic to penicillin antibiotics, continue Meropenem and Flagyl. - S/P ERCP and common bile duct stent placement by Dr Christiansen. Further recommendations based on clinical course. Plan of care discussed with Dr. Wright Subjective 24 Hr Interval Summary ENT: no complaints ( ) Respiratory: no complaints Cardiovascular: no complaints Gastrointestinal: pain Genitourinary: no complaints Exam/Review of Systems Vital Signs Vitals Vital Signs Date Time Temp Pulse Resp B/P Pulse Ox O2 Delivery O2 Flow Rate FiO2 08/29/17 16:07 97.4 60 18 114/72 96 Intake and Output 08/28/17 08/28/17 08/29/17 15:00 23:00 07:00 Intake Total 300 ml 1730 ml 1350 ml Balance 300 ml 1730 ml 1350 ml Exam Constitutional: alert, oriented, well developed Respiratory: clear to auscultation Cardiovascular: nl pulses Gastrointestinal: soft, tender Results Result Diagram: 08/29/17 1022 08/29/17 1021 Results 24 hrs Laboratory Tests Test 08/29/17 10:21 08/29/17 10:22 Sodium Level 138 Potassium Level 4.0 Chloride Level 100 Carbon Dioxide Level 30 Anion Gap 12 Blood Urea Nitrogen 3 L Creatinine 0.67 Glucose Level 93 Calcium Level 8.4 White Blood Count 10.0 Red Blood Count 4.43 Hemoglobin 12.2 Hematocrit 36.9 L Mean Corpuscular Volume 83.3 Mean Corpuscular Hemoglobin 27.5 L Mean Corpuscular Hemoglobin Concent 33.1 Red Cell Distribution Width 13.1 Platelet Count 323 Mean Platelet Volume 9.8 Neutrophils % 70.5 Lymphocytes % 17.8 Monocytes % 5.5 Eosinophils % 3.3 Basophils % 0.5 Nucleated Red Blood Cells % 0.0 Neutrophils # 7.0 Lymphocytes # 1.8 Monocytes # 0.6 Eosinophils # 0.3 Basophils # 0.1 Nucleated Red Blood Cells # 0.0 Medications Medications Current Medications Potassium Chloride/Dextrose/ Sod Cl (D5-1/2ns + KCl 20 Meq) 1,000 ml @ 100 mls/ hr Q10H IV Last administered on 08/29/17 09:44; Admin Dose 150 MLS/HR; Start 08/18/17 at 18:12 Famotidine (Pepcid Iv) 20 mg Q12 IV Last administered on 08/29/17 09:44; Admin Dose 20 MG; Start 08/18/17 at 21:00 Ondansetron HCl 4 mg 4 mg Q4H PRN IV NAUSEA AND/OR VOMITING Last administered on 08/29/17 02:38; Admin Dose 4 MG; Start 08/20/17 at 00:10 Metronidazole 100 ml @ 100 mls/hr Q8 IVPB Last administered on 08/29/17 13: 49; Admin Dose 100 MLS/HR; Start 08/20/17 at 17:00 Meropenem/Sodium Chloride (Merrem 1 Gm/50 ml (Pmx)) 50 ml @ 100 mls/hr Q8 IVPB Last administered on 08/29/17 13:49; Admin Dose 100 MLS/HR; Start 08/23/17 at 17:30 Senna (Senokot) 1 tab BID PRN PO CONSTIPATION Last administered on 08/26/17 11:18; Admin Dose 1 TAB; Start 08/26/17 at 10:30 Hydromorphone HCl (Dilaudid) 1.5 mg Q3 PRN IV PAIN Last administered on 17:46; Admin Dose 1.5 MG; Start 08/28/17 at 11:30 GABRIEL EPSTEIN Aug 29, 2017 18:12
[2017-08-29 19:36] VITALS: BP 111/65; RESP 18
--- NOTE | 2017-08-29 21:50 | CONS ---
DATE OF ADMISSION: 08/18/2017 DATE OF CONSULTATION: The patient was seen by me for cholecystitis, pancreatitis, cholangitis. ERCP was done. Following the ERCP, she developed ERCP pancreatitis. Now completely resolved. Abdominal pain is much better. Vomiting is much better. PHYSICAL EXAMINATION: GENERAL: The patient is alert. VITAL SIGNS: Afebrile, blood pressure 114/72. CARDIOVASCULAR: Normal heart sounds. RESPIRATORY: Normal breath sounds. ABDOMEN: Showed no significant tenderness. LABORATORY WORKUP: As of yesterday, the liver panel is perfectly normal. Yesterday, lipase was 231 which is normal. WBC count is 10,000. It came down from 20,000 plus. CLINICAL IMPRESSION: HIDA scan shows evidence of nonvisualization of the gallbladder, but it is to be noted that she has a common bile duct stent in place which may or may not cause blockage of the c ystic duct opening. This needs to be reviewed in the literature and see the significance of the non visualization of the gallbladder in the presence of a stent in the bile duct. PLAN: Discussed with Dr. Daly. The patient will be discharged. Once the patient gets stabilized , laparoscopic cholecystectomy will be performed. Dictated By: BREA HOOK/MAVERICK Conf#: [id number] DID#: [id number]
[2017-08-30] MEDS: HYDROmorphONE 2 MG/ML SYG IV PRN ×2 (01:24→07:26)
[2017-08-30] MEDS: ONDANSETRON 4 MG INJ IV PRN ×3 (01:24→09:42)
[2017-08-30 02:00] VITALS: BP 112/54; RESP 18
[2017-08-30] MEDS: MEROPENEM 1 GM/50ML(PMX) 50 ML IVPB SCH ×3 (05:21→21:13)
[2017-08-30] MEDS: D5W-0.45 NACL + KCL 20 MEQ 1,000 ML IV SCH ×2 (05:35→11:20)
[2017-08-30] MEDS: metroNIDAZOLE 500 MG/NS (PMX) 100 ML IVPB SCH ×3 (06:00→22:10)
[2017-08-30 06:04] LABS: BASOPHIL # 0.1 10^3/ul (0.0-0.1); BASOPHILS % 0.5 % (0.0-2.0); EOSINOPHILS # 0.4 10^3/ul (0.0-0.5); EOSINOPHILS % 3.7 % (0.0-7.0); HEMATOCRIT 38.3 % (37.0-47.0); HEMOGLOBIN 12.5 g/dl (12.0-16.0); LYMPHOCYTES # 1.7 10^3/ul (0.8-2.9); LYMPHOCYTES % 17.2 % (15.0-51.0); MEAN CORPUSCULAR HEMOGLOBIN 27.1 pg (29.0-33.0); MEAN CORPUSCULAR HGB CONC 32.6 g/dl (32.0-37.0); MEAN CORPUSCULAR VOLUME 83.1 fl (82.0-101.0); MEAN PLATELET VOLUME 9.7 fl (7.4-10.4); MONOCYTE # 0.6 10^3/ul (0.3-0.9); MONOCYTES % 6.3 % (0.0-11.0); NEUTROPHILS % 70.7 % (39.0-77.0); PLATELET COUNT 328 10^3/UL (140-415); RED BLOOD COUNT 4.61 10^6/ul (4.20-5.40); RED CELL DISTRIBUTION WIDTH 13.2 % (11.5-14.5); WHITE BLOOD COUNT 9.9 10^3/ul (4.8-10.8)
[2017-08-30 06:42] LABS: CALCIUM 8.8 mg/dl (8.4-10.2); CREATININE 0.66 mg/dl (0.44-1.00); POTASSIUM 4.2 mmol/L (3.5-5.1)
[2017-08-30 07:46] VITALS: BP 106/58; RESP 20
[2017-08-30] MEDS: FAMOTIDINE 20 MG INJ IV SCH ×2 (10:20→21:13)
--- NOTE | 2017-08-30 12:09 | PN ---
DATE: 08/30/2017 Status post ERCP and placement of a stent and removal of sludge, and ERCP induced pancreatitis. SUBJECTIVE: She states that she feels dizzy. She believes this is due to pain medication which is Dilaudid 1.5 mg. Some nausea and vomiting today morning, but usually is not following the ingestion, but 2 to 3 hours after that. No fever, passing gas, no bowel movement. OBJECTIVE: GENERAL: Alert, awake, oriented x3. VITAL SIGNS: Temperature 98.1, heart rate 58, respirations 20, blood pressure 106/50, saturation 96%. HEART: Regular. LUNGS: Clear. ABDOMEN: Soft, some mild tenderness on the left upper quadrant and right upper epigastric area on deep pressure. LABORATORY DATA: Sodium, potassium, BUN, creatinine, calcium is normal. Today , lipase has increased slightly to 305. Two days ago it was 231. WBC 9900 today, is 70% segmented, normal. Hemoglobin 12.5, hematocrit 38.5, . ASSESSMENT: A 36-year-old female who presented with epigastric and right upper quadrant abdominal pain and ultrasound and MRCP showed the stone. neither emphasized presence of edema or diagnostic of cholecystitis. Patient had enzymes: AST, ALT, alkaline phosphatase was elevated, underwent ERCP and possibly a sphincterotomy and removal of sludge and placement of a stent. Postop, she developed pancreatitis, severe. Gradually, it is getting better. Leukocyte has dropped to normal from 27,000. Lipase has come down to 305 from 17,000. The patient almost tolerating full liquid and sometimes vomiting in the morning. We are going to cut down on Dilaudid and continue full liquid. I will observe her for a couple more days with checking the lipase. If okay, then we may discharge the patient to be followed in Dr. Smith' office for elective scheduling for a laparoscopic cholecystectomy. Dictated By: BRANDO CHRISTNIE/MAVERICK Conf#: [id number] DID#: [id number] MTDJay
[2017-08-30 13:43] VITALS: BP 115/70; RESP 18
--- NOTE | 2017-08-30 17:28 | PN ---
Date/Time of Note Date/Time of Note DATE: 08/30/17 TIME: 17:26 Assessment/Plan VTE Prophylaxis VTE Prophylaxis Intervention: SCD's Lines/Catheters [facility] Peripheral IV Urinary Cath still in place: No Assessment/Plan Chief Complaint/Hosp Course Patient continues to have nausea in AM, tolerated full liquid lunch, less pain. Assessment/Plan - Intractable abdominal pain. Continue Dilaudid p.r.n. for pain and Zofran p.r.n. for nausea. - Post ERCP pancreatitis, resolving, lipase is within normal limits, continue IV fluids and antiemetics. - Cholelithiasis and acute cholecystitis. Dr. Smith is following in general surgery consultation. Patient is allergic to penicillin antibiotics, continue Meropenem and Flagyl. - S/P ERCP and common bile duct stent placement by Dr Christiansen. Further recommendations based on clinical course. Plan of care discussed with Dr. Wright. Problems: Exam/Review of Systems Vital Signs Vitals Vital Signs Date Time Temp Pulse Resp B/P Pulse Ox O2 Delivery O2 Flow Rate FiO2 08/30/17 13:43 97.4 66 18 115/70 96 Intake and Output 08/29/17 08/29/17 08/30/17 15:00 23:00 07:00 Intake Total 250 ml 1750 ml 850 ml Balance 250 ml 1750 ml 850 ml Exam Constitutional: alert, oriented Head: normocephalic Neck: supple Respiratory: normal air movement Cardiovascular: nl pulses Gastrointestinal: soft, tender Extremities: normal pulses Results Result Diagram: 08/30/17 0505 08/30/17 0505 Results 24 hrs Laboratory Tests Test 08/30/17 05:05 White Blood Count 9.9 Red Blood Count 4.61 Hemoglobin 12.5 Hematocrit 38.3 Mean Corpuscular Volume 83.1 Mean Corpuscular Hemoglobin 27.1 L Mean Corpuscular Hemoglobin Concent 32.6 Red Cell Distribution Width 13.2 Platelet Count 328 Mean Platelet Volume 9.7 Neutrophils % 70.7 Lymphocytes % 17.2 Monocytes % 6.3 Eosinophils % 3.7 Basophils % 0.5 Nucleated Red Blood Cells % 0.0 Neutrophils # 7.0 Lymphocytes # 1.7 Monocytes # 0.6 Eosinophils # 0.4 Basophils # 0.1 Nucleated Red Blood Cells # 0.0 Sodium Level 137 Potassium Level 4.2 Chloride Level 103 Carbon Dioxide Level 28 Anion Gap 10 Blood Urea Nitrogen 3 L Creatinine 0.66 Glucose Level 99 Calcium Level 8.8 Lipase 305 H Medications Medications Current Medications Potassium Chloride/Dextrose/ Sod Cl (D5-1/2ns + KCl 20 Meq) 1,000 ml @ 100 mls/ hr Q10H IV Last administered on 08/30/17 11:20; Admin Dose 100 MLS/HR; Start 08/18/17 at 18:12 Famotidine (Pepcid Iv) 20 mg Q12 IV Last administered on 08/30/17 10:20; Admin Dose 20 MG; Start 08/18/17 at 21:00 Ondansetron HCl 4 mg 4 mg Q4H PRN IV NAUSEA AND/OR VOMITING Last administered on 08/30/17 09:42; Admin Dose 4 MG; Start 08/20/17 at 00:10 Metronidazole 100 ml @ 100 mls/hr Q8 IVPB Last administered on 08/30/17 14: 22; Admin Dose 100 MLS/HR; Start 08/20/17 at 17:00 Meropenem/Sodium Chloride (Merrem 1 Gm/50 ml (Pmx)) 50 ml @ 100 mls/hr Q8 IVPB Last administered on 08/30/17 13:07; Admin Dose 100 MLS/HR; Start 08/23/17 at 17:30 Senna (Senokot) 1 tab BID PRN PO CONSTIPATION Last administered on 08/26/17 11:18; Admin Dose 1 TAB; Start 08/26/17 at 10:30 Hydromorphone HCl (Dilaudid) 1.5 mg Q3 PRN IV PAIN Last administered on 07:26; Admin Dose 1.5 MG; Start 08/28/17 at 11:30; Status Future Hold Hydromorphone HCl (Dilaudid) 0.5 mg Q4H PRN IV PAIN; Start 08/30/17 at 12:00 Acetaminophen/ Hydrocodone Bitart ([place] (5/325)) 1 tab Q4H PRN PO Pain; Start 08/30/17 at 12:00 JAROCHO YOUNG Aug 30, 2017 17:28
[2017-08-30 19:09] LABS: ALBUMIN 3.2 g/dl (3.3-4.9); ALBUMIN/GLOBULIN RATIO 0.82; BILIRUBIN,INDIRECT 0.3 mg/dl (0-1.1); BILIRUBIN,TOTAL 0.3 mg/dl (0.2-1.3); CREATININE 0.74 mg/dl (0.44-1.00); POTASSIUM 4.2 mmol/L (3.5-5.1); TOTAL PROTEIN 7.1 g/dl (6.1-8.1)
[2017-08-30 20:19] VITALS: BP 108/67; RESP 18
[2017-08-30] MEDS: HYDROmorphONE 0.5 MG/0.5 ML SYG IV PRN (21:15)
[2017-08-31] MEDS: D5W-0.45 NACL + KCL 20 MEQ 1,000 ML IV SCH ×2 (01:25→11:35)
[2017-08-31 02:12] VITALS: BP 114/64; RESP 18
[2017-08-31] MEDS: MEROPENEM 1 GM/50ML(PMX) 50 ML IVPB SCH ×3 (05:11→21:34)
[2017-08-31] MEDS: HYDROmorphONE 0.5 MG/0.5 ML SYG IV PRN (05:13)
[2017-08-31] MEDS: metroNIDAZOLE 500 MG/NS (PMX) 100 ML IVPB SCH ×3 (05:46→22:10)
[2017-08-31 07:46] VITALS: BP 103/57; RESP 18
[2017-08-31] MEDS: FAMOTIDINE 20 MG INJ IV SCH (09:34)
[2017-08-31 09:53] LABS: BASOPHIL # 0.1 10^3/ul (0.0-0.1); BASOPHILS % 0.5 % (0.0-2.0); EOSINOPHILS # 0.3 10^3/ul (0.0-0.5); EOSINOPHILS % 3.2 % (0.0-7.0); HEMATOCRIT 40.5 % (37.0-47.0); HEMOGLOBIN 13.2 g/dl (12.0-16.0); LYMPHOCYTES # 2.3 10^3/ul (0.8-2.9); LYMPHOCYTES % 23.7 % (15.0-51.0); MEAN CORPUSCULAR HEMOGLOBIN 27.1 pg (29.0-33.0); MEAN CORPUSCULAR HGB CONC 32.6 g/dl (32.0-37.0); MEAN CORPUSCULAR VOLUME 83.2 fl (82.0-101.0); MEAN PLATELET VOLUME 9.9 fl (7.4-10.4); MONOCYTE # 0.6 10^3/ul (0.3-0.9); MONOCYTES % 6.4 % (0.0-11.0); NEUTROPHIL # 6.2 10^3/ul (1.6-7.5); NEUTROPHILS % 64.9 % (39.0-77.0); PLATELET COUNT 395 10^3/UL (140-415); RED BLOOD COUNT 4.87 10^6/ul (4.20-5.40); RED CELL DISTRIBUTION WIDTH 13.3 % (11.5-14.5); WHITE BLOOD COUNT 9.5 10^3/ul (4.8-10.8)
--- NOTE | 2017-08-31 12:19 | PN ---
Date/Time of Note Date/Time of Note DATE: 08/31/17 TIME: 12:16 Assessment/Plan VTE Prophylaxis VTE Prophylaxis Intervention: SCD's Lines/Catheters IV C[facility] Type (from [facility] Peripheral IV Central line still needed: Yes Urinary Cath still in place: No Assessment/Plan Chief Complaint/Hosp Course Patient denies any nausea and vomiting, tolerates full liquid diet well, will advance diet to regular. If patient tolerates regular diet well she could be discharged home tomorrow and follow-up with Dr. Smith in 2 weeks for laparoscopic cholecystectomy. Assessment/Plan - Intractable abdominal pain, resolving. Continue Dilaudid p.r.n. for pain and Zofran p.r.n. for nausea. - Post ERCP pancreatitis, resolving, lipase is within normal limits, continue IV fluids and antiemetics. - Cholelithiasis and acute cholecystitis. Dr. Smith is following in general surgery consultation. Patient is allergic to penicillin antibiotics, continue Meropenem and Flagyl. - S/P ERCP and common bile duct stent placement by Dr Christiansen. Further recommendations based on clinical course. Plan of care discussed with Dr. Wright. Problems: Exam/Review of Systems Vital Signs Vitals Vital Signs Date Time Temp Pulse Resp B/P Pulse Ox O2 Delivery O2 Flow Rate FiO2 08/31/17 07:46 97.5 56 18 103/57 94 Intake and Output 08/30/17 08/30/17 08/31/17 14:59 22:59 06:59 Intake Total 400 ml 920 ml 1810 ml Output Total 700 ml Balance 400 ml 220 ml 1810 ml Exam Constitutional: alert, oriented Head: normocephalic Neck: supple Respiratory: normal air movement Cardiovascular: nl pulses Gastrointestinal: soft Extremities: normal pulses Results Result Diagram: 08/31/17 0837 08/30/17 1832 Results 24 hrs Laboratory Tests Test 08/30/17 18:32 08/31/17 08:37 Sodium Level 138 Potassium Level 4.2 Chloride Level 103 Carbon Dioxide Level 29 Anion Gap 10 Blood Urea Nitrogen 3 L Creatinine 0.74 Glucose Level 102 Calcium Level 9.0 Total Bilirubin 0.3 Direct Bilirubin 0.00 Indirect Bilirubin 0.3 Aspartate Amino Transf (AST/SGOT) 27 Alanine Aminotransferase (ALT/SGPT) 37 Alkaline Phosphatase 95 Total Protein 7.1 Albumin 3.2 L Globulin 3.90 H Albumin/Globulin Ratio 0.82 White Blood Count 9.5 Red Blood Count 4.87 Hemoglobin 13.2 Hematocrit 40.5 Mean Corpuscular Volume 83.2 Mean Corpuscular Hemoglobin 27.1 L Mean Corpuscular Hemoglobin Concent 32.6 Red Cell Distribution Width 13.3 Platelet Count 395 # Mean Platelet Volume 9.9 Neutrophils % 64.9 Lymphocytes % 23.7 Monocytes % 6.4 Eosinophils % 3.2 Basophils % 0.5 Nucleated Red Blood Cells % 0.0 Neutrophils # 6.2 Lymphocytes # 2.3 Monocytes # 0.6 Eosinophils # 0.3 Basophils # 0.1 Nucleated Red Blood Cells # 0.0 Medications Medications Current Medications Potassium Chloride/Dextrose/ Sod Cl (D5-1/2ns + KCl 20 Meq) 1,000 ml @ 100 mls/ hr Q10H IV Last administered on 08/31/17 01:25; Admin Dose 100 MLS/HR; Start 08/18/17 at 18:12 Ondansetron HCl 4 mg 4 mg Q4H PRN IV NAUSEA AND/OR VOMITING Last administered on 08/30/17 09:42; Admin Dose 4 MG; Start 08/20/17 at 00:10 Metronidazole 100 ml @ 100 mls/hr Q8 IVPB Last administered on 08/31/17 05: 46; Admin Dose 100 MLS/HR; Start 08/20/17 at 17:00 Meropenem/Sodium Chloride (Merrem 1 Gm/50 ml (Pmx)) 50 ml @ 100 mls/hr Q8 IVPB Last administered on 08/31/17 05:11; Admin Dose 100 MLS/HR; Start 08/23/17 at 17:30 Senna (Senokot) 1 tab BID PRN PO CONSTIPATION Last administered on 08/26/17 11:18; Admin Dose 1 TAB; Start 08/26/17 at 10:30 Hydromorphone HCl (Dilaudid) 1.5 mg Q3 PRN IV PAIN Last administered on 07:26; Admin Dose 1.5 MG; Start 08/28/17 at 11:30; Status Future Hold Hydromorphone HCl (Dilaudid) 0.5 mg Q4H PRN IV PAIN Last administered on 05:13; Admin Dose 0.5 MG; Start 08/30/17 at 12:00 Acetaminophen/ Hydrocodone Bitart ([place] (5/325)) 1 tab Q4H PRN PO Pain; Start 08/30/17 at 12:00 Famotidine (Pepcid) 20 mg Q12 PO ; Start 08/31/17 at 21:00 JAROCHO YOUNG Aug 31, 2017 12:19
[2017-08-31 13:57] VITALS: BP 105/55; RESP 18
--- NOTE | 2017-08-31 18:20 | PN ---
DATE: 08/31/2017 SUBJECTIVE: Feels much better. Minimal pain. No nausea. No vomiting. Tolerated diet. Passing gas. OBJECTIVE: GENERAL: Awake, alert, oriented x3. VITAL SIGNS: Temperature 97.7, heart rate 60 and regular, respiration 18, blood pressure 105/55, saturation 97% on room air. HEART: Regular. LUNGS: Clear. ABDOMEN: Soft. LEGS: No calf tenderness. LABORATORIES: WBC 9500 with 64% segmented, normal.. Chemistry: No chem has been done today. ASSESSMENT AND PLAN: A 36-year-old female who presented to the emergency room with abdominal pain, epigastric and right upper quadrant. Ultrasound and MRCP showed evidence of gallstones but no diagnosis of cholecystitis on this basis. The patient had elevated AST, alkaline phosphatase. Gastroenterology consultation was obtained. Recommended ERCP which was done. Post-ERCP, the patient developed pancreatitis. The patient was kept n.p.o. Intravenous antibiotics. Gradually, the patient got better. Her pancreatitis is almost resolved. Today, WBC is normal. Lipase was 305 yesterday. Today, we do not have it. We are going to repeat it tomorrow. If tolerating regular diet, which was started today, and lipase is normal, the patient can be discharged tomorrow or the day after tomorrow, to be followed in the office by Dr. Pena. Planning for elective cholecystectomy. It should be mentioned that the patient has also common bile duct stent. Dictated By: BRANDO ENRIQUEZ MD PS/NTS Conf#: [id number] DID#: [id number] CC: ANUEL PENA MD;*EndCC* MTDD
[2017-08-31] MEDS: FAMOTIDINE 20 MG TAB PO SCH (20:33)
[2017-08-31 21:00] VITALS: BP 112/61; RESP 20
[2017-09-01] MEDS: HYDROmorphONE 0.5 MG/0.5 ML SYG IV PRN ×4 (02:05→23:55)
[2017-09-01 02:42] VITALS: BP 118/65; RESP 20
[2017-09-01] MEDS: MEROPENEM 1 GM/50ML(PMX) 50 ML IVPB SCH ×3 (05:34→21:37)
[2017-09-01 06:12] LABS: BASOPHIL # 0.1 10^3/ul (0.0-0.1); BASOPHILS % 0.6 % (0.0-2.0); EOSINOPHILS # 0.3 10^3/ul (0.0-0.5); EOSINOPHILS % 2.6 % (0.0-7.0); HEMATOCRIT 38.8 % (37.0-47.0); HEMOGLOBIN 12.9 g/dl (12.0-16.0); LYMPHOCYTES # 2.3 10^3/ul (0.8-2.9); LYMPHOCYTES % 22.6 % (15.0-51.0); MEAN CORPUSCULAR HEMOGLOBIN 27.3 pg (29.0-33.0); MEAN CORPUSCULAR HGB CONC 33.2 g/dl (32.0-37.0); MEAN PLATELET VOLUME 9.5 fl (7.4-10.4); MONOCYTE # 0.7 10^3/ul (0.3-0.9); MONOCYTES % 6.8 % (0.0-11.0); NEUTROPHIL # 6.9 10^3/ul (1.6-7.5); NEUTROPHILS % 66.8 % (39.0-77.0); PLATELET COUNT 410 10^3/UL (140-415); RED BLOOD COUNT 4.73 10^6/ul (4.20-5.40); RED CELL DISTRIBUTION WIDTH 13.2 % (11.5-14.5); WHITE BLOOD COUNT 10.3 10^3/ul (4.8-10.8)
[2017-09-01] MEDS: metroNIDAZOLE 500 MG/NS (PMX) 100 ML IVPB SCH ×2 (06:18→17:44)
[2017-09-01 06:44] LABS: CALCIUM 9.3 mg/dl (8.4-10.2); CREATININE 0.66 mg/dl (0.44-1.00); POTASSIUM 4.3 mmol/L (3.5-5.1)
[2017-09-01 07:46] VITALS: BP 99/55; RESP 16
[2017-09-01] MEDS: FAMOTIDINE 20 MG TAB PO SCH ×2 (08:45→20:38)
[2017-09-01 14:39] VITALS: BP 99/63; RESP 16
[2017-09-01] MEDS ORDERED: LEVO500T72 PO (16:08)
[2017-09-01] MEDS ORDERED: METR500T PO (16:08)
[2017-09-01] MEDS ORDERED: HYDR-3498 PO (16:08)
--- NOTE | 2017-09-01 17:00 | PN ---
Date/Time of Note Date/Time of Note DATE: 09/01/17 TIME: 16:59 Assessment/Plan VTE Prophylaxis VTE Prophylaxis Intervention: SCD's Lines/Catheters IV C[facility]ter Type (from [facility]): Saline Lock Urinary Cath still in place: No Assessment/Plan Chief Complaint/Hosp Course Patient rates regular diet well without nausea and vomiting. Patient can be discharged home after cleared by surgery. Prescription left on the chart. Patient is to to follow-up with Dr. Smith in 2 weeks for possible laparoscopic cholecystectomy. Assessment/Plan - Intractable abdominal pain, resolving. Continue Dilaudid p.r.n. for pain and Zofran p.r.n. for nausea. - Post ERCP pancreatitis, resolving, lipase is within normal limits, continue IV fluids and antiemetics. - Cholelithiasis and acute cholecystitis. Dr. Smith is following in general surgery consultation. Patient is allergic to penicillin antibiotics, continue Meropenem and Flagyl. - S/P ERCP and common bile duct stent placement by Dr Christiansen. Further recommendations based on clinical course. Plan of care discussed with Dr. Wright. Problems: Exam/Review of Systems Vital Signs Vitals Vital Signs Date Time Temp Pulse Resp B/P Pulse Ox O2 Delivery O2 Flow Rate FiO2 09/01/17 14:39 97.3 58 16 99/63 98 Intake and Output 08/31/17 08/31/17 09/01/17 15:00 23:00 07:00 Intake Total 30 ml 920 ml 1600 ml Output Total 400 ml 1400 ml Balance 30 ml 520 ml 200 ml Exam Constitutional: alert, oriented Head: normocephalic Neck: supple Respiratory: normal air movement Cardiovascular: nl pulses Gastrointestinal: soft Extremities: normal pulses Results Result Diagram: 09/01/17 0543 09/01/17 0553 Results 24 hrs Laboratory Tests Test 09/01/17 05:43 09/01/17 05:53 White Blood Count 10.3 Red Blood Count 4.73 Hemoglobin 12.9 Hematocrit 38.8 Mean Corpuscular Volume 82.0 Mean Corpuscular Hemoglobin 27.3 L Mean Corpuscular Hemoglobin Concent 33.2 Red Cell Distribution Width 13.2 Platelet Count 410 Mean Platelet Volume 9.5 Neutrophils % 66.8 Lymphocytes % 22.6 Monocytes % 6.8 Eosinophils % 2.6 Basophils % 0.6 Nucleated Red Blood Cells % 0.0 Neutrophils # 6.9 Lymphocytes # 2.3 Monocytes # 0.7 Eosinophils # 0.3 Basophils # 0.1 Nucleated Red Blood Cells # 0.0 Sodium Level 139 Potassium Level 4.3 Chloride Level 107 Carbon Dioxide Level 24 Anion Gap 12 Blood Urea Nitrogen 8 Creatinine 0.66 Glucose Level 95 Calcium Level 9.3 Lipase 472 H Medications Medications Current Medications Ondansetron HCl 4 mg 4 mg Q4H PRN IV NAUSEA AND/OR VOMITING Last administered on 08/30/17 09:42; Admin Dose 4 MG; Start 08/20/17 at 00:10 Metronidazole 100 ml @ 100 mls/hr Q8 IVPB Last administered on 09/01/17 06: 18; Admin Dose 100 MLS/HR; Start 08/20/17 at 17:00 Meropenem/Sodium Chloride (Merrem 1 Gm/50 ml (Pmx)) 50 ml @ 100 mls/hr Q8 IVPB Last administered on 09/01/17 13:46; Admin Dose 100 MLS/HR; Start 08/23/17 at 17:30 Senna (Senokot) 1 tab BID PRN PO CONSTIPATION Last administered on 08/26/17 11:18; Admin Dose 1 TAB; Start 08/26/17 at 10:30 Hydromorphone HCl (Dilaudid) 1.5 mg Q3 PRN IV PAIN Last administered on 07:26; Admin Dose 1.5 MG; Start 08/28/17 at 11:30; Status Future Hold Hydromorphone HCl (Dilaudid) 0.5 mg Q4H PRN IV PAIN Last administered on 09:04; Admin Dose 0.5 MG; Start 08/30/17 at 12:00 Acetaminophen/ Hydrocodone Bitart ([place] (5/325)) 1 tab Q4H PRN PO Pain; Start 08/30/17 at 12:00 Famotidine (Pepcid) 20 mg Q12 PO Last administered on 09/01/17 08:45; Admin Dose 20 MG; Start 08/31/17 at 21:00 JAROCHO YOUNG Sep 01, 2017 17:00
[2017-09-01 20:00] VITALS: BP 103/58; RESP 20
[2017-09-02] MEDS: metroNIDAZOLE 500 MG/NS (PMX) 100 ML IVPB SCH ×3 (01:59→17:48)
[2017-09-02 02:00] VITALS: BP 92/53; RESP 20
[2017-09-02] MEDS: MEROPENEM 1 GM/50ML(PMX) 50 ML IVPB SCH ×3 (05:32→21:26)
[2017-09-02 05:56] LABS: BASOPHIL # 0.1 10^3/ul (0.0-0.1); BASOPHILS % 0.6 % (0.0-2.0); EOSINOPHILS # 0.3 10^3/ul (0.0-0.5); EOSINOPHILS % 3.3 % (0.0-7.0); HEMATOCRIT 40.2 % (37.0-47.0); HEMOGLOBIN 13.2 g/dl (12.0-16.0); LYMPHOCYTES # 2.2 10^3/ul (0.8-2.9); LYMPHOCYTES % 22.4 % (15.0-51.0); MEAN CORPUSCULAR HGB CONC 32.8 g/dl (32.0-37.0); MEAN CORPUSCULAR VOLUME 82.2 fl (82.0-101.0); MEAN PLATELET VOLUME 9.5 fl (7.4-10.4); MONOCYTE # 0.7 10^3/ul (0.3-0.9); MONOCYTES % 6.5 % (0.0-11.0); NEUTROPHIL # 6.6 10^3/ul (1.6-7.5); NEUTROPHILS % 66.6 % (39.0-77.0); PLATELET COUNT 428 10^3/UL (140-415); RED BLOOD COUNT 4.89 10^6/ul (4.20-5.40); RED CELL DISTRIBUTION WIDTH 13.3 % (11.5-14.5)
[2017-09-02 06:33] LABS: AMYLASE 104 U/L (11-123)
[2017-09-02] MEDS: HYDROmorphONE 0.5 MG/0.5 ML SYG IV PRN ×3 (06:52→20:01)
[2017-09-02 07:28] VITALS: BP 103/53; RESP 18
--- NOTE | 2017-09-02 08:37 | PN ---
DATE: 09/01/2017 Status post ERCP and status post pancreatitis-induced BY ercp. SUBJECTIVE: States that today she has pain in the mid back after having breakfast. No nausea, no vomiting, no fever. Mild abdominal pain. OBJECTIVE: GENERAL: Awake, alert, oriented x3. VITAL SIGNS: Temperature 97.9, heart rate 67, respirations 16, blood pressure 99/55, saturation 96% on room air. LABORATORY DATA: Lipase has increased today to 472. Two days ago, it was 305. WBC 10,300 with 66% segmented within normal range. HEART: Regular. LUNGS: Clear. ABDOMEN: Soft. ASSESSMENT AND PLAN: A 36-year-old female with gallstones, symptomatic, possibly related to passed cbd stone with elevated enzymes, was admitted to the emergency room, underwent ERCP and placement of stent in the common bile duct. Post-ERCP, the patient developed pancreatitis, gradually got better. Eventually , was started on clear liquid and full liquid, and low fat, low cholesterol solid diet. Since regular solid diet has been started, the patient's lipase has been starting to go gradually up. Last one today 472. We will continue with low fat, low cholesterol solid diet and see what happens by tomorrow. If continues to go up, we have to cut back to liquid diet. Dictated By: BRANDO ENRIQUEZ MD PS/MAVERICK Conf#: [id number] DID#: [id number] CC: KATHLEEN CASAREZ MD;*EndCC* MTDD
[2017-09-02] MEDS: FAMOTIDINE 20 MG TAB PO SCH ×2 (09:04→21:26)
--- NOTE | 2017-09-02 12:23 | PN ---
Date/Time of Note Date/Time of Note DATE: 09/02/17 TIME: 12:18 Assessment/Plan VTE Prophylaxis VTE Prophylaxis Intervention: other Lines/Catheters [facility] Type (from [facility] Saline Lock Urinary Cath still in place: No Assessment/Plan Assessment/Plan - Intractable abdominal pain, resolving. Continue Dilaudid p.r.n. for pain and Zofran p.r.n. for nausea. - Post ERCP pancreatitis, resolving, lipase is within normal limits, continue IV fluids and antiemetics. - Cholelithiasis and acute cholecystitis. Dr. Smith is following in general surgery consultation. Patient is allergic to penicillin antibiotics, continue Meropenem and Flagyl. - S/P ERCP and common bile duct stent placement by Dr Christiansen. Further recommendations based on clinical course. Plan of care discussed with Dr. Wright. Subjective 24 Hr Interval Summary Free Text/Dictation On regular diet- Lipase tended up today- upto surgery. afebrile, WBC wnl Patient can be discharged home after cleared by surgery. Patient is to to follow-up with Dr. Smith in 2 weeks for possible laparoscopic cholecystectomy. staff Respiratory: no complaints Cardiovascular: no complaints Gastrointestinal: pain Genitourinary: no complaints Musculoskeletal: no complaints Skin: no complaints Exam/Review of Systems Vital Signs Vitals Vital Signs Date Time Temp Pulse Resp B/P Pulse Ox O2 Delivery O2 Flow Rate FiO2 09/02/17 07:28 97.3 64 18 103/53 98 Intake and Output 09/01/17 09/01/17 09/02/17 15:00 23:00 07:00 Intake Total 1230 ml 1800 ml Balance 1230 ml 1800 ml Exam Constitutional: alert, oriented, well developed Respiratory: clear to auscultation Cardiovascular: nl pulses, regular rate and rhythm Gastrointestinal: non-tender, soft Musculoskeletal: nl extremities to inspection Extremities: normal pulses Neurological: nl mental status, nl speech Results Result Diagram: 09/02/17 0501 09/01/17 0553 Results 24 hrs Laboratory Tests Test 09/02/17 05:01 White Blood Count 10.0 Red Blood Count 4.89 Hemoglobin 13.2 Hematocrit 40.2 Mean Corpuscular Volume 82.2 Mean Corpuscular Hemoglobin 27.0 L Mean Corpuscular Hemoglobin Concent 32.8 Red Cell Distribution Width 13.3 Platelet Count 428 H Mean Platelet Volume 9.5 Neutrophils % 66.6 Lymphocytes % 22.4 Monocytes % 6.5 Eosinophils % 3.3 Basophils % 0.6 Nucleated Red Blood Cells % 0.0 Neutrophils # 6.6 Lymphocytes # 2.2 Monocytes # 0.7 Eosinophils # 0.3 Basophils # 0.1 Nucleated Red Blood Cells # 0.0 Amylase Level 104 Lipase 559 H Medications Medications Current Medications Ondansetron HCl 4 mg 4 mg Q4H PRN IV NAUSEA AND/OR VOMITING Last administered on 08/30/17 09:42; Admin Dose 4 MG; Start 08/20/17 at 00:10 Meropenem/Sodium Chloride ([place]rem 1 Gm/50 ml (Pmx)) 50 ml @ 100 mls/hr Q8 IVPB Last administered on 09/02/17 05:32; Admin Dose 100 MLS/HR; Start 08/23/17 at 17:30 Senna (Senokot) 1 tab BID PRN PO CONSTIPATION Last administered on 08/26/17 11:18; Admin Dose 1 TAB; Start 08/26/17 at 10:30 Hydromorphone HCl (Dilaudid) 1.5 mg Q3 PRN IV PAIN Last administered on 07:26; Admin Dose 1.5 MG; Start 08/28/17 at 11:30; Status Future Hold Hydromorphone HCl (Dilaudid) 0.5 mg Q4H PRN IV PAIN Last administered on 06:52; Admin Dose 0.5 MG; Start 08/30/17 at 12:00 Acetaminophen/ Hydrocodone Bitart ([place] (5/325)) 1 tab Q4H PRN PO Pain; Start 08/30/17 at 12:00 Famotidine 20 mg 20 mg Q12 PO Last administered on 09/02/17 09:04; Admin Dose 20 MG; Start 08/31/17 at 21:00 Metronidazole (Flagyl 500 Mg (Pmx)) 100 ml @ 100 mls/hr Q8H IVPB Last administered on 09/02/17 10:26; Admin Dose 100 MLS/HR; Start 09/02/17 at 02: 00 GABRIEL EPSTEIN Sep 02, 2017 12:23
[2017-09-02 14:11] VITALS: BP 108/59; RESP 18
--- NOTE | 2017-09-02 19:05 | PN ---
DATE: 09/02/2017 Status post pancreatitis following the ERCP about 2 weeks ago. SUBJECTIVE: The patient states that she has minimal abdominal pain, some mid back pain. Tolerating having had low-fat regular diet for the past 3 days. OBJECTIVE: GENERAL: Awake, alert, oriented x3. VITAL SIGNS: 97.3, 64, 18, 103/63, saturation 98% on room air. HEART: Regular. LUNGS: Clear. ABDOMEN: Soft, mild tenderness in the epigastric area. LABORATORIES: WBC 10,000 with 66% segmented. Hemoglobin 13.2, hematocrit 40.2. Platelet has increased to 428. Amylase today is 104. Lipase increased to 559. It was 472 on the , was 305 on the and 110 on the . ASSESSMENT: A 36-year-old female who presented with abdominal pain, epigastric pain, Right upper quadrant ultrasound and MRCP showed gallstones. The patient had AST,ALT, Alkaline phosphatase elevated with the impression of cholangitis, possibly passing a stone. Was seen by gastroenterology colleague. Recommended ERCP. Was done, a stent was placed, sludge was removed. Post-ERCP, the patient developed pancreatitis with lipase 17,000, WBC increased to 27,000. The patient kept n.p.o. and gradually responded, got better. Leukocytes normalized. Lipase came down to normal. At this time, we started the patient on full liquid diet and gradually advancing to low-fat, low-cholesterol, solid diet, but lipase trended gradually. Today, it is 559. PLAN: I think we have to switch back to clear liquid diet and watch for a few days and maybe get a CT scan considering the possibility of pseudocyst formation. Discussed with the patient. The patient agrees with that. Dictated By: BRANDO CHRISTINE/MAVERICK Conf#: [id number] DID#: [id number] [place]
[2017-09-02 20:00] VITALS: BP 120/68; RESP 18
[2017-09-03] MEDS: ACETAMINOPHEN 325 MG TAB PO PRN (00:47)
[2017-09-03 02:00] VITALS: BP 100/58; RESP 18
[2017-09-03] MEDS: metroNIDAZOLE 500 MG/NS (PMX) 100 ML IVPB SCH ×3 (02:05→17:50)
[2017-09-03] MEDS: HYDROmorphONE 0.5 MG/0.5 ML SYG IV PRN ×4 (02:08→22:49)
[2017-09-03] MEDS: MEROPENEM 1 GM/50ML(PMX) 50 ML IVPB SCH ×4 (05:44→22:49)
[2017-09-03 06:31] LABS: BASOPHIL # 0.1 10^3/ul (0.0-0.1); BASOPHILS % 0.9 % (0.0-2.0); EOSINOPHILS # 0.3 10^3/ul (0.0-0.5); EOSINOPHILS % 3.7 % (0.0-7.0); HEMATOCRIT 40.1 % (37.0-47.0); HEMOGLOBIN 13.1 g/dl (12.0-16.0); LYMPHOCYTES # 2.1 10^3/ul (0.8-2.9); LYMPHOCYTES % 27.5 % (15.0-51.0); MEAN CORPUSCULAR HGB CONC 32.7 g/dl (32.0-37.0); MEAN CORPUSCULAR VOLUME 82.7 fl (82.0-101.0); MEAN PLATELET VOLUME 9.3 fl (7.4-10.4); MONOCYTE # 0.6 10^3/ul (0.3-0.9); NEUTROPHIL # 4.6 10^3/ul (1.6-7.5); NEUTROPHILS % 59.5 % (39.0-77.0); PLATELET COUNT 445 10^3/UL (140-415); RED BLOOD COUNT 4.85 10^6/ul (4.20-5.40); RED CELL DISTRIBUTION WIDTH 13.2 % (11.5-14.5); WHITE BLOOD COUNT 7.8 10^3/ul (4.8-10.8)
[2017-09-03 06:49] LABS: CALCIUM 9.3 mg/dl (8.4-10.2); CREATININE 0.64 mg/dl (0.44-1.00); POTASSIUM 4.5 mmol/L (3.5-5.1)
--- NOTE | 2017-09-03 06:56 | PN ---
DATE: 09/02/2017 The patient complains of mild abdominal pain. The patient was admitted for gallstone disease and cholangitis. ERCP was done and distal biliary du ctal stricture was noted. After performing the sphincterotomy, the CBD stent was placed. However, the patient developed pancreatitis. She improved gradually. The amylase and lipase became normal. WBC count became normal. However, she was started on a low fat diet, but she started experiencing abdominal pain. Amylase went up to 300 to 400; hence, she was put back on a liquid diet. PHYSICAL EXAMINATION: GENERAL: The patient is alert. VITAL SIGNS: Afebrile, blood pressure 108/59. Pulse is 68. CARDIOVASCULAR: Normal heart sounds. RESPIRATORY: Normal breath sounds. ABDOMEN: Showed unremarkable findings. CLINICAL IMPRESSION: History of cholangitis, status post ERCP and pancreatitis which is resolving; however, she developed pancreatitis upon eating regular low fat diet. PLAN: At this time, she is on clear liquid diet. Continue clear liquid diet. Dictated By: BREA HOOK/MAVERICK Conf#: [id number] DID#: [id number]
[2017-09-03 07:57] VITALS: BP 105/65; RESP 18
[2017-09-03] MEDS: FAMOTIDINE 20 MG TAB PO SCH ×2 (09:20→22:49)
--- NOTE | 2017-09-03 11:32 | PN ---
DATE: 09/03/2017 SUBJECTIVE: A 36-year-old female status post ERCP, sphincterotomy/removal of sludge, placement of cbd stent. Post procedure, the patient proctitis. Patient was doing fine. After about 2 weeks started back on low fat, low cholesterol, regular diet, but the lipase started to go up 110 which was normal , gradually up to 520. So we changed the diet yesterday to clear liquids. Also , the patient complained of pain 2 nights ago of intensity 5/10. Today, patient has had pain, but the intensity is 2/10. SUBJECTIVE: No specific complaint. No nausea, no vomiting. OBJECTIVE: VITAL SIGNS: Temperature 98.1, 61, 18, blood pressure 105/65, saturation 97% room air. LABORATORY DATA: WBC 7800 with 59% segmented, platelets are increasing, today is up to 445, high. Chemistry: Lipase was 559 yesterday, today dropped to 516. Sodium, potassium, BUN, creatinine normal. ASSESSMENT AND PLAN: A 36-year-old female with post-ERCP pancreatitis has responded to n.p.o. on clear liquids, but after starting the patient back on low fat, low cholesterol regular diet, lipase increased up to 559 yesterday, we put the patient back on clear liquids. We are going to repeat CT scan of the abdomen and pelvis with IV and oral contrast considering possibility of pseudocyst. Dictated By: BRANDO CHRISTINE/MAVERICK Conf#: [id number] DID#: [id number] MTDD
[2017-09-03] MEDS ORDERED: BARIUM SULF 2% 450 ML BTL (BERRY SMOOTHIE) PO SCH (13:00)
[2017-09-03] MEDS ORDERED: IOHEXOL 14.3 MG(I)/ML (ADULT) BTL PO SCH (13:00)
[2017-09-03 15:32] VITALS: BP 111/55; RESP 18
--- NOTE | 2017-09-03 17:20 | PN ---
Date/Time of Note Date/Time of Note DATE: 09/03/17 TIME: 17:18 Assessment/Plan VTE Prophylaxis VTE Prophylaxis Intervention: SCD's Lines/Catheters IV Catheter Type (from [facility]): Saline Lock Urinary Cath still in place: No Assessment/Plan Chief Complaint/Hosp Course Patient patient with elevated lipase when started on regular diet, the patient is on clear liquid diet without nausea and vomiting. Pending CT of the abdomen with contrast. Assessment/Plan - Intractable abdominal pain, resolving. Continue Dilaudid p.r.n. for pain and Zofran p.r.n. for nausea. - Post ERCP pancreatitis, resolving, lipase is within normal limits, continue IV fluids and antiemetics. - Cholelithiasis and acute cholecystitis. Dr. Smith is following in general surgery consultation. Patient is allergic to penicillin antibiotics, continue Meropenem and Flagyl. - S/P ERCP and common bile duct stent placement by Dr Christiansen. Further recommendations based on clinical course. Plan of care discussed with Dr. Wright. Problems: Exam/Review of Systems Vital Signs Vitals Vital Signs Date Time Temp Pulse Resp B/P Pulse Ox O2 Delivery O2 Flow Rate FiO2 09/03/17 15:32 97.6 54 18 111/55 98 Intake and Output 09/02/17 09/02/17 09/03/17 15:00 23:00 07:00 Intake Total 100 ml 1240 ml 970 ml Output Total 801 ml 1250 ml Balance 100 ml 439 ml -280 ml Exam Constitutional: alert, oriented Head: normocephalic Neck: supple Respiratory: normal air movement Cardiovascular: nl pulses Gastrointestinal: soft Extremities: normal pulses Results Result Diagram: 09/03/17 0602 09/03/17 0602 Results 24 hrs Laboratory Tests Test 09/03/17 06:02 09/03/17 12:35 White Blood Count 7.8 # Red Blood Count 4.85 Hemoglobin 13.1 Hematocrit 40.1 Mean Corpuscular Volume 82.7 Mean Corpuscular Hemoglobin 27.0 L Mean Corpuscular Hemoglobin Concent 32.7 Red Cell Distribution Width 13.2 Platelet Count 445 H Mean Platelet Volume 9.3 Neutrophils % 59.5 Lymphocytes % 27.5 Monocytes % 8.0 Eosinophils % 3.7 Basophils % 0.9 Nucleated Red Blood Cells % 0.0 Neutrophils # 4.6 Lymphocytes # 2.1 Monocytes # 0.6 Eosinophils # 0.3 Basophils # 0.1 Nucleated Red Blood Cells # 0.0 Sodium Level 138 Potassium Level 4.5 Chloride Level 105 Carbon Dioxide Level 24 Anion Gap 14 Blood Urea Nitrogen 9 Creatinine 0.64 Glucose Level 86 Calcium Level 9.3 Lipase 516 H Urine Test NEGATIVE Medications Medications Current Medications Ondansetron HCl 4 mg 4 mg Q4H PRN IV NAUSEA AND/OR VOMITING Last administered on 08/30/17 09:42; Admin Dose 4 MG; Start 08/20/17 at 00:10 Meropenem/Sodium Chloride (Merrem 1 Gm/50 ml (Pmx)) 50 ml @ 100 mls/hr Q8 IVPB Last administered on 09/03/17 14:37; Admin Dose 100 MLS/HR; Start 08/23/17 at 17:30 Senna (Senokot) 1 tab BID PRN PO CONSTIPATION Last administered on 08/26/17 11:18; Admin Dose 1 TAB; Start 08/26/17 at 10:30 Hydromorphone HCl (Dilaudid) 1.5 mg Q3 PRN IV PAIN Last administered on 07:26; Admin Dose 1.5 MG; Start 08/28/17 at 11:30; Status Future Hold Hydromorphone HCl (Dilaudid) 0.5 mg Q4H PRN IV PAIN Last administered on 16:05; Admin Dose 0.5 MG; Start 08/30/17 at 12:00 Acetaminophen/ Hydrocodone Bitart ([place] (5/325)) 1 tab Q4H PRN PO Pain; Start 08/30/17 at 12:00 Famotidine 20 mg 20 mg Q12 PO Last administered on 09/03/17 09:20; Admin Dose 20 MG; Start 08/31/17 at 21:00 Metronidazole (Flagyl 500 Mg (Pmx)) 100 ml @ 100 mls/hr Q8H IVPB Last administered on 09/03/17 10:32; Admin Dose 100 MLS/HR; Start 09/02/17 at 02: 00 Acetaminophen (Tylenol Tab) 650 mg Q4H PRN PO PAIN AND OR ELEVATED TEMP Last administered on 09/03/17 00:47; Admin Dose 650 MG; Start 09/02/17 at 22:00 JAROCHO YOUNG Sep 03, 2017 17:20
[2017-09-03] MEDS: ONDANSETRON 4 MG INJ IV PRN (19:26)
[2017-09-03 20:00] VITALS: BP 100/62; RESP 20
[2017-09-03] MEDS ORDERED: IOHEXOL 300MG/ML 150 ML BTL ONE (22:05)
[2017-09-03] MEDS ORDERED: SOD CHLORIDE 0.9% 100 ML ONE (22:05)
[2017-09-04] MEDS: metroNIDAZOLE 500 MG/NS (PMX) 100 ML IVPB SCH ×3 (02:08→17:29)
[2017-09-04 02:43] VITALS: BP 96/57; RESP 16
[2017-09-04] MEDS: ONDANSETRON 4 MG INJ IV PRN ×2 (06:04→17:47)
[2017-09-04] MEDS: MEROPENEM 1 GM/50ML(PMX) 50 ML IVPB SCH ×3 (06:06→21:23)
[2017-09-04] MEDS: HYDROmorphONE 0.5 MG/0.5 ML SYG IV PRN ×3 (06:06→19:58)
[2017-09-04 06:14] LABS: BASOPHIL # 0.1 10^3/ul (0.0-0.1); EOSINOPHILS # 0.3 10^3/ul (0.0-0.5); EOSINOPHILS % 3.2 % (0.0-7.0); HEMATOCRIT 41.5 % (37.0-47.0); HEMOGLOBIN 13.7 g/dl (12.0-16.0); LYMPHOCYTES # 2.1 10^3/ul (0.8-2.9); LYMPHOCYTES % 26.2 % (15.0-51.0); MEAN CORPUSCULAR HEMOGLOBIN 27.3 pg (29.0-33.0); MEAN CORPUSCULAR VOLUME 82.8 fl (82.0-101.0); MEAN PLATELET VOLUME 9.2 fl (7.4-10.4); MONOCYTE # 0.7 10^3/ul (0.3-0.9); NEUTROPHILS % 61.2 % (39.0-77.0); PLATELET COUNT 477 10^3/UL (140-415); RED BLOOD COUNT 5.01 10^6/ul (4.20-5.40); RED CELL DISTRIBUTION WIDTH 13.2 % (11.5-14.5); WHITE BLOOD COUNT 8.1 10^3/ul (4.8-10.8)
[2017-09-04 07:01] LABS: CALCIUM 9.4 mg/dl (8.4-10.2); CREATININE 0.76 mg/dl (0.44-1.00); POTASSIUM 5.3 mmol/L (3.5-5.1)
[2017-09-04 07:36] VITALS: BP 91/50; RESP 18
--- NOTE | 2017-09-04 09:26 | PN ---
Date/Time of Note Date/Time of Note DATE: 09/04/17 TIME: 09:25 Assessment/Plan VTE Prophylaxis VTE Prophylaxis Intervention: other Lines/Catheters IV [facility]ter Type (from [facility]): Saline Lock Urinary Cath still in place: No Assessment/Plan Chief Complaint/Hosp Course - Intractable abdominal pain. Continue Dilaudid p.r.n. for pain and Zofran p.r.n. for nausea. - Cholelithiasis and acute cholecystitis. Dr. Smith is following in general surgery consultation. Patient is allergic to penicillin antibiotics, continue ciprofloxacin and Flagyl. - Rule out choledocholithiasis. S/P ERCP and common bile duct stent placement by Dr Christiansen. Problems: Subjective 24 Hr Interval Summary Free Text/Dictation Patient complain of abdominal pain and dizziness Exam/Review of Systems Vital Signs Vitals Vital Signs Date Time Temp Pulse Resp B/P Pulse Ox O2 Delivery O2 Flow Rate FiO2 09/04/17 07:36 98.5 54 18 91/50 98 Intake and Output 09/03/17 09/03/17 09/04/17 15:00 23:00 07:00 Intake Total 100 ml 1350 ml 510 ml Output Total 1450 ml 1100 ml Balance 100 ml -100 ml -590 ml Exam Constitutional: well developed Head: atraumatic, normocephalic Neck: supple Respiratory: diminished breath sounds Cardiovascular: regular rate and rhythm Gastrointestinal: non-tender, soft Extremities: normal pulses Results Result Diagram: 09/04/17 0531 09/04/17 0531 Results 24 hrs Laboratory Tests Test 09/03/17 12:35 09/04/17 05:31 Urine Test NEGATIVE White Blood Count 8.1 Red Blood Count 5.01 Hemoglobin 13.7 Hematocrit 41.5 Mean Corpuscular Volume 82.8 Mean Corpuscular Hemoglobin 27.3 L Mean Corpuscular Hemoglobin Concent 33.0 Red Cell Distribution Width 13.2 Platelet Count 477 H Mean Platelet Volume 9.2 Neutrophils % 61.2 Lymphocytes % 26.2 Monocytes % 8.0 Eosinophils % 3.2 Basophils % 1.0 Nucleated Red Blood Cells % 0.0 Neutrophils # 5.0 Lymphocytes # 2.1 Monocytes # 0.7 Eosinophils # 0.3 Basophils # 0.1 Nucleated Red Blood Cells # 0.0 Sodium Level 139 Potassium Level 5.3 H Chloride Level 102 Carbon Dioxide Level 26 Anion Gap 16 Blood Urea Nitrogen 8 Creatinine 0.76 Glucose Level 82 Calcium Level 9.4 Lipase 562 H Medications Medications Current Medications Ondansetron HCl 4 mg 4 mg Q4H PRN IV NAUSEA AND/OR VOMITING Last administered on 09/04/17 06:04; Admin Dose 4 MG; Start 08/20/17 at 00:10 Meropenem/Sodium Chloride (Merrem 1 Gm/50 ml (Pmx)) 50 ml @ 100 mls/hr Q8 IVPB Last administered on 09/04/17 06:06; Admin Dose 100 MLS/HR; Start 08/23/17 at 17:30 Senna (Senokot) 1 tab BID PRN PO CONSTIPATION Last administered on 08/26/17 11:18; Admin Dose 1 TAB; Start 08/26/17 at 10:30 Hydromorphone HCl (Dilaudid) 1.5 mg Q3 PRN IV PAIN Last administered on 07:26; Admin Dose 1.5 MG; Start 08/28/17 at 11:30; Status Future Hold Hydromorphone HCl (Dilaudid) 0.5 mg Q4H PRN IV PAIN Last administered on 06:06; Admin Dose 0.5 MG; Start 08/30/17 at 12:00 Acetaminophen/ Hydrocodone Bitart ([place] (5/325)) 1 tab Q4H PRN PO Pain; Start 08/30/17 at 12:00 Famotidine 20 mg 20 mg Q12 PO Last administered on 09/03/17 22:49; Admin Dose 20 MG; Start 08/31/17 at 21:00 Metronidazole (Flagyl 500 Mg (Pmx)) 100 ml @ 100 mls/hr Q8H IVPB Last administered on 09/04/17 02:08; Admin Dose 100 MLS/HR; Start 09/02/17 at 02: 00 Acetaminophen (Tylenol Tab) 650 mg Q4H PRN PO PAIN AND OR ELEVATED TEMP Last administered on 09/03/17 00:47; Admin Dose 650 MG; Start 09/02/17 at 22:00 JESSI FAUST Sep 04, 2017 09:26
[2017-09-04] MEDS: FAMOTIDINE 20 MG TAB PO SCH ×2 (09:50→19:57)
--- NOTE | 2017-09-04 10:09 | RADRPT ---
PROCEDURE: CT ABDOMEN AND PELVIS WITH IV CONTRAST. CLINICAL INDICATION: Follow up pancreatitis TECHNIQUE: CT scan of the abdomen and pelvis without contrast was performed on a multidetector hig h-resolution CT scanner following the use of IV contrast. 100 cc Omnipaque-300 was administered. Cor onal and sagittal reformatted images were obtained from the axial source images. Images were reviewe d on a high-resolution PACS workstation. The total exam CTDI equals 17.7 mGy and the total exam DLP equals 1009.5 mGy-cm. One or more of the following dose reduction techniques were used: Automated exposure control. Adjustment of the mA and/or kV according to patient size. Use of iterative reconstruction technique. COMPARISON: August 23, 2017 FINDINGS: CT abdomen: The lung bases are clear. The heart size is within limits. There is no significant pericardial effus ion. Hepatic morphology is within limits. No gross masses or lesions. The gallbladder is contracted, cont aining stones. Pneumobilia is identified. There is a common bile duct stent, with distal tip within the duodenum. This is unchanged in appearance since prior examination. Intrahepatic pneumobilia is n ew since prior study. The spleen is unremarkable. The pancreas is identified with peripancreatic fluid and fatty stranding . There is homogeneous enhancement of the pancreas , and there is mild improvement of the inflammati on in comparison to prior study. Adjacent phlegmon is noted between the head of the pancreas and ozzy er and anterior to the third and fourth segment of the duodenum. No definitive focal fluid collectio n noted at this time. Both adrenal glands are within normal limits. Both kidneys are in normal anatomic position. No evidence of obstruction or hydronephrosis. No gross renal/ureteric calculi. The visualized GI tract demonstrates normal caliber loops of small and large bowel. No evidence of b owel obstruction. There is adjacent inflammation and thickening of the alvarez of the duodenum. The aorta is unremarkable. There is no significant retroperitoneal lymphadenopathy. CT pelvis: The bladder is within normal limits. The uterus is unremarkable. Free fluid noted is noted within th e pelvis. Rectosigmoid colon is within normal limits. There is mild diverticulosis. The visualized osseous structures demonstrate multilevel degenerative disease of the spine. IMPRESSION: 1. Again identified is acute pancreatitis, with mild improved inflammation since prior examination. There is persistent peripancreatic fluid and fatty stranding. Phlegmon is noted anterior to the thir d and fourth segments of the duodenum and between the head of the pancreas and liver. No definitive focal fluid collection noted at this time. 2. Contracted gallbladder, containing multiple stones. Unchanged, common bile duct stent. There is i nterval development of intrahepatic pneumobilia. Correlate clinically. Cannot exclude the possibilit y of ascending cholangitis. 3. No evidence of bowel obstruction. There is thickening of the alvarez of the stomach and duodenum, s econdary to adjacent inflammation. 4. Small amount of ascites, improved since prior exam. RPTAT: AAPP Physician Nela Date Time Electronically viewed and signed by Physician Nela on 09/04/2017 10:09 JL/
[2017-09-04 14:06] VITALS: BP 106/53; RESP 18
[2017-09-04] MEDS ORDERED: NA POLYST SULFON 15 GM/60 ML BTL PO ONE (15:00)
[2017-09-04 20:25] VITALS: BP 101/60; RESP 18
--- NOTE | 2017-09-04 23:15 | PN ---
DATE: 09/04/2017 SUBJECTIVE: Feels slightly better but vomited twice, has required pain medication once last night and once today at 4:00 a.m. OBJECTIVE: VITAL SIGNS: Temperature 98.5, heart rate 54, respiratory rate 18, blood pressure 91/50, saturation 98% on room air. LABORATORY DATA: WBC 8100, hemoglobin 13.7, hematocrit 41.5. Differential: Neutrophils 61%. Today, platelet has increased to 477, high. Chemistry: Lipase is increased to 562 today, yesterday was 516. The patient is on clear liquids. CT scan was done yesterday, abdomen and pelvis , has shown the followin. Again identified is acute pancreatitis with mildly improved inflammation since prior examination. There is persistent, very fibrotic fluid and fatty surrounding phlegmon is noted anterior to the third and fourth segments of the duodenum and between the head of the pancreas and liver. No definite focal fluid collection noted at this time. 2. Contracted gallbladder containing multiple stones, unchanged common bile duct stent. There is interval development of intrahepatic pneumobilia, correct clinically, cannot exclude the possibility of ascending cholangitis. 3. No evidence of bowel obstruction. There is thickening of the alvarez of the stomach and duodenum secondary to pancreatic inflammation. 4. A small amount of ascites, improved since prior examination. ASSESSMENT AND PLAN: The patient is 36 years old, is status post endoscopic retrograde cholangiopancreatography, sphincterotomy and placement of a stent, removal of sludge. Patient developed pancreatitis post-ERCP, gradually improved. Lipase normalized. At that time, we started the patient on diet, low fat, low cholesterol, but the pain increased a little bit, requiring pain medication and the lipase gradually increased from 110, which was normal, to 562 today. We have put the patient back on clear liquids. From CT scan, it appears that we have a long way to go, and I think we should start the patient on TPN and keep the patient completely n.p.o. I am going to discuss with Dr. Wright, the admitting physician, and the GI doctor, Dr. Christiansen, and make a final decision on this matter on Wednesday. Today is Wednesday. Dictated By: BRANDO CHRISTINE/MAVERICK Conf#: [id number] DID#: [id number] MTDD
[2017-09-05] MEDS: metroNIDAZOLE 500 MG/NS (PMX) 100 ML IVPB SCH ×3 (02:34→17:42)
[2017-09-05 02:41] VITALS: BP 100/58; RESP 16
--- NOTE | 2017-09-05 02:57 | CONS ---
DATE OF ADMISSION: 08/18/2017 DATE OF CONSULTATION: CHIEF COMPLAINT: At this time she has no abdominal pain, no nausea. She had a little vomiting last night. PHYSICAL EXAMINATION: VITAL SIGNS: She is afebrile. Blood pressure is 106/53, pulse is 68. CARDIOVASCULAR: Normal heart sounds. RESPIRATORY: Normal breath sounds. ABDOMEN: Shows soft abdomen. No tenderness noted. LABORATORY WORKUP: WBC is 8100. The lipase is 562, potassium 5.3. CLINICAL IMPRESSION: Mild pancreatitis, although she seems to be nontoxic. Apparently, when she ea ts food, regular diet, she develops mild pancreatitis. PLAN: At this time, continue present management. Dictated By: BREA HOOK/MAVERICK Conf#: [id number] DID#: [id number]
[2017-09-05] MEDS: MEROPENEM 1 GM/50ML(PMX) 50 ML IVPB SCH ×3 (05:54→21:25)
[2017-09-05] MEDS: HYDROmorphONE 0.5 MG/0.5 ML SYG IV PRN ×3 (06:46→20:07)
[2017-09-05 07:25] VITALS: BP 92/60; RESP 16
[2017-09-05] MEDS: FAMOTIDINE 20 MG TAB PO SCH ×2 (10:06→21:25)
--- NOTE | 2017-09-05 10:42 | PN ---
Date/Time of Note Date/Time of Note DATE: 09/05/17 TIME: 10:41 Assessment/Plan VTE Prophylaxis VTE Prophylaxis Intervention: other Lines/Catheters [facility] Saline Lock Urinary Cath still in place: No Assessment/Plan Chief Complaint/Hosp Course - Intractable abdominal pain. Continue Dilaudid p.r.n. for pain and Zofran p.r.n. for nausea. - Cholelithiasis and acute cholecystitis. Dr. Smith is following in general surgery consultation. Patient is allergic to penicillin antibiotics, continue ciprofloxacin and Flagyl. - Rule out choledocholithiasis. S/P ERCP and common bile duct stent placement by Dr Christiansen. Problems: Subjective 24 Hr Interval Summary Free Text/Dictation Patient has some abdominal pain Exam/Review of Systems Vital Signs Vitals Vital Signs Date Time Temp Pulse Resp B/P Pulse Ox O2 Delivery O2 Flow Rate FiO2 09/05/17 07:25 98.2 63 16 92/60 97 Intake and Output 09/04/17 09/04/17 09/05/17 15:00 23:00 07:00 Intake Total 200 ml 1050 ml 310 ml Output Total 800 ml 300 ml Balance 200 ml 250 ml 10 ml Exam Constitutional: well developed Head: atraumatic, normocephalic Neck: supple Respiratory: diminished breath sounds Cardiovascular: regular rate and rhythm Gastrointestinal: non-tender, soft Extremities: normal pulses Results Result Diagram: 09/04/1731 09/04/17530 Results 24 hrs Laboratory Tests Test 09/05/17 05:09 Lipase 564 H Medications Medications Current Medications Ondansetron HCl 4 mg 4 mg Q4H PRN IV NAUSEA AND/OR VOMITING Last administered on 09/04/17 17:47; Admin Dose 4 MG; Start 08/20/17 at 00:10 Meropenem/Sodium Chloride (Merrem 1 Gm/50 ml (Pmx)) 50 ml @ 100 mls/hr Q8 IVPB Last administered on 09/05/17 05:54; Admin Dose 100 MLS/HR; Start 08/23/17 at 17:30 Senna (Senokot) 1 tab BID PRN PO CONSTIPATION Last administered on 08/26/17 11:18; Admin Dose 1 TAB; Start 08/26/17 at 10:30 Hydromorphone HCl (Dilaudid) 1.5 mg Q3 PRN IV PAIN Last administered on 07:26; Admin Dose 1.5 MG; Start 08/28/17 at 11:30; Status Future Hold Hydromorphone HCl (Dilaudid) 0.5 mg Q4H PRN IV PAIN Last administered on 06:46; Admin Dose 0.5 MG; Start 08/30/17 at 12:00 Acetaminophen/ Hydrocodone Bitart ([place] (5/325)) 1 tab Q4H PRN PO Pain; Start 08/30/17 at 12:00 Famotidine 20 mg 20 mg Q12 PO Last administered on 09/05/17 10:06; Admin Dose 20 MG; Start 08/31/17 at 21:00 Metronidazole (Flagyl 500 Mg (Pmx)) 100 ml @ 100 mls/hr Q8H IVPB Last administered on 09/05/17 10:06; Admin Dose 100 MLS/HR; Start 09/02/17 at 02: 00 Acetaminophen (Tylenol Tab) 650 mg Q4H PRN PO PAIN AND OR ELEVATED TEMP Last administered on 09/03/17 00:47; Admin Dose 650 MG; Start 09/02/17 at 22:00 JESSI FAUST Sep 05, 2017 10:42
[2017-09-05 13:11] VITALS: BP 110/60; RESP 16
--- NOTE | 2017-09-05 15:52 | CONS ---
DATE OF ADMISSION: 08/18/2017 DATE OF CONSULTATION: CHIEF COMPLAINT: At this time she has no abdominal pain. OBJECTIVE: GENERAL: She appears to be alert, well-built. She is not in distress. VITAL SIGNS: Temperature is 98.2, blood pressure 92/60. CARDIOVASCULAR: Revealed well heard heart sounds. RESPIRATORY: Breath sounds well heard. ABDOMEN: Nontender. LABORATORY WORKUP: Her WBC count is 8100, hemoglobin 13.7. The potassium 5.3, lipase is 564. CAT scan of the abdomen on the showed evidence of phlegmon of the pancreas with acute pancreatitis, but no fluid collection noted and there is some improvement noted. CLINICAL IMPRESSION: Improving pancreatitis. PLAN: 1. At this time, recommend to advance the diet. 2. Follow the patient closely. Dictated By: BREA HOOK/MAVERICK Conf#: [id number] DID#: [id number]
--- NOTE | 2017-09-05 16:31 | PN ---
DATE: 09/05/2017 Status post ERCP and status post pancreatitis. SUBJECTIVE: Has epigastric pain about 1 to 2/10. Dr. Christiansen has increased the diet to a regular low fat diet. OBJECTIVE GENERAL: Awake, alert, oriented x3. VITAL SIGNS: Temperature one episode today 99.8, heart rate 63, respirations 16 , blood pressure 110/60, saturation 97% room air. LABORATORY DATA: Lipase today increased to 564. HEART: Regular. LUNGS: Clear. ABDOMEN: Soft, mild tenderness to deep pressure in the epigastric area. EXTREMITIES: Legs no calf tenderness. ASSESSMENT: A 36-year-old with gallstones, presented with abdominal pain. The enzymes are elevated, required ERCP, sphincterotomy and stent placement and sludge removal. Post-ERCP, the patient developed pancreatitis 17,000 lipase and WBC up to 27,000, gradually came down while n.p.o. and gradually started clear liquid. Lipase normalized on 08/27/2017 gradually, started the patient on low fat, low cholesterol diet, but as of the , the lipase started going up to 472, then 559, then 516, 562, [address] scan done 2 days ago revealed acute pancreatitis with mildly improved inflammation since prior examination. There is persistent peripancreatic fluid and fatty stranding, phlegmon is noted anterior to the third and fourth segment of the duodenum and between the head of the pancreas and duedenum with fluid collection focally could be noted at this time. Contracted gallbladder with a stone. No obstruction. Small amount of ascites, improved since prior exam. PLAN: Discuss with Dr. Christiansen. He believes since the patient does not have that much of pain, we can advance the diet to low fat, low cholesterol, regular diet. My opinion is that we should keep the patient n.p.o. and probably start him on TPN, but will go with Dr. Christiansen's plan. Will put her back on low fat, low cholesterol, regular diet and monitor with lipase and amylase. Meanwhile, we will start the patient on Creon enzyme capsule one t.i.d. with food. Dictated By: BRANDO CHRISTINE/MAVERICK Conf#: [id number] DID#: [id number] [facility] CENTERJay
[2017-09-05] MEDS: CREON (12k-38k-60k) 1 CAP PO SCH (17:42)
[2017-09-05 20:00] VITALS: BP 99/54; RESP 20
[2017-09-05] MEDS ORDERED: CREON (12k-38k-60k) 1 CAP PO ONE (21:00)
[2017-09-06] MEDS: ONDANSETRON 4 MG INJ IV PRN ×2 (00:11→21:59)
[2017-09-06] MEDS: HYDROmorphONE 0.5 MG/0.5 ML SYG IV PRN ×5 (00:11→23:36)
[2017-09-06 02:00] VITALS: BP 103/50; RESP 20
[2017-09-06] MEDS: metroNIDAZOLE 500 MG/NS (PMX) 100 ML IVPB SCH ×3 (02:08→17:49)
[2017-09-06] MEDS: MEROPENEM 1 GM/50ML(PMX) 50 ML IVPB SCH ×3 (05:26→21:59)
[2017-09-06 07:35] VITALS: BP 113/63; RESP 18
[2017-09-06] MEDS: FAMOTIDINE 20 MG TAB PO SCH ×2 (08:04→20:28)
[2017-09-06] MEDS: CREON (12k-38k-60k) 1 CAP PO SCH ×3 (08:04→17:45)
[2017-09-06] MEDS: D5W-0.45 NACL + KCL 20 MEQ 1,000 ML IV SCH ×2 (12:53→21:59)
[2017-09-06 14:01] VITALS: BP 110/60; RESP 18
--- NOTE | 2017-09-06 16:07 | PN ---
Date/Time of Note Date/Time of Note DATE: 09/06/17 TIME: 16:04 Assessment/Plan VTE Prophylaxis VTE Prophylaxis Intervention: SCD's Lines/Catheters IV Catheter Type (from [facility] [place]): Saline Lock Urinary Cath still in place: No Assessment/Plan Chief Complaint/Hosp Course Patient continues to have pain with food ingestion, currently is n.p.o., plan of care discussed with Dr. Daly was recommendations for TPN. I discussed the patient regarding starting a PICC line and total parenteral nutrition, however patient did not consent to PICC line, stated that she needs to think about that. Assessment/Plan - Intractable abdominal pain, resolving. Continue Dilaudid p.r.n. for pain and Zofran p.r.n. for nausea. - Acute pancreatitis s/p ERCP, continue IV fluids and antiemetics. - Cholelithiasis and acute cholecystitis. Dr. Smith is following in general surgery consultation. Patient is allergic to penicillin antibiotics, continue Meropenem and Flagyl. - S/P ERCP and common bile duct stent placement by Dr Christiansen. Further recommendations based on clinical course. Plan of care discussed with Dr. Wright. Problems: Exam/Review of Systems Vital Signs Vitals Vital Signs Date Time Temp Pulse Resp B/P Pulse Ox O2 Delivery O2 Flow Rate FiO2 09/06/17 14:01 98.6 55 18 110/60 98 Intake and Output 09/05/17 09/05/17 09/06/17 15:00 23:00 07:00 Intake Total 100 ml 900 ml 270 ml Output Total 700 ml Balance 100 ml 200 ml 270 ml Exam Constitutional: alert, oriented Head: normocephalic Neck: supple Respiratory: normal air movement Cardiovascular: nl pulses Gastrointestinal: soft Extremities: normal pulses Results Result Diagram: 09/04/1753009/04/17530 Results 24 hrs Laboratory Tests Test 09/06/17 05:18 Lipase 487 H Medications Medications Current Medications Ondansetron HCl 4 mg 4 mg Q4H PRN IV NAUSEA AND/OR VOMITING Last administered on 09/06/17 00:11; Admin Dose 4 MG; Start 08/20/17 at 00:10 Meropenem/Sodium Chloride ([place]rem 1 Gm/50 ml (Pmx)) 50 ml @ 100 mls/hr Q8 IVPB Last administered on 09/06/17 14:29; Admin Dose 100 MLS/HR; Start 08/23/17 at 17:30 Senna (Senokot) 1 tab BID PRN PO CONSTIPATION Last administered on 08/26/17 11:18; Admin Dose 1 TAB; Start 08/26/17 at 10:30 Hydromorphone HCl (Dilaudid) 1.5 mg Q3 PRN IV PAIN Last administered on 07:26; Admin Dose 1.5 MG; Start 08/28/17 at 11:30; Status Future Hold Hydromorphone HCl (Dilaudid) 0.5 mg Q4H PRN IV PAIN Last administered on 13:56; Admin Dose 0.5 MG; Start 08/30/17 at 12:00 Acetaminophen/ Hydrocodone Bitart ([place] (5/325)) 1 tab Q4H PRN PO Pain; Start 08/30/17 at 12:00 Famotidine 20 mg 20 mg Q12 PO Last administered on 09/06/17 08:04; Admin Dose 20 MG; Start 08/31/17 at 21:00 Metronidazole (Flagyl 500 Mg (Pmx)) 100 ml @ 100 mls/hr Q8H IVPB Last administered on 09/06/17 10:38; Admin Dose 100 MLS/HR; Start 09/02/17 at 02: 00 Acetaminophen 650 mg 650 mg Q4H PRN PO PAIN AND OR ELEVATED TEMP Last administered on 09/03/17 00:47; Admin Dose 650 MG; Start 09/02/17 at 22:00 Potassium Chloride/Dextrose/ Sod Cl (D5-1/2ns + KCl 20 Meq) 1,000 ml @ 100 mls/ hr Q10H IV Last administered on 09/06/17 12:53; Admin Dose 100 MLS/HR; Start 09/06/17 at 12:00 JAROCHO YOUNG Sep 06, 2017 16:07
[2017-09-06 19:48] VITALS: BP 109/58; RESP 20
[2017-09-06] MEDS: ACETAMINOPHEN 325 MG TAB PO PRN (22:09)
[2017-09-07 02:00] VITALS: BP 104/58; RESP 20
[2017-09-07] MEDS: metroNIDAZOLE 500 MG/NS (PMX) 100 ML IVPB SCH ×2 (02:11→11:34)
[2017-09-07] MEDS: D5W-0.45 NACL + KCL 20 MEQ 1,000 ML IV SCH ×3 (04:53→17:43)
[2017-09-07] MEDS: MEROPENEM 1 GM/50ML(PMX) 50 ML IVPB SCH (05:39)
[2017-09-07 05:51] LABS: BASOPHIL # 0.1 10^3/ul (0.0-0.1); BASOPHILS % 1.3 % (0.0-2.0); EOSINOPHILS # 0.2 10^3/ul (0.0-0.5); EOSINOPHILS % 3.8 % (0.0-7.0); HEMATOCRIT 39.3 % (37.0-47.0); HEMOGLOBIN 12.7 g/dl (12.0-16.0); LYMPHOCYTES % 35.3 % (15.0-51.0); MEAN CORPUSCULAR HEMOGLOBIN 26.5 pg (29.0-33.0); MEAN CORPUSCULAR HGB CONC 32.3 g/dl (32.0-37.0); MONOCYTE # 0.5 10^3/ul (0.3-0.9); MONOCYTES % 9.6 % (0.0-11.0); NEUTROPHIL # 2.8 10^3/ul (1.6-7.5); NEUTROPHILS % 49.8 % (39.0-77.0); PLATELET COUNT 461 10^3/UL (140-415); RED BLOOD COUNT 4.79 10^6/ul (4.20-5.40); RED CELL DISTRIBUTION WIDTH 13.2 % (11.5-14.5); WHITE BLOOD COUNT 5.5 10^3/ul (4.8-10.8)
[2017-09-07 06:29] LABS: CALCIUM 9.4 mg/dl (8.4-10.2); CREATININE 0.73 mg/dl (0.44-1.00); POTASSIUM 4.1 mmol/L (3.5-5.1)
[2017-09-07] MEDS: HYDROmorphONE 0.5 MG/0.5 ML SYG IV PRN ×4 (06:37→21:52)
--- NOTE | 2017-09-07 06:42 | PN ---
DATE: 09/06/2017 SUBJECTIVE: Apparently had severe pain in the epigastric area and right upper quadrant today after having lunch. No vomiting. The pain level is 5/10. OBJECTIVE: GENERAL: Alert, awake, oriented x3. VITAL SIGNS: Temperature 98.6, heart rate 65, respirations 18, blood pressure 110/60, saturation 98% on room air. LABORATORY DATA: Today, lipase is 487 still, of course, is high. No hematology tests done today. HEAD AND NECK: Within normal limits. HEART: Regular. LUNGS: Clear. ABDOMEN: There is deep tenderness in the epigastric area and right upper quadrant more than the other days. Also, she states that she has had left lower quadrant and left flank pain early in the morning. No urinary symptomatology. ASSESSMENT: The patient is a 36-year-old presented with abdominal pain and ultrasound revealing the presence of gallstones. MRCP showed evidence of gallstones but no evidence of cholecystitis. Enzymes were elevated. GI consultant technology recommended ERCP, which was done with sphincterotomy and stent placement and sludge removal. Post-ERCP, the patient developed pancreatitis with 17,000 lipase and WBC up to 27,000, gradually decreased. Lipase became normal. When her lipase normalized we started the patient on liquid and then full liquid and then low fat, low cholesterol regular diet. Following the regular diet, the patient's lipase started going up to 564. This is stopped today. Considering the pain and the increased lipase, we will stop the fluid and keep patient n.p.o. consider to start patient on TPN. Meanwhile, we are getting Nutritional assessment, dietary assessment for recommendation of the TPN. Dictated By: BRANDO CHRISTINE/MAVERICK Conf#: [id number] DID#: [id number] MTDD
--- NOTE | 2017-09-07 07:32 | PN ---
DATE: 09/06/2017 The patient has been recovering from the pancreatitis. She ate a banana today and she vomited; chiang link, at this moment, she is very comfortable. She is cheerful and laughing. She says she is not in pain, no vomiting at this time. PHYSICAL EXAMINATION: VITAL SIGNS: Temperature 98.6, blood pressure 110/60. ABDOMEN: Nontender, nondistended. LABORATORY WORKUP: Sodium 139, potassium 5.3, lipase came down to 487 from 564, WBC count was 8100 the day before yesterday. CLINICAL IMPRESSION: Ongoing pancreatitis. The patient is unable to tolerate the solid food. I wi ll start the patient on Creon if she is not already on it. Dictated By: BREA HOOK/MAVERICK Conf#: [id number] DID#: [id number]
[2017-09-07 07:44] VITALS: BP 101/54; RESP 17
[2017-09-07] MEDS: CREON (12k-38k-60k) 1 CAP PO SCH ×3 (08:00→17:02)
[2017-09-07] MEDS: FAMOTIDINE 20 MG TAB PO SCH ×2 (08:41→21:00)
[2017-09-07 13:52] VITALS: BP 102/59; RESP 18
--- NOTE | 2017-09-07 13:55 | PN ---
Date/Time of Note Date/Time of Note DATE: 09/07/17 TIME: 13:53 Assessment/Plan VTE Prophylaxis VTE Prophylaxis Intervention: SCD's Lines/Catheters IV [facility] [place] Urinary Cath still in place: No Assessment/Plan Chief Complaint/Hosp Course Patient is currently n.p.o. pending PICC line placement and starting TPN, encouraged to get out of bed. Assessment/Plan - Intractable abdominal pain, resolving. Continue Dilaudid p.r.n. for pain and Zofran p.r.n. for nausea. - Acute pancreatitis s/p ERCP, continue IV fluids and antiemetics. N.p.o. TPN - Cholelithiasis and acute cholecystitis. Dr. Smith is following in general surgery consultation. Continue Meropenem and Flagyl. - S/P ERCP and common bile duct stent placement by Dr Christiansen. Further recommendations based on clinical course. Plan of care discussed with Dr. Wright. Problems: Exam/Review of Systems Vital Signs Vitals Vital Signs Date Time Temp Pulse Resp B/P Pulse Ox O2 Delivery O2 Flow Rate FiO2 09/07/17 13:52 98.1 56 18 102/59 96 Intake and Output 09/06/17 09/06/17 09/07/17 15:00 23:00 07:00 Intake Total 150 ml 440 ml 1120 ml Output Total 1400 ml 1000 ml Balance 150 ml -960 ml 120 ml Exam Constitutional: alert, oriented Head: normocephalic Neck: supple Respiratory: normal air movement Cardiovascular: nl pulses Gastrointestinal: soft Extremities: normal pulses Results Result Diagram: 09/07/17 0523 09/07/17 0523 Results 24 hrs Laboratory Tests Test 09/07/17 05:23 White Blood Count 5.5 # Red Blood Count 4.79 Hemoglobin 12.7 Hematocrit 39.3 Mean Corpuscular Volume 82.0 Mean Corpuscular Hemoglobin 26.5 L Mean Corpuscular Hemoglobin Concent 32.3 Red Cell Distribution Width 13.2 Platelet Count 461 H Mean Platelet Volume 9.0 Neutrophils % 49.8 Lymphocytes % 35.3 Monocytes % 9.6 Eosinophils % 3.8 Basophils % 1.3 Nucleated Red Blood Cells % 0.0 Neutrophils # 2.8 Lymphocytes # 2.0 Monocytes # 0.5 Eosinophils # 0.2 Basophils # 0.1 Nucleated Red Blood Cells # 0.0 Sodium Level 141 Potassium Level 4.1 Chloride Level 106 Carbon Dioxide Level 26 Anion Gap 13 Blood Urea Nitrogen 5 L Creatinine 0.73 Glucose Level 101 Calcium Level 9.4 Medications Medications Current Medications Ondansetron HCl (Zofran Inj) 4 mg Q4H PRN IV NAUSEA AND/OR VOMITING Last administered on 09/06/17 21:59; Admin Dose 4 MG; Start 08/20/17 at 00:10 Senna (Senokot) 1 tab BID PRN PO CONSTIPATION Last administered on 08/26/17 11:18; Admin Dose 1 TAB; Start 08/26/17 at 10:30 Hydromorphone HCl (Dilaudid) 1.5 mg Q3 PRN IV PAIN Last administered on 07:26; Admin Dose 1.5 MG; Start 08/28/17 at 11:30; Status Future Hold Hydromorphone HCl (Dilaudid) 0.5 mg Q4H PRN IV PAIN Last administered on 11:27; Admin Dose 0.5 MG; Start 08/30/17 at 12:00 Acetaminophen/ Hydrocodone Bitart ([place] (5/325)) 1 tab Q4H PRN PO Pain; Start 08/30/17 at 12:00 Famotidine (Pepcid) 20 mg Q12 PO Last administered on 09/07/17 08:41; Admin Dose 20 MG; Start 08/31/17 at 21:00 Acetaminophen 650 mg 650 mg Q4H PRN PO PAIN AND OR ELEVATED TEMP Last administered on 09/06/17 22:09; Admin Dose 650 MG; Start 09/02/17 at 22:00 Potassium Chloride/Dextrose/ Sod Cl (D5-1/2ns + KCl 20 Meq) 1,000 ml @ 100 mls/ hr Q10H IV Last administered on 09/07/17 04:53; Admin Dose 100 MLS/HR; Start 09/06/17 at 12:00 JAROCHO YOUNG Sep 07, 2017 13:55
--- NOTE | 2017-09-07 15:01 | PN ---
DATE: 09/07/2017 SUBJECTIVE: Still has abdominal pain, the level she states is about 4 to 5/10. No nausea or vomiti ng today. OBJECTIVE GENERAL: Awake, alert, oriented x3. VITAL SIGNS: Temperature 98.1, 56, 17, blood pressure 101/54, saturation 97% on room air. HEART: Regular. LUNGS: Clear. ABDOMEN: Soft. Deep tenderness in the right upper quadrant, left upper quadrant and epigastric are a. Today, lipase has not been done. ASSESSMENT AND PLAN: This is a 36-year-old female status post ERCP, sphincterotomy, sludge removal and placement of a stent in the common bile duct. Postop, the patient developed pancreatitis with h ighly elevated lipase 17,000 and WBC 27,000. The patient was kept n.p.o. for about 2 weeks. The di et was gradually started. Lipase was normalized before starting diet. Again, lipase is starting to raise up to 582. A CT scan repeated showed ongoing acute pancreatitis with some phlegmon at the he ad of the pancreas formation, no definite pseudocyst or fluid collection. PLAN: Considering that the patient has not been eating in about 2 weeks and continuing pancre atitis and needs time to resolve. Nutritional assessment was requested. Suggested TPN with certain amount of calorie and protein. Discussed with the patient. The patient agreed eventually to place ment of PICC line and starting of TPN. It is going to be done today hopefully and then start this p atient on TPN. Dictated By: BRANDO ENRIQUEZ MD PS/NTS Conf#: [id number] DID#: [id number] CC: KATHLEEN CASAREZ MD;*EndCC*
[2017-09-07 19:45] VITALS: BP 104/61; RESP 20
[2017-09-08] VITALS (13 sets, daily range): BP systolic 79–131; BP diastolic 45–62; PULSE 68–88; RESP 15–27
[2017-09-08] MEDS: ONDANSETRON 4 MG INJ IV PRN (00:47)
[2017-09-08] MEDS: HYDROmorphONE 0.5 MG/0.5 ML SYG IV PRN ×4 (03:31→22:17)
[2017-09-08] MEDS: D5W-0.45 NACL + KCL 20 MEQ 1,000 ML IV SCH ×4 (04:00→20:25)
--- NOTE | 2017-09-08 05:46 | PN ---
DATE: 09/08/2017 SUBJECTIVE: Upon discussion with the patient, the patient has been n.p.o. all day, but she admitted that she did throw up today. She has some abdominal pain. No vomiting blood. No history of passi ng blood from the rectum. PHYSICAL EXAMINATION: GENERAL: The patient is alert. VITAL SIGNS: Normal. ABDOMEN: Soft, nontender. CLINICAL IMPRESSION: In spite of patient being n.p.o., she has been vomiting. She definitely has _ ___ as noted on the CAT scan, elevated lipase, but because of the persistent vomiting, the reason fo r this is not very clear. Rule out ulcer disease or any other reason for vomiting, gastric outlet o bstruction or penetrating ulcer from the pancreatitis. ____ was ruled out. PLAN: At this time, I discussed with Dr. Wright, and I discussed with the patient and I think it seems to be appropriate to do endoscopy to explain why patient has persistent vomiting. We will pro ceed with endoscopy in the morning. Dictated By: BREA HOOK/MAVERICK Conf#: [id number] DID#: [id number] CC: KATHLEEN WRIGHT MD;*EndCC*
[2017-09-08 05:55] LABS: BASOPHIL # 0.1 10^3/ul (0.0-0.1); BASOPHILS % 1.1 % (0.0-2.0); EOSINOPHILS # 0.2 10^3/ul (0.0-0.5); EOSINOPHILS % 3.6 % (0.0-7.0); HEMATOCRIT 39.2 % (37.0-47.0); HEMOGLOBIN 13.3 g/dl (12.0-16.0); LYMPHOCYTES # 1.9 10^3/ul (0.8-2.9); LYMPHOCYTES % 29.8 % (15.0-51.0); MEAN CORPUSCULAR HEMOGLOBIN 27.9 pg (29.0-33.0); MEAN CORPUSCULAR HGB CONC 33.9 g/dl (32.0-37.0); MEAN CORPUSCULAR VOLUME 82.4 fl (82.0-101.0); MONOCYTE # 0.7 10^3/ul (0.3-0.9); MONOCYTES % 10.1 % (0.0-11.0); NEUTROPHIL # 3.5 10^3/ul (1.6-7.5); NEUTROPHILS % 55.2 % (39.0-77.0); PLATELET COUNT 477 10^3/UL (140-415); RED BLOOD COUNT 4.76 10^6/ul (4.20-5.40); WHITE BLOOD COUNT 6.4 10^3/ul (4.8-10.8)
[2017-09-08] MEDS ORDERED: PANTOPRAZOLE 40 MG INJ IV SCH (06:00)
[2017-09-08 06:33] LABS: ALBUMIN 4.2 g/dl (3.3-4.9); ALBUMIN/GLOBULIN RATIO 1.31; BILIRUBIN,INDIRECT 0.5 mg/dl (0-1.1); BILIRUBIN,TOTAL 0.5 mg/dl (0.2-1.3); CALCIUM 9.3 mg/dl (8.4-10.2); CREATININE 0.64 mg/dl (0.44-1.00); POTASSIUM 4.4 mmol/L (3.5-5.1); TOTAL PROTEIN 7.4 g/dl (6.1-8.1)
[2017-09-08] MEDS: CREON (12k-38k-60k) 1 CAP PO SCH ×3 (08:00→17:45)
[2017-09-08] MEDS: FAMOTIDINE 20 MG TAB PO SCH (08:03)
[2017-09-08] MEDS ORDERED: LIDOCAINE 4% SOLUTION 50 ML BTL ONE (10:28)
[2017-09-08] MEDS ORDERED: PROPOFOL 20 ML ONE (10:48)
--- NOTE | 2017-09-08 10:49 | OPPN ---
Date/Time of Note Date/Time of Note DATE: 09/08/17 TIME: 10:47 Proc Note GI Procedure Date 09/08/17 Indication: diagnostic Pre-procedure Diagnosis persistant vomitting Post-procedure Diagnosis diffuse mod gastritis mod gerd Procedure Performed: Endoscopy Surgeon see signature line Can Line Examiner none Anesthesia Type: general, MAC Tourniquet Time none EBL none Transfusion required none Biopsy 1: gastric and esophageal bx Grafts/Implants none Tubes/Drains none Complication(s) none Procedure Description egd done under mac egd and gastritis noted bx done BREA FRANKLIN MD Sep 08, 2017 10:49
[2017-09-08] MEDS ORDERED: EPHEDrine SULFATE 50 MG/5 ML SYG ONE (11:11)
[2017-09-08] MEDS ORDERED: morphine (1 MG/ML) 10ML SYRINGE IV ONE (11:27)
[2017-09-08] MEDS ORDERED: morphine (1 MG/ML) 10ML SYRINGE IV PRN (11:30)
[2017-09-08] MEDS ORDERED: EPHEDrine SULFATE 50 MG/5 ML SYG IV PRN (11:30)
--- NOTE | 2017-09-08 14:32 | PN ---
DATE: 09/08/2017 SUBJECTIVE: She just came back from endoscopy and apparently Dr. Christiansen, GI colleague, did an EGD on the patient. OBJECTIVE: VITAL SIGNS: Temperature 98, heart rate 75, respirations 15, blood pressure 121 /56, saturation 97% room air. LABORATORY DATA: WBC 6400 with 55% neutrophils. Hemoglobin 13.3, hematocrit 39.2. Platelet count 477. Chemistry: Sodium, potassium normal. BUN and creatinine normal. AST is slightly elevated. Lipase 585, increased comparing to yesterday. ABDOMEN: Soft, mild tenderness in epigastric area. HEART: Regular rhythm. ASSESSMENT: A 36-year-old female with gallstones symptomatic and elevated enzymes, presented to emergency room for evaluation. EGD was done and a sphincterotomy was performed. Post sphincterotomy the patient developed pancreatitis, gradually resolved, but still is not tolerating diet, also abdominal pain, lipase which was normal, but upon starting solid food increase to 500. We keep the patient n.p.o. Plan is to start patient on TPN. Yesterday , Dr. Christiansen, a gastroenterology colleague, was concerned about vomiting even though the patient is not eating. He was suspicious of some other pathology, so today, morning, he did the EGD which revealed some esophagitis and gastritis. PLAN: Continue current care. Keep the patient n.p.o. Start the patient on TPN. Dictated By: BRANDO ENRIQUEZ MD PS/MAVERICK Conf#: [id number] DID#: [id number] MTDD
--- NOTE | 2017-09-08 15:09 | PN ---
Date/Time of Note Date/Time of Note DATE: 09/08/17 TIME: 15:07 Assessment/Plan VTE Prophylaxis VTE Prophylaxis Intervention: SCD's Lines/Catheters [facility]from [facility] Peripheral IV Urinary Cath still in place: No Assessment/Plan Chief Complaint/Hosp Course Patient looks comfortable status post EGD today. Pending PICC line placement and starting TPN. Continue n.p.o. Assessment/Plan - Status post EGD with notion of gastritis on 09/08. Continue Pepcid. - Intractable abdominal pain, resolving. Continue Dilaudid p.r.n. for pain and Zofran p.r.n. for nausea. - Acute pancreatitis s/p ERCP, continue IV fluids and antiemetics. N.p.o. TPN - Cholelithiasis and acute cholecystitis. Dr. Smith is following in general surgery consultation. Continue Meropenem and Flagyl. - S/P ERCP and common bile duct stent placement by Dr Christiansen. Further recommendations based on clinical course. Plan of care discussed with Dr. Wright. Problems: Exam/Review of Systems Vital Signs Vitals Vital Signs Date Time Temp Pulse Resp B/P Pulse Ox O2 Delivery O2 Flow Rate FiO2 09/08/17 14:22 97.7 66 16 106/55 93 09/08/17 11:42 Room Air Intake and Output 09/07/17 09/07/17 09/08/17 15:00 23:00 07:00 Intake Total 150 ml 1020 ml 1000 ml Output Total 1100 ml 900 ml Balance 150 ml -80 ml 100 ml Exam Constitutional: alert, oriented Head: normocephalic Neck: supple Respiratory: normal air movement Cardiovascular: nl pulses Gastrointestinal: soft Extremities: normal pulses Results Result Diagram: 09/08/1752109/08/17521 Results 24 hrs Laboratory Tests Test 09/08/17 05:22 White Blood Count 6.4 Red Blood Count 4.76 Hemoglobin 13.3 Hematocrit 39.2 Mean Corpuscular Volume 82.4 Mean Corpuscular Hemoglobin 27.9 L Mean Corpuscular Hemoglobin Concent 33.9 Red Cell Distribution Width 13.0 Platelet Count 477 H Mean Platelet Volume 9.0 Neutrophils % 55.2 Lymphocytes % 29.8 Monocytes % 10.1 Eosinophils % 3.6 Basophils % 1.1 Nucleated Red Blood Cells % 0.0 Neutrophils # 3.5 Lymphocytes # 1.9 Monocytes # 0.7 Eosinophils # 0.2 Basophils # 0.1 Nucleated Red Blood Cells # 0.0 Sodium Level 140 Potassium Level 4.4 Chloride Level 103 Carbon Dioxide Level 26 Anion Gap 15 Blood Urea Nitrogen 3 L Creatinine 0.64 Glucose Level 107 Calcium Level 9.3 Total Bilirubin 0.5 Direct Bilirubin 0.00 Indirect Bilirubin 0.5 Aspartate Amino Transf (AST/SGOT) 61 H Alanine Aminotransferase (ALT/SGPT) 52 Alkaline Phosphatase 102 Total Protein 7.4 Albumin 4.2 Globulin 3.20 Albumin/Globulin Ratio 1.31 Lipase 585 H Medications Medications Current Medications Ondansetron HCl (Zofran Inj) 4 mg Q4H PRN IV NAUSEA AND/OR VOMITING Last administered on 09/08/17 00:47; Admin Dose 4 MG; Start 08/20/17 at 00:10 Senna (Senokot) 1 tab BID PRN PO CONSTIPATION Last administered on 08/26/17 11:18; Admin Dose 1 TAB; Start 08/26/17 at 10:30 Hydromorphone HCl (Dilaudid) 1.5 mg Q3 PRN IV PAIN Last administered on 07:26; Admin Dose 1.5 MG; Start 08/28/17 at 11:30; Status Future Hold Hydromorphone HCl (Dilaudid) 0.5 mg Q4H PRN IV PAIN Last administered on 13:52; Admin Dose 0.5 MG; Start 08/30/17 at 12:00 Acetaminophen/ Hydrocodone Bitart ([place] (5/325)) 1 tab Q4H PRN PO Pain; Start 08/30/17 at 12:00 Famotidine (Pepcid) 20 mg Q12 PO Last administered on 09/07/17 08:41; Admin Dose 20 MG; Start 08/31/17 at 21:00; Status Future Hold Acetaminophen 650 mg 650 mg Q4H PRN PO PAIN AND OR ELEVATED TEMP Last administered on 09/06/17 22:09; Admin Dose 650 MG; Start 09/02/17 at 22:00 Potassium Chloride/Dextrose/ Sod Cl (D5-1/2ns + KCl 20 Meq) 1,000 ml @ 100 mls/ hr Q10H IV Last administered on 11/1/17at 05:15; Admin Dose 100 MLS/HR; Start 09/06/17 at 12:00 Lorazepam (Ativan) 0.5 mg Q8H PRN IV ANXIETY; Start 09/07/17 at 15:30 Famotidine (Pepcid Iv) 20 mg Q12 IV ; Start 09/08/17 at 21:00 JAROCHO YOUNG Sep 08, 2017 15:09
[2017-09-08] MEDS ORDERED: LIDOCAINE 1% (MPF) 5 ML VIAL SC ONE (15:30)
--- NOTE | 2017-09-08 16:18 | RADRPT ---
PROCEDURE: US guidance for PICC line CLINICAL INDICATION: PICC line placement TECHNIQUE: Multiple real-time images were acquired of the patient's arm utilizing a high resolutio n transducer. This was performed by the PICC line nurse for venous access. COMPARISON: None FINDINGS: Ultrasound guidance for PICC line placement. IMPRESSION: Ultrasound guidance for PICC line placement. RPTAT: AA .Ted Dominguez MD, MD Date Time Electronically viewed and signed by .Ted Dominguez MD, on 09/08/2017 16:17 .S/
--- NOTE | 2017-09-08 16:49 | RADRPT ---
PROCEDURE: XR Chest. CLINICAL INDICATION: Check PICC line position. TECHNIQUE: Single frontal view. COMPARISON: Prior study done earlier the same day. FINDINGS: There is a left arm PICC line with the tip in the cavoatrial junction. The lungs are clear. The heart size is normal. There is no pleural effusion. There is no pneumothorax. IMPRESSION: 1. Left arm PICC line tip in satisfactory position. 2. Otherwise normal chest radiograph. RPTAT: QQ .Marcin Gross MD, Date Time Electronically viewed and signed by .Marcin Gross MD, MD on 09/08/2017 16:49 .R/
--- NOTE | 2017-09-08 16:49 | RADRPT ---
PROCEDURE: XR Chest. CLINICAL INDICATION: Check PICC line position. TECHNIQUE: Single frontal view. COMPARISON: No prior study is available for comparison. FINDINGS: There is a left arm PICC line with the tip in the lower right atrium. This should be retracted appro ximately 5 cm.. The lungs are clear. The heart size is normal. There is no pleural effusion. There is no pneumothorax. IMPRESSION: 1. Left arm PICC line tip in the lower right atrium. This should be retracted 5 cm. PICC line nurse has been of formed. 2. Otherwise normal chest radiograph. RPTAT: QQ .Marcin Gross MD, MD Date Time Electronically viewed and signed by .Marcin Gross MD, MD on 09/08/2017 16:49 .R/
[2017-09-08] MEDS: ACCU-CHEK XX SCH ×2 (17:00→20:26)
[2017-09-08] MEDS: FAMOTIDINE 20 MG INJ IV SCH (20:21)
[2017-09-09] MEDS: ACCU-CHEK XX SCH ×6 (00:52→21:00)
[2017-09-09 02:04] VITALS: BP 107/56; RESP 20
[2017-09-09] MEDS: HYDROmorphONE 0.5 MG/0.5 ML SYG IV PRN ×5 (04:06→20:54)
[2017-09-09 05:33] LABS: BASOPHIL # 0.1 10^3/ul (0.0-0.1); EOSINOPHILS # 0.2 10^3/ul (0.0-0.5); EOSINOPHILS % 3.3 % (0.0-7.0); HEMATOCRIT 37.4 % (37.0-47.0); HEMOGLOBIN 12.2 g/dl (12.0-16.0); LYMPHOCYTES # 1.8 10^3/ul (0.8-2.9); MEAN CORPUSCULAR HEMOGLOBIN 27.1 pg (29.0-33.0); MEAN CORPUSCULAR HGB CONC 32.6 g/dl (32.0-37.0); MEAN CORPUSCULAR VOLUME 83.1 fl (82.0-101.0); MEAN PLATELET VOLUME 9.3 fl (7.4-10.4); MONOCYTE # 0.6 10^3/ul (0.3-0.9); MONOCYTES % 9.4 % (0.0-11.0); NEUTROPHIL # 3.3 10^3/ul (1.6-7.5); NEUTROPHILS % 56.1 % (39.0-77.0); PLATELET COUNT 410 10^3/UL (140-415); RED CELL DISTRIBUTION WIDTH 13.3 % (11.5-14.5); WHITE BLOOD COUNT 5.8 10^3/ul (4.8-10.8)
--- NOTE | 2017-09-09 05:33 | GILP ---
DATE OF PROCEDURE: NAME OF PROCEDURE: Esophagogastroduodenoscopy. PREOPERATIVE DIAGNOSES: Patient presenting with history of pancreatitis and she has persistent vomi ting and abdominal pain and procedure is performed to rule out peptic ulcer disease, possible penetr ating pancreatitis into the stomach, rule out esophagitis. POSTOPERATIVE DIAGNOSES: Moderate degree of reflux esophagitis, moderate degree of diffuse gastriti s. DESCRIPTION OF PROCEDURE: After the informed written consent was obtained, the patient was asked to lie on the left lateral side. The patient was given intravenous anesthesia by anesthesiologist, Dr Jose C Lamar. When the patient became somnolent, the Olympus video upper endoscope was introduced int o the oropharynx, then into the esophagus. The esophagus showed evidence of moderate degree of refl ux esophagitis. Biopsies were obtained to rule out any opportunistic infections. Scope at this kat e was advanced into the stomach. Entire stomach showed evidence of a moderate degree of erythema in volving the entire stomach. Biopsy was done from the antrum, the lesser curvature and the fundus to rule out H. pylori infection. Duodenum was examined, which appeared normal up to the end of the th ird portion. Endoscope at this time was withdrawn and the procedure was terminated. PLAN: Recommend Protonix IV and also recommend Reglan as needed. Dictated By: BREA HOOK/MAVERICK Conf#: [id number] DID#: [id number] CC: KATHLEEN CASAREZ MD;*EndCC*
[2017-09-09 06:10] LABS: CREATININE 0.63 mg/dl (0.44-1.00); MAGNESIUM 1.8 mg/dl (1.7-2.5); POTASSIUM 4.1 mmol/L (3.5-5.1)
[2017-09-09] MEDS: D5W-0.45 NACL + KCL 20 MEQ 1,000 ML IV SCH ×2 (07:09)
[2017-09-09] MEDS: CREON (12k-38k-60k) 1 CAP PO SCH ×3 (08:00→17:45)
[2017-09-09 08:09] VITALS: BP 100/62; RESP 20
[2017-09-09] MEDS: FAMOTIDINE 20 MG INJ IV SCH ×2 (08:34→20:57)
--- NOTE | 2017-09-09 15:11 | PN ---
DATE: 09/09/2017 SUBJECTIVE: Feels better. Last night has got PICC line inserted on the left side. She is waiting for the start of hyperalimentation. OBJECTIVE GENERAL: Awake, alert, oriented x3. VITAL SIGNS: Temperature 97.7, 61, respirations 20, blood pressure 100/62, saturation 96% on room air. LABORATORY DATA: Today, WBC 5800 with 56% segmented, hemoglobin 12.2. Chemistry, lipase is 513, high. Sodium, potassium, BUN, creatinine within normal limits. PHYSICAL EXAMINATION. HEART: Regular. LUNGS: Clear. ABDOMEN: Soft, some tenderness on deep pressure in right upper quadrant, left upper quadrant epigastric area. No nausea, no vomiting. EXTREMITIES: Lower extremity, no calf tenderness. ASSESSMENT: A 36-year-old female status post pancreatitis secondary to ERCP. Lipase was normal as well as they started her nutrition by n.p.o. The patient started increasing her lipase and it went up to 585. Very recent CT scan showed ongoing acute pancreatitis. Decision was made with consensus among the treating physicians to start the patient on hyperalimentation and keep the patient n.p.o. and these were discussed with the patient and patient agrees with that, so we are waiting for the pharmacy to send up the prepared TPN solution today. We will continue to follow. Dictated By: BRANDO CHRISTINE/MAVERICK Conf#: [id number] DID#: [id number] MTDD
[2017-09-09 15:35] VITALS: BP 106/60; PULSE 63; RESP 16
[2017-09-09] MEDS: TPN 1,000 ML IV SCH (15:40)
--- NOTE | 2017-09-09 18:18 | PN ---
Date/Time of Note Date/Time of Note DATE: 09/09/17 TIME: 18:17 Assessment/Plan VTE Prophylaxis VTE Prophylaxis Intervention: other Lines/Catheters IV [facility] PICC Line Urinary Cath still in place: No Assessment/Plan Assessment/Plan - Status post EGD with notion of gastritis on 09/08. Continue Pepcid. - Intractable abdominal pain, resolving. Continue Dilaudid p.r.n. for pain and Zofran p.r.n. for nausea. - Acute pancreatitis s/p ERCP, continue IV fluids and antiemetics. N.p.o. TPN - Cholelithiasis and acute cholecystitis. Dr. Smith is following in general surgery consultation. Continue Meropenem and Flagyl. - S/P ERCP and common bile duct stent placement by Dr Christiansen. Further recommendations based on clinical course. Plan of care discussed with Dr. Wright. Exam/Review of Systems Vital Signs Vitals Vital Signs Date Time Temp Pulse Resp B/P Pulse Ox O2 Delivery O2 Flow Rate FiO2 09/09/17 15:35 98.3 63 16 106/60 95 09/09/17 15:35 Room Air Intake and Output 09/08/17 09/08/17 09/09/17 15:00 23:00 07:00 Intake Total 1000 ml 800 ml Output Total 900 ml Balance 1000 ml -100 ml Exam Constitutional: alert, oriented, well developed Respiratory: diminished breath sounds, normal air movement Cardiovascular: nl pulses, regular rate and rhythm Gastrointestinal: soft, tender Musculoskeletal: nl extremities to inspection Extremities: normal pulses Neurological: nl mental status, nl speech Results Result Diagram: 09/09/17 0509/09/17 0520 Results 24 hrs Laboratory Tests Test 09/09/17 04:35 09/09/17 05:20 09/09/17 18:10 Lipase 513 H White Blood Count 5.8 Red Blood Count 4.50 Hemoglobin 12.2 Hematocrit 37.4 Mean Corpuscular Volume 83.1 Mean Corpuscular Hemoglobin 27.1 L Mean Corpuscular Hemoglobin Concent 32.6 Red Cell Distribution Width 13.3 Platelet Count 410 Mean Platelet Volume 9.3 Neutrophils % 56.1 Lymphocytes % 30.0 Monocytes % 9.4 Eosinophils % 3.3 Basophils % 1.0 Nucleated Red Blood Cells % 0.0 Neutrophils # 3.3 Lymphocytes # 1.8 Monocytes # 0.6 Eosinophils # 0.2 Basophils # 0.1 Nucleated Red Blood Cells # 0.0 Sodium Level 140 Potassium Level 4.1 Chloride Level 104 Carbon Dioxide Level 25 Anion Gap 15 Blood Urea Nitrogen 2 L Creatinine 0.63 Glucose Level 109 Calcium Level 9.0 Magnesium Level 1.8 Bedside Glucose 94 Medications Medications Current Medications Ondansetron HCl (Zofran Inj) 4 mg Q4H PRN IV NAUSEA AND/OR VOMITING Last administered on 09/08/17 00:47; Admin Dose 4 MG; Start 08/20/17 at 00:10 Senna (Senokot) 1 tab BID PRN PO CONSTIPATION Last administered on 08/26/17 11:18; Admin Dose 1 TAB; Start 08/26/17 at 10:30 Hydromorphone HCl (Dilaudid) 1.5 mg Q3 PRN IV PAIN Last administered on 07:26; Admin Dose 1.5 MG; Start 08/28/17 at 11:30; Status Future Hold Hydromorphone HCl (Dilaudid) 0.5 mg Q4H PRN IV PAIN Last administered on 17:02; Admin Dose 0.5 MG; Start 08/30/17 at 12:00 Acetaminophen/ Hydrocodone Bitart ([place] (5/325)) 1 tab Q4H PRN PO Pain; Start 08/30/17 at 12:00 Famotidine (Pepcid) 20 mg Q12 PO Last administered on 09/07/17 08:41; Admin Dose 20 MG; Start 08/31/17 at 21:00; Status Future Hold Acetaminophen (Tylenol Tab) 650 mg Q4H PRN PO PAIN AND OR ELEVATED TEMP Last administered on 09/06/17 22:09; Admin Dose 650 MG; Start 09/02/17 at 22:00 Lorazepam (Ativan) 0.5 mg Q8H PRN IV ANXIETY; Start 09/07/17 at 15:30 Famotidine (Pepcid Iv) 20 mg Q12 IV Last administered on 09/09/17 08:34; Admin Dose 20 MG; Start 09/08/17 at 21:00 IV Flush (NS 10 ml) 10 ml PRN PRN IV IV PROTOCOL; Start 09/08/17 at 16:30 Diagnostic Test (Pha) (Accu-Chek) 1 ea Q4 XX ; Start 09/08/17 at 17:00 IV Flush 3 ml 3 ml Q8 IV ; Start 09/09/17 at 22:00 Total Parenteral Nutrition (Tpn) 1,000 ml @ 85 mls/hr [id number] IV Last administered on 09/09/17t 15:40; Admin Dose 85 MLS/HR; Start 09/09/17 at 16:00 GABRIEL EPSTEIN Sep 09, 2017 18:18
[2017-09-09 20:16] VITALS: BP 112/66; RESP 20
[2017-09-09] MEDS: NACL 0.9% 3 ML SYG IV SCH (22:00)
[2017-09-10] MEDS: HYDROmorphONE 0.5 MG/0.5 ML SYG IV PRN ×6 (00:55→22:43)
[2017-09-10] MEDS: ACCU-CHEK XX SCH ×6 (01:00→20:47)
[2017-09-10 02:49] VITALS: BP 100/56; RESP 18
[2017-09-10] MEDS: TPN 1,000 ML IV SCH ×3 (03:52→18:24)
[2017-09-10] MEDS: NACL 0.9% 3 ML SYG IV SCH ×3 (06:00→21:48)
[2017-09-10 06:12] LABS: CALCIUM 9.5 mg/dl (8.4-10.2); CREATININE 0.64 mg/dl (0.44-1.00); POTASSIUM 4.2 mmol/L (3.5-5.1)
[2017-09-10 06:45] LABS: PHOSPHORUS 4.8 mg/dl (2.5-4.9)
[2017-09-10 06:56] LABS: PREALBUMIN 19.3 mg/dl (17.6-36.0)
[2017-09-10] MEDS: CREON (12k-38k-60k) 1 CAP PO SCH ×3 (08:00→17:35)
[2017-09-10 08:02] VITALS: BP 106/59; RESP 16
[2017-09-10] MEDS: FAMOTIDINE 20 MG INJ IV SCH ×2 (08:18→20:47)
[2017-09-10 14:08] VITALS: BP 110/67; RESP 16
--- NOTE | 2017-09-10 14:27 | CONS ---
DATE OF ADMISSION: 08/18/2017 DATE OF CONSULTATION: HISTORY OF PRESENT ILLNESS: The patient is admitted with abdominal pain and cholecystitis and chola ngitis. ERCP done and following the ERCP she developed pancreatitis and she continues to have nause a, vomiting, abdominal pain. EGD showed unremarkable findings. At this time she is n.p.o. She is not having nausea, vomiting, no abdominal pain. PHYSICAL EXAMINATION: VITAL SIGNS: Temperature is 98.3, blood pressure 106/59. CARDIOVASCULAR: Normal heart sounds. RESPIRATORY: Normal breath sounds. ABDOMEN: Showed unremarkable findings. LABORATORY WORKUP: WBC count 5800, hemoglobin 12.2. The chemistry shows potassium 4.9 and lipase i s not done, but the lipase from yesterday is 512 CLINICAL IMPRESSION: Post-ERCP pancreatitis, gastritis, she has got cholelithiasis. PLAN: At this time, recommend to continue antibiotic therapy, continue symptomatic therapy. I will be happy to follow this patient with you. Dictated By: BREA HOOK/MAVERICK Conf#: [id number] DID#: [id number] CC: KATHLEEN CASAREZ MD;*EndCC*
--- NOTE | 2017-09-10 16:17 | PN ---
Date/Time of Note Date/Time of Note DATE: 09/10/17 TIME: 16:14 Assessment/Plan VTE Prophylaxis VTE Prophylaxis Intervention: SCD's Lines/Catheters IV Catheter Type (from Nrs): PICC Line Central line still needed: Yes Urinary Cath still in place: No Assessment/Plan Chief Complaint/Hosp Course Patient dated decrease in abdominal pain, continue n.p.o. ,TPN Assessment/Plan - Status post EGD with notion of gastritis on 09/08. Continue Pepcid. - Intractable abdominal pain, resolving. Continue Dilaudid p.r.n. for pain and Zofran p.r.n. for nausea. - Acute pancreatitis s/p ERCP, continue IV fluids and antiemetics. N.p.o. TPN - Cholelithiasis and acute cholecystitis. Dr. Smith is following in general surgery consultation. Continue Meropenem and Flagyl. - S/P ERCP and common bile duct stent placement by Dr Christiansen. Further recommendations based on clinical course. Plan of care discussed with Dr. Wright. Problems: Exam/Review of Systems Vital Signs Vitals Vital Signs Date Time Temp Pulse Resp B/P Pulse Ox O2 Delivery O2 Flow Rate FiO2 09/10/17 14:08 98.0 68 16 110/67 96 09/09/17 15:35 Room Air Intake and Output 09/09/17 09/09/17 09/10/17 15:00 23:00 07:00 Intake Total 200 ml 1140 ml 830 ml Output Total 900 ml 1500 ml Balance 200 ml 240 ml -670 ml Exam Constitutional: alert, oriented Head: normocephalic Neck: supple Respiratory: normal air movement Cardiovascular: nl pulses Gastrointestinal: soft Extremities: normal pulses Results Result Diagram: 09/09/17 0520 09/10/17 0513 Results 24 hrs Laboratory Tests Test 09/09/17 18:10 09/09/17 21:33 09/10/17 00:59 09/10/17 05:13 Bedside Glucose 94 102 88 Sodium Level 141 Potassium Level 4.2 Chloride Level 104 Carbon Dioxide Level 26 Anion Gap 15 Blood Urea Nitrogen 8 Creatinine 0.64 Glucose Level 92 Calcium Level 9.5 Phosphorus Level 4.8 Magnesium Level 1.9 Prealbumin 19.3 Test 09/10/17 05:17 09/10/17 08:21 09/10/17 12:33 Bedside Glucose 83 97 98 Medications Medications Current Medications Ondansetron HCl (Zofran Inj) 4 mg Q4H PRN IV NAUSEA AND/OR VOMITING Last administered on 09/08/17 00:47; Admin Dose 4 MG; Start 08/20/17 at 00:10 Senna (Senokot) 1 tab BID PRN PO CONSTIPATION Last administered on 08/26/17 11:18; Admin Dose 1 TAB; Start 08/26/17 at 10:30 Hydromorphone HCl (Dilaudid) 1.5 mg Q3 PRN IV PAIN Last administered on 07:26; Admin Dose 1.5 MG; Start 08/28/17 at 11:30; Status Future Hold Hydromorphone HCl (Dilaudid) 0.5 mg Q4H PRN IV PAIN Last administered on 15:09; Admin Dose 0.5 MG; Start 08/30/17 at 12:00 Acetaminophen/ Hydrocodone Bitart ([place] (5/325)) 1 tab Q4H PRN PO Pain; Start 08/30/17 at 12:00 Famotidine (Pepcid) 20 mg Q12 PO Last administered on 09/07/17 08:41; Admin Dose 20 MG; Start 08/31/17 at 21:00; Status Future Hold Acetaminophen (Tylenol Tab) 650 mg Q4H PRN PO PAIN AND OR ELEVATED TEMP Last administered on 09/06/17 22:09; Admin Dose 650 MG; Start 09/02/17 at 22:00 Lorazepam (Ativan) 0.5 mg Q8H PRN IV ANXIETY; Start 09/07/17 at 15:30 Famotidine (Pepcid Iv) 20 mg Q12 IV Last administered on 09/10/17 08:18; Admin Dose 20 MG; Start 09/08/17 at 21:00 IV Flush (NS 10 ml) 10 ml PRN PRN IV IV PROTOCOL; Start 09/08/17 at 16:30 Diagnostic Test (Pha) (Accu-Chek) 1 ea Q4 XX ; Start 09/08/17 at 17:00 IV Flush 3 ml 3 ml Q8 IV ; Start 09/09/17 at 22:00 Total Parenteral Nutrition (Tpn) 1,000 ml @ 85 mls/hr [id number] IV Last administered on 09/10/17t 03:52; Admin Dose 85 MLS/HR; Start 09/09/17 at 16:00 JAROCHO YOUNG Sep 10, 2017 16:16
[2017-09-10 20:45] VITALS: BP 104/63; RESP 18
--- NOTE | 2017-09-11 00:27 | PN ---
DATE: 09/10/2017 Status post ERCP and pancreatitis. SUBJECTIVE: Feels much better today. No nausea, no vomiting. OBJECTIVE: GENERAL: Alert, awake, oriented x3. VITAL SIGNS: Temperature 98.3, heart rate 59, respirations 16, blood pressure 106/59, saturation 97 % on room air. ABDOMEN: Soft, mild tenderness in the epigastric area and right and left upper quadrant. LABORATORY DATA: Hematology was not done today. Chemistry: Sodium, potassium, BUN, creatinine nor mal. No lipase was done today. ASSESSMENT: A 36-year-old female post-ERCP and developed pancreatitis, has been fluctuating in rega rd to the pain. Lastly after starting the patient on low fat, low salt, low cholesterol diet, exper ienced more abdominal pain and lipase has started to go higher up to 580. Decision was made to keep the patient n.p.o., start patient on TPN and continue to observe, hoping that the inflammation and pancreatitis will subside. Dictated By: BRANDO CHRISTINE/MAVERICK Conf#: [id number] DID#: [id number]
[2017-09-11] MEDS: ACCU-CHEK XX SCH ×6 (00:52→20:58)
[2017-09-11 02:15] VITALS: BP 104/56; RESP 18
[2017-09-11] MEDS: HYDROmorphONE 0.5 MG/0.5 ML SYG IV PRN ×5 (03:55→20:53)
[2017-09-11] MEDS: NACL 0.9% 3 ML SYG IV SCH ×3 (05:27→21:17)
[2017-09-11] MEDS: TPN 1,000 ML IV SCH ×2 (05:32→17:08)
[2017-09-11 06:14] LABS: BASOPHIL # 0.1 10^3/ul (0.0-0.1); BASOPHILS % 0.8 % (0.0-2.0); EOSINOPHILS # 0.3 10^3/ul (0.0-0.5); EOSINOPHILS % 4.5 % (0.0-7.0); HEMATOCRIT 40.8 % (37.0-47.0); LYMPHOCYTES # 2.1 10^3/ul (0.8-2.9); MEAN CORPUSCULAR HEMOGLOBIN 26.4 pg (29.0-33.0); MEAN CORPUSCULAR HGB CONC 31.9 g/dl (32.0-37.0); MEAN CORPUSCULAR VOLUME 82.8 fl (82.0-101.0); MEAN PLATELET VOLUME 9.4 fl (7.4-10.4); MONOCYTE # 0.7 10^3/ul (0.3-0.9); MONOCYTES % 8.9 % (0.0-11.0); NEUTROPHIL # 4.4 10^3/ul (1.6-7.5); NEUTROPHILS % 57.5 % (39.0-77.0); PLATELET COUNT 399 10^3/UL (140-415); RED BLOOD COUNT 4.93 10^6/ul (4.20-5.40); RED CELL DISTRIBUTION WIDTH 13.2 % (11.5-14.5); WHITE BLOOD COUNT 7.6 10^3/ul (4.8-10.8)
[2017-09-11 07:02] LABS: CALCIUM 9.1 mg/dl (8.4-10.2); CREATININE 0.61 mg/dl (0.44-1.00); MAGNESIUM 1.9 mg/dl (1.7-2.5); PHOSPHORUS 5.1 mg/dl (2.5-4.9); POTASSIUM 3.9 mmol/L (3.5-5.1)
[2017-09-11 07:40] VITALS: BP 131/76; RESP 16
[2017-09-11] MEDS: CREON (12k-38k-60k) 1 CAP PO SCH ×3 (08:00→17:09)
[2017-09-11] MEDS: FAMOTIDINE 20 MG INJ IV SCH ×2 (08:16→20:53)
--- NOTE | 2017-09-11 10:15 | PN ---
Date/Time of Note Date/Time of Note DATE: 09/11/17 TIME: 09:59 Assessment/Plan VTE Prophylaxis VTE Prophylaxis Intervention: other Lines/Catheters IV Catheter Type (from Nrs): PICC Line Central line still needed: Yes Urinary Cath still in place: No Assessment/Plan Assessment/Plan - Status post EGD with notion of gastritis on 09/08. Continue Pepcid. - Intractable abdominal pain, resolving. Continue Dilaudid p.r.n. for pain and Zofran p.r.n. for nausea. - Acute pancreatitis s/p ERCP, continue IV fluids and antiemetics. N.p.o. TPN - Cholelithiasis and acute cholecystitis. Dr. Smith is following in general surgery consultation. Continue Meropenem and Flagyl. - S/P ERCP and common bile duct stent placement by Dr Christiansen. Further recommendations based on clinical course. Plan of care discussed with Dr. Wright. Subjective 24 Hr Interval Summary Free Text/Dictation Remains on TPN, afebrile, labs reviewed, c/o abdominal pain but is getting better. dw staff Respiratory: no complaints Cardiovascular: no complaints Gastrointestinal: pain Musculoskeletal: no complaints Neurologic: no complaints Exam/Review of Systems Vital Signs Vitals Vital Signs Date Time Temp Pulse Resp B/P Pulse Ox O2 Delivery O2 Flow Rate FiO2 09/11/17 07:40 97.5 59 16 131/76 99 09/09/17 15:35 Room Air Intake and Output 09/10/17 09/10/17 09/11/17 15:00 23:00 07:00 Intake Total 830 ml 1000 ml Output Total 450 ml 650 ml Balance 380 ml 350 ml Exam Constitutional: alert, well developed Cardiovascular: nl pulses, other (S1S2) Musculoskeletal: nl extremities to inspection Extremities: normal pulses Neurological: nl mental status, nl speech Results Result Diagram: 09/11/17 0450 09/11/17 0535 Results 24 hrs Laboratory Tests Test 09/10/17 12:33 09/10/17 17:34 09/10/17 20:46 09/11/17 00:51 Bedside Glucose 98 104 89 94 Test 09/11/17 04:50 09/11/17 05:29 09/11/17 05:35 09/11/17 09:19 White Blood Count 7.6 # Red Blood Count 4.93 Hemoglobin 13.0 Hematocrit 40.8 Mean Corpuscular Volume 82.8 Mean Corpuscular Hemoglobin 26.4 L Mean Corpuscular Hemoglobin Concent 31.9 L Red Cell Distribution Width 13.2 Platelet Count 399 Mean Platelet Volume 9.4 Neutrophils % 57.5 Lymphocytes % 28.0 Monocytes % 8.9 Eosinophils % 4.5 Basophils % 0.8 Nucleated Red Blood Cells % 0.0 Neutrophils # 4.4 Lymphocytes # 2.1 Monocytes # 0.7 Eosinophils # 0.3 Basophils # 0.1 Nucleated Red Blood Cells # 0.0 Bedside Glucose 91 99 Sodium Level 140 Potassium Level 3.9 Chloride Level 105 Carbon Dioxide Level 26 Anion Gap 13 Blood Urea Nitrogen 13 Creatinine 0.61 Glucose Level 101 Calcium Level 9.1 Phosphorus Level 5.1 H Magnesium Level 1.9 Lipase 517 H Medications Medications Current Medications Ondansetron HCl (Zofran Inj) 4 mg Q4H PRN IV NAUSEA AND/OR VOMITING Last administered on 09/08/17 00:47; Admin Dose 4 MG; Start 08/20/17 at 00:10 Senna (Senokot) 1 tab BID PRN PO CONSTIPATION Last administered on 08/26/17 11:18; Admin Dose 1 TAB; Start 08/26/17 at 10:30 Hydromorphone HCl (Dilaudid) 1.5 mg Q3 PRN IV PAIN Last administered on 07:26; Admin Dose 1.5 MG; Start 08/28/17 at 11:30; Status Future Hold Hydromorphone HCl (Dilaudid) 0.5 mg Q4H PRN IV PAIN Last administered on 08:17; Admin Dose 0.5 MG; Start 08/30/17 at 12:00 Acetaminophen/ Hydrocodone Bitart ([place] (5/325)) 1 tab Q4H PRN PO Pain; Start 08/30/17 at 12:00 Famotidine (Pepcid) 20 mg Q12 PO Last administered on 09/07/17 08:41; Admin Dose 20 MG; Start 08/31/17 at 21:00; Status Future Hold Acetaminophen (Tylenol Tab) 650 mg Q4H PRN PO PAIN AND OR ELEVATED TEMP Last administered on 09/06/17 22:09; Admin Dose 650 MG; Start 09/02/17 at 22:00 Lorazepam (Ativan) 0.5 mg Q8H PRN IV ANXIETY; Start 09/07/17 at 15:30 Famotidine (Pepcid Iv) 20 mg Q12 IV Last administered on 09/11/17 08:16; Admin Dose 20 MG; Start 09/08/17 at 21:00 IV Flush (NS 10 ml) 10 ml PRN PRN IV IV PROTOCOL Last administered on 22:43; Admin Dose 10 ML; Start 09/08/17 at 16:30 Diagnostic Test (Pha) (Accu-Chek) 1 ea Q4 XX Last administered on 09/11/17 09: 21; Admin Dose 1 EA; Start 09/08/17 at 17:00 IV Flush 3 ml 3 ml Q8 IV ; Start 09/09/17 at 22:00 Total Parenteral Nutrition (Tpn) 1,000 ml @ 85 mls/hr [id number] IV Last administered on 09/11/17 05:32; Admin Dose 85 MLS/HR; Start 09/09/17 at 16:00 GABRIEL EPSTEIN Sep 11, 2017 10:10
[2017-09-11] MEDS: ONDANSETRON 4 MG INJ IV PRN (12:52)
--- NOTE | 2017-09-11 16:45 | PN ---
Date/Time of Note Date/Time of Note DATE: 09/11/17 TIME: 16:40 Assessment/Plan VTE Prophylaxis VTE Prophylaxis Intervention: ambulation, SCD's Lines/Catheters IV Catheter Type (from Nrsg): PICC Line Urinary Cath still in place: No Subjective 24 Hr Interval Summary Gastrointestinal: blood, constipation, decreased appetite, diarrhea, flatus, nausea, no complaints, other, pain (mild epigastric pain, c/o mild nausea), passing stool, vomiting Exam/Review of Systems Vital Signs Vitals Vital Signs Date Time Temp Pulse Resp B/P Pulse Ox O2 Delivery O2 Flow Rate FiO2 09/11/17 07:40 97.5 59 16 131/76 99 09/09/17 15:35 Room Air Intake and Output 09/10/17 09/10/17 09/11/17 15:00 23:00 07:00 Intake Total 830 ml 1000 ml Output Total 450 ml 650 ml Balance 380 ml 350 ml Exam Gastrointestinal: ascites, bowel sounds, distended, firm, hepatomegaly, mass, nl liver, spleen, non-tender, other, rebound or guarding, soft, splenomegaly, surgical scars, tender (mild in epigastric area) Results Result Diagram: 09/11/17 0450 09/11/17 0535 Results 24 hrs Laboratory Tests Test 09/10/17 17:34 09/10/17 20:46 09/11/17 00:51 09/11/17 04:50 Bedside Glucose 104 89 94 White Blood Count 7.6 # Red Blood Count 4.93 Hemoglobin 13.0 Hematocrit 40.8 Mean Corpuscular Volume 82.8 Mean Corpuscular Hemoglobin 26.4 L Mean Corpuscular Hemoglobin Concent 31.9 L Red Cell Distribution Width 13.2 Platelet Count 399 Mean Platelet Volume 9.4 Neutrophils % 57.5 Lymphocytes % 28.0 Monocytes % 8.9 Eosinophils % 4.5 Basophils % 0.8 Nucleated Red Blood Cells % 0.0 Neutrophils # 4.4 Lymphocytes # 2.1 Monocytes # 0.7 Eosinophils # 0.3 Basophils # 0.1 Nucleated Red Blood Cells # 0.0 Test 09/11/17 05:29 09/11/17 05:35 09/11/17 09:19 09/11/17 12:51 Bedside Glucose 91 99 95 Sodium Level 140 Potassium Level 3.9 Chloride Level 105 Carbon Dioxide Level 26 Anion Gap 13 Blood Urea Nitrogen 13 Creatinine 0.61 Glucose Level 101 Calcium Level 9.1 Phosphorus Level 5.1 H Magnesium Level 1.9 Lipase 517 H Imaging Free Text/Dictation F/U for DR.N.M. Christianesn pt had ERCP pancreatitis resolving plan progress diet in am with clear liquid diet Medications Medications Current Medications Ondansetron HCl (Zofran Inj) 4 mg Q4H PRN IV NAUSEA AND/OR VOMITING Last administered on 09/11/17 12:52; Admin Dose 4 MG; Start 08/20/17 at 00:10 Senna (Senokot) 1 tab BID PRN PO CONSTIPATION Last administered on 08/26/17 11:18; Admin Dose 1 TAB; Start 08/26/17 at 10:30 Hydromorphone HCl (Dilaudid) 1.5 mg Q3 PRN IV PAIN Last administered on 07:26; Admin Dose 1.5 MG; Start 08/28/17 at 11:30; Status Future Hold Hydromorphone HCl (Dilaudid) 0.5 mg Q4H PRN IV PAIN Last administered on 12:52; Admin Dose 0.5 MG; Start 08/30/17 at 12:00 Acetaminophen/ Hydrocodone Bitart ([place] (5/325)) 1 tab Q4H PRN PO Pain; Start 08/30/17 at 12:00 Famotidine (Pepcid) 20 mg Q12 PO Last administered on 09/07/17 08:41; Admin Dose 20 MG; Start 08/31/17 at 21:00; Status Future Hold Acetaminophen (Tylenol Tab) 650 mg Q4H PRN PO PAIN AND OR ELEVATED TEMP Last administered on 09/06/17 22:09; Admin Dose 650 MG; Start 09/02/17 at 22:00 Lorazepam (Ativan) 0.5 mg Q8H PRN IV ANXIETY; Start 09/07/17 at 15:30 Famotidine (Pepcid Iv) 20 mg Q12 IV Last administered on 09/11/17 08:16; Admin Dose 20 MG; Start 09/08/17 at 21:00 IV Flush (NS 10 ml) 10 ml PRN PRN IV IV PROTOCOL Last administered on 22:43; Admin Dose 10 ML; Start 09/08/17 at 16:30 Diagnostic Test (Pha) (Accu-Chek) 1 ea Q4 XX Last administered on 09/11/17 12: 52; Admin Dose 1 EA; Start 09/08/17 at 17:00 IV Flush 3 ml 3 ml Q8 IV ; Start 09/09/17 at 22:00 Total Parenteral Nutrition (Tpn) 1,000 ml @ 85 mls/hr [id number] IV Last administered on 09/11/17 05:32; Admin Dose 85 MLS/HR; Start 09/09/17 at 16:00 MELY CAPPS MD Sep 11, 2017 16:45
[2017-09-11 17:14] VITALS: BP 119/67; RESP 18
--- NOTE | 2017-09-11 17:23 | PN ---
DATE: 09/11/2017 SUBJECTIVE: No specific complaints. Still has some abdominal pain in the form of cramps. She stat ed that it starts in the left flank and then comes to the center. She is passing gas. No nausea, n o vomiting, and sometimes pain requires pain medication. No chills, no fever. TPN is running. OBJECTIVE GENERAL: Awake, alert, oriented x3. VITAL SIGNS: Temperature 97.5. Heart rate 59, respirations 16, blood pressure 131/76, oxygen 100% on room air. LABORATORY DATA: WBC today is 7600 with 57% segmented. Chemistry: Lipase is 517. BUN, creatinine , sodium and potassium normal. HEART: Regular. ABDOMEN: Soft. No rigidity. ASSESSMENT AND PLAN: The patient is status post ERCP, status post pancreatitis after 10 days of to ng n.p.o. and on liquids. CT scan revealed that still there is ongoing acute pancreatitis with some phlegmon. Decision was made to start patient on TPN and keep her absolutely n.p.o. Last lipase to day is 517. Will observe and continue TPN. Dictated By: BRANDO ENRIQUEZ MD PS/MAVERICK Conf#: [id number] DID#: [id number]
[2017-09-11 20:19] VITALS: BP 105/59; RESP 18
[2017-09-12] MEDS: HYDROmorphONE 0.5 MG/0.5 ML SYG IV PRN ×6 (00:43→23:40)
[2017-09-12] MEDS: ACCU-CHEK XX SCH ×6 (00:43→20:28)
[2017-09-12 02:23] VITALS: BP 99/54; RESP 18
[2017-09-12] MEDS: ONDANSETRON 4 MG INJ IV PRN ×3 (02:24→22:47)
[2017-09-12] MEDS: TPN 1,000 ML IV SCH ×3 (02:50→17:21)
[2017-09-12] MEDS: HYDROCODONE/APAP (5/325) TAB PO PRN (02:54)
[2017-09-12] MEDS: NACL 0.9% 3 ML SYG IV SCH ×3 (05:22→21:03)
[2017-09-12 06:32] LABS: BASOPHIL # 0.1 10^3/ul (0.0-0.1); EOSINOPHILS # 0.3 10^3/ul (0.0-0.5); EOSINOPHILS % 4.9 % (0.0-7.0); HEMATOCRIT 39.8 % (37.0-47.0); HEMOGLOBIN 13.1 g/dl (12.0-16.0); MEAN CORPUSCULAR HEMOGLOBIN 27.5 pg (29.0-33.0); MEAN CORPUSCULAR HGB CONC 32.9 g/dl (32.0-37.0); MEAN CORPUSCULAR VOLUME 83.6 fl (82.0-101.0); MEAN PLATELET VOLUME 9.6 fl (7.4-10.4); MONOCYTE # 0.7 10^3/ul (0.3-0.9); MONOCYTES % 9.3 % (0.0-11.0); NEUTROPHILS % 56.5 % (39.0-77.0); PLATELET COUNT 357 10^3/UL (140-415); RED BLOOD COUNT 4.76 10^6/ul (4.20-5.40)
[2017-09-12 06:50] LABS: CALCIUM 9.2 mg/dl (8.4-10.2); CREATININE 0.58 mg/dl (0.44-1.00); MAGNESIUM 1.8 mg/dl (1.7-2.5); PHOSPHORUS 4.9 mg/dl (2.5-4.9)
[2017-09-12 07:31] VITALS: BP 104/67; RESP 16
[2017-09-12] MEDS: CREON (12k-38k-60k) 1 CAP PO SCH ×3 (08:00→12:25)
[2017-09-12] MEDS: FAMOTIDINE 20 MG INJ IV SCH ×2 (08:19→20:28)
--- NOTE | 2017-09-12 11:37 | PN ---
Date/Time of Note Date/Time of Note DATE: 09/12/17 TIME: 11:33 Assessment/Plan VTE Prophylaxis VTE Prophylaxis Intervention: other Lines/Catheters IV Catheter Type (from Nrs): PICC Line Central line still needed: Yes Urinary Cath still in place: No Assessment/Plan Assessment/Plan - Status post EGD with notion of gastritis on 09/08. Continue Pepcid. - Intractable abdominal pain, resolving. Continue Dilaudid p.r.n. for pain and Zofran p.r.n. for nausea. - per GI - Diet advanced to clear liquid - Acute pancreatitis s/p ERCP, continue IV fluids and antiemetics. On TPN - Cholelithiasis and acute cholecystitis. Dr. Smith is following in general surgery consultation. Continue Meropenem and Flagyl. - S/P ERCP and common bile duct stent placement by Dr Christiansen. Further recommendations based on clinical course. Plan of care discussed with Dr. Wright. Subjective 24 Hr Interval Summary Free Text/Dictation Remains on TPN . Diet advanced to clear liquid diet- tolerated so far. afebrile , no new issues reported,- dw staff Constitutional: requiring IVF Gastrointestinal: pain Genitourinary: no complaints Musculoskeletal: no complaints Skin: no complaints Neurologic: no complaints Exam/Review of Systems Vital Signs Vitals Vital Signs Date Time Temp Pulse Resp B/P Pulse Ox O2 Delivery O2 Flow Rate FiO2 09/12/17 07:31 98.2 52 16 104/67 98 09/09/17 15:35 Room Air Intake and Output 09/11/17 09/11/17 09/12/17 15:00 23:00 07:00 Intake Total 1000 ml Output Total 900 ml Balance -900 ml 1000 ml Exam Constitutional: alert, oriented, well developed Psych: nl mood/affect Respiratory: clear to auscultation, normal air movement Cardiovascular: nl pulses, regular rate and rhythm Gastrointestinal: soft, tender Musculoskeletal: nl extremities to inspection Extremities: normal pulses Neurological: nl mental status, nl speech Results Result Diagram: 09/12/17 0525 09/12/17 0525 Results 24 hrs Laboratory Tests Test 09/11/17 12:51 09/11/17 17:21 09/11/17 20:59 09/12/17 00:47 Bedside Glucose 95 96 92 94 Test 09/12/17 05:25 09/12/17 08:21 White Blood Count 7.0 Red Blood Count 4.76 Hemoglobin 13.1 Hematocrit 39.8 Mean Corpuscular Volume 83.6 Mean Corpuscular Hemoglobin 27.5 L Mean Corpuscular Hemoglobin Concent 32.9 Red Cell Distribution Width 13.0 Platelet Count 357 Mean Platelet Volume 9.6 Neutrophils % 56.5 Lymphocytes % 28.0 Monocytes % 9.3 Eosinophils % 4.9 Basophils % 1.0 Nucleated Red Blood Cells % 0.0 Neutrophils # 4.0 Lymphocytes # 2.0 Monocytes # 0.7 Eosinophils # 0.3 Basophils # 0.1 Nucleated Red Blood Cells # 0.0 Sodium Level 141 Potassium Level 4.0 Chloride Level 105 Carbon Dioxide Level 26 Anion Gap 14 Blood Urea Nitrogen 13 Creatinine 0.58 Glucose Level 102 Bedside Glucose 92 96 Calcium Level 9.2 Phosphorus Level 4.9 Magnesium Level 1.8 Medications Medications Current Medications Ondansetron HCl (Zofran Inj) 4 mg Q4H PRN IV NAUSEA AND/OR VOMITING Last administered on 09/12/17 02:24; Admin Dose 4 MG; Start 08/20/17 at 00:10 Senna (Senokot) 1 tab BID PRN PO CONSTIPATION Last administered on 08/26/17 11:18; Admin Dose 1 TAB; Start 08/26/17 at 10:30 Hydromorphone HCl (Dilaudid) 1.5 mg Q3 PRN IV PAIN Last administered on 07:26; Admin Dose 1.5 MG; Start 08/28/17 at 11:30; Status Future Hold Hydromorphone HCl (Dilaudid) 0.5 mg Q4H PRN IV PAIN Last administered on 11:29; Admin Dose 0.5 MG; Start 08/30/17 at 12:00 Acetaminophen/ Hydrocodone Bitart ([place] (5/325)) 1 tab Q4H PRN PO Pain Last administered on 09/12/17 02:54; Admin Dose 1 TAB; Start 08/30/17 at 12:00 Famotidine (Pepcid) 20 mg Q12 PO Last administered on 09/07/17 08:41; Admin Dose 20 MG; Start 08/31/17 at 21:00; Status Future Hold Acetaminophen (Tylenol Tab) 650 mg Q4H PRN PO PAIN AND OR ELEVATED TEMP Last administered on 09/06/17 22:09; Admin Dose 650 MG; Start 09/02/17 at 22:00 Lorazepam (Ativan) 0.5 mg Q8H PRN IV ANXIETY; Start 09/07/17 at 15:30 Famotidine (Pepcid Iv) 20 mg Q12 IV Last administered on 09/12/17 08:19; Admin Dose 20 MG; Start 09/08/17 at 21:00 IV Flush (NS 10 ml) 10 ml PRN PRN IV IV PROTOCOL Last administered on 05:26; Admin Dose 10 ML; Start 09/08/17 at 16:30 Diagnostic Test (Pha) (Accu-Chek) 1 ea Q4 XX Last administered on 09/12/17 08: 21; Admin Dose 1 EA; Start 09/08/17 at 17:00 IV Flush 3 ml 3 ml Q8 IV Last administered on 09/11/17 17:08; Admin Dose 3 ML ; Start 09/09/17 at 22:00 Total Parenteral Nutrition (Tpn) 1,000 ml @ 85 mls/hr [id number] IV Last administered on 09/12/17 04:46; Admin Dose 85 MLS/HR; Start 09/09/17 at 16:00 GABRIEL EPSTEIN Sep 12, 2017 11:37
[2017-09-12 15:02] VITALS: BP 107/71; RESP 16
--- NOTE | 2017-09-12 15:50 | PN ---
DATE: 09/12/2017 Status post ERCP and status post pancreatitis. SUBJECTIVE: Feels better, still has some abdominal pain, but less than before. It is about 3/10. No nausea or no vomiting. OBJECTIVE GENERAL: Awake, alert, oriented x3. VITAL SIGNS: Temperature 98.2, heart rate 62, respirations 18, blood pressure 140/67, saturation 98% room air. HEART: Regular. LUNGS: Clear. ABDOMEN: Soft. LABORATORY DATA: WBC 7000 with 56% segmented. ASSESSMENT: A 36-year-old female with gallstones is status post ERCP, sphincterotomy and placement of a stent. Postop, the patient developed pancreatitis, still has evidence of acute pancreatitis with some phlegmon on the last CT scan which was on 09/06/2017. The patient has been started on TPN since 4 to 5 days ago. PLAN: Continue TPN . Continue evaluation with serial lipase tests and repeat CT scan after 10 days to 2 weeks after the last one, and according to the findings and clinical findings. We will start advancing the patient's diet. Dictated By: BRANDO CHRISTINE/MAVERICK Conf#: [id number] DID#: [id number] MTDD
[2017-09-12 20:00] VITALS: BP 97/56; RESP 20
[2017-09-12] MEDS: ACETAMINOPHEN 325 MG TAB PO PRN (22:09)
[2017-09-12] MEDS: LORAZEPAM 2 MG INJ IV PRN (22:45)
[2017-09-13] MEDS: ACCU-CHEK XX SCH ×6 (01:03→21:00)
[2017-09-13 02:00] VITALS: BP 98/58; RESP 20
[2017-09-13] MEDS: TPN 1,000 ML IV SCH ×3 (02:22→13:56)
[2017-09-13] MEDS: HYDROmorphONE 0.5 MG/0.5 ML SYG IV PRN ×5 (03:28→23:27)
[2017-09-13] MEDS: NACL 0.9% 3 ML SYG IV SCH ×4 (05:16→22:00)
[2017-09-13 05:50] LABS: BASOPHIL # 0.1 10^3/ul (0.0-0.1); BASOPHILS % 0.7 % (0.0-2.0); EOSINOPHILS # 0.3 10^3/ul (0.0-0.5); HEMATOCRIT 38.7 % (37.0-47.0); HEMOGLOBIN 12.7 g/dl (12.0-16.0); LYMPHOCYTES # 1.9 10^3/ul (0.8-2.9); MEAN CORPUSCULAR HEMOGLOBIN 27.5 pg (29.0-33.0); MEAN CORPUSCULAR HGB CONC 32.8 g/dl (32.0-37.0); MEAN CORPUSCULAR VOLUME 83.8 fl (82.0-101.0); MEAN PLATELET VOLUME 9.8 fl (7.4-10.4); MONOCYTE # 0.6 10^3/ul (0.3-0.9); MONOCYTES % 9.3 % (0.0-11.0); NEUTROPHILS % 57.9 % (39.0-77.0); PLATELET COUNT 321 10^3/UL (140-415); RED BLOOD COUNT 4.62 10^6/ul (4.20-5.40); RED CELL DISTRIBUTION WIDTH 13.1 % (11.5-14.5); WHITE BLOOD COUNT 6.9 10^3/ul (4.8-10.8)
[2017-09-13 06:08] LABS: CALCIUM 9.3 mg/dl (8.4-10.2); CREATININE 0.63 mg/dl (0.44-1.00)
[2017-09-13 06:15] LABS: MAGNESIUM 1.8 mg/dl (1.7-2.5); PHOSPHORUS 4.9 mg/dl (2.5-4.9)
[2017-09-13 07:31] VITALS: BP 101/58; RESP 20
[2017-09-13] MEDS: FAMOTIDINE 20 MG INJ IV SCH ×3 (08:53→23:40)
[2017-09-13 13:36] VITALS: BP 111/58; RESP 20
--- NOTE | 2017-09-13 13:40 | PN ---
DATE: 09/13/2017 SUBJECTIVE: Has been experiencing crampy abdominal pain. No nausea, no vomiting and has been passi ng gas. OBJECTIVE: GENERAL: Alert, awake, oriented. VITAL SIGNS: 97.5 temperature, 57 heart rate, 20 respirations, blood pressure 101/68, saturation 98 %. LABORATORY DATA: WBC 6900 with 78% segmented, hemoglobin 12.7. Chemistry: Sodium, potassium, BUN and creatinine normal. Lipase dropped to 400, before used to be more than 500. ABDOMEN: Soft. Minimal tenderness in epigastric and right and left upper quadrants on deep pressur e. ASSESSMENT: A 36-year-old female who was admitted because of gallbladder disease, gallstones and el evated enzymes, underwent ERCP. Post ERCP, patient developed pancreatitis and gradually lipase norm alized and when the patient was started on diet again, the lipase went up to about 500. Had to stop diet and we will keep the patient n.p.o. Gradually, now again, appears that the lipase is coming d own and CT scan was done about 6 days ago, showed ongoing acute pancreatitis with some phlegmon form ation. PLAN: Continue n.p.o. Continue TPN. Follow up enzymes. We will do another CT scan maybe in a wee k from now to assess the resolution of the pancreatitis or any other problem. Dictated By: BRANDO ENRIQUEZ MD PS/NTS Conf#: [id number] DID#: [id number] CC: KATHLEEN CASAREZ MD;*EndCC*
[2017-09-13 16:00] VITALS: BP 145/61; RESP 18
--- NOTE | 2017-09-13 16:35 | PN ---
Date/Time of Note Date/Time of Note DATE: 09/13/17 TIME: 16:32 Assessment/Plan VTE Prophylaxis VTE Prophylaxis Intervention: SCD's Lines/Catheters IV [facility] Type (from [facility]): PICC Line Central line still needed: Yes Urinary Cath still in place: No Assessment/Plan Chief Complaint/Hosp Course Patient complains of abdominal pain, continue strict n.p.o. TPN. Encouraged to get out of bed. Assessment/Plan - Acute pancreatitis s/p ERCP, now with formation of phlegmon per last CT, continue N.p.o. TPN, continue Dilaudid as needed for pain. - Status post EGD with notion of gastritis on 09/08. Continue Pepcid. - Intractable abdominal pain, resolving. Continue Dilaudid p.r.n. for pain and Zofran p.r.n. for nausea. - Cholelithiasis and acute cholecystitis. Dr. Smith is following in general surgery consultation. Continue Meropenem and Flagyl. - S/P ERCP and common bile duct stent placement by Dr Christiansen. Further recommendations based on clinical course. Plan of care discussed with Dr. Wright. Problems: Exam/Review of Systems Vital Signs Vitals Vital Signs Date Time Temp Pulse Resp B/P Pulse Ox O2 Delivery O2 Flow Rate FiO2 09/13/17 13:36 98.0 63 20 111/58 94 09/09/17 15:35 Room Air Intake and Output 09/12/17 09/12/17 09/13/17 15:00 23:00 07:00 Intake Total 120 ml 1120 ml Output Total 1050 ml 600 ml Balance -930 ml -600 ml 1120 ml Exam Constitutional: alert, oriented Head: normocephalic Neck: supple Respiratory: normal air movement Cardiovascular: nl pulses Gastrointestinal: soft Extremities: normal pulses Results Result Diagram: 09/13/17 0515 09/13/17 0515 Results 24 hrs Laboratory Tests Test 09/12/17 17:24 09/12/17 20:29 09/13/17 01:03 09/13/17 05:14 Bedside Glucose 91 96 107 96 Test 09/13/17 05:15 09/13/17 09:00 09/13/17 12:13 White Blood Count 6.9 Red Blood Count 4.62 Hemoglobin 12.7 Hematocrit 38.7 Mean Corpuscular Volume 83.8 Mean Corpuscular Hemoglobin 27.5 L Mean Corpuscular Hemoglobin Concent 32.8 Red Cell Distribution Width 13.1 Platelet Count 321 Mean Platelet Volume 9.8 Neutrophils % 57.9 Lymphocytes % 27.0 Monocytes % 9.3 Eosinophils % 5.0 Basophils % 0.7 Nucleated Red Blood Cells % 0.0 Neutrophils # 4.0 Lymphocytes # 1.9 Monocytes # 0.6 Eosinophils # 0.3 Basophils # 0.1 Nucleated Red Blood Cells # 0.0 Sodium Level 141 Potassium Level 4.0 Chloride Level 106 Carbon Dioxide Level 27 Anion Gap 12 Blood Urea Nitrogen 13 Creatinine 0.63 Glucose Level 104 Calcium Level 9.3 Phosphorus Level 4.9 Magnesium Level 1.8 Lipase 400 H Bedside Glucose 95 100 Medications Medications Current Medications Ondansetron HCl (Zofran Inj) 4 mg Q4H PRN IV NAUSEA AND/OR VOMITING Last administered on 09/12/17 22:47; Admin Dose 4 MG; Start 08/20/17 at 00:10 Senna (Senokot) 1 tab BID PRN PO CONSTIPATION Last administered on 08/26/17 11:18; Admin Dose 1 TAB; Start 08/26/17 at 10:30 Hydromorphone HCl (Dilaudid) 1.5 mg Q3 PRN IV PAIN Last administered on 07:26; Admin Dose 1.5 MG; Start 08/28/17 at 11:30; Status Future Hold Hydromorphone HCl (Dilaudid) 0.5 mg Q4H PRN IV PAIN Last administered on 15:34; Admin Dose 0.5 MG; Start 08/30/17 at 12:00 Acetaminophen/ Hydrocodone Bitart ([place] (5/325)) 1 tab Q4H PRN PO Pain Last administered on 09/12/17 02:54; Admin Dose 1 TAB; Start 08/30/17 at 12:00 Famotidine (Pepcid) 20 mg Q12 PO Last administered on 09/07/17 08:41; Admin Dose 20 MG; Start 08/31/17 at 21:00; Status Future Hold Acetaminophen (Tylenol Tab) 650 mg Q4H PRN PO PAIN AND OR ELEVATED TEMP Last administered on 09/12/17 22:09; Admin Dose 650 MG; Start 09/02/17 at 22:00 Lorazepam (Ativan) 0.5 mg Q8H PRN IV ANXIETY Last administered on 09/12/17 22: 45; Admin Dose 0.5 MG; Start 09/07/17 at 15:30 Famotidine (Pepcid Iv) 20 mg Q12 IV Last administered on 09/13/17 08:53; Admin Dose 20 MG; Start 09/08/17 at 21:00 IV Flush (NS 10 ml) 10 ml PRN PRN IV IV PROTOCOL Last administered on 05:17; Admin Dose 10 ML; Start 09/08/17 at 16:30 Diagnostic Test (Pha) (Accu-Chek) 1 ea Q4 XX Last administered on 09/13/17 12: 13; Admin Dose 1 EA; Start 09/08/17 at 17:00 IV Flush 3 ml 3 ml Q8 IV Last administered on 09/13/17 13:53; Admin Dose 3 ML ; Start 09/09/17 at 22:00 Total Parenteral Nutrition (Tpn) 1,000 ml @ 85 mls/hr [id number] IV Last administered on 09/13/17 05:18; Admin Dose 85 MLS/HR; Start 09/09/17 at 16:00 JAROCHO YOUNG Sep 13, 2017 16:35
[2017-09-13 20:00] VITALS: BP 105/60; RESP 20
[2017-09-13] MEDS: LORAZEPAM 2 MG INJ IV PRN (23:03)
[2017-09-14] MEDS: ACCU-CHEK XX SCH ×5 (00:34→20:14)
[2017-09-14] MEDS: HYDROmorphONE 0.5 MG/0.5 ML SYG IV PRN ×6 (00:38→21:24)
[2017-09-14] MEDS: TPN 1,000 ML IV SCH ×3 (01:54→17:07)
[2017-09-14 02:00] VITALS: BP 91/52; RESP 20
[2017-09-14 04:43] VITALS: BP 106/56; PULSE 60
[2017-09-14] MEDS: NACL 0.9% 3 ML SYG IV SCH ×3 (05:17→21:31)
[2017-09-14 06:07] LABS: CALCIUM 8.8 mg/dl (8.4-10.2); CREATININE 0.58 mg/dl (0.44-1.00); POTASSIUM 3.8 mmol/L (3.5-5.1)
[2017-09-14 07:42] VITALS: BP 100/56; RESP 20
[2017-09-14 08:30] LABS: BASOPHIL # 0.1 10^3/ul (0.0-0.1); BASOPHILS % 1.1 % (0.0-2.0); EOSINOPHILS # 0.3 10^3/ul (0.0-0.5); EOSINOPHILS % 5.4 % (0.0-7.0); HEMATOCRIT 32.5 % (37.0-47.0); HEMOGLOBIN 10.6 g/dl (12.0-16.0); LYMPHOCYTES # 1.6 10^3/ul (0.8-2.9); LYMPHOCYTES % 29.1 % (15.0-51.0); MEAN CORPUSCULAR HEMOGLOBIN 27.8 pg (29.0-33.0); MEAN CORPUSCULAR HGB CONC 32.6 g/dl (32.0-37.0); MEAN CORPUSCULAR VOLUME 85.3 fl (82.0-101.0); MEAN PLATELET VOLUME 10.2 fl (7.4-10.4); MONOCYTE # 0.6 10^3/ul (0.3-0.9); MONOCYTES % 11.1 % (0.0-11.0); NEUTROPHIL # 2.8 10^3/ul (1.6-7.5); NEUTROPHILS % 53.1 % (39.0-77.0); PLATELET COUNT 256 10^3/UL (140-415); RED BLOOD COUNT 3.81 10^6/ul (4.20-5.40); WHITE BLOOD COUNT 5.3 10^3/ul (4.8-10.8)
[2017-09-14] MEDS: FAMOTIDINE 20 MG INJ IV SCH ×2 (08:35→20:02)
[2017-09-14] MEDS: LORAZEPAM 2 MG INJ IV PRN ×2 (12:08→20:02)
--- NOTE | 2017-09-14 12:09 | PN ---
Date/Time of Note Date/Time of Note DATE: 09/14/17 TIME: 12:09 Assessment/Plan VTE Prophylaxis VTE Prophylaxis Intervention: SCD's Lines/Catheters IV Catheter Type (from Nrs): PICC Line Central line still needed: Yes Urinary Cath still in place: No Assessment/Plan Chief Complaint/Hosp Course Patient was acute pancreatitis continues n.p.o. continues on TPN, stated overall pain improved however still requires pain medication. Assessment/Plan - Acute pancreatitis s/p ERCP, now with formation of phlegmon per last CT, continue N.p.o. TPN, continue Dilaudid as needed for pain. - Status post EGD with notion of gastritis on 09/08. Continue Pepcid. - Intractable abdominal pain, resolving. Continue Dilaudid p.r.n. for pain and Zofran p.r.n. for nausea. - Cholelithiasis and acute cholecystitis. Dr. Smith is following in general surgery consultation. Continue Meropenem and Flagyl. - S/P ERCP and common bile duct stent placement by Dr Christiansen. Further recommendations based on clinical course. Plan of care discussed with Dr. Wright. Problems: Exam/Review of Systems Vital Signs Vitals Vital Signs Date Time Temp Pulse Resp B/P Pulse Ox O2 Delivery O2 Flow Rate FiO2 09/14/17 07:42 98.1 58 20 100/56 95 Intake and Output 09/13/17 09/13/17 09/14/17 15:00 23:00 07:00 Intake Total 1000 ml Balance 1000 ml Exam Constitutional: alert, oriented Head: normocephalic Neck: supple Respiratory: normal air movement Cardiovascular: nl pulses Gastrointestinal: soft Extremities: normal pulses Results Result Diagram: 09/14/1751909/14/17519 Results 24 hrs Laboratory Tests Test 09/13/17 12:13 09/13/17 17:36 09/13/17 21:30 09/14/17 00:31 Bedside Glucose 100 80 93 90 Test 09/14/17 04:53 09/14/17 05:20 09/14/17 09:56 Bedside Glucose 89 97 White Blood Count 5.3 # Red Blood Count 3.81 L Hemoglobin 10.6 L Hematocrit 32.5 L Mean Corpuscular Volume 85.3 Mean Corpuscular Hemoglobin 27.8 L Mean Corpuscular Hemoglobin Concent 32.6 Red Cell Distribution Width 13.0 Platelet Count 256 # Mean Platelet Volume 10.2 Neutrophils % 53.1 Lymphocytes % 29.1 Monocytes % 11.1 H Eosinophils % 5.4 Basophils % 1.1 Nucleated Red Blood Cells % 0.0 Neutrophils # 2.8 Lymphocytes # 1.6 Monocytes # 0.6 Eosinophils # 0.3 Basophils # 0.1 Nucleated Red Blood Cells # 0.0 Sodium Level 142 Potassium Level 3.8 Chloride Level 108 Carbon Dioxide Level 26 Anion Gap 12 Blood Urea Nitrogen 12 Creatinine 0.58 Glucose Level 95 Calcium Level 8.8 Medications Medications Current Medications Ondansetron HCl (Zofran Inj) 4 mg Q4H PRN IV NAUSEA AND/OR VOMITING Last administered on 09/12/17 22:47; Admin Dose 4 MG; Start 08/20/17 at 00:10 Senna (Senokot) 1 tab BID PRN PO CONSTIPATION Last administered on 08/26/17 11:18; Admin Dose 1 TAB; Start 08/26/17 at 10:30 Hydromorphone HCl (Dilaudid) 1.5 mg Q3 PRN IV PAIN Last administered on 07:26; Admin Dose 1.5 MG; Start 08/28/17 at 11:30; Status Future Hold Hydromorphone HCl (Dilaudid) 0.5 mg Q4H PRN IV PAIN Last administered on 08:35; Admin Dose 0.5 MG; Start 08/30/17 at 12:00 Acetaminophen/ Hydrocodone Bitart ([place] (5/325)) 1 tab Q4H PRN PO Pain Last administered on 09/12/17 02:54; Admin Dose 1 TAB; Start 08/30/17 at 12:00 Famotidine (Pepcid) 20 mg Q12 PO Last administered on 09/07/17 08:41; Admin Dose 20 MG; Start 08/31/17 at 21:00; Status Future Hold Acetaminophen (Tylenol Tab) 650 mg Q4H PRN PO PAIN AND OR ELEVATED TEMP Last administered on 09/12/17 22:09; Admin Dose 650 MG; Start 09/02/17 at 22:00 Lorazepam (Ativan) 0.5 mg Q8H PRN IV ANXIETY Last administered on 09/13/17 23: 03; Admin Dose 0.5 MG; Start 09/07/17 at 15:30 Famotidine (Pepcid Iv) 20 mg Q12 IV Last administered on 09/14/17 08:35; Admin Dose 20 MG; Start 09/08/17 at 21:00 IV Flush (NS 10 ml) 10 ml PRN PRN IV IV PROTOCOL Last administered on 05:17; Admin Dose 10 ML; Start 09/08/17 at 16:30 Diagnostic Test (Pha) (Accu-Chek) 1 ea Q4 XX Last administered on 09/13/17 12: 13; Admin Dose 1 EA; Start 09/08/17 at 17:00 IV Flush 3 ml 3 ml Q8 IV Last administered on 09/14/17 05:17; Admin Dose 3 ML ; Start 09/09/17 at 22:00 Total Parenteral Nutrition (Tpn) 1,000 ml @ 85 mls/hr [id number] IV Last administered on 09/14/17 04:54; Admin Dose 85 MLS/HR; Start 09/09/17 at 16:00 JAROCHO YOUNG Sep 14, 2017 12:09
[2017-09-14 13:32] VITALS: BP 104/58; RESP 20
[2017-09-14] MEDS ORDERED: ACCU-CHEK XX SCH (18:00)
--- NOTE | 2017-09-14 18:12 | PN ---
DATE: 09/14/2017 CHIEF COMPLAINT: Status post ERCP and pancreatitis, status post TPN started on 09/09. SUBJECTIVE: Minimal abdominal pain today. Required twice Dilaudid 0.5 mg IV. Has passed gas yesterday, had a bowel movement, no nausea, no vomiting. Patient is n.p.o. OBJECTIVE GENERAL: Awake, alert, oriented x3, comfortable. VITAL SIGNS: 98.6 temperature, heart rate 60 blood pressure 104/58, saturation 98% on room air. HEART: Regular. LUNGS: Clear. ABDOMEN: Soft. EXTREMITIES: Legs no calf tenderness. REVIEWED LABORATORY DATA: WBC 5300, hemoglobin 10.6, hematocrit 32.5. Chemistry: Sodium, potassium, BUN, creatinine normal. Lipase was not done today. ASSESSMENT AND PLAN: A 36-year-old female with gallstones, status post ERCP, sphincterotomy and stent placement and later on developed pancreatitis, which did not respond to _n p.o. clear liquids. Now the patient is totally n.p.o. Start patient on TPN. Post TPN . Check lipase every other day and also follow the abdominal pain. Dictated By: BRANDO ENRIQUEZ MD PS/NTS Conf#: [id number] DID#: [id number] MTDD
[2017-09-14 19:29] VITALS: BP 110/62; RESP 20
[2017-09-15] MEDS ORDERED: HYDROmorphONE 0.5 MG/0.5 ML SYG IV ONE (00:08)
[2017-09-15 02:00] VITALS: BP 106/65; RESP 18
[2017-09-15] MEDS: TPN 1,000 ML IV SCH ×2 (04:42→16:00)
[2017-09-15] MEDS: HYDROmorphONE 0.5 MG/0.5 ML SYG IV PRN ×4 (05:37→20:16)
[2017-09-15] MEDS: NACL 0.9% 3 ML SYG IV SCH ×3 (05:42→20:16)
[2017-09-15 06:00] LABS: BASOPHIL # 0.1 10^3/ul (0.0-0.1); BASOPHILS % 0.9 % (0.0-2.0); EOSINOPHILS # 0.3 10^3/ul (0.0-0.5); EOSINOPHILS % 4.9 % (0.0-7.0); HEMATOCRIT 38.5 % (37.0-47.0); HEMOGLOBIN 12.8 g/dl (12.0-16.0); LYMPHOCYTES # 1.7 10^3/ul (0.8-2.9); MEAN CORPUSCULAR HEMOGLOBIN 27.5 pg (29.0-33.0); MEAN CORPUSCULAR HGB CONC 33.2 g/dl (32.0-37.0); MEAN CORPUSCULAR VOLUME 82.6 fl (82.0-101.0); MEAN PLATELET VOLUME 9.9 fl (7.4-10.4); MONOCYTE # 0.7 10^3/ul (0.3-0.9); MONOCYTES % 10.7 % (0.0-11.0); NEUTROPHIL # 3.6 10^3/ul (1.6-7.5); NEUTROPHILS % 56.3 % (39.0-77.0); PLATELET COUNT 281 10^3/UL (140-415); RED BLOOD COUNT 4.66 10^6/ul (4.20-5.40); RED CELL DISTRIBUTION WIDTH 13.2 % (11.5-14.5); WHITE BLOOD COUNT 6.3 10^3/ul (4.8-10.8)
[2017-09-15 06:37] LABS: ALBUMIN/GLOBULIN RATIO 1.17; BILIRUBIN,INDIRECT 0.8 mg/dl (0-1.1); BILIRUBIN,TOTAL 0.8 mg/dl (0.2-1.3); CALCIUM 9.2 mg/dl (8.4-10.2); CREATININE 0.63 mg/dl (0.44-1.00); POTASSIUM 3.9 mmol/L (3.5-5.1); TOTAL PROTEIN 7.4 g/dl (6.1-8.1)
--- NOTE | 2017-09-15 06:41 | PN ---
DATE: 09/14/2017 GASTROINTESTINAL PROGRESS NOTE SUBJECTIVE: The patient, at this time, has minimal abdominal pain, but she is n.p.o. She is not ea ting because the pain would return after any attempt made to eat. No nausea, no vomiting, no GI ble eding, no fever, no jaundice. PHYSICAL EXAMINATION: VITAL SIGNS: She is afebrile, pulse is 88, blood pressure is 110/88. CARDIOVASCULAR: Normal heart sounds. RESPIRATORY: Normal breath sounds. ABDOMEN: Showed a soft abdomen, nontender. No distention. CLINICAL IMPRESSION: Resolving pancreatitis; however, the process is very slow. Continue to keep h er n.p.o. because the moment she is fed, she would develop more abdominal pain. Dictated By: BREA FRANKLIN MD NC/NTS Conf#: [id number] DID#: [id number] CC: KATHLEEN CASAREZ MD;*EndCC*
[2017-09-15] MEDS: LORAZEPAM 2 MG INJ IV PRN (07:36)
[2017-09-15 07:42] VITALS: BP 89/51; RESP 18
[2017-09-15] MEDS: FAMOTIDINE 20 MG INJ IV SCH ×2 (08:12→20:15)
[2017-09-15] MEDS: ACCU-CHEK XX SCH ×2 (09:00→20:26)
--- NOTE | 2017-09-15 11:40 | PN ---
Date/Time of Note Date/Time of Note DATE: 09/15/17 TIME: 11:37 Assessment/Plan VTE Prophylaxis VTE Prophylaxis Intervention: SCD's Lines/Catheters IV Catheter Type (from Nrs): PICC Line Central line still needed: Yes Urinary Cath still in place: No Assessment/Plan Chief Complaint/Hosp Course Patient is awake alert denies any abdominal pain at present . Patient with acute pancreatitis continues n.p.o. continues on TPN, stated overall pain improved however still requires pain medication. Assessment/Plan - Acute pancreatitis s/p ERCP, now with formation of phlegmon per last CT, continue N.p.o. TPN, continue Dilaudid as needed for pain. - Status post EGD with notion of gastritis on 09/08. Continue Pepcid. - Intractable abdominal pain, resolving. Continue Dilaudid p.r.n. for pain and Zofran p.r.n. for nausea. - Cholelithiasis and acute cholecystitis. Dr. Smith is following in general surgery consultation. Completed treatment with Meropenem and Flagyl. - S/P ERCP and common bile duct stent placement by Dr Christiansen. Further recommendations based on clinical course. Plan of care discussed with Dr. Wright. Problems: Exam/Review of Systems Vital Signs Vitals Vital Signs Date Time Temp Pulse Resp B/P Pulse Ox O2 Delivery O2 Flow Rate FiO2 09/15/17 07:42 98.0 54 18 89/51 96 Intake and Output 09/14/17 09/14/17 09/15/17 15:00 23:00 07:00 Intake Total 1000 ml 1000 ml Output Total 300 ml 650 ml Balance 700 ml 350 ml Exam Constitutional: alert, oriented Head: normocephalic Neck: supple Respiratory: normal air movement Cardiovascular: nl pulses Gastrointestinal: soft Extremities: normal pulses Results Result Diagram: 09/15/17 0511 09/15/17 0516 Results 24 hrs Laboratory Tests Test 09/14/17 12:29 09/14/17 20:13 09/15/17 05:11 09/15/17 05:16 Bedside Glucose 101 88 White Blood Count 6.3 Red Blood Count 4.66 # Hemoglobin 12.8 # Hematocrit 38.5 Mean Corpuscular Volume 82.6 Mean Corpuscular Hemoglobin 27.5 L Mean Corpuscular Hemoglobin Concent 33.2 Red Cell Distribution Width 13.2 Platelet Count 281 Mean Platelet Volume 9.9 Neutrophils % 56.3 Lymphocytes % 27.0 Monocytes % 10.7 Eosinophils % 4.9 Basophils % 0.9 Nucleated Red Blood Cells % 0.0 Neutrophils # 3.6 Lymphocytes # 1.7 Monocytes # 0.7 Eosinophils # 0.3 Basophils # 0.1 Nucleated Red Blood Cells # 0.0 Prealbumin 18.7 Sodium Level 140 Potassium Level 3.9 Chloride Level 105 Carbon Dioxide Level 24 Anion Gap 15 Blood Urea Nitrogen 13 Creatinine 0.63 Glucose Level 104 Calcium Level 9.2 Total Bilirubin 0.8 Direct Bilirubin 0.00 Indirect Bilirubin 0.8 Aspartate Amino Transf (AST/SGOT) 43 Alanine Aminotransferase (ALT/SGPT) 51 Alkaline Phosphatase 98 Total Protein 7.4 Albumin 4.0 Globulin 3.40 H Albumin/Globulin Ratio 1.17 Lipase 334 H Test 09/15/17 09:04 Bedside Glucose 94 Medications Medications Current Medications Ondansetron HCl (Zofran Inj) 4 mg Q4H PRN IV NAUSEA AND/OR VOMITING Last administered on 09/12/17 22:47; Admin Dose 4 MG; Start 08/20/17 at 00:10 Senna (Senokot) 1 tab BID PRN PO CONSTIPATION Last administered on 08/26/17 11:18; Admin Dose 1 TAB; Start 08/26/17 at 10:30 Hydromorphone HCl (Dilaudid) 1.5 mg Q3 PRN IV PAIN Last administered on 07:26; Admin Dose 1.5 MG; Start 08/28/17 at 11:30; Status Future Hold Hydromorphone HCl (Dilaudid) 0.5 mg Q4H PRN IV PAIN Last administered on 10:06; Admin Dose 0.5 MG; Start 08/30/17 at 12:00 Acetaminophen/ Hydrocodone Bitart ([place] (5/325)) 1 tab Q4H PRN PO Pain Last administered on 09/12/17 02:54; Admin Dose 1 TAB; Start 08/30/17 at 12:00 Famotidine (Pepcid) 20 mg Q12 PO Last administered on 09/07/17 08:41; Admin Dose 20 MG; Start 08/31/17 at 21:00; Status Future Hold Acetaminophen (Tylenol Tab) 650 mg Q4H PRN PO PAIN AND OR ELEVATED TEMP Last administered on 09/12/17 22:09; Admin Dose 650 MG; Start 09/02/17 at 22:00 Lorazepam (Ativan) 0.5 mg Q8H PRN IV ANXIETY Last administered on 09/15/17 07: 36; Admin Dose 0.5 MG; Start 09/07/17 at 15:30 Famotidine (Pepcid Iv) 20 mg Q12 IV Last administered on 09/15/17 08:12; Admin Dose 20 MG; Start 09/08/17 at 21:00 IV Flush (NS 10 ml) 10 ml PRN PRN IV IV PROTOCOL Last administered on 21:25; Admin Dose 10 ML; Start 09/08/17 at 16:30 IV Flush 3 ml 3 ml Q8 IV Last administered on 09/15/17 05:42; Admin Dose 3 ML ; Start 09/09/17 at 22:00 Total Parenteral Nutrition (Tpn) 1,000 ml @ 85 mls/hr [id number] IV Last administered on 09/15/17 04:42; Admin Dose 85 MLS/HR; Start 09/09/17 at 16:00 Diagnostic Test (Pha) (Accu-Chek) 1 ea Q12H XX Last administered on 09/14/17 20:14; Admin Dose 1 EA; Start 09/14/17 at 21:00 JAROCHO YOUNG Sep 15, 2017 11:40
[2017-09-15] MEDS: ONDANSETRON 4 MG INJ IV PRN ×2 (13:23→22:12)
[2017-09-15 13:55] VITALS: BP 108/58; RESP 18
--- NOTE | 2017-09-15 14:06 | PN ---
DATE: 09/15/2017 SUBJECTIVE: No new overnight events overnight, no complaints. Abdominal pain is minimal. No nause a, no vomiting, passing gas. OBJECTIVE GENERAL: Awake, alert, oriented x3. VITAL SIGNS: Temperature 98.2, heart rate 72, respirations 18, blood pressure 106/65, saturation 96 % on room air. ABDOMEN: Soft. LABORATORY DATA: BUN, creatinine, sodium and potassium are within normal limits. Lipase is 334 dec reasing. WBC 6300. ASSESSMENT AND PLAN: A 36-year-old female with gallstones, admitted for elevated enzymes and pain w ho underwent ERCP. Post-ERCP, she developed pancreatitis. Gradually recovering from acute pancreat itis. The patient is on TPN because has not been able to tolerate diet because of severe pain and e levation of lipase again. Today, lipase 334, is decreasing. The patient is n.p.o. and on TPN. PLAN: Continue TPN, hopefully by the beginning of next week will repeat CT scan to see the status o f the pancreas. Dictated By: BRANDO ENRIQUEZ MD PS/MAVERICK Conf#: [id number] DID#: [id number]
[2017-09-15] MEDS ORDERED: HYDROmorphONE 0.5 MG/0.5 ML SYG IV PRN (15:00)
[2017-09-15 19:31] VITALS: BP 102/61; RESP 18
[2017-09-16] MEDS: HYDROmorphONE 0.5 MG/0.5 ML SYG IV PRN ×6 (00:26→21:22)
[2017-09-16 01:43] VITALS: BP 95/52; RESP 18
[2017-09-16] MEDS: TPN 1,000 ML IV SCH ×3 (02:59→15:38)
[2017-09-16] MEDS: LORAZEPAM 2 MG INJ IV PRN ×2 (03:05→23:14)
[2017-09-16] MEDS: NACL 0.9% 3 ML SYG IV SCH ×3 (05:28→21:26)
[2017-09-16 06:52] LABS: CALCIUM 9.2 mg/dl (8.4-10.2); CREATININE 0.68 mg/dl (0.44-1.00); MAGNESIUM 1.8 mg/dl (1.7-2.5); PHOSPHORUS 4.3 mg/dl (2.5-4.9); POTASSIUM 3.8 mmol/L (3.5-5.1)
--- NOTE | 2017-09-16 07:09 | PN ---
DATE: 09/16/2017 Patient at this time denies having any abdominal pain, nausea, vomiting, GI bleeding or fever. PHYSICAL EXAMINATION: GENERAL: The patient is a 36-year-old female who at this time is alert. VITAL SIGNS: Afebrile, temperature is 97.9, blood pressure is 108/58, pulse is 56. CARDIOVASCULAR: Normal heart sounds. RESPIRATORY: Normal breath sounds. ABDOMEN: Shows soft abdomen, nontender. LABORATORY WORKUP: The lipase is 334, potassium 3.9. The WBC count is 6300, hemoglobin 12.8. CLINICAL IMPRESSION: Status post ERCP, distal bile duct stricture noted, sphincterotomy performed, CBD stent was placed. At this time, the patient has been recovering from the pancreatitis. PLAN: Continue TPN. She can probably start clear liquids in a couple of days. Dictated By: BREA HOOK/MAVERICK Conf#: [id number] DID#: [id number]
[2017-09-16 07:22] VITALS: BP 102/59; RESP 17
[2017-09-16] MEDS: FAMOTIDINE 20 MG INJ IV SCH ×2 (08:24→20:27)
[2017-09-16] MEDS: ACCU-CHEK XX SCH ×2 (08:33→20:34)
[2017-09-16] MEDS ORDERED: VITAMIN A & D 5 GM OINT PACKET TOP ONE (09:16)
[2017-09-16 14:10] VITALS: BP 99/53; RESP 18
--- NOTE | 2017-09-16 19:21 | PN ---
Date/Time of Note Date/Time of Note DATE: 09/16/17 TIME: 19:20 Assessment/Plan Lines/Catheters IV Catheter Type (from Nrs): PICC Line Urinary Cath still in place: No Assessment/Plan Assessment/Plan - Acute pancreatitis s/p ERCP, now with formation of phlegmon per last CT, continue N.p.o. TPN, continue Dilaudid as needed for pain. - Status post EGD with notion of gastritis on 09/08. Continue Pepcid. - Intractable abdominal pain, resolving. Continue Dilaudid p.r.n. for pain and Zofran p.r.n. for nausea. - Cholelithiasis and acute cholecystitis. Dr. Smith is following in general surgery consultation. Completed treatment with Meropenem and Flagyl. - S/P ERCP and common bile duct stent placement by Dr Christiansen. Further recommendations based on clinical course. Plan of care discussed with Dr. Wright. Subjective 24 Hr Interval Summary Free Text/Dictation c/o abd pain CT abd am dw staff Exam/Review of Systems Vital Signs Vitals Vital Signs Date Time Temp Pulse Resp B/P Pulse Ox O2 Delivery O2 Flow Rate FiO2 09/16/17 14:10 98.2 63 18 99/53 96 Intake and Output 09/15/17 09/15/17 09/16/17 15:00 23:00 07:00 Intake Total 1085 ml 1165 ml Output Total 600 ml Balance 485 ml 1165 ml Results Result Diagram: 09/15/17 0511 09/16/17 0547 Results 24 hrs Laboratory Tests Test 09/15/17 20:25 09/16/17 05:47 09/16/17 08:32 Bedside Glucose 91 110 Sodium Level 141 Potassium Level 3.8 Chloride Level 106 Carbon Dioxide Level 26 Anion Gap 13 Blood Urea Nitrogen 14 Creatinine 0.68 Glucose Level 129 Calcium Level 9.2 Phosphorus Level 4.3 Magnesium Level 1.8 Medications Medications Current Medications Ondansetron HCl (Zofran Inj) 4 mg Q4H PRN IV NAUSEA AND/OR VOMITING Last administered on 09/15/17 22:12; Admin Dose 4 MG; Start 08/20/17 at 00:10 Senna (Senokot) 1 tab BID PRN PO CONSTIPATION Last administered on 08/26/17 11:18; Admin Dose 1 TAB; Start 08/26/17 at 10:30 Hydromorphone HCl (Dilaudid) 1.5 mg Q3 PRN IV PAIN Last administered on 07:26; Admin Dose 1.5 MG; Start 08/28/17 at 11:30; Status Future Hold Acetaminophen/ Hydrocodone Bitart ([place] (5/325)) 1 tab Q4H PRN PO Pain Last administered on 09/12/17 02:54; Admin Dose 1 TAB; Start 08/30/17 at 12:00 Famotidine (Pepcid) 20 mg Q12 PO Last administered on 09/07/17 08:41; Admin Dose 20 MG; Start 08/31/17 at 21:00; Status Future Hold Acetaminophen (Tylenol Tab) 650 mg Q4H PRN PO PAIN AND OR ELEVATED TEMP Last administered on 09/12/17 22:09; Admin Dose 650 MG; Start 09/02/17 at 22:00 Lorazepam (Ativan) 0.5 mg Q8H PRN IV ANXIETY Last administered on 09/16/17 03: 05; Admin Dose 0.5 MG; Start 09/07/17 at 15:30 Famotidine (Pepcid Iv) 20 mg Q12 IV Last administered on 09/16/17 08:24; Admin Dose 20 MG; Start 09/08/17 at 21:00 IV Flush (NS 10 ml) 10 ml PRN PRN IV IV PROTOCOL Last administered on 21:25; Admin Dose 10 ML; Start 09/08/17 at 16:30 IV Flush 3 ml 3 ml Q8 IV Last administered on 09/16/17 13:22; Admin Dose 3 ML ; Start 09/09/17 at 22:00 Total Parenteral Nutrition (Tpn) 1,000 ml @ 85 mls/hr [id number] IV Last administered on 09/16/17 15:38; Admin Dose 85 MLS/HR; Start 09/09/17 at 16:00 Diagnostic Test (Pha) (Accu-Chek) 1 ea Q12H XX Last administered on 09/16/17 08:33; Admin Dose 1 EA; Start 09/14/17 at 21:00 Hydromorphone HCl (Dilaudid) 0.5 mg Q3H PRN IV PAIN Last administered on t 18:26; Admin Dose 0.5 MG; Start 09/15/17 at 13:30 GABRIEL EPSTEIN Sep 16, 2017 19:21
[2017-09-16 20:07] VITALS: BP 104/55; PULSE 58; RESP 12
[2017-09-16] MEDS: ACETAMINOPHEN 325 MG TAB PO PRN (20:27)
[2017-09-17] MEDS: TPN 1,000 ML IV SCH ×3 (00:30→20:37)
[2017-09-17 02:33] VITALS: BP 109/57; RESP 18
[2017-09-17] MEDS: HYDROmorphONE 1 MG/ML SYG IV PRN ×6 (03:15→21:04)
[2017-09-17] MEDS: NACL 0.9% 3 ML SYG IV SCH ×4 (05:47→22:26)
[2017-09-17 07:16] LABS: CALCIUM 9.1 mg/dl (8.4-10.2); CREATININE 0.63 mg/dl (0.44-1.00); MAGNESIUM 1.8 mg/dl (1.7-2.5); PHOSPHORUS 4.7 mg/dl (2.5-4.9); POTASSIUM 4.1 mmol/L (3.5-5.1)
[2017-09-17 07:36] VITALS: BP 101/52; RESP 18
[2017-09-17] MEDS: FAMOTIDINE 20 MG INJ IV SCH ×2 (08:27→20:35)
[2017-09-17] MEDS: ACCU-CHEK XX SCH ×2 (08:35→20:46)
--- NOTE | 2017-09-17 10:28 | PN ---
DATE: 09/16/2017 status post pancreatitis. SUBJECTIVE: Today is complaining of some pain in the right flank area. No nausea, no vomiting, no fever. No B.M. has passed gas. The level of the pain OBJECTIVE: VITAL SIGNS: Temperature 98.6_ LABS: WBC was normal. Calcium was normal. GENERAL: Alert, awake, no acute distress. LUNGS clear. ABDOMEN: Soft. LEGS: No calf tenderness. ASSESSMENT: A 36-year-old female who presented to the emergency room from Dr. Smith because ofABDOMINAL PAIN , was found to have gallstones and elevated enzymes liver ,no cholecystitis , then patient underwent ERCP, sphincterotomy, stent placement . The patient developed pancreatitis, eventually required TPN, total n.p.o. for resolution of the pancreatitis. The patient has been started on TPN. continue to keep the patient n.p.o. On Wednesday we are going to repeat CT scan of the abdomen to find out status of pancreatitis. Dictated By: BRANDO CHRISTINE/MAVERICK Conf#: [id number] DID#: [id number] MTDD
--- NOTE | 2017-09-17 10:46 | PN ---
DATE: 09/16/2017 CHIEF COMPLAINT: At this time, she does have some abdominal pain requiring her to take Dilaudid korin ry 3 hours. PHYSICAL EXAMINATION: VITAL SIGNS: She is afebrile, blood pressure is 99/53, pulse is 63. CARDIOVASCULAR: Normal heart sounds. RESPIRATORY: Normal breath sounds. ABDOMEN: Shows soft abdomen, not tender. LABORATORY WORKUP: WBC count is 6300, hemoglobin 12.8. Sodium 141, potassium 3.8, BUN 14, calcium 9.4, magnesium 1.8. CLINICAL IMPRESSION: Status post ERCP pancreatitis. There is a common bile duct stricture noted fo r which sphincterotomy was performed and a stent was placed. Clinical impression is ongoing pancrea titis, which seems to be slowly resolving. PLAN: Continue TPN. Continue symptomatic treatment. Dictated By: BREA HOOK/MAVERICK Conf#: [id number] DID#: [id number]
--- NOTE | 2017-09-17 13:38 | PN ---
Date/Time of Note Date/Time of Note DATE: 09/17/17 TIME: 13:33 Assessment/Plan VTE Prophylaxis VTE Prophylaxis Intervention: SCD's Lines/Catheters IV Catheter Type (from Nrs): PICC Line Central line still needed: Yes Urinary Cath still in place: No Assessment/Plan Chief Complaint/Hosp Course Patient is awake alert ,abd. pain is well controlled. Patient with acute pancreatitis continues n.p.o. continues on TPN. Assessment/Plan - Acute pancreatitis s/p ERCP, now with formation of phlegmon per last CT, continue N.p.o. TPN, continue Dilaudid as needed for pain. - Status post EGD with notion of gastritis on 09/08. Continue Pepcid. - Intractable abdominal pain, resolving. Continue Dilaudid p.r.n. for pain and Zofran p.r.n. for nausea. - Cholelithiasis and acute cholecystitis. Dr. Smith is following in general surgery consultation. Completed treatment with Meropenem and Flagyl. - S/P ERCP and common bile duct stent placement by Dr Christiansen. Further recommendations based on clinical course. Plan of care discussed with Dr. Wright. Problems: Exam/Review of Systems Vital Signs Vitals Vital Signs Date Time Temp Pulse Resp B/P Pulse Ox O2 Delivery O2 Flow Rate FiO2 09/17/17 07:36 98.1 53 18 101/52 95 Intake and Output 09/16/17 09/16/17 09/17/17 14:59 22:59 06:59 Intake Total 1000 ml 1310 ml Output Total 1200 ml 900 ml Balance -200 ml 410 ml Exam Constitutional: alert, oriented Head: normocephalic Neck: supple Respiratory: normal air movement Cardiovascular: nl pulses Gastrointestinal: soft Extremities: normal pulses Results Result Diagram: 09/15/17 0511 09/17/17 0527 Results 24 hrs Laboratory Tests Test 09/16/17 20:31 09/17/17 05:27 09/17/17 08:34 Bedside Glucose 111 100 Sodium Level 142 Potassium Level 4.1 Chloride Level 106 Carbon Dioxide Level 26 Anion Gap 14 Blood Urea Nitrogen 15 Creatinine 0.63 Glucose Level 113 Calcium Level 9.1 Phosphorus Level 4.7 Magnesium Level 1.8 Lipase 334 H Medications Medications Current Medications Ondansetron HCl (Zofran Inj) 4 mg Q4H PRN IV NAUSEA AND/OR VOMITING Last administered on 09/15/17 22:12; Admin Dose 4 MG; Start 08/20/17 at 00:10 Senna (Senokot) 1 tab BID PRN PO CONSTIPATION Last administered on 08/26/17 11:18; Admin Dose 1 TAB; Start 08/26/17 at 10:30 Hydromorphone HCl (Dilaudid) 1.5 mg Q3 PRN IV PAIN Last administered on 07:26; Admin Dose 1.5 MG; Start 08/28/17 at 11:30; Status Future Hold Acetaminophen/ Hydrocodone Bitart ([place] (5/325)) 1 tab Q4H PRN PO Pain Last administered on 09/12/17 02:54; Admin Dose 1 TAB; Start 08/30/17 at 12:00 Famotidine (Pepcid) 20 mg Q12 PO Last administered on 09/07/17 08:41; Admin Dose 20 MG; Start 08/31/17 at 21:00; Status Future Hold Acetaminophen (Tylenol Tab) 650 mg Q4H PRN PO PAIN AND OR ELEVATED TEMP Last administered on 09/16/17 20:27; Admin Dose 650 MG; Start 09/02/17 at 22:00 Lorazepam (Ativan) 0.5 mg Q8H PRN IV ANXIETY Last administered on 09/16/17 23: 14; Admin Dose 0.5 MG; Start 09/07/17 at 15:30 Famotidine (Pepcid Iv) 20 mg Q12 IV Last administered on 09/17/17 08:27; Admin Dose 20 MG; Start 09/08/17 at 21:00 IV Flush (NS 10 ml) 10 ml PRN PRN IV IV PROTOCOL Last administered on 21:26; Admin Dose 10 ML; Start 09/08/17 at 16:30 IV Flush 3 ml 3 ml Q8 IV Last administered on 09/17/17 05:47; Admin Dose 3 ML ; Start 09/09/17 at 22:00 Total Parenteral Nutrition (Tpn) 1,000 ml @ 85 mls/hr [id number] IV Last administered on 09/17/17 04:43; Admin Dose 85 MLS/HR; Start 09/09/17 at 16:00 Diagnostic Test (Pha) (Accu-Chek) 1 ea Q12H XX Last administered on 09/17/17 08:35; Admin Dose 1 EA; Start 09/14/17 at 21:00 Hydromorphone HCl (Dilaudid) 1 mg Q3H PRN IV PAIN Last administered on 11:50; Admin Dose 1 MG; Start 09/17/17 at 00:45 JAROCHO YOUNG Sep 17, 2017 13:38
[2017-09-17 14:55] VITALS: BP 97/56; RESP 19
--- NOTE | 2017-09-17 16:20 | PN ---
DATE: 09/17/2017 She is status post ERCP and pancreatitis. SUBJECTIVE: Feels okay, mild pain, some burning sensation on the lateral aspect of the left thigh t lexy morning. No nausea, no vomiting, no diarrhea. OBJECTIVE: GENERAL: Alert, awake, oriented x3. VITAL SIGNS: Temperature 98.1, heart rate 53, respirations 18, blood pressure 101/52, saturation 95 % room air. ABDOMEN: Soft. EXTREMITIES: Legs with no calf tenderness. LABORATORY DATA: Today lipase is 334. ASSESSMENT AND PLAN: A 36-year-old female who presented with gallstones and elevated enzymes, ERCP was done. Post-ERCP, the patient developed pancreatitis, required TPN insertion through PICC line t o control the inflammation of the pancreas. Right now the patient is stable. The last [facility] scan [facility] was about 10 days ago revealed ongoing acute pancreatitis with some phlegmon. We are going to rep eat CT scan on Wednesday for further evaluation. Meanwhile, the patient continues to be n.p.o. and rec eiving TPN. Dictated By: BRANDO ENRIQUEZ MD PS/NTS Conf#: [id number] DID#: [id number] CC: KATHLEEN CASAREZ MD;*EndCC*
[2017-09-17] MEDS: ONDANSETRON 4 MG INJ IV PRN (17:54)
[2017-09-17 20:19] VITALS: BP 102/50; RESP 18
[2017-09-18] MEDS: HYDROmorphONE 1 MG/ML SYG IV PRN ×5 (00:01→21:30)
[2017-09-18] MEDS: LORAZEPAM 2 MG INJ IV PRN ×2 (01:53→15:54)
[2017-09-18 02:16] VITALS: BP 90/53; RESP 18
[2017-09-18 07:49] VITALS: BP 94/50; RESP 14
--- NOTE | 2017-09-18 08:24 | PN ---
Date/Time of Note Date/Time of Note DATE: 09/18/17 TIME: 08:23 Assessment/Plan VTE Prophylaxis VTE Prophylaxis Intervention: other Lines/Catheters IV Catheter Type (from Nrs): PICC Line Central line still needed: Yes Urinary Cath still in place: No Assessment/Plan Chief Complaint/Hosp Course - Acute pancreatitis s/p ERCP, now with formation of phlegmon per last CT, continue N.p.o. TPN, continue Dilaudid as needed for pain. - Status post EGD with notion of gastritis on 09/08. Continue Pepcid. - Intractable abdominal pain, resolving. Continue Dilaudid p.r.n. for pain and Zofran p.r.n. for nausea. - Cholelithiasis and acute cholecystitis. Dr. Smith is following in general surgery consultation. Completed treatment with Meropenem and Flagyl. - S/P ERCP and common bile duct stent placement by Dr Christiansen. Problems: Subjective 24 Hr Interval Summary Free Text/Dictation Patient doing ok, does have some abdominal pain Exam/Review of Systems Vital Signs Vitals Vital Signs Date Time Temp Pulse Resp B/P Pulse Ox O2 Delivery O2 Flow Rate FiO2 09/18/17 07:49 97.8 62 14 94/50 98 Intake and Output 09/17/17 09/17/17 09/18/17 15:00 23:00 07:00 Intake Total 910 ml 700 ml Output Total 300 ml 200 ml Balance 610 ml 500 ml Exam Constitutional: well developed Head: atraumatic, normocephalic Neck: supple Respiratory: clear to auscultation Cardiovascular: regular rate and rhythm Gastrointestinal: soft, tender Extremities: normal pulses Results Result Diagram: 09/15/17 0511 09/17/17 0527 Results 24 hrs Laboratory Tests Test 09/17/17 08:34 09/17/17 20:41 Bedside Glucose 100 113 Medications Medications Current Medications Ondansetron HCl (Zofran Inj) 4 mg Q4H PRN IV NAUSEA AND/OR VOMITING Last administered on 09/17/17 17:54; Admin Dose 4 MG; Start 08/20/17 at 00:10 Senna (Senokot) 1 tab BID PRN PO CONSTIPATION Last administered on 08/26/17 11:18; Admin Dose 1 TAB; Start 08/26/17 at 10:30 Hydromorphone HCl (Dilaudid) 1.5 mg Q3 PRN IV PAIN Last administered on 07:26; Admin Dose 1.5 MG; Start 08/28/17 at 11:30; Status Future Hold Acetaminophen/ Hydrocodone Bitart ([place] (5/325)) 1 tab Q4H PRN PO Pain Last administered on 09/12/17 02:54; Admin Dose 1 TAB; Start 08/30/17 at 12:00 Famotidine (Pepcid) 20 mg Q12 PO Last administered on 09/07/17 08:41; Admin Dose 20 MG; Start 08/31/17 at 21:00; Status Future Hold Acetaminophen (Tylenol Tab) 650 mg Q4H PRN PO PAIN AND OR ELEVATED TEMP Last administered on 09/16/17 20:27; Admin Dose 650 MG; Start 09/02/17 at 22:00 Lorazepam (Ativan) 0.5 mg Q8H PRN IV ANXIETY Last administered on 09/18/17 01 :53; Admin Dose 0.5 MG; Start 09/07/17 at 15:30 Famotidine (Pepcid Iv) 20 mg Q12 IV Last administered on 09/17/17 20:35; Admin Dose 20 MG; Start 09/08/17 at 21:00 IV Flush (NS 10 ml) 10 ml PRN PRN IV IV PROTOCOL Last administered on 21:26; Admin Dose 10 ML; Start 09/08/17 at 16:30 IV Flush 3 ml 3 ml Q8 IV Last administered on 09/17/17 22:26; Admin Dose 3 ML ; Start 09/09/17 at 22:00 Total Parenteral Nutrition (Tpn) 1,000 ml @ 85 mls/hr [id number] IV Last administered on 09/17/17 20:37; Admin Dose 85 MLS/HR; Start 09/09/17 at 16:00 Diagnostic Test (Pha) (Accu-Chek) 1 ea Q12H XX Last administered on 09/17/17 20:46; Admin Dose 1 EA; Start 09/14/17 at 21:00 Hydromorphone HCl (Dilaudid) 1 mg Q3H PRN IV PAIN Last administered on 11/11/ 17at 04:45; Admin Dose 1 MG; Start 09/17/17 at 00:45 JESSI FAUST Sep 18, 2017 08:24
[2017-09-18 08:49] LABS: CALCIUM 9.2 mg/dl (8.4-10.2); CREATININE 0.71 mg/dl (0.44-1.00); MAGNESIUM 1.8 mg/dl (1.7-2.5); PHOSPHORUS 4.7 mg/dl (2.5-4.9); POTASSIUM 4.2 mmol/L (3.5-5.1)
[2017-09-18] MEDS: ACCU-CHEK XX SCH ×2 (10:30→20:35)
[2017-09-18] MEDS: FAMOTIDINE 20 MG INJ IV SCH ×2 (10:37→20:33)
[2017-09-18] MEDS: TPN 1,000 ML IV SCH ×2 (11:48→18:16)
[2017-09-18] MEDS: NACL 0.9% 3 ML SYG IV SCH ×2 (13:40→21:30)
--- NOTE | 2017-09-18 13:45 | PN ---
DATE: 09/18/2017 SUBJECTIVE: No complaint today, but last night, she had a slight amount of vomiting. The patient states she has been absolutely n.p.o. and is not eating anything. OBJECTIVE: GENERAL: Alert, awake, oriented x3. VITAL SIGNS: Temperature 97.8, heart rate 62, respirations 14, blood pressure 94/50, saturation 98% on room air. LABORATORY: Lipase is 376, which has increased a little bit today; yesterday it was 334. both is high. ABDOMEN: Soft. The patient is on TPN. PLAN: Will get a CT scan of the abdomen and pelvis with IV and oral contrast in 1 week to re-evaluate the status of the pancreas and the phlegmon that has been mentioned on previous CT scan. Dictated By: BRANDO ENRIQUEZ MD PS/NTS Conf#: [id number] DID#: [id number] CC: KATHLEEN CASAREZ MD;*EndCC* MTDD
[2017-09-18 13:56] VITALS: BP 94/57; RESP 14
[2017-09-18 15:47] VITALS: BP 108/57; RESP 18
[2017-09-18] MEDS ORDERED: BARIUM SULF 2% 450 ML BTL (BERRY SMOOTHIE) PO ONE (17:30)
[2017-09-18 20:28] VITALS: BP 121/54; RESP 18
[2017-09-19] MEDS: HYDROmorphONE 1 MG/ML SYG IV PRN ×6 (00:20→21:13)
[2017-09-19] MEDS: LORAZEPAM 2 MG INJ IV PRN ×2 (01:44→23:59)
[2017-09-19 01:49] VITALS: BP 94/55; RESP 16
[2017-09-19] MEDS: NACL 0.9% 3 ML SYG IV SCH ×3 (05:40→21:11)
[2017-09-19] MEDS: TPN 1,000 ML IV SCH ×4 (06:48→23:06)
[2017-09-19 07:38] VITALS: BP 104/54; RESP 18
[2017-09-19] MEDS: FAMOTIDINE 20 MG INJ IV SCH ×2 (08:16→21:10)
[2017-09-19] MEDS: ACCU-CHEK XX SCH ×2 (08:24→21:10)
--- NOTE | 2017-09-19 09:26 | PN ---
Date/Time of Note Date/Time of Note DATE: 09/19/17 TIME: 09:26 Assessment/Plan VTE Prophylaxis VTE Prophylaxis Intervention: other Lines/Catheters IV Catheter Type (from Nrs): PICC Line Central line still needed: Yes Urinary Cath still in place: No Assessment/Plan Chief Complaint/Hosp Course - Acute pancreatitis s/p ERCP, now with formation of phlegmon per last CT, continue N.p.o. TPN, continue Dilaudid as needed for pain. - Status post EGD with notion of gastritis on 09/08. Continue Pepcid. - Intractable abdominal pain, resolving. Continue Dilaudid p.r.n. for pain and Zofran p.r.n. for nausea. - Cholelithiasis and acute cholecystitis. Dr. Smith is following in general surgery consultation. Completed treatment with Meropenem and Flagyl. - S/P ERCP and common bile duct stent placement by Dr Christiansen. Problems: Subjective 24 Hr Interval Summary Free Text/Dictation Patient still has some abdominal pain Exam/Review of Systems Vital Signs Vitals Vital Signs Date Time Temp Pulse Resp B/P Pulse Ox O2 Delivery O2 Flow Rate FiO2 09/19/17 07:38 98.4 52 18 104/54 98 Intake and Output 09/18/17 09/18/17 09/19/17 15:00 23:00 07:00 Intake Total 300 ml 1000 ml Output Total 450 ml Balance 300 ml 550 ml Exam Constitutional: well developed Head: atraumatic, normocephalic Neck: supple Respiratory: clear to auscultation Cardiovascular: regular rate and rhythm Gastrointestinal: non-tender, soft Extremities: normal pulses Results Result Diagram: 09/15/17 0511 09/18/17 0707 Results 24 hrs Laboratory Tests Test 09/18/17 10:46 09/18/17 20:35 09/19/17 08:22 Bedside Glucose 89 103 106 Medications Medications Current Medications Ondansetron HCl (Zofran Inj) 4 mg Q4H PRN IV NAUSEA AND/OR VOMITING Last administered on 09/17/17 17:54; Admin Dose 4 MG; Start 08/20/17 at 00:10 Senna (Senokot) 1 tab BID PRN PO CONSTIPATION Last administered on 08/26/17 11:18; Admin Dose 1 TAB; Start 08/26/17 at 10:30 Hydromorphone HCl (Dilaudid) 1.5 mg Q3 PRN IV PAIN Last administered on 07:26; Admin Dose 1.5 MG; Start 08/28/17 at 11:30; Status Future Hold Acetaminophen/ Hydrocodone Bitart ([place] (5/325)) 1 tab Q4H PRN PO Pain Last administered on 09/12/17 02:54; Admin Dose 1 TAB; Start 08/30/17 at 12:00 Famotidine (Pepcid) 20 mg Q12 PO Last administered on 09/07/17 08:41; Admin Dose 20 MG; Start 08/31/17 at 21:00; Status Future Hold Acetaminophen (Tylenol Tab) 650 mg Q4H PRN PO PAIN AND OR ELEVATED TEMP Last administered on 09/16/17 20:27; Admin Dose 650 MG; Start 09/02/17 at 22:00 Lorazepam (Ativan) 0.5 mg Q8H PRN IV ANXIETY Last administered on 09/19/17 01 :44; Admin Dose 0.5 MG; Start 09/07/17 at 15:30 Famotidine (Pepcid Iv) 20 mg Q12 IV Last administered on 09/19/17 08:16; Admin Dose 20 MG; Start 09/08/17 at 21:00 IV Flush (NS 10 ml) 10 ml PRN PRN IV IV PROTOCOL Last administered on 21:26; Admin Dose 10 ML; Start 09/08/17 at 16:30 IV Flush 3 ml 3 ml Q8 IV Last administered on 09/19/17 05:40; Admin Dose 3 ML ; Start 09/09/17 at 22:00 Total Parenteral Nutrition (Tpn) 1,000 ml @ 85 mls/hr [id number] IV Last administered on 09/19/17 06:48; Admin Dose 85 MLS/HR; Start 09/09/17 at 16:00 Diagnostic Test (Pha) (Accu-Chek) 1 ea Q12H XX Last administered on 09/19/17 08:24; Admin Dose 1 EA; Start 09/14/17 at 21:00 Hydromorphone HCl (Dilaudid) 1 mg Q3H PRN IV PAIN Last administered on 08:17; Admin Dose 1 MG; Start 09/17/17 at 00:45 JESSI FAUST Sep 19, 2017 09:26
[2017-09-19] MEDS: ONDANSETRON 4 MG INJ IV PRN ×3 (11:09→19:44)
--- NOTE | 2017-09-19 12:50 | PN ---
DATE: 09/19/2017 SUBJECTIVE: In the past 2 days. She is complaining of more pain in the right flank area and extending to the tip of the scapular muscles. Some nausea, no vomiting, no fever. The pain is described by the patient as a 6 or 5/10 requiring more frequent IV pain medication which is Dilaudid. OBJECTIVE GENERAL: Awake, alert, oriented x3. VITAL SIGNS: Temperature 98.4, heart rate 61, respirations 18, blood pressure 104/60, O2 saturation %98. LABORATORY DATA: WBC 8300, which is on 09/15/2017. No unusual Chemistry: Lipase today was 378. Blood sugar 106. PHYSICAL EXAMINATION: HEART: Regular. LUNGS: Clear. ABDOMEN: Soft. EXTREMITIES: Legs, no calf tenderness. ASSESSMENT: A 36-year-old female who presented with gallstones and pain and enzymes were elevated by ultrasound did not show evidence of cholecystectomy. So, with the impression of cholangitis, ERCP indicated and was done. Post-ERCP patient developed pancreatitis. Lipase high as 20,000. WBC was also increased gradually. By GI rest and antibiotic almost normalized. Lipase was normal, as soon as the diet was started. Again, patient started experiencing pain and lipase increased. Last CT on the showed ongoing acute pancreatitis with phlegmons, no definite pseudocyst. The patient was started on TPN and kept n.p.o. On Wednesday, tomorrow, we are going to repeat CT scan of the abdomen and pelvis with IV and oral contrast. Dictated By: BRANDO CHRISTINE/MAVERICK Conf#: [id number] DID#: [id number] MTDD
[2017-09-19] MEDS: KETOROLAC 30 MG INJ IV SCH ×2 (13:10→19:44)
[2017-09-19 14:29] VITALS: BP 98/55; RESP 16
--- NOTE | 2017-09-19 18:23 | PN ---
DATE: 09/19/2017 SUBJECTIVE: The patient at this time had a small amount of vomiting today and small amount of vomit ing last night. Denies any significant abdominal pain. PHYSICAL EXAMINATION: VITAL SIGNS: Normal. Temperature 98, blood pressure 98/55. CARDIOVASCULAR: Normal heart sounds. RESPIRATORY: Normal breath sounds. ABDOMEN: Showed evidence of nontender abdomen. LABORATORY FUNCTIONS: As of yesterday, the lipase is 376. CLINICAL IMPRESSION: Slowly resolving pancreatitis but is taking a longer time than usual; however, CAT scan of the abdomen is ordered for tomorrow to see if there is any pseudocyst formation. Dictated By: BREA FRANKLIN MD NC/MAVERICK Conf#: [id number] DID#: [id number] CC: KATHLEEN CASAREZ MD;*EndCC*
[2017-09-19 19:32] VITALS: BP 123/96; RESP 18
[2017-09-20 01:21] VITALS: BP 109/57; RESP 18
[2017-09-20] MEDS: KETOROLAC 30 MG INJ IV SCH ×5 (01:30→18:37)
[2017-09-20] MEDS: HYDROmorphONE 1 MG/ML SYG IV PRN ×4 (05:30→20:43)
[2017-09-20] MEDS: NACL 0.9% 3 ML SYG IV SCH ×3 (05:30→21:54)
[2017-09-20 06:10] LABS: BASOPHIL # 0.1 10^3/ul (0.0-0.1); BASOPHILS % 1.1 % (0.0-2.0); EOSINOPHILS # 0.3 10^3/ul (0.0-0.5); EOSINOPHILS % 4.4 % (0.0-7.0); HEMATOCRIT 37.6 % (37.0-47.0); HEMOGLOBIN 12.6 g/dl (12.0-16.0); LYMPHOCYTES # 1.9 10^3/ul (0.8-2.9); LYMPHOCYTES % 30.6 % (15.0-51.0); MEAN CORPUSCULAR HEMOGLOBIN 27.7 pg (29.0-33.0); MEAN CORPUSCULAR HGB CONC 33.5 g/dl (32.0-37.0); MEAN CORPUSCULAR VOLUME 82.6 fl (82.0-101.0); MEAN PLATELET VOLUME 10.3 fl (7.4-10.4); MONOCYTE # 0.6 10^3/ul (0.3-0.9); MONOCYTES % 9.6 % (0.0-11.0); NEUTROPHIL # 3.3 10^3/ul (1.6-7.5); NEUTROPHILS % 54.1 % (39.0-77.0); PLATELET COUNT 274 10^3/UL (140-415); RED BLOOD COUNT 4.55 10^6/ul (4.20-5.40); RED CELL DISTRIBUTION WIDTH 12.8 % (11.5-14.5); WHITE BLOOD COUNT 6.2 10^3/ul (4.8-10.8)
[2017-09-20 06:39] LABS: CALCIUM 8.9 mg/dl (8.4-10.2); CREATININE 0.7 mg/dl (0.44-1.00); POTASSIUM 4.1 mmol/L (3.5-5.1)
--- NOTE | 2017-09-20 07:15 | PN ---
DATE: 09/18/2017 SUBJECTIVE: The patient at this time is still having some amount of nausea with occasional vomiting , but she is n.p.o. at this time. She is on TPN. She is status post ERCP for biliary stricture and she is recovering now at this time from pancreatitis. PHYSICAL EXAMINATION: VITAL SIGNS: Temperature 98.7, the pulse is 67. CARDIOVASCULAR: Normal heart sounds. RESPIRATORY: Normal breath sounds. ABDOMEN: Showed no significant tenderness. LABORATORY WORKUP: WBC 6300 as of 09/15/2017. The chemistry, as of today, the lipase is 376 and ye sterday it was 334. CLINICAL IMPRESSION: Resolving pancreatitis. It is probably still ongoing. There is still some on going inflammatory changes in the pancreas. She does have a phlegmon of the pancreas. PLAN: At this time, we may have to do a repeat CAT scan of the abdomen to see if she is developing a pseudocyst. Dictated By: BREA FRANKLIN MD NC/NTS Conf#: [id number] DID#: [id number] CC: KATHLEEN CASAREZ MD;*EndCC*
[2017-09-20 07:45] VITALS: BP 97/57; PULSE 54; RESP 18
[2017-09-20] MEDS ORDERED: DEXTROSE 10% 1,000 ML IV SCH (08:00)
[2017-09-20] MEDS: ACCU-CHEK XX SCH ×2 (08:07→21:00)
[2017-09-20] MEDS: FAMOTIDINE 20 MG INJ IV SCH ×2 (08:07→20:42)
[2017-09-20 08:11] VITALS: BP 97/57; RESP 18
[2017-09-20] MEDS ORDERED: IOHEXOL 14.3 MG(I)/ML (ADULT) BTL PO ONE (09:00)
[2017-09-20] MEDS ORDERED: BARIUM SULF 2% 450 ML BTL (BERRY SMOOTHIE) PO ONE (09:00)
[2017-09-20] MEDS ORDERED: SOD CHLORIDE 0.9% 100 ML ONE (09:06)
[2017-09-20] MEDS ORDERED: IOHEXOL 300MG/ML 150 ML BTL ONE (09:06)
[2017-09-20] MEDS: ONDANSETRON 4 MG INJ IV PRN ×2 (09:16→20:43)
--- NOTE | 2017-09-20 09:44 | RADRPT ---
PROCEDURE: CT Abdomen and Pelvis with contrast. CLINICAL INDICATION: Abdominal pain; pancreatitis TECHNIQUE: CT scan of the abdomen and pelvis with contrast was performed on a multidetector high-r esolution CT scanner. Coronal and sagittal reformatted images were obtained from the axial source im ages. Images were reviewed on a high-resolution PACS workstation. 80 cc of Isovue 300 iodinated cont rast was administered intravenously without reported complication. The total exam CTDI equals 16 mG y and the total exam DLP equals 971 mGy-cm. One or more of the following dose reduction techniques were used: Automated exposure control, Adjustment of the mA and/or kV according to patient size, and /or use of iterative reconstruction technique. DICOM images are available. COMPARISON: Abdominal CT 09/03/2017 FINDINGS: The lung bases are clear. Hypoattenuation of the liver. Common bile duct stents in place with intrahepatic pneumobilia identif ied. Portal vein is patent. Minimal decrease in peripancreatic inflammatory stranding and free fluid in the right anterior pararenal space. No well-defined rim-enhancing peripancreatic fluid collectio n. Splenic vein remains patent. Cholelithiasis. No hydronephrosis. No obstructing renal stone. No bowel obstruction. The appendix is not visualized but there is no focal inflammatory stranding in the right lower quadrant. No significant retroperitoneal lymphadenopathy or evidence of pneumoperitoneum. Osseous structures are grossly unremarkable. IMPRESSION: Redemonstrated pancreatitis with minimal decrease inflammatory changes when compared to 09/03/2017. No well-defined peripancreatic pseudocyst or abscess. Common bile duct stent in place. Cholelithiasis and hepatic steatosis. RPTAT: AA .Reji Torres MD, MD Date Time Electronically viewed and signed by .Reji Torres MD, MD on 09/20/2017 09:44 .T/
[2017-09-20] MEDS: TPN 1,000 ML IV SCH ×2 (10:01→21:47)
[2017-09-20 14:00] VITALS: BP 104/57; PULSE 52; RESP 18
[2017-09-20 14:47] VITALS: BP 104/57; RESP 18
--- NOTE | 2017-09-20 15:53 | PN ---
DATE: 09/20/2017 SUBJECTIVE: The patient is a 36-year-old female who presented with gallstones to the emergency room with pain and was found to have elevated enzymes on the ERCP. Following that, the patient has pancreatitis eventually required to keep the patient n.p.o. and start TPN and has been on TPN for the past 11 days. The amylase and lipase, AST up. She had a CT scan of the abdomen and pelvis yesterday. OBJECTIVE GENERAL: Awake, alert, oriented x3, in no abdominal pain and some right upper flank pain. VITAL SIGNS: Temperature 98.4, heart rate 54, respirations 18, blood pressure 97/57, saturation 96% on room air. LABORATORY DATA: WBC 6200 with 54% segmented. Hemoglobin 12.6, hematocrit 37.6. Chemistry: Sodium, potassium, BUN, creatinine normal. Lipase was not done today. CARDIOVASCULAR: Regular. LUNGS: Clear. ABDOMEN: Soft. CT scan was done last today. IMPRESSION: 1. Redemonstrated pancreatitis with minimal decrease inflammatory changes when compared to 09/03/2017. 2. No well defined peripancreatic pseudocyst or abscess. 3. Common bile duct stent in place. 4. Cholelithiasis and hepatic steatosis. Also, in the text of the report says that there is free fluid in the right anterior part of renal space. ASSESSMENT: A 36-year-old female who presented with abdominal pain, epigastric pain and was found to have gallstones. MRCP and ultrasound was performed. Did not mention acute pancreatitis. Enzymes, AST, alkaline phosphatase are elevated. GI consultation then recommended ERCP. ERCP was performed. Post- ERCP the patient developed pancreatitis. pt. has been n.p.o. and has been on TPN. CT scan on 09/03/2017, showed there still pancreatitis with some phlegmon and today also repeated CT scan. PLAN: I will discuss with other members of the team and Dr. Christiansen and Dr. Wright and see how long we have to continue to keep patient n.p.o. and continue TPN. Dictated By: BRANDO ENRIQUEZ MD PS/NTS Conf#: [id number] DID#: [id number] CC: BRANDO ENRIQUEZ MD;*EndCC* MTDD
--- NOTE | 2017-09-20 16:20 | PN ---
Date/Time of Note Date/Time of Note DATE: 09/20/17 TIME: 16:16 Assessment/Plan VTE Prophylaxis VTE Prophylaxis Intervention: SCD's Lines/Catheters IV [facility] Type (from [facility]): PICC Line Central line still needed: Yes Urinary Cath still in place: No Assessment/Plan Chief Complaint/Hosp Course Repeat CT remonstrated pancreatitis with minimal decrease inflammatory changes, no pseudocyst or abscess. Patient's had an episode of nonbloody nonbilious emesis yesterday and today in the morning. Continue n.p.o., TPN. Assessment/Plan - Acute pancreatitis s/p ERCP, now with formation of phlegmon per last CT, continue N.p.o. TPN, continue Dilaudid as needed for pain. - Status post EGD with notion of gastritis on 09/08. Continue Pepcid. - Intractable abdominal pain, resolving. Continue Dilaudid p.r.n. for pain and Zofran p.r.n. for nausea. - Cholelithiasis and acute cholecystitis. Dr. Smith is following in general surgery consultation. Completed treatment with Meropenem and Flagyl. - S/P ERCP and common bile duct stent placement by Dr Christiansen. Further recommendations based on clinical course. Plan of care discussed with Dr. Wright. Problems: Exam/Review of Systems Vital Signs Vitals Vital Signs Date Time Temp Pulse Resp B/P Pulse Ox O2 Delivery O2 Flow Rate FiO2 09/20/17 14:47 98.1 52 18 104/57 98 09/20/17 14:00 Room Air Intake and Output 09/19/17 09/19/17 09/20/17 15:00 23:00 07:00 Intake Total 1000 ml 765 ml Output Total 300 ml Balance 700 ml 765 ml Exam Constitutional: alert, oriented Head: normocephalic Neck: supple Respiratory: normal air movement Cardiovascular: nl pulses Gastrointestinal: soft Extremities: normal pulses Results Result Diagram: 09/20/17 0535 09/20/17 0535 Results 24 hrs Laboratory Tests Test 09/19/17 21:10 09/20/17 05:35 09/20/17 08:20 Bedside Glucose 93 100 White Blood Count 6.2 Red Blood Count 4.55 Hemoglobin 12.6 Hematocrit 37.6 Mean Corpuscular Volume 82.6 Mean Corpuscular Hemoglobin 27.7 L Mean Corpuscular Hemoglobin Concent 33.5 Red Cell Distribution Width 12.8 Platelet Count 274 Mean Platelet Volume 10.3 Neutrophils % 54.1 Lymphocytes % 30.6 Monocytes % 9.6 Eosinophils % 4.4 Basophils % 1.1 Nucleated Red Blood Cells % 0.0 Neutrophils # 3.3 Lymphocytes # 1.9 Monocytes # 0.6 Eosinophils # 0.3 Basophils # 0.1 Nucleated Red Blood Cells # 0.0 Sodium Level 144 Potassium Level 4.1 Chloride Level 108 Carbon Dioxide Level 25 Anion Gap 15 Blood Urea Nitrogen 15 Creatinine 0.70 Glucose Level 108 Calcium Level 8.9 Medications Medications Current Medications Ondansetron HCl (Zofran Inj) 4 mg Q4H PRN IV NAUSEA AND/OR VOMITING Last administered on 09/20/17 09:16; Admin Dose 4 MG; Start 08/20/17 at 00:10 Senna (Senokot) 1 tab BID PRN PO CONSTIPATION Last administered on 08/26/17 11:18; Admin Dose 1 TAB; Start 08/26/17 at 10:30 Hydromorphone HCl (Dilaudid) 1.5 mg Q3 PRN IV PAIN Last administered on 07:26; Admin Dose 1.5 MG; Start 08/28/17 at 11:30; Status Future Hold Acetaminophen/ Hydrocodone Bitart ([place] (5/325)) 1 tab Q4H PRN PO Pain Last administered on 09/12/17 02:54; Admin Dose 1 TAB; Start 08/30/17 at 12:00 Acetaminophen (Tylenol Tab) 650 mg Q4H PRN PO PAIN AND OR ELEVATED TEMP Last administered on 09/16/17 20:27; Admin Dose 650 MG; Start 09/02/17 at 22:00 Lorazepam (Ativan) 0.5 mg Q8H PRN IV ANXIETY Last administered on 09/19/17 23 :59; Admin Dose 0.5 MG; Start 09/07/17 at 15:30 Famotidine (Pepcid Iv) 20 mg Q12 IV Last administered on 09/20/17 08:07; Admin Dose 20 MG; Start 09/08/17 at 21:00 IV Flush (NS 10 ml) 10 ml PRN PRN IV IV PROTOCOL Last administered on 21:26; Admin Dose 10 ML; Start 09/08/17 at 16:30 IV Flush 3 ml 3 ml Q8 IV Last administered on 09/20/17 13:34; Admin Dose 3 ML ; Start 09/09/17 at 22:00 Total Parenteral Nutrition (Tpn) 1,000 ml @ 85 mls/hr [id number] IV Last administered on 09/20/17 10:01; Admin Dose 85 MLS/HR; Start 09/09/17 at 16:00 Diagnostic Test (Pha) (Accu-Chek) 1 ea Q12H XX Last administered on 09/20/17 08:07; Admin Dose 1 EA; Start 09/14/17 at 21:00 Hydromorphone HCl (Dilaudid) 1 mg Q3H PRN IV PAIN Last administered on 15:32; Admin Dose 1 MG; Start 09/17/17 at 00:45 Ketorolac Tromethamine 30 mg 30 mg Q6H IV Last administered on 09/20/17 13:31 ; Admin Dose 30 MG; Start 09/19/17 at 13:00; Stop 09/21/17 at 07:01 Dextrose (D10w) 1,000 ml @ 85 mls/hr [id number] IV Last administered on 08:59; Admin Dose 85 MLS/HR; Start 09/20/17 at 08:00; Stop 09/20/17 at 19 :45 JAROCHO OYUNG Sep 20, 2017 16:20
[2017-09-20 19:26] VITALS: BP 100/68; RESP 18
[2017-09-21] MEDS: KETOROLAC 30 MG INJ IV SCH ×2 (00:29→06:24)
[2017-09-21 01:50] VITALS: BP 102/61; RESP 18
[2017-09-21] MEDS: HYDROmorphONE 1 MG/ML SYG IV PRN ×6 (02:23→22:51)
[2017-09-21] MEDS: ONDANSETRON 4 MG INJ IV PRN ×4 (02:23→21:34)
--- NOTE | 2017-09-21 06:06 | PN ---
DATE: 09/20/2017 SUBJECTIVE: At this time, the patient says she has no abdominal pain. She has got minimal nausea. PHYSICAL EXAMINATION: GENERAL: The patient is alert, well built. She is in a cheerful mood. VITAL SIGNS: She is afebrile, blood pressure is 104/57, pulse is 52. ABDOMEN: Examination of the abdomen showed evidence of a soft abdomen with no palpable masses, no t enderness, no distention. IMAGING: The CAT scan of the abdomen shows some improvement of the pancreatitis. Common bile duct stent is noted. Cholelithiasis is noted. PLAN: At this time, recommend continue present management. Dictated By: BREA FRANKLIN MD NC/NTS Conf#: [id number] DID#: [id number] CC: KATHLEEN CASAREZ MD;*EndCC*
[2017-09-21] MEDS: NACL 0.9% 3 ML SYG IV SCH ×3 (06:24→21:35)
[2017-09-21 07:02] LABS: CALCIUM 8.9 mg/dl (8.4-10.2); CREATININE 0.69 mg/dl (0.44-1.00); POTASSIUM 4.2 mmol/L (3.5-5.1)
[2017-09-21 07:31] VITALS: BP 133/69; RESP 16
[2017-09-21] MEDS: FAMOTIDINE 20 MG INJ IV SCH ×2 (08:18→21:34)
[2017-09-21] MEDS: ACCU-CHEK XX SCH ×2 (09:00→21:00)
[2017-09-21] MEDS: TPN 1,000 ML IV SCH (11:12)
[2017-09-21 15:33] VITALS: BP 98/58; RESP 16
--- NOTE | 2017-09-21 15:36 | PN ---
DATE: 09/21/2017 SUBJECTIVE: The patient states that yesterday vomited once in the bathroom and today vomited 3 times in the bathroom. The vomitus is not greenish, not bloody and patient has had episodes of feeling dizzy. Denies chills or fever. Abdominal pain is minimal. Passing gas. Urination okay. PHYSICAL EXAMINATION: GENERAL: Awake, alert, oriented x3, appears comfortable. VITAL SIGNS: Temperature 98.3, heart rate 56, regular, respirations 18, blood pressure 102/61 on one episode, another episode 133/69, saturation 97% room air. LABORATORY DATA: Today, sodium, potassium, BUN, creatinine normal. Calcium 8.9. No lipase was done today. Hematology: WBC 6200 with 54% neutrophils, hemoglobin 12.6, hematocrit 37.6. HEART: Regular. LUNGS: Clear. ABDOMEN: Soft, no calf tenderness. ASSESSMENT AND PLAN: This is a 36-year-old female who presented to the emergency room with abdominal pain, epigastric, right upper quadrant. Ultrasound revealed presence of gallstones, but no thickening and no edema. MRCP showed gallstones, no evidence of biliary ductal obstruction. They did not mention anything about diagnosis of cholecystitis. GI colleague was consulted. The enzymes to begin with, AST, ALT, alkaline phosphatase elevated, so with the impression of cholangitis, possibly passed a stone. ERCP required, recommended. ERCP was done. Post ERCP, patient developed pancreatitis. Since then, the patient has been started on liquid diet. Every time, patient had vomiting and abdominal pain recurred, and lipase that had been normalized again , went up to 580. On this episode, this time it is 14 days that the patient is on TPN and n.p.o. Lipase gradually has come down, but patient has vomited in the past 2 [address] scan showed minimal improvement. Some fluid around the perirenal space on the right side. No definite pseudocyst. PLAN: Per GI colleague, Dr. Christiansen, and also per ourselves, general surgeons, we recommend continue TPN and at most, start patient on clear liquids to see how she tolerates. If she vomits more and pain increases, we will stop it again. Dictated By: BRANDO ENRIQUEZ MD PS/MAVERICK Conf#: [id number] DID#: [id number] CC: KATHLEEN CASAREZ MD;*EndCC* MTDD
--- NOTE | 2017-09-21 16:10 | PN ---
Date/Time of Note Date/Time of Note DATE: 09/21/17 TIME: 16:04 Assessment/Plan VTE Prophylaxis VTE Prophylaxis Intervention: SCD's Lines/Catheters [facility] Type ([facility] PICC Line Central line still needed: Yes Urinary Cath still in place: No Assessment/Plan Chief Complaint/Hosp Course Patient continues to have nausea and occasional emesis. Patient is n.p.o., continued on TPN. Clear liquid trial per surgery. Assessment/Plan - Acute pancreatitis s/p ERCP, now with formation of phlegmon per last CT, continue N.p.o. TPN, continue Dilaudid as needed for pain. - Status post EGD with notion of gastritis on 09/08. Continue Pepcid. - Intractable abdominal pain, resolving. Continue Dilaudid p.r.n. for pain and Zofran p.r.n. for nausea. - Cholelithiasis and acute cholecystitis. Dr. Smith is following in general surgery consultation. Completed treatment with Meropenem and Flagyl. - S/P ERCP and common bile duct stent placement by Dr Christiansen. Further recommendations based on clinical course. Plan of care discussed with Dr. Wright. Problems: Exam/Review of Systems Vital Signs Vitals Vital Signs Date Time Temp Pulse Resp B/P Pulse Ox O2 Delivery O2 Flow Rate FiO2 09/21/17 15:33 98.3 50 16 98/58 98 09/20/17 14:00 Room Air Intake and Output 09/20/17 09/20/17 09/21/17 15:00 23:00 07:00 Intake Total 1085 ml 595 ml 615 ml Output Total 1150 ml Balance 1085 ml -555 ml 615 ml Exam Constitutional: alert, oriented Head: normocephalic Neck: supple Respiratory: normal air movement Cardiovascular: nl pulses Gastrointestinal: soft Extremities: normal pulses Results Result Diagram: 09/20/17 0535 09/21/17 0555 Results 24 hrs Laboratory Tests Test 09/20/17 20:41 09/21/17 05:55 09/21/17 08:58 Bedside Glucose 96 105 Sodium Level 140 Potassium Level 4.2 Chloride Level 107 Carbon Dioxide Level 25 Anion Gap 12 Blood Urea Nitrogen 18 Creatinine 0.69 Glucose Level 105 Calcium Level 8.9 Triglycerides Level 103 Medications Medications Current Medications Ondansetron HCl (Zofran Inj) 4 mg Q4H PRN IV NAUSEA AND/OR VOMITING Last administered on 09/21/17 13:06; Admin Dose 4 MG; Start 08/20/17 at 00:10 Senna (Senokot) 1 tab BID PRN PO CONSTIPATION Last administered on 08/26/17 11:18; Admin Dose 1 TAB; Start 08/26/17 at 10:30 Hydromorphone HCl (Dilaudid) 1.5 mg Q3 PRN IV PAIN Last administered on 07:26; Admin Dose 1.5 MG; Start 08/28/17 at 11:30; Status Future Hold Acetaminophen/ Hydrocodone Bitart ([place] (5/325)) 1 tab Q4H PRN PO Pain Last administered on 09/12/17 02:54; Admin Dose 1 TAB; Start 08/30/17 at 12:00 Acetaminophen (Tylenol Tab) 650 mg Q4H PRN PO PAIN AND OR ELEVATED TEMP Last administered on 09/16/17 20:27; Admin Dose 650 MG; Start 09/02/17 at 22:00 Lorazepam (Ativan) 0.5 mg Q8H PRN IV ANXIETY Last administered on 09/19/17 23 :59; Admin Dose 0.5 MG; Start 09/07/17 at 15:30 Famotidine (Pepcid Iv) 20 mg Q12 IV Last administered on 09/21/17 08:18; Admin Dose 20 MG; Start 09/08/17 at 21:00 IV Flush (NS 10 ml) 10 ml PRN PRN IV IV PROTOCOL Last administered on 06:24; Admin Dose 10 ML; Start 09/08/17 at 16:30 IV Flush 3 ml 3 ml Q8 IV Last administered on 09/21/17 14:11; Admin Dose 3 ML ; Start 09/09/17 at 22:00 Total Parenteral Nutrition (Tpn) 1,000 ml @ 85 mls/hr [id number] IV Last administered on 09/21/17 11:12; Admin Dose 85 MLS/HR; Start 09/09/17 at 16:00 Diagnostic Test (Pha) (Accu-Chek) 1 ea Q12H XX Last administered on 09/20/17 08:07; Admin Dose 1 EA; Start 09/14/17 at 21:00 Hydromorphone HCl (Dilaudid) 1 mg Q3H PRN IV PAIN Last administered on t 13:06; Admin Dose 1 MG; Start 09/17/17 at 00:45 JAROCHO YOUNG Sep 21, 2017 16:10
[2017-09-21] MEDS: METOCLOPRAMIDE 10 MG INJ IV PRN (19:04)
[2017-09-21 19:36] VITALS: BP 103/52; RESP 18
[2017-09-21] MEDS: HYDROCODONE/APAP (5/325) TAB PO PRN (21:34)
[2017-09-22 01:31] VITALS: BP 99/52; RESP 18
[2017-09-22] MEDS: ONDANSETRON 4 MG INJ IV PRN ×4 (01:46→18:17)
[2017-09-22] MEDS: METOCLOPRAMIDE 10 MG INJ IV PRN ×3 (01:46→18:17)
[2017-09-22] MEDS: HYDROCODONE/APAP (5/325) TAB PO PRN ×2 (01:46→05:59)
[2017-09-22] MEDS: TPN 1,000 ML IV SCH ×4 (01:47→21:01)
[2017-09-22] MEDS: HYDROmorphONE 1 MG/ML SYG IV PRN ×5 (05:13→22:03)
[2017-09-22 05:49] LABS: BASOPHILS % 0.5 % (0.0-2.0); EOSINOPHILS # 0.3 10^3/ul (0.0-0.5); EOSINOPHILS % 3.5 % (0.0-7.0); HEMOGLOBIN 11.1 g/dl (12.0-16.0); LYMPHOCYTES # 1.9 10^3/ul (0.8-2.9); MEAN CORPUSCULAR HEMOGLOBIN 27.9 pg (29.0-33.0); MEAN CORPUSCULAR HGB CONC 33.6 g/dl (32.0-37.0); MEAN CORPUSCULAR VOLUME 82.9 fl (82.0-101.0); MEAN PLATELET VOLUME 10.6 fl (7.4-10.4); MONOCYTE # 0.9 10^3/ul (0.3-0.9); MONOCYTES % 10.7 % (0.0-11.0); NEUTROPHIL # 4.9 10^3/ul (1.6-7.5); NEUTROPHILS % 60.9 % (39.0-77.0); PLATELET COUNT 273 10^3/UL (140-415); RED BLOOD COUNT 3.98 10^6/ul (4.20-5.40); RED CELL DISTRIBUTION WIDTH 12.8 % (11.5-14.5); WHITE BLOOD COUNT 8.1 10^3/ul (4.8-10.8)
[2017-09-22 06:15] LABS: AMYLASE 61 U/L (11-123)
[2017-09-22 06:18] LABS: CALCIUM 8.8 mg/dl (8.4-10.2); CREATININE 0.74 mg/dl (0.44-1.00); POTASSIUM 3.9 mmol/L (3.5-5.1)
[2017-09-22] MEDS: NACL 0.9% 3 ML SYG IV SCH ×3 (06:31→22:04)
--- NOTE | 2017-09-22 06:34 | PN ---
DATE: 09/21/2017 MEDICAL HISTORY: The patient had a small amount of vomiting today. PHYSICAL EXAMINATION: GENERAL: The patient is alert, not in distress. VITAL SIGNS: Temperature 98.3, blood pressure 98/58, pulse is 50. ABDOMEN: Benign. LABORATORY WORKUP: WBC count 6200. The amylase and lipase is not done since the . At that kat e it was 376. CLINICAL IMPRESSION: Ongoing pancreatitis which seems to be slowly resolving. The patient is on Zo uriah which is not helping. At this time, I would recommend to add Reglan 10 mg before each meal. Dictated By: BREA FRANKLIN MD NC/NTS Conf#: [id number] DID#: [id number] CC: KATHLEEN CASAREZ MD;*EndCC*
[2017-09-22 07:47] VITALS: BP 93/50; RESP 18
[2017-09-22] MEDS: ACCU-CHEK XX SCH ×2 (09:00→21:01)
[2017-09-22] MEDS: FAMOTIDINE 20 MG INJ IV SCH ×2 (09:00→20:58)
--- NOTE | 2017-09-22 13:15 | PN ---
Date/Time of Note Date/Time of Note DATE: 09/22/17 TIME: 13:13 Assessment/Plan VTE Prophylaxis VTE Prophylaxis Intervention: SCD's Lines/Catheters IV Catheter Type (from [facility]): PICC Line Central line still needed: Yes Urinary Cath still in place: No Assessment/Plan Chief Complaint/Hosp Course Patient started on clear liquid diet yesterday, denies any nausea and vomiting today. Planes of abdominal pain. Assessment/Plan - Acute pancreatitis s/p ERCP, now with formation of phlegmon per last CT, continue N.p.o. TPN, continue Dilaudid as needed for pain. - Status post EGD with notion of gastritis on 09/08. Continue Pepcid. - Intractable abdominal pain, resolving. Continue Dilaudid p.r.n. for pain and Zofran p.r.n. for nausea. - Cholelithiasis and acute cholecystitis. Dr. Smith is following in general surgery consultation. Completed treatment with Meropenem and Flagyl. - S/P ERCP and common bile duct stent placement by Dr Christiansen. Further recommendations based on clinical course. Plan of care discussed with Dr. Wright. Problems: Exam/Review of Systems Vital Signs Vitals Vital Signs Date Time Temp Pulse Resp B/P Pulse Ox O2 Delivery O2 Flow Rate FiO2 09/22/17 07:47 98.3 55 18 93/50 97 09/20/17 14:00 Room Air Intake and Output 09/21/17 09/21/17 09/22/17 15:00 23:00 07:00 Intake Total 385 ml 710 ml 1065 ml Output Total 400 ml Balance -15 ml 710 ml 1065 ml Exam Constitutional: alert, oriented Head: normocephalic Neck: supple Respiratory: normal air movement Cardiovascular: nl pulses Gastrointestinal: soft Extremities: normal pulses Results Result Diagram: 09/22/17 0512 09/22/17 0512 Results 24 hrs Laboratory Tests Test 09/21/17 21:32 09/22/17 05:12 09/22/17 08:57 Bedside Glucose 103 101 White Blood Count 8.1 # Red Blood Count 3.98 L Hemoglobin 11.1 L Hematocrit 33.0 L Mean Corpuscular Volume 82.9 Mean Corpuscular Hemoglobin 27.9 L Mean Corpuscular Hemoglobin Concent 33.6 Red Cell Distribution Width 12.8 Platelet Count 273 Mean Platelet Volume 10.6 H Neutrophils % 60.9 Lymphocytes % 24.0 Monocytes % 10.7 Eosinophils % 3.5 Basophils % 0.5 Nucleated Red Blood Cells % 0.0 Neutrophils # 4.9 Lymphocytes # 1.9 Monocytes # 0.9 Eosinophils # 0.3 Basophils # 0.0 Nucleated Red Blood Cells # 0.0 Sodium Level 141 Potassium Level 3.9 Chloride Level 108 Carbon Dioxide Level 24 Anion Gap 13 Blood Urea Nitrogen 15 Creatinine 0.74 Glucose Level 103 Calcium Level 8.8 Amylase Level 61 Lipase 345 H Medications Medications Current Medications Ondansetron HCl (Zofran Inj) 4 mg Q4H PRN IV NAUSEA AND/OR VOMITING Last administered on 09/22/17 10:50; Admin Dose 4 MG; Start 08/20/17 at 00:10 Senna (Senokot) 1 tab BID PRN PO CONSTIPATION Last administered on 08/26/17 11:18; Admin Dose 1 TAB; Start 08/26/17 at 10:30 Hydromorphone HCl (Dilaudid) 1.5 mg Q3 PRN IV PAIN Last administered on 07:26; Admin Dose 1.5 MG; Start 08/28/17 at 11:30; Status Future Hold Acetaminophen/ Hydrocodone Bitart ([place] (5/325)) 1 tab Q4H PRN PO Pain Last administered on 09/22/17 05:59; Admin Dose 1 TAB; Start 08/30/17 at 12:00 Acetaminophen (Tylenol Tab) 650 mg Q4H PRN PO PAIN AND OR ELEVATED TEMP Last administered on 09/16/17 20:27; Admin Dose 650 MG; Start 09/02/17 at 22:00 Lorazepam (Ativan) 0.5 mg Q8H PRN IV ANXIETY Last administered on 09/19/17 23 :59; Admin Dose 0.5 MG; Start 09/07/17 at 15:30 Famotidine (Pepcid Iv) 20 mg Q12 IV Last administered on 09/22/17 09:00; Admin Dose 20 MG; Start 09/08/17 at 21:00 IV Flush (NS 10 ml) 10 ml PRN PRN IV IV PROTOCOL Last administered on 06:24; Admin Dose 10 ML; Start 09/08/17 at 16:30 IV Flush 3 ml 3 ml Q8 IV Last administered on 09/22/17 06:31; Admin Dose 3 ML ; Start 09/09/17 at 22:00 Total Parenteral Nutrition (Tpn) 1,000 ml @ 85 mls/hr [id number] IV Last administered on 09/22/17 01:47; Admin Dose 85 MLS/HR; Start 09/09/17 at 16:00 Diagnostic Test (Pha) (Accu-Chek) 1 ea Q12H XX Last administered on 09/20/17 08:07; Admin Dose 1 EA; Start 09/14/17 at 21:00 Hydromorphone HCl (Dilaudid) 1 mg Q3H PRN IV PAIN Last administered on 10:51; Admin Dose 1 MG; Start 09/17/17 at 00:45 Metoclopramide HCl (Reglan) 10 mg Q6H PRN IV NAUSEA Last administered on 10:50; Admin Dose 10 MG; Start 09/21/17 at 18:16 JAROCHO YOUNG Sep 22, 2017 13:15
[2017-09-22 13:55] VITALS: BP 100/56; RESP 20
[2017-09-22 20:24] VITALS: BP 94/49; RESP 16
[2017-09-23] MEDS: HYDROmorphONE 1 MG/ML SYG IV PRN ×6 (01:46→21:28)
[2017-09-23 01:54] VITALS: BP 104/55; RESP 16
[2017-09-23] MEDS: TPN 1,000 ML IV SCH ×4 (02:37→21:14)
[2017-09-23] MEDS: NACL 0.9% 3 ML SYG IV SCH ×3 (05:21→22:38)
[2017-09-23 06:07] LABS: CALCIUM 8.9 mg/dl (8.4-10.2); CREATININE 0.75 mg/dl (0.44-1.00); POTASSIUM 3.8 mmol/L (3.5-5.1)
--- NOTE | 2017-09-23 07:11 | PN ---
DATE: 09/22/2017 Status post ERCP, status post pancreatitis. SUBJECTIVE: The patient has pain, abdominal, which is ___4__/10. No nausea, no vomiting. We started clear liquids yesterday. She has been taking a little bit, not that much. OBJECTIVE: GENERAL: Alert, awake, oriented x3, walking around the hallway with help. VITAL SIGNS: Temperature maximum today 98.3, heart rate 55, respiration 18, blood pressure 93/50, saturation 97% on room air. ABDOMEN: Soft. LABORATORY DATA: Sodium, potassium normal, BUN and creatinine normal. Calcium 8.8. Today amylase is 61 and lipase is 345 almost the same as a few days ago. Hematology: WBC 8100 with 60% neutrophils, hemoglobin 11.1, hematocrit 33. ASSESSMENT AND PLAN: A 56-year-old female with status post endoscopic retrograde cholangiopancreatography, status post pancreatitis secondary to ERCP. The patient is on total parenteral nutrition. Abdominal pain has decreased and she has abdominal pain in the right side, right upper quadrant area. Lipase still is up 354 today. We started her on clear liquids. We are going to keep her on clear liquids for a few days. Continue total parenteral nutrition. Also gastroenterology colleague, Dr. Christiansen's opinion is to continue the current care. Dictated By: BRANDO ENRIQUEZ MD PS/MAVERICK Conf#: [id number] DID#: [id number] MTDD
[2017-09-23 07:37] VITALS: BP 106/55; RESP 16
[2017-09-23] MEDS: ACCU-CHEK XX SCH ×2 (08:01→21:01)
[2017-09-23] MEDS: FAMOTIDINE 20 MG INJ IV SCH ×2 (08:17→20:49)
--- NOTE | 2017-09-23 10:01 | PN ---
Date/Time of Note Date/Time of Note DATE: 09/23/17 TIME: 09:59 Assessment/Plan VTE Prophylaxis VTE Prophylaxis Intervention: SCD's Lines/Catheters IV Catheter Type (from [facility]): PICC Line Central line still needed: Yes Urinary Cath still in place: No Assessment/Plan Chief Complaint/Hosp Course Patient tolerates clear liquid diet so far, encouraged ambulation. Assessment/Plan - Acute pancreatitis s/p ERCP, now with formation of phlegmon per last CT, continue N.p.o. TPN, continue Dilaudid as needed for pain. - Status post EGD with notion of gastritis on 09/08. Continue Pepcid. - Intractable abdominal pain, resolving. Continue Dilaudid p.r.n. for pain and Zofran p.r.n. for nausea. - Cholelithiasis and acute cholecystitis. Dr. Smith is following in general surgery consultation. Completed treatment with Meropenem and Flagyl. - S/P ERCP and common bile duct stent placement by Dr Christiansen. Further recommendations based on clinical course. Plan of care discussed with Dr. Wright. Problems: Exam/Review of Systems Vital Signs Vitals Vital Signs Date Time Temp Pulse Resp B/P Pulse Ox O2 Delivery O2 Flow Rate FiO2 09/23/17 07:37 98.1 57 16 106/55 96 09/20/17 14:00 Room Air Intake and Output 09/22/17 09/22/17 09/23/17 15:00 23:00 07:00 Intake Total 725 ml 1095 ml 1765.5 ml Output Total 1200 ml 1200 ml Balance 725 ml -105 ml 565.5 ml Exam Constitutional: alert, oriented Head: normocephalic Neck: supple Respiratory: normal air movement Cardiovascular: nl pulses Gastrointestinal: soft Extremities: normal pulses Results Result Diagram: 09/22/17 0512 09/23/17 0519 Results 24 hrs Laboratory Tests Test 09/22/17 20:55 09/23/17 05:19 09/23/17 08:01 Bedside Glucose 91 105 Sodium Level 142 Potassium Level 3.8 Chloride Level 107 Carbon Dioxide Level 25 Anion Gap 14 Blood Urea Nitrogen 15 Creatinine 0.75 Glucose Level 107 Calcium Level 8.9 Medications Medications Current Medications Ondansetron HCl (Zofran Inj) 4 mg Q4H PRN IV NAUSEA AND/OR VOMITING Last administered on 09/22/17 18:17; Admin Dose 4 MG; Start 08/20/17 at 00:10 Senna (Senokot) 1 tab BID PRN PO CONSTIPATION Last administered on 08/26/17 11:18; Admin Dose 1 TAB; Start 08/26/17 at 10:30 Hydromorphone HCl (Dilaudid) 1.5 mg Q3 PRN IV PAIN Last administered on 07:26; Admin Dose 1.5 MG; Start 08/28/17 at 11:30; Status Future Hold Acetaminophen/ Hydrocodone Bitart ([place] (5/325)) 1 tab Q4H PRN PO Pain Last administered on 09/22/17 05:59; Admin Dose 1 TAB; Start 08/30/17 at 12:00 Acetaminophen (Tylenol Tab) 650 mg Q4H PRN PO PAIN AND OR ELEVATED TEMP Last administered on 09/16/17 20:27; Admin Dose 650 MG; Start 09/02/17 at 22:00 Lorazepam (Ativan) 0.5 mg Q8H PRN IV ANXIETY Last administered on 09/19/17 23 :59; Admin Dose 0.5 MG; Start 09/07/17 at 15:30 Famotidine (Pepcid Iv) 20 mg Q12 IV Last administered on 09/23/17 08:17; Admin Dose 20 MG; Start 09/08/17 at 21:00 IV Flush (NS 10 ml) 10 ml PRN PRN IV IV PROTOCOL Last administered on 06:24; Admin Dose 10 ML; Start 09/08/17 at 16:30 IV Flush 3 ml 3 ml Q8 IV Last administered on 09/23/17 05:21; Admin Dose 3 ML ; Start 09/09/17 at 22:00 Total Parenteral Nutrition (Tpn) 1,000 ml @ 85 mls/hr [id number] IV Last administered on 09/23/17 02:37; Admin Dose 85 MLS/HR; Start 09/09/17 at 16:00 Diagnostic Test (Pha) (Accu-Chek) 1 ea Q12H XX Last administered on 09/23/17 08:01; Admin Dose 1 EA; Start 09/14/17 at 21:00 Hydromorphone HCl (Dilaudid) 1 mg Q3H PRN IV PAIN Last administered on 09:02; Admin Dose 1 MG; Start 09/17/17 at 00:45 Metoclopramide HCl (Reglan) 10 mg Q6H PRN IV NAUSEA Last administered on 18:17; Admin Dose 10 MG; Start 09/21/17 at 18:16 JAROCHO YOUNG Sep 23, 2017 10:01
[2017-09-23] MEDS: ONDANSETRON 4 MG INJ IV PRN (13:28)
[2017-09-23 14:05] VITALS: BP 104/51; RESP 16
--- NOTE | 2017-09-23 17:11 | CONS ---
DATE OF ADMISSION: 08/18/2017 DATE OF CONSULTATION: HISTORY OF PRESENT ILLNESS: Upon discussion with the patient, the patient says he is able to tolera te the food with Reglan and Zofran, vomiting is much better than yesterday. PHYSICAL EXAMINATION: Unremarkable. CLINICAL IMPRESSION: Resolving pancreatitis, slowly. She seems to be tolerating a diet now with Re glan. PLAN: Advance the diet to full liquid diet and give Reglan 10 mg IV 15 minutes before each meal. Dictated By: BREA HOOK/MAVERICK Conf#: [id number] DID#: [id number]
[2017-09-23] MEDS: METOCLOPRAMIDE 10 MG INJ IV PRN (17:56)
--- NOTE | 2017-09-23 18:17 | PN ---
DATE: 09/23/2017 SUBJECTIVE: States the pain still persists, mainly in the right upper quadrant area. It is graded about 3/10. No vomiting, no chills. No fever. Has been passing gas. Had a loose bowel movement t lexy. It appears that she is tolerating clear liquids. OBJECTIVE: GENERAL: Alert, awake, oriented x3. VITAL SIGNS: Temperature 98.3, heart rate 57 and regular, respirations 16, blood pressure 104/51, s aturation 96% on room air. HEENT: No hematology today. Chemistry: BUN, creatinine, sodium, and potassium normal, calcium 8.9 . HEART: Regular. LUNGS: Clear. ABDOMEN: Soft. EXTREMITIES: Legs: No calf tenderness. ASSESSMENT: A 36-year-old female who presented with abdominal pain, right upper quadrant and epigas tric, was found to have gallstones. Enzymes are elevated. ERCP was done. Post-ERCP, developed de jesus creatitis. Required TPN and n.p.o. over several days. Gradually resolving very slowly. So far it appears that has tolerated a clear liquid. Per Dr. Christiansen today, advance to full liquid diet. Also constantly having nausea, so Zofran has not been so effective, so Reglan has been started. It appe ars that is helping. PLAN: Continue current care. Very slowly advance diet, not so fast. The last CT scan did not show any evidence of cirrhosis, but there is still inflammation of the pancreas. Dictated By: BRANDO ENRIQUEZ MD PS/MAVERICK Conf#: [id number] DID#: [id number]
[2017-09-23 20:00] VITALS: BP 94/50; RESP 16
[2017-09-23 21:30] VITALS: BP 112/56; PULSE 54
[2017-09-24] MEDS: HYDROmorphONE 1 MG/ML SYG IV PRN ×6 (00:53→20:45)
[2017-09-24 02:00] VITALS: BP 91/50; RESP 14
[2017-09-24] MEDS: TPN 1,000 ML IV SCH ×4 (04:47→23:28)
[2017-09-24] MEDS: NACL 0.9% 3 ML SYG IV SCH ×3 (05:06→22:00)
[2017-09-24 05:14] VITALS: BP 105/57; PULSE 57
[2017-09-24 06:11] LABS: BASOPHIL # 0.1 10^3/ul (0.0-0.1); BASOPHILS % 0.8 % (0.0-2.0); EOSINOPHILS # 0.2 10^3/ul (0.0-0.5); EOSINOPHILS % 2.9 % (0.0-7.0); HEMATOCRIT 36.5 % (37.0-47.0); HEMOGLOBIN 12.2 g/dl (12.0-16.0); LYMPHOCYTES # 2.1 10^3/ul (0.8-2.9); MEAN CORPUSCULAR HEMOGLOBIN 27.4 pg (29.0-33.0); MEAN CORPUSCULAR HGB CONC 33.4 g/dl (32.0-37.0); MEAN PLATELET VOLUME 10.7 fl (7.4-10.4); MONOCYTE # 0.6 10^3/ul (0.3-0.9); MONOCYTES % 8.4 % (0.0-11.0); NEUTROPHIL # 4.2 10^3/ul (1.6-7.5); NEUTROPHILS % 58.6 % (39.0-77.0); PLATELET COUNT 272 10^3/UL (140-415); RED BLOOD COUNT 4.45 10^6/ul (4.20-5.40); RED CELL DISTRIBUTION WIDTH 13.2 % (11.5-14.5); WHITE BLOOD COUNT 7.1 10^3/ul (4.8-10.8)
[2017-09-24 06:36] LABS: CREATININE 0.71 mg/dl (0.44-1.00); POTASSIUM 3.8 mmol/L (3.5-5.1)
[2017-09-24] MEDS: METOCLOPRAMIDE 10 MG INJ IV SCH ×3 (07:52→16:35)
[2017-09-24] MEDS: FAMOTIDINE 20 MG INJ IV SCH ×2 (07:52→20:45)
[2017-09-24] MEDS: ACCU-CHEK XX SCH ×2 (07:53→20:50)
[2017-09-24 08:02] VITALS: BP 118/74; RESP 16
[2017-09-24 13:58] VITALS: BP 118/56; RESP 16
--- NOTE | 2017-09-24 18:19 | PN ---
Date/Time of Note Date/Time of Note DATE: 09/24/17 TIME: 18:18 Assessment/Plan VTE Prophylaxis VTE Prophylaxis Intervention: SCD's Lines/Catheters IV Catheter Type (from Nrs): PICC Line Central line still needed: Yes Urinary Cath still in place: No Assessment/Plan Chief Complaint/Hosp Course Advance diet per gastroenterology, will decreased TPN if patient able to tolerate diet. Assessment/Plan - Acute pancreatitis s/p ERCP, now with formation of phlegmon per last CT, continue N.p.o. TPN, continue Dilaudid as needed for pain. - Status post EGD with notion of gastritis on 09/08. Continue Pepcid. - Intractable abdominal pain, resolving. Continue Dilaudid p.r.n. for pain and Zofran p.r.n. for nausea. - Cholelithiasis and acute cholecystitis. Dr. Smith is following in general surgery consultation. Completed treatment with Meropenem and Flagyl. - S/P ERCP and common bile duct stent placement by Dr Christiansen. Further recommendations based on clinical course. Plan of care discussed with Dr. Wright. Problems: Exam/Review of Systems Vital Signs Vitals Vital Signs Date Time Temp Pulse Resp B/P Pulse Ox O2 Delivery O2 Flow Rate FiO2 09/24/17 13:58 98.1 54 16 118/56 98 09/20/17 14:00 Room Air Intake and Output 09/23/17 09/23/17 09/24/17 15:00 23:00 07:00 Intake Total 1189.5 ml 1500 ml Output Total 200 ml 550 ml Balance 989.5 ml 950 ml Exam Constitutional: alert, oriented Head: normocephalic Neck: supple Respiratory: normal air movement Cardiovascular: nl pulses Gastrointestinal: soft Extremities: normal pulses Results Result Diagram: 09/24/17 0515 09/24/17 0515 Results 24 hrs Laboratory Tests Test 09/23/17 20:52 09/24/17 05:15 09/24/17 07:51 Bedside Glucose 109 118 White Blood Count 7.1 Red Blood Count 4.45 Hemoglobin 12.2 Hematocrit 36.5 L Mean Corpuscular Volume 82.0 Mean Corpuscular Hemoglobin 27.4 L Mean Corpuscular Hemoglobin Concent 33.4 Red Cell Distribution Width 13.2 Platelet Count 272 Mean Platelet Volume 10.7 H Neutrophils % 58.6 Lymphocytes % 29.0 Monocytes % 8.4 Eosinophils % 2.9 Basophils % 0.8 Nucleated Red Blood Cells % 0.0 Neutrophils # 4.2 Lymphocytes # 2.1 Monocytes # 0.6 Eosinophils # 0.2 Basophils # 0.1 Nucleated Red Blood Cells # 0.0 Sodium Level 142 Potassium Level 3.8 Chloride Level 107 Carbon Dioxide Level 25 Anion Gap 14 Blood Urea Nitrogen 14 Creatinine 0.71 Glucose Level 104 Calcium Level 9.0 Medications Medications Current Medications Ondansetron HCl (Zofran Inj) 4 mg Q4H PRN IV NAUSEA AND/OR VOMITING Last administered on 09/23/17 13:28; Admin Dose 4 MG; Start 08/20/17 at 00:10 Senna (Senokot) 1 tab BID PRN PO CONSTIPATION Last administered on 08/26/17 11:18; Admin Dose 1 TAB; Start 08/26/17 at 10:30 Hydromorphone HCl (Dilaudid) 1.5 mg Q3 PRN IV PAIN Last administered on 07:26; Admin Dose 1.5 MG; Start 08/28/17 at 11:30; Status Future Hold Acetaminophen/ Hydrocodone Bitart ([place] (5/325)) 1 tab Q4H PRN PO Pain Last administered on 09/22/17 05:59; Admin Dose 1 TAB; Start 08/30/17 at 12:00 Acetaminophen (Tylenol Tab) 650 mg Q4H PRN PO PAIN AND OR ELEVATED TEMP Last administered on 09/16/17 20:27; Admin Dose 650 MG; Start 09/02/17 at 22:00 Lorazepam (Ativan) 0.5 mg Q8H PRN IV ANXIETY Last administered on 09/19/17 23 :59; Admin Dose 0.5 MG; Start 09/07/17 at 15:30 Famotidine (Pepcid Iv) 20 mg Q12 IV Last administered on 09/24/17 07:52; Admin Dose 20 MG; Start 09/08/17 at 21:00 IV Flush (NS 10 ml) 10 ml PRN PRN IV IV PROTOCOL Last administered on 06:24; Admin Dose 10 ML; Start 09/08/17 at 16:30 IV Flush 3 ml 3 ml Q8 IV Last administered on 09/24/17 14:04; Admin Dose 3 ML ; Start 09/09/17 at 22:00 Total Parenteral Nutrition (Tpn) 1,000 ml @ 85 mls/hr [id number] IV Last administered on 09/24/17 16:41; Admin Dose 85 MLS/HR; Start 09/09/17 at 16:00 Diagnostic Test (Pha) (Accu-Chek) 1 ea Q12H XX Last administered on 09/24/17 07:53; Admin Dose 1 EA; Start 09/14/17 at 21:00 Hydromorphone HCl (Dilaudid) 1 mg Q3H PRN IV PAIN Last administered on 17:18; Admin Dose 1 MG; Start 09/17/17 at 00:45 Metoclopramide HCl (Reglan) 10 mg Q6H PRN IV NAUSEA Last administered on 17:56; Admin Dose 10 MG; Start 09/21/17 at 18:16 JAROCHO YOUNG Sep 24, 2017 18:19
--- NOTE | 2017-09-24 18:42 | PN ---
DATE: 09/24/2017 SUBJECTIVE: States that she vomited just about an hour ago, moderate amount. She is on a full liqu id diet since yesterday. Abdominal pain is 4/10. It is partly epigastric and partly in the upper p osterior back. She is getting Reglan for nausea. The bowel movement was liquid today. OBJECTIVE GENERAL: Awake, alert, oriented x3. VITAL SIGNS: Temperature 98.1, heart rate 57, respirations 16, blood pressure 118/74, saturation 98 % on room air. LABORATORY DATA: Sodium, potassium, BUN, creatinine normal. No lipase done today. Hematology: WB C 7100 with 58% neutrophils. Hemoglobin and hematocrit stable. PHYSICAL EXAMINATION: HEART: Regular. LUNGS: Clear. ABDOMEN: Soft. EXTREMITIES: Legs: No calf tenderness. ASSESSMENT/PLAN: A 36-year-old female who presented with abdominal pain, was found to have gallston es. No cholecystitis, but elevated enzymes. ERCP was done. Post-ERCP she developed pancreatitis. She still is not fully recovered from that episode of pancreatitis. Has been on TPN the past 16 day s with n.p.o. absolutely the past 4 or 5 days. Start clear liquid and gradually advance to full liq uids. Will keep on full liquid a few more days to evaluate to see how she clinically progresses. D o more blood tests tomorrow. Dictated By: BRANDO ENRIQUEZ MD PS/NTS Conf#: [id number] DID#: [id number]
[2017-09-24 20:46] VITALS: BP 103/59; RESP 16
[2017-09-25] MEDS: HYDROmorphONE 1 MG/ML SYG IV PRN ×6 (00:47→20:45)
[2017-09-25 02:00] VITALS: BP 101/59; RESP 14
[2017-09-25] MEDS: ONDANSETRON 4 MG INJ IV PRN (05:03)
[2017-09-25] MEDS: TPN 1,000 ML IV SCH ×2 (05:04→23:25)
[2017-09-25] MEDS: NACL 0.9% 3 ML SYG IV SCH ×3 (05:04→20:45)
[2017-09-25 06:59] LABS: CALCIUM 8.9 mg/dl (8.4-10.2); CREATININE 0.67 mg/dl (0.44-1.00); MAGNESIUM 1.7 mg/dl (1.7-2.5); PHOSPHORUS 3.7 mg/dl (2.5-4.9); POTASSIUM 3.9 mmol/L (3.5-5.1)
[2017-09-25 07:06] LABS: PREALBUMIN 15.3 mg/dl (17.6-36.0)
[2017-09-25 07:47] VITALS: BP 109/57; RESP 18
[2017-09-25] MEDS: METOCLOPRAMIDE 10 MG INJ IV SCH ×3 (07:49→17:29)
[2017-09-25] MEDS: FAMOTIDINE 20 MG INJ IV SCH ×2 (08:57→20:44)
[2017-09-25] MEDS: ACCU-CHEK XX SCH ×2 (09:00→20:45)
[2017-09-25] MEDS ORDERED: VITAMIN A & D 5 GM OINT PACKET TOP ONE (10:43)
--- NOTE | 2017-09-25 11:12 | CONS ---
DATE OF ADMISSION: 08/18/2017 DATE OF CONSULTATION: HISTORY OF PRESENT ILLNESS: The patient is being hospitalized for pancreatitis. At this time, she has got are slowly resolving pancreatitis. No abdominal pain, no significant vomiting at this time. She is on Zofran and Reglan for vomiting. She has been tolerating the clear liquids. The vital signs temperature 97.6. Blood pressure is 109/57, pulse is 64. The examination of the abd omen is unremarkable. LABORATORY WORKUP: Shows WBC 7100. The lipase is 289. CLINICAL IMPRESSION: Resolving pancreatitis. PLAN: At this time, advance the diet to soft, low calorie, low fat diet. Dictated By: BREA HOOK/MAVERICK Conf#: [id number] DID#: [id number]
--- NOTE | 2017-09-25 11:47 | PN ---
DATE: 09/25/2017 SUBJECTIVE: No complaint. No nausea, no vomiting. Abdominal pain is 3/10. Tolerating full liquid diet. OBJECTIVE: GENERAL: Alert, awake, oriented x3. VITAL SIGNS: 98 temperature, heart rate 61, respirations 14, blood pressure 101/59, saturation 94% on room air. ABDOMEN: Soft. LABORATORY: Today, lipase is 289, which is below level 300. ASSESSMENT AND PLAN: A 36-year-old female with longstanding pancreatitis, status post endoscopic re trograde cholangiopancreatography. The patient is on TPN, has been vomiting on and off and also has some abdominal pain, which is mainly in the right upper quadrant and posterior below the level of t he scapula on the right side. Today, the amylase is lower than before. The patient is on full liqu ids and tolerating so far. No vomiting today, she had vomited yesterday. PLAN: Continue on full liquid diet only and continue TPN. Dictated By: BRANDO ENRIQUEZ MD PS/NTS Conf#: [id number] DID#: [id number] CC: KATHLEEN CASAREZ MD;*EndCC*
[2017-09-25 14:50] VITALS: BP 105/56; RESP 12
--- NOTE | 2017-09-25 17:17 | PN ---
Date/Time of Note Date/Time of Note DATE: 09/25/17 TIME: 17:16 Assessment/Plan Lines/Catheters IV [facility] Type (from [facility]): PICC Line Urinary Cath still in place: No Assessment/Plan Assessment/Plan - Acute pancreatitis s/p ERCP, now with formation of phlegmon per last CT, continue N.p.o. TPN, continue Dilaudid as needed for pain. - Status post EGD with notion of gastritis on 09/08. Continue Pepcid. - Intractable abdominal pain, resolving. Continue Dilaudid p.r.n. for pain and Zofran p.r.n. for nausea. - Cholelithiasis and acute cholecystitis. Dr. Smith is following in general surgery consultation. Completed treatment with Meropenem and Flagyl. - S/P ERCP and common bile duct stent placement by Dr Christiansen. Further recommendations based on clinical course. Plan of care discussed with Dr. Wright. Exam/Review of Systems Vital Signs Vitals Vital Signs Date Time Temp Pulse Resp B/P Pulse Ox O2 Delivery O2 Flow Rate FiO2 09/25/17 14:50 98.1 60 12 105/56 95 Intake and Output 09/24/17 09/24/17 09/25/17 15:00 23:00 07:00 Intake Total 1320 ml 1000 ml Balance 1320 ml 1000 ml Results Result Diagram: 09/24/17 0515 09/25/17 0530 Results 24 hrs Laboratory Tests Test 09/24/17 20:51 09/25/17 05:30 09/25/17 09:10 Bedside Glucose 93 105 Sodium Level 142 Potassium Level 3.9 Chloride Level 106 Carbon Dioxide Level 25 Anion Gap 15 Blood Urea Nitrogen 14 Creatinine 0.67 Glucose Level 104 Calcium Level 8.9 Phosphorus Level 3.7 Magnesium Level 1.7 Prealbumin 15.3 L Lipase 289 Medications Medications Current Medications Ondansetron HCl (Zofran Inj) 4 mg Q4H PRN IV NAUSEA AND/OR VOMITING Last administered on 09/25/17 05:03; Admin Dose 4 MG; Start 08/20/17 at 00:10 Senna (Senokot) 1 tab BID PRN PO CONSTIPATION Last administered on 08/26/17 11:18; Admin Dose 1 TAB; Start 08/26/17 at 10:30 Hydromorphone HCl (Dilaudid) 1.5 mg Q3 PRN IV PAIN Last administered on 07:26; Admin Dose 1.5 MG; Start 08/28/17 at 11:30; Status Future Hold Acetaminophen/ Hydrocodone Bitart ([place] (5/325)) 1 tab Q4H PRN PO Pain Last administered on 09/22/17 05:59; Admin Dose 1 TAB; Start 08/30/17 at 12:00 Acetaminophen (Tylenol Tab) 650 mg Q4H PRN PO PAIN AND OR ELEVATED TEMP Last administered on 09/16/17 20:27; Admin Dose 650 MG; Start 09/02/17 at 22:00 Lorazepam (Ativan) 0.5 mg Q8H PRN IV ANXIETY Last administered on 09/19/17 23 :59; Admin Dose 0.5 MG; Start 09/07/17 at 15:30 Famotidine (Pepcid Iv) 20 mg Q12 IV Last administered on 09/25/17 08:57; Admin Dose 20 MG; Start 09/08/17 at 21:00 IV Flush (NS 10 ml) 10 ml PRN PRN IV IV PROTOCOL Last administered on 05:03; Admin Dose 10 ML; Start 09/08/17 at 16:30 IV Flush 3 ml 3 ml Q8 IV Last administered on 09/24/17 14:04; Admin Dose 3 ML ; Start 09/09/17 at 22:00 Total Parenteral Nutrition (Tpn) 1,000 ml @ 40 mls/hr Q24H IV Last administered on 09/25/17 05:04; Admin Dose 40 MLS/HR; Start 09/09/17 at 16:00 Diagnostic Test (Pha) (Accu-Chek) 1 ea Q12H XX Last administered on 09/24/17 20:50; Admin Dose 1 EA; Start 09/14/17 at 21:00 Hydromorphone HCl (Dilaudid) 1 mg Q3H PRN IV PAIN Last administered on 13:53; Admin Dose 1 MG; Start 09/17/17 at 00:45 Metoclopramide HCl (Reglan) 10 mg Q6H PRN IV NAUSEA Last administered on 17:56; Admin Dose 10 MG; Start 09/21/17 at 18:16 GABRIEL EPSTEIN Sep 25, 2017 17:17
[2017-09-25 20:01] VITALS: BP 102/52; PULSE 64; RESP 16
[2017-09-26] MEDS: HYDROmorphONE 1 MG/ML SYG IV PRN ×7 (00:33→22:07)
[2017-09-26 02:00] VITALS: BP 105/60; RESP 18
[2017-09-26] MEDS: TPN 1,000 ML IV SCH ×2 (03:57→23:28)
[2017-09-26] MEDS: NACL 0.9% 3 ML SYG IV SCH ×3 (05:40→22:08)
[2017-09-26] MEDS: METOCLOPRAMIDE 10 MG INJ IV SCH ×3 (08:16→17:41)
[2017-09-26] MEDS: FAMOTIDINE 20 MG INJ IV SCH ×2 (08:16→20:26)
[2017-09-26] MEDS: ACCU-CHEK XX SCH ×2 (08:16→20:29)
[2017-09-26 08:24] VITALS: BP 102/52; PULSE 58; RESP 16
--- NOTE | 2017-09-26 10:45 | PN ---
DATE: 09/26/2017 SUBJECTIVE: Status post pancreatitis. The patient is on TPN. Yesterday, Dr. Christiansen advanced the d iet to low fat, low cholesterol, soft diet. Subjectively, no complaint. No nausea, no vomiting, no abdominal pain, but low back pain required pain medication. This morning, she has not had her rut kfast yet. Last night was on full liquid diet. OBJECTIVE GENERAL: Awake, alert, oriented x3. VITAL SIGNS: Temperature 98.2, heart rate 58, respirations 16, blood pressure 102/52, saturation 97 % on room air. HEART: Regular. ABDOMEN: Soft. LABORATORY DATA: No hematology or lipase is done today. We will get it done tomorrow. ASSESSMENT: A 36-year-old female status post ERCP, sphincterotomy, and stent placement, status post pancreatitis who has been on TPN for 20 days now. Appears to be gradually tolerating diet without developing any more abdominal pain. Her last lipase was 289, nothing today. We will get another li pase tomorrow. PLAN: We will try to see if she can tolerate advancing diet to soft, low cholesterol, low fat. Dictated By: BRANDO ENRIQUEZ MD PS/NTS Conf#: [id number] DID#: [id number] CC: KATHLEEN CASAREZ MD;*EndCC*
[2017-09-26 14:58] LABS: BASOPHIL # 0.1 10^3/ul (0.0-0.1); BASOPHILS % 0.5 % (0.0-2.0); EOSINOPHILS # 0.2 10^3/ul (0.0-0.5); EOSINOPHILS % 1.8 % (0.0-7.0); HEMOGLOBIN 11.3 g/dl (12.0-16.0); LYMPHOCYTES % 21.4 % (15.0-51.0); MEAN CORPUSCULAR HEMOGLOBIN 27.4 pg (29.0-33.0); MEAN CORPUSCULAR HGB CONC 32.3 g/dl (32.0-37.0); MEAN PLATELET VOLUME 10.7 fl (7.4-10.4); MONOCYTE # 0.7 10^3/ul (0.3-0.9); NEUTROPHIL # 6.5 10^3/ul (1.6-7.5); PLATELET COUNT 283 10^3/UL (140-415); RED BLOOD COUNT 4.12 10^6/ul (4.20-5.40); WHITE BLOOD COUNT 9.5 10^3/ul (4.8-10.8)
[2017-09-26 15:18] LABS: CALCIUM 9.1 mg/dl (8.4-10.2); CREATININE 0.93 mg/dl (0.44-1.00)
--- NOTE | 2017-09-26 18:04 | PN ---
Date/Time of Note Date/Time of Note DATE: 09/26/17 TIME: 17:41 Assessment/Plan Lines/Catheters IV [facility] (from [facility]): PICC Line Urinary Cath still in place: No Assessment/Plan Assessment/Plan - Acute pancreatitis s/p ERCP, now with formation of phlegmon per last CT, continue N.p.o. TPN, continue Dilaudid as needed for pain. - Status post EGD with notion of gastritis on 09/08. Continue Pepcid. - Intractable abdominal pain, resolving. Continue Dilaudid p.r.n. for pain and Zofran p.r.n. for nausea. - Cholelithiasis and acute cholecystitis. Dr. Smith is following in general surgery consultation. Completed treatment with Meropenem and Flagyl. - S/P ERCP and common bile duct stent placement by Dr Christiansen. Further recommendations based on clinical course. Plan of care discussed with Dr. Wright. Subjective 24 Hr Interval Summary Free Text/Dictation - afebrile, still c/o abdominal pain off and on. Patient started crying when asked how she is doing, she stated she has history of depression when she was . Patient agreed for Telepsych consult- will order supervisor case loading to arrange for this. dw staff Gastrointestinal: pain Exam/Review of Systems Vital Signs Vitals Vital Signs Date Time Temp Pulse Resp B/P Pulse Ox O2 Delivery O2 Flow Rate FiO2 09/26/17 08:24 98.1 58 16 102/52 97 Room Air Intake and Output 09/25/17 09/25/17 09/26/17 14:59 22:59 06:59 Intake Total 600 ml 1320 ml 1380 ml Output Total 1000 ml Balance -400 ml 1320 ml 1380 ml Exam Constitutional: alert, oriented Respiratory: clear to auscultation, diminished breath sounds Cardiovascular: nl pulses Gastrointestinal: soft, tender Musculoskeletal: nl extremities to inspection Results Result Diagram: 09/26/17 1429 09/26/17 1429 Results 24 hrs Laboratory Tests Test 09/25/17 20:52 09/26/17 08:18 09/26/17 14:29 09/26/17 15:42 Bedside Glucose 81 95 134 White Blood Count 9.5 # Red Blood Count 4.12 L Hemoglobin 11.3 L Hematocrit 35.0 L Mean Corpuscular Volume 85.0 Mean Corpuscular Hemoglobin 27.4 L Mean Corpuscular Hemoglobin Concent 32.3 Red Cell Distribution Width 13.0 Platelet Count 283 Mean Platelet Volume 10.7 H Neutrophils % 69.0 Lymphocytes % 21.4 Monocytes % 7.0 Eosinophils % 1.8 Basophils % 0.5 Nucleated Red Blood Cells % 0.0 Neutrophils # 6.5 Lymphocytes # 2.0 Monocytes # 0.7 Eosinophils # 0.2 Basophils # 0.1 Nucleated Red Blood Cells # 0.0 Sodium Level 136 Potassium Level 5.0 Chloride Level 105 Carbon Dioxide Level 22 Anion Gap 14 Blood Urea Nitrogen 12 Creatinine 0.93 Glucose Level 563 #*H Calcium Level 9.1 Medications Medications Current Medications Ondansetron HCl (Zofran Inj) 4 mg Q4H PRN IV NAUSEA AND/OR VOMITING Last administered on 09/25/17 05:03; Admin Dose 4 MG; Start 08/20/17 at 00:10 Senna (Senokot) 1 tab BID PRN PO CONSTIPATION Last administered on 08/26/17 11:18; Admin Dose 1 TAB; Start 08/26/17 at 10:30 Hydromorphone HCl (Dilaudid) 1.5 mg Q3 PRN IV PAIN Last administered on 07:26; Admin Dose 1.5 MG; Start 08/28/17 at 11:30; Status Future Hold Acetaminophen/ Hydrocodone Bitart ([place] (5/325)) 1 tab Q4H PRN PO Pain Last administered on 09/22/17 05:59; Admin Dose 1 TAB; Start 08/30/17 at 12:00 Acetaminophen (Tylenol Tab) 650 mg Q4H PRN PO PAIN AND OR ELEVATED TEMP Last administered on 09/16/17 20:27; Admin Dose 650 MG; Start 09/02/17 at 22:00 Lorazepam (Ativan) 0.5 mg Q8H PRN IV ANXIETY Last administered on 09/19/17 23 :59; Admin Dose 0.5 MG; Start 09/07/17 at 15:30 Famotidine (Pepcid Iv) 20 mg Q12 IV Last administered on 09/26/17 08:16; Admin Dose 20 MG; Start 09/08/17 at 21:00 IV Flush (NS 10 ml) 10 ml PRN PRN IV IV PROTOCOL Last administered on 00:32; Admin Dose 10 ML; Start 09/08/17 at 16:30 IV Flush 3 ml 3 ml Q8 IV Last administered on 09/26/17 14:00; Admin Dose 3 ML ; Start 09/09/17 at 22:00 Total Parenteral Nutrition (Tpn) 1,000 ml @ 40 mls/hr Q24H IV Last administered on 09/26/17 03:57; Admin Dose 40 MLS/HR; Start 09/09/17 at 16:00 Diagnostic Test (Pha) (Accu-Chek) 1 ea Q12H XX Last administered on 09/26/17 08:16; Admin Dose 1 EA; Start 09/14/17 at 21:00 Hydromorphone HCl (Dilaudid) 1 mg Q3H PRN IV PAIN Last administered on 15:44; Admin Dose 1 MG; Start 09/17/17 at 00:45 Metoclopramide HCl (Reglan) 10 mg Q6H PRN IV NAUSEA Last administered on 17:56; Admin Dose 10 MG; Start 09/21/17 at 18:16 GABRIEL EPSTEIN Sep 26, 2017 18:03
[2017-09-26] MEDS: ONDANSETRON 4 MG INJ IV PRN (18:54)
[2017-09-26 20:22] VITALS: BP 93/55; PULSE 65; RESP 18
[2017-09-26 22:12] VITALS: BP 115/55
[2017-09-27 01:01] VITALS: BP 112/55; PULSE 56; RESP 19
[2017-09-27] MEDS: HYDROmorphONE 1 MG/ML SYG IV PRN ×6 (01:03→21:05)
[2017-09-27] MEDS: TPN 1,000 ML IV SCH (03:34)
[2017-09-27] MEDS: NACL 0.9% 3 ML SYG IV SCH ×3 (05:40→21:05)
[2017-09-27 06:16] LABS: BASOPHILS % 0.5 % (0.0-2.0); EOSINOPHILS # 0.3 10^3/ul (0.0-0.5); HEMATOCRIT 35.9 % (37.0-47.0); HEMOGLOBIN 12.2 g/dl (12.0-16.0); LYMPHOCYTES # 1.7 10^3/ul (0.8-2.9); LYMPHOCYTES % 20.8 % (15.0-51.0); MEAN CORPUSCULAR VOLUME 82.5 fl (82.0-101.0); MEAN PLATELET VOLUME 10.4 fl (7.4-10.4); MONOCYTE # 0.8 10^3/ul (0.3-0.9); MONOCYTES % 9.1 % (0.0-11.0); NEUTROPHIL # 5.6 10^3/ul (1.6-7.5); NEUTROPHILS % 66.4 % (39.0-77.0); PLATELET COUNT 287 10^3/UL (140-415); RED BLOOD COUNT 4.35 10^6/ul (4.20-5.40); WHITE BLOOD COUNT 8.4 10^3/ul (4.8-10.8)
--- NOTE | 2017-09-27 07:02 | PN ---
DATE: 09/26/2017 The patient is feeling much better now. No abdominal pain, no vomiting, minimal nausea. PHYSICAL EXAMINATION: VITAL SIGNS: Temperature 98.1, pulse is 58, blood pressure is 102/52. ABDOMEN: Examination of the abdomen is unremarkable. LABORATORY WORKUP: Yesterday, lipase is 289. CLINICAL IMPRESSION: Improving and resolving pancreatitis. PLAN: Consider early discharge. Dictated By: BREA FRANKLIN MD NC/NTS Conf#: [id number] DID#: [id number] CC: KATHLEEN CASAREZ MD;*EndCC*
[2017-09-27 07:04] LABS: CALCIUM 9.3 mg/dl (8.4-10.2); CREATININE 0.75 mg/dl (0.44-1.00); MAGNESIUM 1.7 mg/dl (1.7-2.5); PHOSPHORUS 5.3 mg/dl (2.5-4.9); POTASSIUM 3.8 mmol/L (3.5-5.1)
[2017-09-27 08:00] VITALS: BP 100/52; RESP 16
[2017-09-27] MEDS: ACCU-CHEK XX SCH ×2 (08:22→21:05)
[2017-09-27] MEDS: FAMOTIDINE 20 MG INJ IV SCH ×2 (08:22→21:04)
[2017-09-27] MEDS: METOCLOPRAMIDE 10 MG INJ IV SCH ×3 (08:22→17:07)
--- NOTE | 2017-09-27 13:03 | PN ---
DATE: 09/27/2017 SUBJECTIVE: A 36-year-old female status post ERCP, status post pancreatitis. The patient is on TPN, as of 2 days ago started on a low fat, low cholesterol, regular diet. The patient still has some mild pain, today required IV Dilaudid for pain at 9:00 a.m. No nausea, no vomiting, passing gas. Lipase gradually coming down. As was mentioned, the patient has been started on regular low fat , low cholesterol diet, but she is not of course, taking that much of the food. No complaint. OBJECTIVE: VITAL SIGNS: Temperature 98.7, pulse rate 56, respirations 16, blood pressure 100/52, saturation 97% on room air. HEART: Regular. LUNGS: Clear. ABDOMEN: Soft. LEGS: No calf tenderness. The patient is ambulating. LABORATORY DATA: WBC is 8400 with 66% neutrophils. Hemoglobin and hematocrit is stable. Chemistry: Sodium, potassium, BUN, creatinine normal. Lipase down to 245. ASSESSMENT: A 36-year-old female with gallstones and elevated enzymes. Endoscopic retrograde cholangiopancreatography was performed with sphincterotomy done and stent was placed. The patient developed pancreatitis status post endoscopic retrograde cholangiopancreatography requiring TPN and absolute n.p.o. Eventually lipase started trending down. Pain started to be controllable, now gradually start patient on diet, past 2 days started on a low fat, low cholesterol diet, though the patient is not taking enough of the tray. Still has TPN. Today, lipase down to 245. PLAN: We will observe her for a couple more days on liquid and low fat diet. If her lipase trends to continue to go towards normal and the pain is controlled with p.o. medication, then we can discharge the TPN, can discharge the patient. Dictated By: BRANDO ENRIQUEZ MD PS/NTS Conf#: [id number] DID#: [id number] CC: KATHLEEN CASAREZ MD;*EndCC* MTDD
[2017-09-27] MEDS: traMADol 50 MG TAB PO PRN (13:24)
[2017-09-27 14:28] VITALS: BP 111/54; RESP 16
--- NOTE | 2017-09-27 15:18 | PN ---
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 TPN, continue Dilaudid as needed for pain. - Status post EGD with notion of gastritis on 09/08. Continue Pepcid. - Intractable abdominal pain, resolving. Continue Dilaudid p.r.n. for pain and Zofran p.r.n. for nausea. - Cholelithiasis and acute cholecystitis. Dr. Smith is following in general surgery consultation. Completed treatment with Meropenem and Flagyl. - S/P ERCP and common bile duct stent placement by Dr Christiansen. Further recommendations based on clinical course. Plan of care discussed with Dr. Wright. Subjective 24 Hr Interval Summary Respiratory: no complaints Cardiovascular: no complaints Gastrointestinal: pain Genitourinary: no complaints Musculoskeletal: no complaints Exam/Review of Systems Vital Signs Vitals Vital Signs Date Time Temp Pulse Resp B/P Pulse Ox O2 Delivery O2 Flow Rate FiO2 09/27/17 14:28 98.2 78 16 111/54 98 09/27/17 01:01 Room Air Intake and Output 09/26/17 09/26/17 09/27/17 15:00 23:00 07:00 Intake Total 800 ml 900 ml Balance 800 ml 900 ml Exam Constitutional: alert, oriented, well developed Respiratory: clear to auscultation, normal air movement Cardiovascular: nl pulses Gastrointestinal: soft, tender Musculoskeletal: nl extremities to inspection Extremities: normal pulses Neurological: nl mental status, nl speech Results Result Diagram: 09/27/17 0547 09/27/17 0547 Results 24 hrs Laboratory Tests Test 09/26/17 15:42 09/26/17 18:19 09/26/17 20:29 09/27/17 05:46 Bedside Glucose 134 91 Glucose Level 105 # Lipase 245 Test 09/27/17 05:47 09/27/17 08:30 White Blood Count 8.4 Red Blood Count 4.35 Hemoglobin 12.2 Hematocrit 35.9 L Mean Corpuscular Volume 82.5 Mean Corpuscular Hemoglobin 28.0 L Mean Corpuscular Hemoglobin Concent 34.0 Red Cell Distribution Width 13.0 Platelet Count 287 Mean Platelet Volume 10.4 Neutrophils % 66.4 Lymphocytes % 20.8 Monocytes % 9.1 Eosinophils % 3.0 Basophils % 0.5 Nucleated Red Blood Cells % 0.0 Neutrophils # 5.6 Lymphocytes # 1.7 Monocytes # 0.8 Eosinophils # 0.3 Basophils # 0.0 Nucleated Red Blood Cells # 0.0 Sodium Level 140 Potassium Level 3.8 Chloride Level 106 Carbon Dioxide Level 26 Anion Gap 12 Blood Urea Nitrogen 12 Creatinine 0.75 Glucose Level 106 Calcium Level 9.3 Phosphorus Level 5.3 H Magnesium Level 1.7 Bedside Glucose 109 Medications Medications Current Medications Ondansetron HCl (Zofran Inj) 4 mg Q4H PRN IV NAUSEA AND/OR VOMITING Last administered on 09/26/17 18:54; Admin Dose 4 MG; Start 08/20/17 at 00:10 Senna (Senokot) 1 tab BID PRN PO CONSTIPATION Last administered on 08/26/17 11:18; Admin Dose 1 TAB; Start 08/26/17 at 10:30 Hydromorphone HCl (Dilaudid) 1.5 mg Q3 PRN IV PAIN Last administered on 07:26; Admin Dose 1.5 MG; Start 08/28/17 at 11:30; Status Future Hold Acetaminophen/ Hydrocodone Bitart ([place] (5/325)) 1 tab Q4H PRN PO Pain Last administered on 09/22/17 05:59; Admin Dose 1 TAB; Start 08/30/17 at 12:00 Acetaminophen (Tylenol Tab) 650 mg Q4H PRN PO PAIN AND OR ELEVATED TEMP Last administered on 09/16/17 20:27; Admin Dose 650 MG; Start 09/02/17 at 22:00 Lorazepam (Ativan) 0.5 mg Q8H PRN IV ANXIETY Last administered on 09/19/17 23 :59; Admin Dose 0.5 MG; Start 09/07/17 at 15:30 Famotidine (Pepcid Iv) 20 mg Q12 IV Last administered on 09/27/17 08:22; Admin Dose 20 MG; Start 09/08/17 at 21:00 IV Flush (NS 10 ml) 10 ml PRN PRN IV IV PROTOCOL Last administered on 14:59; Admin Dose 10 ML; Start 09/08/17 at 16:30 IV Flush 3 ml 3 ml Q8 IV Last administered on 09/27/17 14:59; Admin Dose 3 ML ; Start 09/09/17 at 22:00 Total Parenteral Nutrition (Tpn) 1,000 ml @ 40 mls/hr Q24H IV Last administered on 09/27/17 03:34; Admin Dose 40 MLS/HR; Start 09/09/17 at 16:00 Diagnostic Test (Pha) (Accu-Chek) 1 ea Q12H XX Last administered on 09/27/17 08:22; Admin Dose 1 EA; Start 09/14/17 at 21:00 Hydromorphone HCl (Dilaudid) 1 mg Q3H PRN IV PAIN Last administered on 14:58; Admin Dose 1 MG; Start 09/17/17 at 00:45 Metoclopramide HCl (Reglan) 10 mg Q6H PRN IV NAUSEA Last administered on 17:56; Admin Dose 10 MG; Start 09/21/17 at 18:16 Tramadol HCl (Ultram) 50 mg Q8 PRN PO PAIN LEVEL 4-6 Last administered on 09/27 13:24; Admin Dose 50 MG; Start 09/27/17 at 12:30 GABRIEL EPSTEIN Sep 27, 2017 15:18
--- NOTE | 2017-09-27 16:05 | RADRPT ---
PROCEDURE: US kidney CLINICAL INDICATION: Right flank pain TECHNIQUE: Multiple real-time images were acquired COMPARISON: Abdomen/pelvis CT 09/03/2017 FINDINGS: The right kidney measures 10.4 cm in length. The left kidney measures 11.7 cm in length. Kidney echogenicity is unremarkable. Of note, kidney stones may not be visualized by sonography. No abnormal perirenal fluid collections seen. No hydronephrosis seen. Limited images of the partially distended bladder reveal no significant abnormalities. IMPRESSION: 1. The kidneys are unremarkable on this sonogram RPTAT: TT Physician Kylah Date Time Electronically viewed and signed by Physician Kylah on 09/27/2017 16:05 IRASEMA/
[2017-09-27 18:18] LABS: ALBUMIN 3.5 g/dl (3.3-4.9); BILIRUBIN,INDIRECT 0.6 mg/dl (0-1.1); BILIRUBIN,TOTAL 0.6 mg/dl (0.2-1.3)
[2017-09-27 18:19] LABS: PHOSPHORUS 4.7 mg/dl (2.5-4.9)
[2017-09-27 18:44] LABS: ADD UMIC NO; UR ASCORBIC ACID NEGATIVE (NEGATIVE); UR BACTERIA FEW /HPF (NONE SEEN); UR BILIRUBIN (Dip) NEGATIVE (NEGATIVE); UR BLOOD (Dip) NEGATIVE (NEGATIVE); UR CLARITY SLIGHTLY CLOUDY (CLEAR); UR COLOR YELLOW (YELLOW); UR GLUCOSE (Dip) NEGATIVE (NEGATIVE); UR KETONES (Dip) NEGATIVE (NEGATIVE); UR LEUKOCYTE ESTERASE (Dip) NEGATIVE Leu/ul (NEGATIVE); UR NITRITE (Dip) NEGATIVE (NEGATIVE); UR RBC 1 /HPF (0-5); UR SPECIFIC GRAVITY (Dip) 1.009 (1.003-1.030); UR SQUAMOUS EPITHELIAL CELL FEW /HPF (FEW); UR TOTAL PROTEIN (Dip) NEGATIVE (NEGATIVE); UR UROBILINOGEN (Dip) NEGATIVE (NEGATIVE)
[2017-09-27 20:10] VITALS: BP 98/51; RESP 20
[2017-09-28] MEDS: traMADol 50 MG TAB PO PRN (00:33)
[2017-09-28] MEDS: HYDROmorphONE 1 MG/ML SYG IV PRN ×5 (01:15→21:22)
[2017-09-28 02:12] VITALS: BP 103/56; RESP 18
[2017-09-28] MEDS: NACL 0.9% 3 ML SYG IV SCH ×3 (06:03→21:28)
[2017-09-28] MEDS: ACCU-CHEK XX SCH ×2 (08:29→21:27)
[2017-09-28] MEDS: TPN 1,000 ML IV SCH ×2 (08:37→23:28)
[2017-09-28 08:39] VITALS: BP 106/59; PULSE 68; RESP 16
[2017-09-28] MEDS: METOCLOPRAMIDE 10 MG INJ IV SCH ×3 (08:51→16:44)
[2017-09-28] MEDS: FAMOTIDINE 20 MG INJ IV SCH ×2 (08:51→21:22)
[2017-09-28] MEDS: HYDROCORTISONE 1% 28 GM CR TOP SCH ×2 (08:51→21:23)
[2017-09-28] MEDS: ESCITALOPRAM 10 MG TAB PO SCH (11:49)
--- NOTE | 2017-09-28 14:39 | PN ---
Date/Time of Note Date/Time of Note DATE: 09/28/17 TIME: 14:38 Assessment/Plan VTE Prophylaxis VTE Prophylaxis Intervention: SCD's Lines/Catheters IV C[facility]ter Type (from [facility]): PICC Line Central line still needed: Yes Urinary Cath still in place: No Assessment/Plan Chief Complaint/Hosp Course Patient's continues to have poor appetite. Case discussed with Dr. Daly, patient continues to tolerate diet and lipase continues to decrease patient will be able to go home and couple of days. Assessment/Plan - Acute pancreatitis s/p ERCP, now with formation of phlegmon per last CT, continue N.p.o. TPN, continue Dilaudid as needed for pain. - Status post EGD with notion of gastritis on 09/08. Continue Pepcid. - Intractable abdominal pain, resolving. Continue Dilaudid p.r.n. for pain and Zofran p.r.n. for nausea. - Cholelithiasis and acute cholecystitis. Dr. Smith is following in general surgery consultation. Completed treatment with Meropenem and Flagyl. - S/P ERCP and common bile duct stent placement by Dr Christiansen. - Depression, continue Lexapro. Further recommendations based on clinical course. Plan of care discussed with Dr. Wright. Problems: Exam/Review of Systems Vital Signs Vitals Vital Signs Date Time Temp Pulse Resp B/P Pulse Ox O2 Delivery O2 Flow Rate FiO2 09/28/17 08:39 98.5 68 16 106/59 97 Room Air Intake and Output 09/27/17 09/27/17 09/28/17 15:00 23:00 07:00 Intake Total 1200 ml 0 ml Output Total 200 ml 100 ml Balance 1000 ml -100 ml Exam Constitutional: alert, oriented Head: normocephalic Neck: supple Respiratory: normal air movement Cardiovascular: nl pulses Gastrointestinal: soft Extremities: normal pulses Results Result Diagram: 09/27/17 0547 09/27/17 0547 Results 24 hrs Laboratory Tests Test 09/27/17 17:00 09/27/17 17:03 09/27/17 17:05 09/27/17 21:03 Total Bilirubin 0.6 Direct Bilirubin 0.00 Indirect Bilirubin 0.6 Aspartate Amino Transf (AST/SGOT) 87 H Alanine Aminotransferase (ALT/SGPT) 105 H Alkaline Phosphatase 133 H Total Protein 7.0 Albumin 3.5 Phosphorus Level 4.7 Lipase 280 Urine Color YELLOW Urine Clarity SLIGHTLY CLOUDY A Urine pH 5.0 Urine Specific [place] 1.009 Urine Ketones NEGATIVE Urine Nitrite NEGATIVE Urine Bilirubin NEGATIVE Urine Urobilinogen NEGATIVE Urine Leukocyte Esterase NEGATIVE Urine Microscopic RBC 1 Urine Microscopic WBC 1 Urine Squamous Epithelial Cells FEW Urine Bacteria FEW A Urine Hemoglobin NEGATIVE Urine Glucose NEGATIVE Urine Total Protein NEGATIVE Bedside Glucose 118 Test 09/28/17 05:59 09/28/17 08:07 Lipase 253 Bedside Glucose 96 Medications Medications Current Medications Ondansetron HCl (Zofran Inj) 4 mg Q4H PRN IV NAUSEA AND/OR VOMITING Last administered on 09/26/17 18:54; Admin Dose 4 MG; Start 08/20/17 at 00:10 Senna (Senokot) 1 tab BID PRN PO CONSTIPATION Last administered on 08/26/17 11:18; Admin Dose 1 TAB; Start 08/26/17 at 10:30 Hydromorphone HCl (Dilaudid) 1.5 mg Q3 PRN IV PAIN Last administered on 07:26; Admin Dose 1.5 MG; Start 08/28/17 at 11:30; Status Future Hold Acetaminophen/ Hydrocodone Bitart ([place] (5/325)) 1 tab Q4H PRN PO Pain Last administered on 09/22/17 05:59; Admin Dose 1 TAB; Start 08/30/17 at 12:00 Acetaminophen (Tylenol Tab) 650 mg Q4H PRN PO PAIN AND OR ELEVATED TEMP Last administered on 09/16/17 20:27; Admin Dose 650 MG; Start 09/02/17 at 22:00 Lorazepam (Ativan) 0.5 mg Q8H PRN IV ANXIETY Last administered on 09/19/17 23 :59; Admin Dose 0.5 MG; Start 09/07/17 at 15:30 Famotidine (Pepcid Iv) 20 mg Q12 IV Last administered on 09/28/17 08:51; Admin Dose 20 MG; Start 09/08/17 at 21:00 IV Flush (NS 10 ml) 10 ml PRN PRN IV IV PROTOCOL Last administered on 13:27; Admin Dose 10 ML; Start 09/08/17 at 16:30 IV Flush 3 ml 3 ml Q8 IV Last administered on 09/28/17 13:30; Admin Dose 3 ML ; Start 09/09/17 at 22:00 Total Parenteral Nutrition (Tpn) 1,000 ml @ 40 mls/hr Q24H IV Last administered on 09/28/17 08:37; Admin Dose 40 MLS/HR; Start 09/09/17 at 16:00 Diagnostic Test (Pha) (Accu-Chek) 1 ea Q12H XX Last administered on 09/28/17 08:29; Admin Dose 1 EA; Start 09/14/17 at 21:00 Hydromorphone HCl (Dilaudid) 1 mg Q3H PRN IV PAIN Last administered on 13:20; Admin Dose 1 MG; Start 09/17/17 at 00:45 Metoclopramide HCl (Reglan) 10 mg Q6H PRN IV NAUSEA Last administered on 17:56; Admin Dose 10 MG; Start 09/21/17 at 18:16 Tramadol HCl (Ultram) 50 mg Q8 PRN PO PAIN LEVEL 4-6 Last administered on 09/28 00:33; Admin Dose 50 MG; Start 09/27/17 at 12:30 Hydrocortisone (Hydrocortisone 1% Cr) 1 applic BID TOP Last administered on 08:51; Admin Dose 1 APPLIC; Start 09/28/17 at 09:00 Escitalopram Oxalate (Lexapro) 10 mg DAILY PO Last administered on 09/28/17 11:49; Admin Dose 10 MG; Start 09/28/17 at 12:00 JAROCHO YOUNG Sep 28, 2017 14:39
[2017-09-28 14:54] VITALS: BP 96/67; RESP 18
--- NOTE | 2017-09-28 20:44 | PN ---
DATE: 09/28/2017 The patient is recovering from the pancreatitis, status post ERCP for cholangitis. At this time is not experiencing any abdominal pain, no nausea, no vomiting. She is tolerating the diet. PHYSICAL EXAMINATION: VITAL SIGNS: Blood pressure is 96/67, temperature 97.7. ABDOMEN: Unremarkable, nontender. LABORATORY WORKUP: WBC count 8400, hemoglobin 12.2. The lipase is normal at 253. CLINICAL IMPRESSION: Dissolved pancreatitis. PLAN: I would recommend to discharge the patient and follow as an outpatient. Dictated By: BREA HOOK/MAVERICK Conf#: [id number] DID#: [id number]
[2017-09-28 20:59] VITALS: BP 93/51; RESP 18
[2017-09-29] MEDS: traMADol 50 MG TAB PO PRN ×2 (00:41→08:55)
[2017-09-29] MEDS: HYDROmorphONE 1 MG/ML SYG IV PRN ×4 (01:51→20:55)
[2017-09-29 02:00] VITALS: BP 97/52; RESP 16
[2017-09-29] MEDS: NACL 0.9% 3 ML SYG IV SCH ×3 (05:18→21:42)
[2017-09-29 06:55] LABS: CALCIUM 8.8 mg/dl (8.4-10.2); CREATININE 0.65 mg/dl (0.44-1.00); MAGNESIUM 1.8 mg/dl (1.7-2.5); PHOSPHORUS 5.5 mg/dl (2.5-4.9); POTASSIUM 3.6 mmol/L (3.5-5.1)
--- NOTE | 2017-09-29 06:58 | PN ---
DATE: 09/28/2017 SUBJECTIVE: No new complaints. He states that almost 2 hours after eating a regular low fat diet, which of course she is not eating all of it but about 50% of the portion she gets pain in epigastric and also pain in the right upper quadrant and right upper flank. The scale of the pain is about 2 to 4/10. No nausea, no vomiting. So she is getting pain medication, IV and sometimes p.o., that helps her passing gas. OBJECTIVE: Alert and oriented x3. Vital signs: Temperature 98.5, heart rate 63 , respirations 16, blood pressure 106/60. She is on 97% room air. LABORATORY DATA: Lipase taken this afternoon is 253. This figure 256 is considered normal range in this hospital. HEART: Regular. LUNGS: Clear. ABDOMEN: Soft. Ultrasound of the kidney on the right side was performed yesterday does not show any pathology. ASSESSMENT AND PLAN: A 36-year-old female who presented with gallstones and had elevated enzymes, some dilatation of the biliary tree. ERCP, sphincterotomy and stent placement was performed. Post-operation developed pancreatitis, which was very severe. Lipase is up to 17,000 and gradually the patient responded to n.p.o. and TPN. Now it is 3 to 4 days that the patient has been started on regular low fat diet. The patient is tolerating the food, though she is not eating more than 50% of the amount of the food on the tray. Last lipase today is 254, which is normal range. ASSESSMENT AND PLAN: Appears that the inflammation of the pancreas is decreasing. Will continue current care, namely low fat regular diet and observing. If the patient a couple of more days does not get the elevation of lipase, we will taper off the TPN and hopefully by the end of the week or the beginning of the first week we are going to be discharging the patient. Dictated By: BRANDO CHRISTINE/MAVERICK Conf#: [id number] DID#: [id number] MTDD
[2017-09-29 07:41] VITALS: BP 98/53; RESP 16
[2017-09-29] MEDS: FAMOTIDINE 20 MG INJ IV SCH ×2 (08:55→20:55)
[2017-09-29] MEDS: ESCITALOPRAM 10 MG TAB PO SCH (08:55)
[2017-09-29] MEDS: HYDROCORTISONE 1% 28 GM CR TOP SCH ×2 (08:59→20:57)
[2017-09-29] MEDS: ACCU-CHEK XX SCH ×2 (09:00→21:00)
[2017-09-29] MEDS: METOCLOPRAMIDE 10 MG INJ IV SCH ×3 (09:41→18:28)
[2017-09-29 13:35] VITALS: BP 102/59; RESP 16
[2017-09-29] MEDS: TPN 1,000 ML IV SCH (14:52)
--- NOTE | 2017-09-29 15:15 | PN ---
DATE: 09/29/2017 SUBJECTIVE: No specific complaints. She feels better. She is on low fat, low cholesterol diet, th ough she is not eating good portions of the food from the hospital, but she is eating some part of i t. No nausea, no vomiting, no abdominal pain following the food. OBJECTIVE: GENERAL: Awake, alert, oriented x3. VITAL SIGNS: Temperature 98.2, heart rate 62, respirations 16, blood pressure 98/53, saturation 97% on room air. HEART: Regular. LUNGS: Clear. ABDOMEN: Soft. EXTREMITIES: Legs, no calf tenderness. LABORATORY DATA: We have a BMP which is normal. Lipase today is 2205, which is normal. ASSESSMENT: A 36-year-old female with gallbladder disease, gallstones and dilated biliary tree. Sh jerri underwent endoscopic retrograde cholangiopancreatography, sphincterotomy and stent. Later on, she developed pancreatitis. Eventually with the help of TPN the pancreatitis is responding. The patie nt is tolerating regular diet. In the past 3 or 4 days, lipase eventually has normalized. Abdomina l tenderness is minimal and pain has been like 2 or 3 or at most 4 on a scale of 10, so we have star belem cutting down on the TPN as of today. By tomorrow, we are going to stop it. If the enzymes are normal tomorrow and patient tolerates more food, then we can discharge her tomorrow or on . ADDENDUM: The patient later on should call Dr. Smith' office and go to Dr. Smith' office so that can make a plan for elective cholecystectomy. Dictated By: BRANDO ENRIQUEZ MD PS/MAVERICK Conf#: [id number] DID#: [id number] CC: KATHLEEN CASAREZ MD;*EndCC*
--- NOTE | 2017-09-29 16:49 | PN ---
Date/Time of Note Date/Time of Note DATE: 09/29/17 TIME: 16:47 Assessment/Plan VTE Prophylaxis VTE Prophylaxis Intervention: SCD's Lines/Catheters IV Catheter Type (from Nrs): PICC Line Central line still needed: Yes Urinary Cath still in place: No Assessment/Plan Chief Complaint/Hosp Course Patient's continues to have poor appetite. Continue to monitor lipase. Taper TPN. If patient is able to tolerate diet well anticipate discharge home upon clearance from surgery and GI. Plan of care discussed with Dr. Daly Assessment/Plan - Acute pancreatitis s/p ERCP, now with formation of phlegmon per last CT, continue N.p.o. TPN, continue Dilaudid as needed for pain. - Status post EGD with notion of gastritis on 09/08. Continue Pepcid. - Intractable abdominal pain, resolving. Continue Dilaudid p.r.n. for pain and Zofran p.r.n. for nausea. - Cholelithiasis and acute cholecystitis. Dr. Smith is following in general surgery consultation. Completed treatment with Meropenem and Flagyl. - S/P ERCP and common bile duct stent placement by Dr Christiansen. - Depression, continue Lexapro. Further recommendations based on clinical course. Plan of care discussed with Dr. Wright. Problems: Exam/Review of Systems Vital Signs Vitals Vital Signs Date Time Temp Pulse Resp B/P Pulse Ox O2 Delivery O2 Flow Rate FiO2 09/29/17 13:35 98.2 53 16 102/59 96 09/28/17 08:39 Room Air Intake and Output 09/28/17 09/28/17 09/29/17 15:00 23:00 07:00 Intake Total 60 ml 360 ml 440 ml Output Total 800 ml 250 ml Balance 60 ml -440 ml 190 ml Exam Constitutional: alert, oriented Head: normocephalic Neck: supple Respiratory: normal air movement Cardiovascular: nl pulses Gastrointestinal: soft Extremities: normal pulses Results Result Diagram: 09/27/17 0547 09/29/17 0545 Results 24 hrs Laboratory Tests Test 09/28/17 21:27 09/29/17 05:45 09/29/17 08:54 Bedside Glucose 92 94 Sodium Level 140 Potassium Level 3.6 Chloride Level 106 Carbon Dioxide Level 24 Anion Gap 14 Blood Urea Nitrogen 10 Creatinine 0.65 Glucose Level 102 Calcium Level 8.8 Phosphorus Level 5.5 H Magnesium Level 1.8 Lipase 205 Medications Medications Current Medications Ondansetron HCl (Zofran Inj) 4 mg Q4H PRN IV NAUSEA AND/OR VOMITING Last administered on 09/26/17 18:54; Admin Dose 4 MG; Start 08/20/17 at 00:10 Senna (Senokot) 1 tab BID PRN PO CONSTIPATION Last administered on 08/26/17 11:18; Admin Dose 1 TAB; Start 08/26/17 at 10:30 Hydromorphone HCl (Dilaudid) 1.5 mg Q3 PRN IV PAIN Last administered on 07:26; Admin Dose 1.5 MG; Start 08/28/17 at 11:30; Status Future Hold Acetaminophen/ Hydrocodone Bitart ([place] (5/325)) 1 tab Q4H PRN PO Pain Last administered on 09/22/17 05:59; Admin Dose 1 TAB; Start 08/30/17 at 12:00 Acetaminophen (Tylenol Tab) 650 mg Q4H PRN PO PAIN AND OR ELEVATED TEMP Last administered on 09/16/17 20:27; Admin Dose 650 MG; Start 09/02/17 at 22:00 Lorazepam (Ativan) 0.5 mg Q8H PRN IV ANXIETY Last administered on 09/19/17 23 :59; Admin Dose 0.5 MG; Start 09/07/17 at 15:30 Famotidine (Pepcid Iv) 20 mg Q12 IV Last administered on 09/29/17 08:55; Admin Dose 20 MG; Start 09/08/17 at 21:00 IV Flush (NS 10 ml) 10 ml PRN PRN IV IV PROTOCOL Last administered on 13:27; Admin Dose 10 ML; Start 09/08/17 at 16:30 IV Flush 3 ml 3 ml Q8 IV Last administered on 09/28/17 13:30; Admin Dose 3 ML ; Start 09/09/17 at 22:00 Total Parenteral Nutrition (Tpn) 1,000 ml @ 40 mls/hr Q24H IV Last administered on 09/29/17 14:52; Admin Dose 40 MLS/HR; Start 09/09/17 at 16:00 Diagnostic Test (Pha) (Accu-Chek) 1 ea Q12H XX Last administered on 09/28/17 21:27; Admin Dose 1 EA; Start 09/14/17 at 21:00 Hydromorphone HCl (Dilaudid) 1 mg Q3H PRN IV PAIN Last administered on 16:03; Admin Dose 1 MG; Start 09/17/17 at 00:45 Metoclopramide HCl (Reglan) 10 mg Q6H PRN IV NAUSEA Last administered on 17:56; Admin Dose 10 MG; Start 09/21/17 at 18:16 Tramadol HCl (Ultram) 50 mg Q8 PRN PO PAIN LEVEL 4-6 Last administered on 09/29 08:55; Admin Dose 50 MG; Start 09/27/17 at 12:30 Hydrocortisone (Hydrocortisone 1% Cr) 1 applic BID TOP Last administered on 08:59; Admin Dose 1 APPLIC; Start 09/28/17 at 09:00 Escitalopram Oxalate (Lexapro) 10 mg DAILY PO Last administered on 09/29/17 08:55; Admin Dose 10 MG; Start 09/28/17 at 12:00 JAROCHO YOUNG Sep 29, 2017 16:49
[2017-09-29 20:00] VITALS: BP 106/62; RESP 20
[2017-09-30] MEDS: traMADol 50 MG TAB PO PRN (00:42)
[2017-09-30] MEDS: ONDANSETRON 4 MG INJ IV PRN (01:19)
[2017-09-30] MEDS: HYDROmorphONE 1 MG/ML SYG IV PRN ×5 (02:09→21:26)
[2017-09-30 02:55] VITALS: BP 128/63; RESP 18
[2017-09-30] MEDS: NACL 0.9% 3 ML SYG IV SCH ×3 (05:18→20:39)
[2017-09-30 06:27] LABS: BASOPHIL # 0.1 10^3/ul (0.0-0.1); BASOPHILS % 0.6 % (0.0-2.0); EOSINOPHILS # 0.2 10^3/ul (0.0-0.5); EOSINOPHILS % 2.4 % (0.0-7.0); HEMATOCRIT 35.4 % (37.0-47.0); HEMOGLOBIN 12.2 g/dl (12.0-16.0); LYMPHOCYTES # 1.9 10^3/ul (0.8-2.9); LYMPHOCYTES % 22.2 % (15.0-51.0); MEAN CORPUSCULAR HEMOGLOBIN 28.2 pg (29.0-33.0); MEAN CORPUSCULAR HGB CONC 34.5 g/dl (32.0-37.0); MEAN CORPUSCULAR VOLUME 81.9 fl (82.0-101.0); MEAN PLATELET VOLUME 10.6 fl (7.4-10.4); MONOCYTE # 0.7 10^3/ul (0.3-0.9); MONOCYTES % 8.1 % (0.0-11.0); NEUTROPHIL # 5.6 10^3/ul (1.6-7.5); NEUTROPHILS % 66.3 % (39.0-77.0); PLATELET COUNT 286 10^3/UL (140-415); RED BLOOD COUNT 4.32 10^6/ul (4.20-5.40); RED CELL DISTRIBUTION WIDTH 13.3 % (11.5-14.5); WHITE BLOOD COUNT 8.5 10^3/ul (4.8-10.8)
[2017-09-30 07:02] LABS: ALBUMIN 3.4 g/dl (3.3-4.9); ALBUMIN/GLOBULIN RATIO 0.94; BILIRUBIN,INDIRECT 0.7 mg/dl (0-1.1); BILIRUBIN,TOTAL 0.7 mg/dl (0.2-1.3); CALCIUM 9.2 mg/dl (8.4-10.2); CREATININE 0.69 mg/dl (0.44-1.00); POTASSIUM 3.8 mmol/L (3.5-5.1)
[2017-09-30 07:28] VITALS: BP 95/51; RESP 16
[2017-09-30] MEDS: FAMOTIDINE 20 MG INJ IV SCH ×2 (09:17→20:38)
[2017-09-30] MEDS: METOCLOPRAMIDE 10 MG INJ IV SCH ×3 (09:18→17:29)
[2017-09-30] MEDS: ESCITALOPRAM 10 MG TAB PO SCH (09:21)
[2017-09-30] MEDS: ACCU-CHEK XX SCH ×2 (09:21→20:39)
[2017-09-30] MEDS: HYDROCORTISONE 1% 28 GM CR TOP SCH ×2 (09:22→20:39)
[2017-09-30] MEDS ORDERED: MAGNESIUM HYDROXIDE 30ML CUP PO PRN (11:00)
--- NOTE | 2017-09-30 12:32 | PN ---
Date/Time of Note Date/Time of Note DATE: 09/30/17 TIME: 12:29 Assessment/Plan VTE Prophylaxis VTE Prophylaxis Intervention: other Lines/Catheters IV [facility] Type ([facility] PICC Line Central line still needed: Yes Urinary Cath still in place: No Assessment/Plan Assessment/Plan - Acute pancreatitis s/p ERCP, now with formation of phlegmon per last CT, continue N.p.o. TPN, continue Dilaudid as needed for pain. - Status post EGD with notion of gastritis on 09/08. Continue Pepcid. - Intractable abdominal pain, resolving. Continue Dilaudid p.r.n. for pain and Zofran p.r.n. for nausea. - Cholelithiasis and acute cholecystitis. Dr. Smith is following in general surgery consultation. Completed treatment with Meropenem and Flagyl. - S/P ERCP and common bile duct stent placement by Dr Christiansen. - Depression, continue Lexapro. Further recommendations based on clinical course. Plan of care discussed with Dr. Wright. Subjective 24 Hr Interval Summary Free Text/Dictation Patient's appetite is better today- eating Pear and tolerating well.. Continue to monitor lipase. Taper TPN. If patient is able to tolerate diet well -anticipate discharge home upon clearance from surgery and GI. Plan of care discussed with staff Respiratory: no complaints Cardiovascular: no complaints Gastrointestinal: no complaints Genitourinary: no complaints Musculoskeletal: no complaints Exam/Review of Systems Vital Signs Vitals Vital Signs Date Time Temp Pulse Resp B/P Pulse Ox O2 Delivery O2 Flow Rate FiO2 09/30/17 07:28 98.2 57 16 95/51 97 09/28/17 08:39 Room Air Intake and Output 09/29/17 09/29/17 09/30/17 15:00 23:00 07:00 Intake Total 1000 ml 1240 ml 420 ml Output Total 1000 ml 300 ml Balance 1000 ml 240 ml 120 ml Exam Constitutional: alert, oriented, well developed Respiratory: clear to auscultation Cardiovascular: nl pulses Gastrointestinal: non-tender, soft Musculoskeletal: nl extremities to inspection Results Result Diagram: 09/30/17 0544 09/30/17 0544 Results 24 hrs Laboratory Tests Test 09/29/17 20:59 09/30/17 05:44 09/30/17 09:28 Bedside Glucose 98 104 White Blood Count 8.5 Red Blood Count 4.32 Hemoglobin 12.2 Hematocrit 35.4 L Mean Corpuscular Volume 81.9 L Mean Corpuscular Hemoglobin 28.2 L Mean Corpuscular Hemoglobin Concent 34.5 Red Cell Distribution Width 13.3 Platelet Count 286 Mean Platelet Volume 10.6 H Neutrophils % 66.3 Lymphocytes % 22.2 Monocytes % 8.1 Eosinophils % 2.4 Basophils % 0.6 Nucleated Red Blood Cells % 0.0 Neutrophils # 5.6 Lymphocytes # 1.9 Monocytes # 0.7 Eosinophils # 0.2 Basophils # 0.1 Nucleated Red Blood Cells # 0.0 Sodium Level 142 Potassium Level 3.8 Chloride Level 106 Carbon Dioxide Level 26 Anion Gap 14 Blood Urea Nitrogen 9 Creatinine 0.69 Glucose Level 97 Calcium Level 9.2 Total Bilirubin 0.7 Direct Bilirubin 0.00 Indirect Bilirubin 0.7 Aspartate Amino Transf (AST/SGOT) 702 H Alanine Aminotransferase (ALT/SGPT) 720 H Alkaline Phosphatase 378 H Total Protein 7.0 Albumin 3.4 Globulin 3.60 H Albumin/Globulin Ratio 0.94 Amylase Level 37 Lipase 224 Medications Medications Current Medications Ondansetron HCl (Zofran Inj) 4 mg Q4H PRN IV NAUSEA AND/OR VOMITING Last administered on 09/30/17 01:19; Admin Dose 4 MG; Start 08/20/17 at 00:10 Senna (Senokot) 1 tab BID PRN PO CONSTIPATION Last administered on 08/26/17 11:18; Admin Dose 1 TAB; Start 08/26/17 at 10:30 Hydromorphone HCl (Dilaudid) 1.5 mg Q3 PRN IV PAIN Last administered on 07:26; Admin Dose 1.5 MG; Start 08/28/17 at 11:30; Status Future Hold Acetaminophen/ Hydrocodone Bitart ([place] (5/325)) 1 tab Q4H PRN PO Pain Last administered on 09/22/17 05:59; Admin Dose 1 TAB; Start 08/30/17 at 12:00 Acetaminophen (Tylenol Tab) 650 mg Q4H PRN PO PAIN AND OR ELEVATED TEMP Last administered on 09/16/17 20:27; Admin Dose 650 MG; Start 09/02/17 at 22:00 Lorazepam (Ativan) 0.5 mg Q8H PRN IV ANXIETY Last administered on 09/19/17 23 :59; Admin Dose 0.5 MG; Start 09/07/17 at 15:30 Famotidine (Pepcid Iv) 20 mg Q12 IV Last administered on 09/30/17 09:17; Admin Dose 20 MG; Start 09/08/17 at 21:00 IV Flush (NS 10 ml) 10 ml PRN PRN IV IV PROTOCOL Last administered on 13:27; Admin Dose 10 ML; Start 09/08/17 at 16:30 IV Flush 3 ml 3 ml Q8 IV Last administered on 09/28/17 13:30; Admin Dose 3 ML ; Start 09/09/17 at 22:00 Total Parenteral Nutrition (Tpn) 1,000 ml @ 20 mls/hr Q24H IV Last administered on 09/29/17 14:52; Admin Dose 40 MLS/HR; Start 09/09/17 at 16:00 Diagnostic Test (Pha) (Accu-Chek) 1 ea Q12H XX Last administered on 09/30/17 09:21; Admin Dose 1 EA; Start 09/14/17 at 21:00 Hydromorphone HCl (Dilaudid) 1 mg Q3H PRN IV PAIN Last administered on 09:16; Admin Dose 1 MG; Start 09/17/17 at 00:45 Metoclopramide HCl (Reglan) 10 mg Q6H PRN IV NAUSEA Last administered on 17:56; Admin Dose 10 MG; Start 09/21/17 at 18:16 Tramadol HCl (Ultram) 50 mg Q8 PRN PO PAIN LEVEL 4-6 Last administered on 09/30 00:42; Admin Dose 50 MG; Start 09/27/17 at 12:30 Hydrocortisone (Hydrocortisone 1% Cr) 1 applic BID TOP Last administered on 09:22; Admin Dose 1 APPLIC; Start 09/28/17 at 09:00 Escitalopram Oxalate (Lexapro) 10 mg DAILY PO Last administered on 09/30/17 09:21; Admin Dose 10 MG; Start 09/28/17 at 12:00 Magnesium Hydroxide (Milk Of Mag) 30 ml DAILY PRN PO CONSTIPATION Last administered on 11/23/17at 12:13; Admin Dose 30 ML; Start 09/30/17 at 11:00 GABRIEL EPSTEIN Sep 30, 2017 12:32
[2017-09-30 14:00] VITALS: BP 101/57; RESP 16
--- NOTE | 2017-09-30 14:06 | PN ---
DATE: 09/30/2017 The patient is status post ERCP, sphincterotomy and placement of a stent and consequently pancreatit is with extensive inflammation, gradually is getting better. Now patient has been on low fat, low c holesterol diet for the past 4 or 5 days. The patient received some TPN. SUBJECTIVE: The patient stated and nurses stated that today she required pain medication for epigas tric pain about 4/10 intensity, 1 mg of Dilaudid IV. The patient states that as soon as she had 2% milk, a few minutes later she experienced this pain. She was supposed to have low fat, low cholest grace diet. I think she should not have had 2% milk. OBJECTIVE: VITAL SIGNS: Temperature today 98.2, heart rate 57, respirations 16, blood pressure 94/51, saturati on 97% on room air. LABORATORY DATA: Sodium, potassium, BUN and creatinine normal. AST has increased to 702, ALT 720, alkaline phosphatase 378, all of them are very high. Bilirubin total is 0.7. Magnesium is 37. Lip ase was not done today, we are going to do it. Hematology: WBC 8500 with 66% neutrophils. Hemoglo bin and hematocrit are stable. PHYSICAL EXAMINATION: HEART: Regular. LUNGS: Clear. ABDOMEN: Soft. There is some mild tenderness on deep pressure in the epigastric area. ASSESSMENT AND PLAN: A 36-year-old female who presented with gallbladder disease, gallstones and el evated enzymes, dilated common bile duct. She had ERCP, sphincterotomy and stent placements. Posto p, she developed pancreatitis. She required n.p.o., TPN. The patient has been on TPN for about 22 days. We are trending the TPN down and we have started gradually putting the patient on a regular l ow-fat, low-cholesterol diet as of 3, 4, 5 days ago, but today patient had more pain in epigastric a fter having 2% milk and the CMP was done today shows that the AST, ALT, alkaline phosphatase is high ly elevated, each of them about 700. I am not sure what the cause of this could be, the presence of a stent. PLAN: Was to probably send her home today, but with this picture, I cannot do that. We are going t o keep her here. Continue TPN. Emphasize on absolutely very low fat, low cholesterol diet. Get th e lipase today and repeat lipase tomorrow and also liver enzymes. Dictated By: BRANDO CHRISTINE/MAVERICK Conf#: [id number] DID#: [id number]
[2017-09-30 19:34] VITALS: BP 104/56; RESP 18
[2017-10-01] MEDS: HYDROmorphONE 1 MG/ML SYG IV PRN ×3 (01:13→08:59)
[2017-10-01] MEDS: TPN 1,000 ML IV SCH (02:02)
[2017-10-01 02:05] VITALS: BP 107/55; RESP 18
[2017-10-01] MEDS: NACL 0.9% 3 ML SYG IV SCH ×2 (05:33→14:30)
[2017-10-01 05:58] LABS: BASOPHILS % 0.4 % (0.0-2.0); EOSINOPHILS # 0.3 10^3/ul (0.0-0.5); EOSINOPHILS % 3.2 % (0.0-7.0); HEMATOCRIT 35.7 % (37.0-47.0); HEMOGLOBIN 12.1 g/dl (12.0-16.0); LYMPHOCYTES # 2.3 10^3/ul (0.8-2.9); LYMPHOCYTES % 24.5 % (15.0-51.0); MEAN CORPUSCULAR HEMOGLOBIN 27.8 pg (29.0-33.0); MEAN CORPUSCULAR HGB CONC 33.9 g/dl (32.0-37.0); MEAN CORPUSCULAR VOLUME 81.9 fl (82.0-101.0); MEAN PLATELET VOLUME 10.4 fl (7.4-10.4); MONOCYTE # 0.7 10^3/ul (0.3-0.9); NEUTROPHIL # 5.9 10^3/ul (1.6-7.5); NEUTROPHILS % 63.6 % (39.0-77.0); PLATELET COUNT 294 10^3/UL (140-415); RED BLOOD COUNT 4.36 10^6/ul (4.20-5.40); RED CELL DISTRIBUTION WIDTH 13.2 % (11.5-14.5); WHITE BLOOD COUNT 9.3 10^3/ul (4.8-10.8)
[2017-10-01] MEDS: METOCLOPRAMIDE 10 MG INJ IV SCH ×3 (06:25→17:06)
[2017-10-01 06:33] LABS: ALBUMIN 3.5 g/dl (3.3-4.9); ALBUMIN/GLOBULIN RATIO 1.02; BILIRUBIN,INDIRECT 0.2 mg/dl (0-1.1); BILIRUBIN,TOTAL 0.2 mg/dl (0.2-1.3); CALCIUM 8.8 mg/dl (8.4-10.2); CREATININE 0.7 mg/dl (0.44-1.00); POTASSIUM 3.8 mmol/L (3.5-5.1); TOTAL PROTEIN 6.9 g/dl (6.1-8.1)
[2017-10-01 07:40] VITALS: BP 90/55; RESP 14
[2017-10-01] MEDS: ESCITALOPRAM 10 MG TAB PO SCH (08:22)
[2017-10-01] MEDS: FAMOTIDINE 20 MG INJ IV SCH (08:22)
[2017-10-01] MEDS: HYDROCORTISONE 1% 28 GM CR TOP SCH (08:24)
[2017-10-01] MEDS: ACCU-CHEK XX SCH (09:00)
[2017-10-01] MEDS ORDERED: METO10TA96 PO (13:38)
[2017-10-01] MEDS ORDERED: ESCI10TA48 PO (13:38)
[2017-10-01] MEDS ORDERED: HYDR2TAB36 PO (13:44)
--- NOTE | 2017-10-01 13:48 | DS ---
Date/Time of Note Date/Time of Note DATE: 10/01/17 TIME: 13:46 Discharge Summary Admission/Discharge Info Admit Date/Time Aug 18, 2017 at 13:11 Discharge Date/Time Patient Condition: Stable Hx of Present Illness The patient is a 36-year-old female with known gallstones. The patient denies any other chronic condition except for the patient has a claustrophobia. The patient was diagnosed with cholelithiasis and was evaluated by Dr. Smith in surgical consultation and patient was sent to the emergency room from his office. The patient complains of right upper quadrant abdominal pain with multiple episodes of clear, nonbloody, nonbilious emesis yesterday. Patient also stated she had fever a couple of days ago. Patient was taking some oral p.o. analgesic; however, it did not relieve her pain. Patient denies any shortness of breath, denies any chest pain, denies any bilateral lower extremity swelling. Denies any diarrhea. The patient will undergo MRCP and patient will be admitted for further evaluation and management. Hospital Course - Acute pancreatitis s/p ERCP, now with formation of phlegmon per last CT, continue N.p.o. TPN, continue Dilaudid as needed for pain. - Status post EGD with notion of gastritis on 09/08. Continue Pepcid. - Intractable abdominal pain, resolving. Continue Dilaudid p.r.n. for pain and Zofran p.r.n. for nausea. - Cholelithiasis and acute cholecystitis. Dr. Smith is following in general surgery consultation. Completed treatment with Meropenem and Flagyl. - S/P ERCP and common bile duct stent placement by Dr Christiansen. - Depression, continue Lexapro. Home Meds Active Scripts Hydromorphone Hcl* (Dilaudid*) 2 Mg Tablet, 2 MG PO Q4H Y for PAIN LEVEL 7-10, # 30 TAB Prov:JAROCHO YOUNG 10/01/17 Metoclopramide Hcl* (Metoclopramide Hcl*) 10 Mg Tablet, 10 MG PO TID for 10 Days , TAB Prov:JAROCHO YOUNG 10/01/17 Escitalopram Oxalate* (Escitalopram Oxalate*) 10 Mg Tablet, 10 MG PO DAILY for 30 Days, TAB Prov:JAROCHO YOUNG 10/01/17 Follow-up Plan Follow-up with Dr. Smith in 2 weeks for possible cholecystectomy schedule, follow-up with Dr. Christiansen in 2 weeks Primary Care Provider Leo Spicer Time spent on discharge: > 30 minutes Pending Labs Laboratory Tests Test 09/30/17 20:32 10/01/17 05:32 10/01/17 08:29 Bedside Glucose 83mg/dL (70-220) 92mg/dL (70-220) White Blood Count 9.310^3/ul (4.8-10.8) Red Blood Count 4.3610^6/ul (4.20-5.40) Hemoglobin 12.1g/dl (12.0-16.0) Hematocrit 35.7% (37.0-47.0) Mean Corpuscular Volume 81.9fl (82.0-101.0) Mean Corpuscular Hemoglobin 27.8pg (29.0-33.0) Mean Corpuscular Hemoglobin Concent 33.9g/dl (32.0-37.0) Red Cell Distribution Width 13.2% (11.5-14.5) Platelet Count 17844^3/UL (140-415) Mean Platelet Volume 10.4fl (7.4-10.4) Neutrophils % 63.6% (39.0-77.0) Lymphocytes % 24.5% (15.0-51.0) Monocytes % 8.0% (0.0-11.0) Eosinophils % 3.2% (0.0-7.0) Basophils % 0.4% (0.0-2.0) Nucleated Red Blood Cells % 0.0/100WBC (0.0-0.0) Neutrophils # 5.910^3/ul (1.6-7.5) Lymphocytes # 2.310^3/ul (0.8-2.9) Monocytes # 0.710^3/ul (0.3-0.9) Eosinophils # 0.310^3/ul (0.0-0.5) Basophils # 0.010^3/ul (0.0-0.1) Nucleated Red Blood Cells # 0.010^3/ul (0.0-0.0) Sodium Level 140mmol/L (135-144) Potassium Level 3.8mmol/L (3.5-5.1) Chloride Level 103mmol/L (97-110) Carbon Dioxide Level 27mmol/L (21-31) Anion Gap 14 (8-16) Blood Urea Nitrogen 9mg/dl (7-20) Creatinine 0.70mg/dl (0.44-1.00) Glucose Level 102mg/dl (70-220) Calcium Level 8.8mg/dl (8.4-10.2) Total Bilirubin 0.2mg/dl (0.2-1.3) Direct Bilirubin 0.00mg/dl (0.00-0.20) Indirect Bilirubin 0.2mg/dl (0-1.1) Aspartate Amino Transf (AST/SGOT) 269IU/L (15-46) Alanine Aminotransferase (ALT/SGPT) 555IU/L (13-69) Alkaline Phosphatase 335IU/L (42-121) Total Protein 6.9g/dl (6.1-8.1) Albumin 3.5g/dl (3.3-4.9) Globulin 3.40g/dl (1.3-3.2) Albumin/Globulin Ratio 1.02 Lipase 216U/L (23-300) JAROCHO YOUNG Oct 01, 2017 13:48
--- NOTE | 2017-10-01 14:13 | CONS ---
DATE OF ADMISSION: 08/18/2017 DATE OF CONSULTATION: 10/01/2017 CHIEF COMPLAINT: The patient says at this time, she is doing much better. She is nausea and vomiti ng is better. She is eating food reasonably well and no evidence of vomiting at this time. PHYSICAL EXAMINATION: VITAL SIGNS: Temperature 98, blood pressure is 90/55. CARDIOVASCULAR: Normal heart sounds. RESPIRATORY: Normal breath sounds. ABDOMEN: Shows soft abdomen with no palpable masses. No tenderness, no distention. LABORATORY WORKUP: WBC is 9300. The lipase is normal up to 16. IMPRESSION: The patient had a cholangitis. ERCP done and CBD stent was placed. She developed panc reatitis which seems to be resolved. She was on TPN, but she does have abdominal pain. Dr. Daly, the surgeon has made the recommendation to keep her for a little time longer. I suspect that she s eems to be stable, she can be discharged. Dictated By: BREA HOOK/MAVERICK Conf#: [id number] DID#: [id number]
[2017-10-01 14:17] VITALS: BP 103/53; RESP 12
[2017-10-01] MEDS: HYDROCODONE/APAP (5/325) TAB PO PRN (14:29)
--- NOTE | 2017-10-01 17:22 | PN ---
DATE: 10/01/2017 SUBJECTIVE: Feels better, has tolerated a regular diet, low fat. Minimal pain, about 1 out of scal e of 10. No nausea, no vomiting, no fever. Has had a bowel movement. OBJECTIVE: GENERAL: Awake, alert, and oriented x3 months and working on the floor. VITAL SIGNS: Temperature 98.5, heart rate 66, respirations 15, blood pressure 90/55, saturation 98% on room air. LABORATORY DATA: WBC 9300 with 63% neutrophils, normal. Hemoglobin and hematocrit is stable, lissett l. Chemistry: Today sodium, potassium, BUN, creatinine normal. AST is decreased to 269, still hig h. ALT dropped to 555, it is still high. Alkaline phosphatase is up to 285. Bilirubin total 0.2. Lipase is 216 normal limits. HEART: Regular. LUNGS: Clear. ABDOMEN: Soft. No tenderness. ASSESSMENT: A 36-year-old female with gallstones who presented with pain about 3 weeks ago or more than that and had elevated liver enzymes. ERCP was done before the MRCP showed only gallstones, no cholecystitis, ERCP was done sludge and sphincterotomy was done and sludge removed. Stent placed po stop patient with pancreatitis for the treatment of pancreatitis. The patient requires TPN restarte d was about 3 weeks on TPN and gradually started on diet. She tolerated a clear liquid and regular soft, low fat, low cholesterol diet. Lipase eventually normal and has been normal about 1 week. Tw o days ago CMP was done and showed elevated AST and alkaline phosphatase. Lipid eventually normal, it has been normal about 1 week 2 days ago a CMP done showed elevated AST, alkaline phosphatase iram son it was not clear to me, but bilirubin was normal. Repeated today which shows down trending towa rd normalizing gradually. This could be the effect of presence of the stent in the common bile duct . In any case, today the patient is quite stable. Tolerated diet. Pain is absolutely minimal, maybe 1/ 10. The patient would like to go home and we prefer to send her home, so we will discontinue the TP N and patient is going to be discharged home to be followed by Dr. Smith in his office and also to b jerri followed by Dr. Christiansen after the cholecystectomy was done for removal of the stent. Dictated By: BRANDO ENRIQUEZ MD PS/MAVERICK Conf#: [id number] DID#: [id number] CC: ANUEL SMITH MD;*End*
== END 2017-10-01 17:25 | disposition home or self-care (01) | DRG 444 ==
LOC: E/R 10:23 → MS3 13:11 → MS2 08-19 14:00
PROVIDERS: ADMIT Internal Medicine; ATTEND Internal Medicine
PROC: 0F798DZ Dilation of Common Bile Duct with Intraluminal Device, Via Natural or Artificial Opening Endoscopic (ICD-10-PCS; principal; 2017-08-19 18:30)
PROC: 02HV33Z Insertion of Infusion Device into Superior Vena Cava, Percutaneous Approach (ICD-10-PCS; 2017-09-08)
PROC: 0DB58ZX Excision of Esophagus, Via Natural or Artificial Opening Endoscopic, Diagnostic (ICD-10-PCS; 2017-09-08)
PROC: 0DB68ZX Excision of Stomach, Via Natural or Artificial Opening Endoscopic, Diagnostic (ICD-10-PCS; 2017-09-08)
DX: K80.01 Calculus of gallbladder with acute cholecystitis with obstruction (principal); K85.90 Acute pancreatitis without necrosis or infection, unspecified; K83.0 Cholangitis; K76.0 Fatty (change of) liver, not elsewhere classified; K83.1 Obstruction of bile duct; E66.01 Morbid (severe) obesity due to excess calories; K29.70 Gastritis, unspecified, without bleeding; K21.0 Gastro-esophageal reflux disease with esophagitis; F40.240 Claustrophobia; F32.9 Major depressive disorder, single episode, unspecified; Z68.39 Body mass index [BMI] 39.0-39.9, adult
CPT/HCPCS: 36415; 36569; 71010; 74000; 74170; 74177; 74181; 74330; 76775; 76937; 78226; 80048; 80053; 80076; 81001; 81003; 82150; 82947; 82962; 83690; 83735; 84100; 84134; 84478; 84484; 84703; 85025; 85610; 87086; 88305; 88312; 88313; 93005; 96374; 96375; A9537; C2617; C9113; J0610; J0744; J1100; J1170; J1885; J2060; J2175; J2185; J2270; J2405; J2710; J2765; J3010; J3480; J7030; J7050; Q9967

== ENCOUNTER 2017-10-01 20:41 | Inpatient (IN) | payer OTHER ==
[~2017-10-01] VITALS: Ht 167.6 cm; Wt 84.0 kg
[~2017-10-01 20:41] MED LIST changes: +ESCI10TA48 PO; +HYDR-3498 PO; +HYDR2TAB36 PO; +LEVO500T72 PO; +METO10TA96 PO; +METR500T PO
[2017-10-01] MEDS ORDERED: SOD CHLORIDE 0.9% 1,000 ML IV STA ×2 (21:43→22:25)
[2017-10-01] MEDS ORDERED: HYDROmorphONE 1 MG/ML SYG IV STA ×3 (21:43→23:28)
[2017-10-01] MEDS ORDERED: ONDANSETRON 4 MG INJ IV STA ×3 (21:43→23:28)
[2017-10-01] MEDS ORDERED: ONDANSETRON (ODT) 4 MG TAB ODT STA (21:43)
[2017-10-01 22:10] VITALS: TEMP 98.5
[2017-10-01 22:10] LABS: BASOPHIL # 0.1 10^3/ul (0.0-0.1); BASOPHILS % 0.4 % (0.0-2.0); EOSINOPHILS # 0.1 10^3/ul (0.0-0.5); EOSINOPHILS % 0.8 % (0.0-7.0); HEMATOCRIT 38.5 % (37.0-47.0); HEMOGLOBIN 13.3 g/dl (12.0-16.0); LYMPHOCYTES # 1.7 10^3/ul (0.8-2.9); LYMPHOCYTES % 12.5 % (15.0-51.0); MEAN CORPUSCULAR HEMOGLOBIN 27.8 pg (29.0-33.0); MEAN CORPUSCULAR HGB CONC 34.5 g/dl (32.0-37.0); MEAN CORPUSCULAR VOLUME 80.4 fl (82.0-101.0); MEAN PLATELET VOLUME 10.4 fl (7.4-10.4); MONOCYTE # 0.7 10^3/ul (0.3-0.9); MONOCYTES % 5.4 % (0.0-11.0); NEUTROPHIL # 10.7 10^3/ul (1.6-7.5); NEUTROPHILS % 80.6 % (39.0-77.0); PLATELET COUNT 339 10^3/UL (140-415); RED BLOOD COUNT 4.79 10^6/ul (4.20-5.40); RED CELL DISTRIBUTION WIDTH 13.3 % (11.5-14.5); WHITE BLOOD COUNT 13.3 10^3/ul (4.8-10.8)
[2017-10-01 22:28] LABS: ALBUMIN 4.2 g/dl (3.3-4.9); ALBUMIN/GLOBULIN RATIO 1.02; BILIRUBIN,INDIRECT 0.6 mg/dl (0-1.1); BILIRUBIN,TOTAL 0.6 mg/dl (0.2-1.3); CALCIUM 9.9 mg/dl (8.4-10.2); CREATININE 0.75 mg/dl (0.44-1.00); POTASSIUM 3.8 mmol/L (3.5-5.1); TOTAL PROTEIN 8.3 g/dl (6.1-8.1)
--- NOTE | 2017-10-01 23:06 | RADRPT ---
PROCEDURE: US Abdomen. CLINICAL INDICATION: abdominal pain TECHNIQUE: Multiple real-time images were acquired of the patient's right upper quadrant abdomen a nd retroperitoneum utilizing a high resolution transducer. COMPARISON: US ABDOMEN 09/27/2017 , 09/20/2017 FINDINGS: The liver demonstrates increased echogenicity. The liver is enlarged in size and no focal solid les ions are seen. The liver measures 18.3 cm in length. The portal vein is patent with normal direction of flow. No intrahepatic biliary dilatation is seen. Multiple calcified gallstones are identified within the gallbladder. There is no pericholecystic fl uid or gallbladder wall thickening. The common bile duct measures 6.5 mm in maximal dimension. The visualized portions of the pancreas are unremarkable. The tail of the pancreas is not seen. No free fluid is identified. The right kidney is normal in size, and demonstrate normal echogenicity and cortical thickness. The right kidney measures 11.4 cm in long dimension. There is no evidence of hydronephrosis. There are no kidney stones. RPTAT: AA IMPRESSION: Cholelithiasis. Mild hepatomegaly with fatty infiltration. Mildly dilated CBD. .Ted Dominguez MD, Date Time Electronically viewed and signed by .Ted Dominguez MD, on 10/01/2017 23:05 .S/
[2017-10-01 23:46] LABS: URINE BLOOD (Dip) POC Trace-intact (NEGATIVE)
--- NOTE | 2017-10-01 23:51 | ERD ---
ER Documentation Chief Complaint Chief Complaint RUQ abd pain x 5 days, hx- gall stones HPI This a 36-year-old female who is just discharged from the hospital this afternoon. The patient was admitted to the hospital with gallstones with subsequent development of pancreatitis after gallbladder stent was placed with the development of a phlegmon. Patient was discharged home with Dilaudid 2 mg tablets. The patient states she is back in the ER because she is having severe pain and is unable to tolerate any liquids or food and his pain out of control. No chest pain or shortness of breath. ROS All systems reviewed and are negative except as per history of present illness. Medications Home Meds Active Scripts Hydromorphone Hcl* (Dilaudid*) 2 Mg Tablet, 2 MG PO Q4H Y for PAIN LEVEL 7-10, # 30 TAB Prov:JAROCHO YOUNG 10/01/17 Metoclopramide Hcl* (Metoclopramide Hcl*) 10 Mg Tablet, 10 MG PO TID for 10 Days , TAB Prov:JAROCHO YOUNG 10/01/17 Escitalopram Oxalate* (Escitalopram Oxalate*) 10 Mg Tablet, 10 MG PO DAILY for 30 Days, TAB Prov:JAROCHO YOUNG 10/01/17 Allergies Allergies: Coded Allergies: Penicillins (Verified Allergy, Unknown, rash, 08/18/17) PMhx/Soc History of Surgery: Yes ( X 2) Anesthesia Reaction: No Hx Neurological Disorder: No Hx Respiratory Disorders: No Hx Cardiac Disorders: No Hx Psychiatric Problems: No Hx Miscellaneous Medical Probl: Yes (Obeisty, pancreatitis) Hx Alcohol Use: No Hx Substance Use: No Hx Tobacco Use: No Smoking Status: Never smoker FmHx Family History: No coronary disease Physical Exam Vitals Vital Signs Date Time Temp Pulse Resp B/P Pulse Ox O2 Delivery O2 Flow Rate FiO2 10/01/17 22:10 98.5 63 19 136/74 97 Room Air 10/01/17 20:47 98.2 69 20 142/65 98 Physical Exam C Const: Well-developed, well-nourished Head: Atraumatic, normocephalic Eyes: Normal Conjunctiva, PERRLA, EOMI, normal sclera, no nystagmus ENT: Normal External Ears, Nose and Mouth, moist mucus membranes. Neck: Full range of motion. No meningismus, no lymphadenopathy. Resp: Clear to auscultation bilaterally, no wheezing, rhonchi, rales Cardio: Regular rate and rhythm, no murmurs, S1 S2 present Abd: Soft, moderate epigastric tenderness, non distended. Normal bowel sounds, no guarding or rebound, no pulsitile abdominal masses or bruits Skin: No petechiae or rashes, no ecchymosis , no maculopapular rash Back: No midline or flank tenderness Ext: No cyanosis, or edema, FROM x 4, normal inspection, neurovascularly intact x 4 Neur: Awake and alert, STR 5/5 x 4, sensation intact x 4, no focal findings, cerebellum intact Psych: Normal Mood and Affect Result Diagram: 10/01/17219910/01/172199 Results 24 hrs Laboratory Tests Test 10/01/17 22:00 10/01/17 23:44 White Blood Count 13.310^3/ul Red Blood Count 4.7910^6/ul Hemoglobin 13.3g/dl Hematocrit 38.5% Mean Corpuscular Volume 80.4fl Mean Corpuscular Hemoglobin 27.8pg Mean Corpuscular Hemoglobin Concent 34.5g/dl Red Cell Distribution Width 13.3% Platelet Count 98741^3/UL Mean Platelet Volume 10.4fl Neutrophils % 80.6% Lymphocytes % 12.5% Monocytes % 5.4% Eosinophils % 0.8% Basophils % 0.4% Nucleated Red Blood Cells % 0.0/100WBC Neutrophils # 10.710^3/ul Lymphocytes # 1.710^3/ul Monocytes # 0.710^3/ul Eosinophils # 0.110^3/ul Basophils # 0.110^3/ul Nucleated Red Blood Cells # 0.010^3/ul Sodium Level 144mmol/L Potassium Level 3.8mmol/L Chloride Level 104mmol/L Carbon Dioxide Level 26mmol/L Anion Gap 18 Blood Urea Nitrogen 7mg/dl Creatinine 0.75mg/dl Glucose Level 96mg/dl Calcium Level 9.9mg/dl Total Bilirubin 0.6mg/dl Direct Bilirubin 0.00mg/dl Indirect Bilirubin 0.6mg/dl Aspartate Amino Transf (AST/SGOT) 200IU/L Alanine Aminotransferase (ALT/SGPT) 535IU/L Alkaline Phosphatase 380IU/L Total Protein 8.3g/dl Albumin 4.2g/dl Globulin 4.10g/dl Albumin/Globulin Ratio 1.02 Lipase 227U/L Bedside Urine pH (LAB) 7.0 Bedside Urine Protein (LAB) Negative Bedside Urine Glucose (UA) Negative Bedside Urine Ketones (LAB) 1+ Bedside Urine Blood Trace-intact Bedside Urine Nitrite (LAB) Negative Bedside Urine Leukocyte Esterase (L Negative Current Medications Medications (Trade) Dose Ordered Sig/Gigi Route PRN Reason Start Time Stop Time Status Last Admin Dose Admin Sodium Chloride (NS) 1,000 ml @ 1,000 mls/hr Q1H STAT IV 10/01/17 21:43 10/01/17 22:42 DC 10/01/17 22:06 Hydromorphone HCl (Dilaudid) 1 mg ONCE STAT IV 10/01/17 21:43 10/01/17 21:45 DC 10/01/17 22:06 Ondansetron HCl (Zofran Inj) 4 mg ONCE STAT IV 10/01/17 21:43 10/01/17 21:45 DC 10/01/17 22:06 Ondansetron HCl 4 mg 4 mg ONCE STAT ODT 10/01/17 21:43 10/01/17 21:45 DC Sodium Chloride (NS) 1,000 ml @ 1,000 mls/hr Q1H STAT IV 10/01/17 22:25 10/01/17 23:24 DC 10/01/17 23:40 Hydromorphone HCl (Dilaudid) 1 mg ONCE STAT IV 10/01/17 22:25 10/01/17 22:26 DC 10/01/17 22:33 Ondansetron HCl (Zofran Inj) 4 mg ONCE STAT IV 10/01/17 22:25 10/01/17 22:26 DC Hydromorphone HCl (Dilaudid) 2 mg ONCE STAT IV 10/01/17 23:28 10/01/17 23:29 DC 10/01/17 23:40 Ondansetron HCl (Zofran Inj) 4 mg ONCE STAT IV 10/01/17 23:28 10/01/17 23:29 DC Procedures/MDM PROCEDURE: US Abdomen. CLINICAL INDICATION: abdominal pain TECHNIQUE: Multiple real-time images were acquired of the patient's right upper quadrant abdomen and retroperitoneum utilizing a high resolution transducer. COMPARISON: US ABDOMEN 09/27/2017 , 09/20/2017 FINDINGS: The liver demonstrates increased echogenicity. The liver is enlarged in size and no focal solid lesions are seen. The liver measures 18.3 cm in length. The portal vein is patent with normal direction of flow. No intrahepatic biliary dilatation is seen. Multiple calcified gallstones are identified within the gallbladder. There is no pericholecystic fluid or gallbladder wall thickening. The common bile duct measures 6.5 mm in maximal dimension. The visualized portions of the pancreas are unremarkable. The tail of the pancreas is not seen. No free fluid is identified. The right kidney is normal in size, and demonstrate normal echogenicity and cortical thickness. The right kidney measures 11.4 cm in long dimension. There is no evidence of hydronephrosis. There are no kidney stones. RPTAT: AA IMPRESSION: Cholelithiasis. Mild hepatomegaly with fatty infiltration. Mildly dilated CBD. .Ted Dominguez MD, MD Date Time Electronically viewed and signed by .Ted Dominguez MD, MD on 10/01/2017 23: 05 .S/ CC: TRINH THOMAS DO Patient's liver function tests are slightly decreased from last check. The patient has been given 1 mg of Dilaudid 2 without relief. She is then given 2 mg of Dilaudid with some mild relief. I will need to admit the patient back to the hospital for pain control. Intravenous Dilaudid is not helping her that much and oral tablets are not going to be potent enough Departure Diagnosis: Primary Impression: Uncontrolled pain Additional Impression: Gallstones Condition: Stable TRINH THOMAS DO Oct 01, 2017 23:51
[2017-10-02] MEDS ORDERED: SOD CHLORIDE 0.9% 1,000 ML IV SCH (01:00)
[2017-10-02] MEDS ORDERED: ONDANSETRON 4 MG INJ IV PRN (01:00)
[2017-10-02] MEDS ORDERED: ACETAMINOPHEN 325 MG TAB PO PRN (01:00)
[2017-10-02] MEDS ORDERED: HYDROmorphONE 1 MG/ML SYG IV STA (03:56)
[2017-10-02] MEDS ORDERED: ONDANSETRON 4 MG INJ IV STA (03:56)
[2017-10-02 04:20] VITALS: BP 115/60; PULSE 60; RESP 18
[2017-10-02 04:30] VITALS: Ht 167.6 cm; Wt 84.0 kg
[2017-10-02] MEDS: HYDROmorphONE 1 MG/ML SYG IV PRN ×6 (05:25→21:32)
[2017-10-02] MEDS: LEVOFLOXACIN 500MG/D5W (PMX) 100 ML IVPB SCH (05:25)
[2017-10-02] MEDS: D5W-0.45 NACL + KCL 20 MEQ 1,000 ML IV SCH ×2 (05:25→16:45)
[2017-10-02 08:22] VITALS: BP 103/60; RESP 18
[2017-10-02] MEDS: PANTOPRAZOLE 40 MG INJ IV SCH (08:27)
--- NOTE | 2017-10-02 11:59 | HP ---
Date/Time of Note Date/Time of Note DATE: 10/02/17 TIME: 11:56 Assessment/Plan VTE Prophylaxis VTE Prophylaxis Intervention: other Lines/Catheters IV Catheter Type (from Nrs): Peripheral IV Assessment/Plan Chief Complaint/Hosp Course 1) cholecystitis - pain medication - IV fluids - consult surgery Problems: HPI/ROS Admit Date/Time Admit Date/Time Oct 02, 2017 at 01:01 Hx of Present Illness Patient without significant medical problems but recent admission for cholecystitis and pancreatitis come back for continued abdominal pain. PMH/Family/Social Past Medical History see HPI Social History Smoking Status: Never smoker Exam/Review of Systems Vital Signs Vitals Vital Signs Date Time Temp Pulse Resp B/P Pulse Ox O2 Delivery O2 Flow Rate FiO2 10/02/17 08:22 98.8 59 18 103/60 98 10/02/17 04:00 Room Air Intake and Output 10/01/17 10/01/17 10/02/17 14:59 22:59 06:59 Intake Total 100 ml Output Total 400 ml Balance -300 ml Exam Constitutional: well developed Head: atraumatic, normocephalic Neck: supple Respiratory: clear to auscultation Cardiovascular: regular rate and rhythm Gastrointestinal: soft, tender Extremities: normal pulses Labs Result Diagram: 10/01/17219910/01/172199 Medications Medications Current Medications Sodium Chloride 1,000 ml @ 80 mls/hr [id number] IV ; Start 10/02/17 at 01:00; Stop 10/02/17 at 13:29 Potassium Chloride/Dextrose/ Sod Cl (D5-1/2ns + KCl 20 Meq) 1,000 ml @ 100 mls/ hr Q10H IV Last administered on 10/02/17 05:25; Admin Dose 100 MLS/HR; Start 10/02/17 at 05:00 Pantoprazole 40 mg 40 mg DAILY IV Last administered on 10/02/17 08:27; Admin Dose 40 MG; Start 10/02/17 at 09:00 Levofloxacin/ Dextrose (Levaquin 500mg/ D5W 100 ml (Pmx)) 100 ml @ 100 mls/hr Q24H IVPB Last administered on 10/02/17 05:25; Admin Dose 100 MLS/HR; Start 10/02/17 at 06:00 Ondansetron HCl (Zofran Inj) 4 mg Q6H PRN IV nausea/ vomiting; Start 10/02/17 at 05:00 Hydromorphone HCl (Dilaudid) 1 mg Q4 PRN IV pain Last administered on 08:27; Admin Dose 1 MG; Start 10/02/17 at 05:00 JESSI FAUST Oct 02, 2017 11:59
[2017-10-02 15:43] VITALS: BP 100/56; RESP 18
[2017-10-02 20:08] VITALS: BP 115/60; PULSE 80; RESP 18
[2017-10-03] MEDS: HYDROmorphONE 1 MG/ML SYG IV PRN ×8 (00:18→21:43)
[2017-10-03 02:25] VITALS: BP 109/59; RESP 18
[2017-10-03] MEDS: D5W-0.45 NACL + KCL 20 MEQ 1,000 ML IV SCH ×3 (02:42→16:07)
[2017-10-03] MEDS: LEVOFLOXACIN 500MG/D5W (PMX) 100 ML IVPB SCH (05:34)
[2017-10-03 05:51] LABS: BASOPHIL # 0.1 10^3/ul (0.0-0.1); BASOPHILS % 0.9 % (0.0-2.0); EOSINOPHILS # 0.3 10^3/ul (0.0-0.5); EOSINOPHILS % 4.1 % (0.0-7.0); HEMATOCRIT 34.9 % (37.0-47.0); LYMPHOCYTES # 2.2 10^3/ul (0.8-2.9); LYMPHOCYTES % 31.3 % (15.0-51.0); MEAN CORPUSCULAR HEMOGLOBIN 28.2 pg (29.0-33.0); MEAN CORPUSCULAR HGB CONC 34.4 g/dl (32.0-37.0); MEAN CORPUSCULAR VOLUME 82.1 fl (82.0-101.0); MONOCYTE # 0.6 10^3/ul (0.3-0.9); MONOCYTES % 8.1 % (0.0-11.0); NEUTROPHIL # 3.9 10^3/ul (1.6-7.5); NEUTROPHILS % 55.3 % (39.0-77.0); PLATELET COUNT 290 10^3/UL (140-415); RED BLOOD COUNT 4.25 10^6/ul (4.20-5.40); RED CELL DISTRIBUTION WIDTH 13.5 % (11.5-14.5)
[2017-10-03 06:18] LABS: ALBUMIN 3.4 g/dl (3.3-4.9); BILIRUBIN,INDIRECT 0.6 mg/dl (0-1.1); BILIRUBIN,TOTAL 0.6 mg/dl (0.2-1.3); CALCIUM 9.2 mg/dl (8.4-10.2); CREATININE 0.82 mg/dl (0.44-1.00); TOTAL PROTEIN 6.8 g/dl (6.1-8.1)
[2017-10-03 07:58] VITALS: BP 104/60; RESP 18
[2017-10-03] MEDS: PANTOPRAZOLE 40 MG INJ IV SCH (09:15)
[2017-10-03] MEDS: ONDANSETRON 4 MG INJ IV PRN (10:00)
--- NOTE | 2017-10-03 11:21 | PN ---
Date/Time of Note Date/Time of Note DATE: 10/03/17 TIME: 11:20 Assessment/Plan VTE Prophylaxis VTE Prophylaxis Intervention: other Lines/Catheters IV Catheter Type (from Nrsg): Peripheral IV Assessment/Plan Chief Complaint/Hosp Course 1) cholecystitis - pain medication - IV fluids - await surgery, contacted Dr. Daly who was the last to see the patient Problems: Subjective 24 Hr Interval Summary Free Text/Dictation Patient continues to have abdominal pain, some nausea Exam/Review of Systems Vital Signs Vitals Vital Signs Date Time Temp Pulse Resp B/P Pulse Ox O2 Delivery O2 Flow Rate FiO2 10/03/17 07:58 97.7 66 18 104/60 97 10/02/17 20:08 Room Air Intake and Output 10/02/17 10/02/17 10/03/17 15:00 23:00 07:00 Intake Total 1000 ml 1350 ml Output Total 1300 ml Balance 1000 ml 50 ml Exam Constitutional: well developed Head: atraumatic, normocephalic Neck: supple Respiratory: clear to auscultation Cardiovascular: regular rate and rhythm Gastrointestinal: soft, tender Extremities: normal pulses Results Result Diagram: 10/03/17 0449 10/03/17 0449 Results 24 hrs Laboratory Tests Test 10/03/17 04:49 White Blood Count 7.0 # Red Blood Count 4.25 Hemoglobin 12.0 Hematocrit 34.9 L Mean Corpuscular Volume 82.1 Mean Corpuscular Hemoglobin 28.2 L Mean Corpuscular Hemoglobin Concent 34.4 Red Cell Distribution Width 13.5 Platelet Count 290 Mean Platelet Volume 11.0 H Neutrophils % 55.3 Lymphocytes % 31.3 Monocytes % 8.1 Eosinophils % 4.1 Basophils % 0.9 Nucleated Red Blood Cells % 0.0 Neutrophils # 3.9 Lymphocytes # 2.2 Monocytes # 0.6 Eosinophils # 0.3 Basophils # 0.1 Nucleated Red Blood Cells # 0.0 Sodium Level 142 Potassium Level 4.0 Chloride Level 105 Carbon Dioxide Level 26 Anion Gap 15 Blood Urea Nitrogen 3 L Creatinine 0.82 Glucose Level 102 Calcium Level 9.2 Total Bilirubin 0.6 Direct Bilirubin 0.00 Indirect Bilirubin 0.6 Aspartate Amino Transf (AST/SGOT) 692 H Alanine Aminotransferase (ALT/SGPT) 845 H Alkaline Phosphatase 442 H Total Protein 6.8 # Albumin 3.4 Globulin 3.40 H Albumin/Globulin Ratio 1.00 Amylase Level 52 Lipase 169 Medications Medications Current Medications Potassium Chloride/Dextrose/ Sod Cl (D5-1/2ns + KCl 20 Meq) 1,000 ml @ 100 mls/ hr Q10H IV Last administered on 10/03/17 02:42; Admin Dose 100 MLS/HR; Start 10/02/17 at 05:00 Pantoprazole 40 mg 40 mg DAILY IV Last administered on 10/03/17 09:15; Admin Dose 40 MG; Start 10/02/17 at 09:00 Levofloxacin/ Dextrose (Levaquin 500mg/ D5W 100 ml (Pmx)) 100 ml @ 100 mls/hr Q24H IVPB Last administered on 10/03/17 05:34; Admin Dose 100 MLS/HR; Start 10/02/17 at 06:00 Ondansetron HCl (Zofran Inj) 4 mg Q6H PRN IV nausea/ vomiting Last administered on 10/03/17 10:00; Admin Dose 4 MG; Start 10/02/17 at 05:00 Hydromorphone HCl (Dilaudid) 1 mg Q3H PRN IV pain Last administered on 10:00; Admin Dose 1 MG; Start 10/02/17 at 18:30 JESSI FAUST Oct 03, 2017 11:21
[2017-10-03 19:56] VITALS: BP 108/63; RESP 18
[2017-10-04] MEDS: HYDROmorphONE 1 MG/ML SYG IV PRN ×7 (00:45→21:29)
[2017-10-04 01:33] VITALS: BP 100/53; RESP 18
[2017-10-04] MEDS: D5W-0.45 NACL + KCL 20 MEQ 1,000 ML IV SCH ×2 (02:48→17:20)
[2017-10-04] MEDS: LEVOFLOXACIN 500MG/D5W (PMX) 100 ML IVPB SCH (06:01)
[2017-10-04 08:18] VITALS: BP 90/52; RESP 18
[2017-10-04] MEDS: PANTOPRAZOLE 40 MG INJ IV SCH (08:46)
[2017-10-04] MEDS: ONDANSETRON 4 MG INJ IV PRN ×3 (08:53→20:47)
--- NOTE | 2017-10-04 11:20 | PN ---
Date/Time of Note Date/Time of Note DATE: 10/04/17 TIME: 11:16 Assessment/Plan VTE Prophylaxis VTE Prophylaxis Intervention: SCD's Lines/Catheters IV Catheter Type (from Nrs): Peripheral IV Assessment/Plan Chief Complaint/Hosp Course Patient is currently undergoing HIDA scan, no acute events reported prior to procedure. According to RN patient requires Dilaudid every 4 hours for pain control, patient also complains of nausea. Assessment/Plan - Intractable abdominal pain. Continue Dilaudid p.r.n. for pain and Zofran p.r.n. for nausea. Dr. Christiansen is asked to see patient in gastroenterology consultation. - Cholecystitis, Dr. Smith is following in general surgery consultation. - S/P ERCP and common bile duct stent placement by Dr Christiansen. - S/p pancreatitis - Status post EGD with notion of gastritis on 09/08. Continue Pepcid. - Depression, continue Lexapro. Further recommendations based on clinical course. Plan of care discussed with Dr. Wright. Problems: Exam/Review of Systems Vital Signs Vitals Vital Signs Date Time Temp Pulse Resp B/P Pulse Ox O2 Delivery O2 Flow Rate FiO2 10/04/17 08:18 98.1 52 18 90/52 96 10/02/17 20:08 Room Air Intake and Output 10/03/17 10/03/17 10/04/17 15:00 23:00 07:00 Intake Total 1150 ml 980 ml Output Total 1350 ml Balance -200 ml 980 ml Results Result Diagram: 10/03/17 0449 10/03/17 0449 Medications Medications Current Medications Potassium Chloride/Dextrose/ Sod Cl (D5-1/2ns + KCl 20 Meq) 1,000 ml @ 100 mls/ hr Q10H IV Last administered on 10/04/17 02:48; Admin Dose 100 MLS/HR; Start 10/02/17 at 05:00 Pantoprazole 40 mg 40 mg DAILY IV Last administered on 10/04/17 08:46; Admin Dose 40 MG; Start 10/02/17 at 09:00 Levofloxacin/ Dextrose (Levaquin 500mg/ D5W 100 ml (Pmx)) 100 ml @ 100 mls/hr Q24H IVPB Last administered on 10/04/17 06:01; Admin Dose 100 MLS/HR; Start 10/02/17 at 06:00 Ondansetron HCl (Zofran Inj) 4 mg Q6H PRN IV nausea/ vomiting Last administered on 10/04/17 08:53; Admin Dose 4 MG; Start 10/02/17 at 05:00 Hydromorphone HCl (Dilaudid) 1 mg Q3H PRN IV pain Last administered on 10:22; Admin Dose 1 MG; Start 10/02/17 at 18:30 JAROCHO YOUNG Oct 04, 2017 11:20
--- NOTE | 2017-10-04 16:38 | RADRPT ---
PROCEDURE: HIDA scan CLINICAL INDICATION: 36 -year-old patient with abdominal pain. TECHNIQUE: Following the intravenous injection of 8.5 mCi of Tc-99m Mebrofenin, multiple anterior dynamic images of the abdomen along with numerous planar spot images of the abdomen were obtained up to 90 minutes post injection. COMPARISON: August 27, 2017. FINDINGS: The liver is promptly visualized, demonstrates homogeneous distribution of radionuclide. There is a visualization of the common bile duct, gallbladder and gastrointestinal activity within n ormal time. IMPRESSION: No evidence to suggest the presence of common bile or cystic ducts obstruction. RPTAT: HH .Alicia Craig MD, MD Date Time Electronically viewed and signed by .Alicia Craig MD, on 10/04/2017 16:37 .L/
[2017-10-04 19:57] VITALS: BP 108/62; RESP 18
[2017-10-04] MEDS: FAMOTIDINE 20 MG INJ IV SCH (20:47)
[2017-10-05] MEDS: HYDROmorphONE 1 MG/ML SYG IV PRN ×7 (00:46→20:58)
[2017-10-05 01:29] VITALS: BP 107/60; RESP 18
[2017-10-05] MEDS: D5W-0.45 NACL + KCL 20 MEQ 1,000 ML IV SCH ×2 (04:16→15:07)
[2017-10-05] MEDS: ONDANSETRON 4 MG INJ IV PRN ×3 (04:21→20:58)
[2017-10-05 06:05] LABS: ALBUMIN 3.6 g/dl (3.3-4.9); ALBUMIN/GLOBULIN RATIO 1.09; BILIRUBIN,DIRECT 0.1 mg/dl (0.00-0.20); BILIRUBIN,INDIRECT 1.2 mg/dl (0-1.1); BILIRUBIN,TOTAL 1.3 mg/dl (0.2-1.3); CALCIUM 9.4 mg/dl (8.4-10.2); CREATININE 0.79 mg/dl (0.44-1.00); POTASSIUM 3.9 mmol/L (3.5-5.1); TOTAL PROTEIN 6.9 g/dl (6.1-8.1)
[2017-10-05] MEDS: LEVOFLOXACIN 500MG/D5W (PMX) 100 ML IVPB SCH (06:07)
[2017-10-05 08:29] VITALS: BP 113/64; RESP 18
[2017-10-05] MEDS: FAMOTIDINE 20 MG INJ IV SCH ×2 (09:36→20:58)
[2017-10-05] MEDS: METOCLOPRAMIDE 10 MG INJ IV SCH ×2 (12:21→17:56)
[2017-10-05 15:13] VITALS: BP 109/53; RESP 16
--- NOTE | 2017-10-05 16:59 | PN ---
Date/Time of Note Date/Time of Note DATE: 10/05/17 TIME: 16:57 Assessment/Plan VTE Prophylaxis VTE Prophylaxis Intervention: SCD's Lines/Catheters IV Catheter Type (from [facility] Peripheral IV Urinary Cath still in place: No Assessment/Plan Chief Complaint/Hosp Course Patient just came back from [facility], complaints of abdominal and nausea. Assessment/Plan - Intractable abdominal pain. Continue Dilaudid p.r.n. for pain and Zofran p.r.n. for nausea. Dr. Christiansen is asked to see patient in gastroenterology consultation. - Cholecystitis, Dr. Smith is following in general surgery consultation. - S/P ERCP and common bile duct stent placement by Dr Chrisitansen. - S/p pancreatitis - Status post EGD with notion of gastritis on 09/08. Continue Pepcid. - Depression, continue Lexapro. Further recommendations based on clinical course. Plan of care discussed with Dr. Wright. Problems: Exam/Review of Systems Vital Signs Vitals Vital Signs Date Time Temp Pulse Resp B/P Pulse Ox O2 Delivery O2 Flow Rate FiO2 10/05/17 15:13 98.0 58 16 109/53 97 10/02/17 20:08 Room Air Intake and Output 10/04/17 10/04/17 10/05/17 15:00 23:00 07:00 Intake Total 1050 ml 100 ml 1100 ml Output Total 1420 ml 50 ml Balance 1050 ml -1320 ml 1050 ml Exam Constitutional: alert, oriented Head: normocephalic Neck: supple Respiratory: normal air movement Cardiovascular: nl pulses Gastrointestinal: soft, tender Musculoskeletal: nl extremities to inspection Extremities: normal pulses Results Result Diagram: 10/03/17 0449 10/05/17 0502 Results 24 hrs Laboratory Tests Test 10/05/17 05:02 Sodium Level 142 Potassium Level 3.9 Chloride Level 103 Carbon Dioxide Level 26 Anion Gap 17 H Blood Urea Nitrogen 2 L Creatinine 0.79 Glucose Level 110 Calcium Level 9.4 Total Bilirubin 1.3 Direct Bilirubin 0.10 Indirect Bilirubin 1.2 H Aspartate Amino Transf (AST/SGOT) 767 H Alanine Aminotransferase (ALT/SGPT) 1029 H Alkaline Phosphatase 433 H Total Protein 6.9 Albumin 3.6 Globulin 3.30 H Albumin/Globulin Ratio 1.09 Lipase 248 Medications Medications Current Medications Potassium Chloride/Dextrose/ Sod Cl 1,000 ml @ 100 mls/hr Q10H IV Last administered on 10/05/17 15:07; Admin Dose 100 MLS/HR; Start 10/02/17 at 05: 00 Levofloxacin/ Dextrose (Levaquin 500mg/ D5W 100 ml (Pmx)) 100 ml @ 100 mls/hr Q24H IVPB Last administered on 10/05/17 06:07; Admin Dose 100 MLS/HR; Start 10/02/17 at 06:00 Hydromorphone HCl (Dilaudid) 1 mg Q3H PRN IV pain Last administered on 15:12; Admin Dose 1 MG; Start 10/02/17 at 18:30 Ondansetron HCl (Zofran Inj) 4 mg Q4 PRN IV nausea/ vomiting Last administered on 10/05/17 07:58; Admin Dose 4 MG; Start 10/04/17 at 13:55 Famotidine (Pepcid Iv) 20 mg BID IV Last administered on 10/05/17 09:36; Admin Dose 20 MG; Start 10/04/17 at 21:00 Metoclopramide HCl (Reglan) 10 mg Q6 IV Last administered on 10/05/17 12:21; Admin Dose 10 MG; Start 10/05/17 at 12:00 JAROCHO YOUNG Oct 05, 2017 16:59
--- NOTE | 2017-10-05 17:05 | CONS ---
DATE OF ADMISSION: 10/02/2017 DATE OF CONSULTATION: 10/05/2017 TYPE OF CONSULTATION: Surgical. REQUESTING PHYSICIAN: Dr. Casarez's service from Dr. Smith and I am seeing the patient for Dr. Smith. REASON FOR CONSULTATION: Intractable epigastric and both upper quadrant abdominal pain and some nausea. HISTORY OF PRESENT ILLNESS: This 36-year-old female actually was admitted in this hospital about a month ago with epigastric and upper quadrant abdominal pain through the emergency room and was found by ultrasound and MRI and to have gallstones, but no evidence of cholecystitis. The enzymes, namely AST, ALT, alkaline phosphatase was elevated. At that time, consultation was obtained from GI colleague, Dr. Christiansen, who recommended the patient have ERCP and this was done and a sphincterotomy was done and a stent was placed in the common bile duct. Post-ERCP, the patient developed pancreatitis and was proven by CT scan and also lipase elevation and WBC evaluation to 27,000 and required the patient be kept n.p.o. and eventually started on TPN. The patient was on TPN for about 3 weeks. Meanwhile, the patient was having abdominal pain and sometimes nausea, a couple of attempts for feeding the patient resulted in increased lipase, which had been normalized, but eventually the lipase stayed normal for a few days and the patient started on low fat, low cholesterol regular diet, which was tolerated and was occasionally complaining of pain. Apparently meanwhile, the patient was given IV Dilaudid pain medication p.r.n. So eventually on 10/01/2017 it appeared that the patient is quite stable. Lipase was normal. WBC was normal. BUN and creatinine was normal. Tolerating regular low fat, low cholesterol diet. No nausea, no vomiting, minimal pain. The patient was discharged home to be followed by Dr. Smith' office later on in the following weeks from there to be scheduled for elective cholecystectomy and later on to be seen by Dr. Christiansen to be scheduled for removal of the stent. Apparently, the same day of discharge just a few hours later, the patient comes back to the emergency room complaining of severe uncontrollable abdominal epigastric and bilateral subcostal pain and some nausea. Of course, the patient had been given Dilaudid tablets 2 mg prescription which apparently patient has been taking but has not been able to control the pain. So on admission 10/01/2017 at 8:00 p.m. through the emergency room, the patient's vital signs were as follows: Temperature 98.2, pulse rate 69, respirations 20, blood pressure 142/65, saturation 98% on room air. LABORATORY DATA: On 10/01/2017 on admission at 10:00 p.m. showed WBC 13,300 with 80% segmented, hemoglobin 13.3, hematocrit 38.5. Chemistry on 10/01/2017 at 22 hours p.m. on admission chemistry is as follows: Sodium and potassium normal, BUN 7, creatinine 0.75. Total bilirubin was 0.6. AST was 200, ALT was 535, alkaline phosphatase was 380, all of them were elevated. Lipase was 227, which was normal. On that day in the emergency room, ultrasound of the gallbladder area was performed which showed cholelithiasis, no evidence of cholecystitis, mild hepatomegaly with fatty infiltration, mildly dilated CBD which was reported to be 6.5 mm. So the patient was admitted and was started on Dilaudid IV for pain control and was kept n.p.o. The following day was seen by other colleagues including Dr. Christiansen, GI colleague. On 10/03/2017 the chemistry showed more increasing levels of AST, which on admission was 200, now it was on 692. ALT increased to 845. Alkaline phosphatase increased to 442. On the even increased more, AST was 767, ALT 1029 and alkaline phosphatase 433 and bilirubin is slightly increased from 0.6 to 1.2 but lipase stayed normal at 248. Hematology on the , WBC normalized to 7000 with normal differential of 55, hemoglobin 12, hematocrit 34.9. On a HIDA scan was performed which the report was as follows: No evidence to suggest the presence of common bile or cystic duct obstruction actually within 30 to 90 minutes, gallbladder, common bile duct and GI systems all were visualized without any evidence of obstruction. Today apparently Dr. Christiansen has suggested to have an MRCP done which the patient is waiting to be called for. PHYSICAL EXAMINATION: GENERAL: Today, the patient is alert, awake, oriented x3, does not appear in acute distress. VITAL SIGNS: Recorded as temperature maximum 97.9, heart rate 54, respirations 18, blood pressure 113/64, saturation 93% on room air. HEART: Regular. LUNGS: Clear. ABDOMEN: Soft but apparently is tender in the epigastric area on deep pressure. Also, slightly in the right upper quadrant and slightly in the left upper quadrant. EXTREMITIES: Lower extremity, no calf tenderness. LABORATORY DATA: Labs today, there is no hematology today. Chemistry as was mentioned, bilirubin slightly increased to 1.2 and also AST, ALT and alkaline phosphatase all increased today more than before. ASSESSMENT AND PLAN: This is a 36-year-old patient who was readmitted only a few hours after being discharged from the hospital because of uncontrollable abdominal pain, mainly in the epigastric and radiating to both upper quadrants and to the side of the chest wall. This patient was in the hospital for 3 to 4 weeks almost because of abdominal pain which was found to have gallstones, no cholecystitis and then she had endoscopic retrograde cholangiopancreatography because of elevation in enzymes and developed pancreatitis post-endoscopic retrograde cholangiopancreatography and for control of the pancreatitis. The patient was kept n.p.o. and TPN and eventually after tolerating diet, regular low fat diet and no increase in lipase anymore and appearing that the pain was under control, patient was discharged. Now today's problem: 1. Intractable epigastric abdominal pain probably secondary to pancreatitis. 2. Rule out opioid misuse and probably dependency on Dilaudid. 3. Gallstones with no evidence of cholecystitis. 4. Status post endoscopic retrograde cholangiopancreatography, sphincterotomy and placement of a stent in the common bile duct. 5. Status post pancreatitis. The status of the anatomy of the pancreas at this time it is not clearly understood. The last CT scan was about 3 weeks ago , so we are going to repeat CT scan 6. I suggest to get a consultation from pain management physician, Dr. Maynard , considering that it is possible that the patient is abusing the Dilaudid per my opinion. I will continue to observe and follow the patient along with other colleagues. 7. find out the cause of increased liver enzymes. Dictated By: BRANDO ENRIQUEZ MD PS/NTS Conf#: [id number] DID#: [id number] CC: KATHLEEN CASAREZ MD;*EndCC* MTDD
--- NOTE | 2017-10-05 17:44 | RADRPT ---
PROCEDURE: MR Abdomen and MRCP. CLINICAL INDICATION: Right upper quadrant abdominal pain TECHNIQUE: MRI abdomen with and without contrast and MRCP was performed on a high-resolution high field scanner. 3-D coronal rotating MIP images of the biliary tree are available for review. COMPARISON: Ultrasound dated October 01, [address] abdomen/pelvis dated September 20 017. FINDINGS: MRI Abdomen: The lung bases are clear. Heart size is within normal limits. No significant pericardial effusion. Hepatic morphology is within limits. No gross T2 signal abnormalities. The spleen is unremarkable. Pancreas identified and appears to be mildly enlarged with irregular nikhil earance of the borders. No evidence of peripancreatic fluid. Both adrenal glands are within limits. Both kidneys are normal anatomic position. No evidence of obstruction or hydronephrosis. The visualized GI tract demonstrate normal caliber loops of small large bowel. No obstruction. The aorta is unremarkable. There is no significant retroperitoneal lymphadenopathy. MRCP: The gallbladder is identified, with multiple gallstones are noted. No gross evidence of inflammatory changes of thickening of the gallbladder wall. The cystic duct is patent. There is dilatation of th e common bile duct, measuring up to 1.6 cm. There appears to be an area of focal narrowing within th e distal CBD, prior to the ampulla. The pancreatic duct appears to be normal sized. IMPRESSION: 1. Multiple gallstones. No gross MRI evidence of inflammatory changes at this time. 2. There is intrahepatic dilatation and dilatation of the common bile duct, measuring up to 1.7 cm. There is focal narrowing of the distal CBD concerning for stricture. No gross common bile duct stone noted at this time. Previously noted common bile duct stent not visualized on current study. Correl ate with clinical history. 3. Enlarged pancreas, with a irregular appearance of the borders, concerning for acute pancreatitis. RPTAT: AARR Physician Nela Date Time Electronically viewed and signed by Physician Nela on 10/05/2017 16:45 TUNG/
[2017-10-05 19:42] VITALS: BP 98/60; RESP 18
[2017-10-06] MEDS: HYDROmorphONE 1 MG/ML SYG IV PRN ×7 (00:43→21:51)
[2017-10-06] MEDS: METOCLOPRAMIDE 10 MG INJ IV SCH ×4 (00:44→17:58)
[2017-10-06] MEDS: D5W-0.45 NACL + KCL 20 MEQ 1,000 ML IV SCH ×4 (00:44→22:20)
[2017-10-06 01:39] VITALS: BP 117/59; RESP 18
[2017-10-06] MEDS: ONDANSETRON 4 MG INJ IV PRN ×4 (04:36→21:51)
[2017-10-06] MEDS: LEVOFLOXACIN 500MG/D5W (PMX) 100 ML IVPB SCH (05:43)
[2017-10-06 05:56] LABS: BASOPHILS % 0.4 % (0.0-2.0); EOSINOPHILS # 0.1 10^3/ul (0.0-0.5); EOSINOPHILS % 1.4 % (0.0-7.0); HEMATOCRIT 37.5 % (37.0-47.0); HEMOGLOBIN 12.4 g/dl (12.0-16.0); LYMPHOCYTES # 1.8 10^3/ul (0.8-2.9); MEAN CORPUSCULAR HEMOGLOBIN 27.2 pg (29.0-33.0); MEAN CORPUSCULAR HGB CONC 33.1 g/dl (32.0-37.0); MEAN CORPUSCULAR VOLUME 82.2 fl (82.0-101.0); MEAN PLATELET VOLUME 10.3 fl (7.4-10.4); MONOCYTE # 0.7 10^3/ul (0.3-0.9); MONOCYTES % 7.5 % (0.0-11.0); NEUTROPHIL # 6.5 10^3/ul (1.6-7.5); NEUTROPHILS % 70.6 % (39.0-77.0); PLATELET COUNT 310 10^3/UL (140-415); RED BLOOD COUNT 4.56 10^6/ul (4.20-5.40); RED CELL DISTRIBUTION WIDTH 13.4 % (11.5-14.5); WHITE BLOOD COUNT 9.2 10^3/ul (4.8-10.8)
[2017-10-06 06:43] LABS: ALANINE AMINOTRANSFERASE 954 IU/L (13-69); ALBUMIN 3.4 g/dl (3.3-4.9); ALBUMIN/GLOBULIN RATIO 0.91; ALKALINE PHOSPHATASE 382 IU/L (42-121); ANION GAP 13 (8-16); ASPARTATE AMINO TRANSFERASE 683 IU/L (15-46); BILIRUBIN,INDIRECT 1.2 mg/dl (0-1.1); BILIRUBIN,TOTAL 1.2 mg/dl (0.2-1.3); CALCIUM 9.3 mg/dl (8.4-10.2); CARBON DIOXIDE 26 mmol/L (21-31); CHLORIDE 104 mmol/L (97-110); CREATININE 0.83 mg/dl (0.44-1.00); GLUCOSE 105 mg/dl (70-220); POTASSIUM 3.9 mmol/L (3.5-5.1); SODIUM 139 mmol/L (135-144); TOTAL PROTEIN 7.1 g/dl (6.1-8.1)
[2017-10-06 07:17] LABS: BLOOD UREA NITROGEN < 2 mg/dl (7-20)
[2017-10-06 07:48] VITALS: BP 103/63; RESP 19
[2017-10-06] MEDS: FAMOTIDINE 20 MG INJ IV SCH ×2 (08:42→20:41)
[2017-10-06 14:38] VITALS: BP 111/61; RESP 19
--- NOTE | 2017-10-06 15:13 | CONS ---
DATE OF ADMISSION: 10/05/2017 DATE OF CONSULTATION: HISTORY OF PRESENT ILLNESS: At this time, the patient has no significant abdominal pain, but she lam s some improvement. She still has mild pain. The MRCP was done which showed evidence of a 12 mm di lated common bile duct with a stricture in the distal common bile duct. Apparently there is no evid ence of a CBD stent noted at this time. May be she passed the CBD stent. She has got cholelithiasis. PHYSICAL EXAMINATION: ABDOMEN: Abdomen is nontender. No distention noted. LABORATORY WORKUP: WBC is 9200. Bilirubin is 1.2, AST is 683, ALT is ____ 954, alkaline phosphatas e 82. CLINICAL IMPRESSION: The patient has a dilated common bile duct, probably due to stricture in the d istal common bile duct. She has got cholelithiasis. PLAN: At this time, recommend ERCP and put a CBD stent. Dictated By: BREA FRANKLIN MD NC/NTS Conf#: [id number] DID#: [id number] CC: KATHLEEN CASAREZ MD;*EndCC*
--- NOTE | 2017-10-06 15:46 | PN ---
Date/Time of Note Date/Time of Note DATE: 10/06/17 TIME: 15:44 Assessment/Plan VTE Prophylaxis VTE Prophylaxis Intervention: SCD's Lines/Catheters IV C[facility]ter Type (from [facility]): Peripheral IV Urinary Cath still in place: No Assessment/Plan Chief Complaint/Hosp Course Patient still complains of abdominal pain, will obtain pain management consult for Dr. Alcaraz. Plan for ERCP tomorrow. Assessment/Plan - Intractable abdominal pain. Continue Dilaudid p.r.n. for pain and Zofran p.r.n. for nausea. Dr. Christiansen is asked to see patient in gastroenterology consultation. - Cholecystitis, Dr. Smith is following in general surgery consultation. - S/P ERCP and common bile duct stent placement by Dr Christiansen. - S/p pancreatitis - Status post EGD with notion of gastritis on 09/08. Continue Pepcid. - Depression, continue Lexapro. Further recommendations based on clinical course. Plan of care discussed with Dr. Wright. Problems: Exam/Review of Systems Vital Signs Vitals Vital Signs Date Time Temp Pulse Resp B/P Pulse Ox O2 Delivery O2 Flow Rate FiO2 10/06/17 14:38 98.2 71 19 111/61 97 10/02/17 20:08 Room Air Intake and Output 10/05/17 10/05/17 10/06/17 15:00 23:00 07:00 Intake Total 100 ml 1000 ml 100 ml Balance 100 ml 1000 ml 100 ml Exam Constitutional: alert, oriented Respiratory: normal air movement Cardiovascular: nl pulses Gastrointestinal: soft, tender Musculoskeletal: nl extremities to inspection Extremities: normal pulses Results Result Diagram: 10/06/17 0525 10/06/17 0525 Results 24 hrs Laboratory Tests Test 10/06/17 05:25 White Blood Count 9.2 # Red Blood Count 4.56 Hemoglobin 12.4 Hematocrit 37.5 Mean Corpuscular Volume 82.2 Mean Corpuscular Hemoglobin 27.2 L Mean Corpuscular Hemoglobin Concent 33.1 Red Cell Distribution Width 13.4 Platelet Count 310 Mean Platelet Volume 10.3 Neutrophils % 70.6 Lymphocytes % 20.0 Monocytes % 7.5 Eosinophils % 1.4 Basophils % 0.4 Nucleated Red Blood Cells % 0.0 Neutrophils # 6.5 Lymphocytes # 1.8 Monocytes # 0.7 Eosinophils # 0.1 Basophils # 0.0 Nucleated Red Blood Cells # 0.0 Sodium Level 139 Potassium Level 3.9 Chloride Level 104 Carbon Dioxide Level 26 Anion Gap 13 Blood Urea Nitrogen < 2 L Creatinine 0.83 Glucose Level 105 Calcium Level 9.3 Total Bilirubin 1.2 Direct Bilirubin 0.00 Indirect Bilirubin 1.2 H Aspartate Amino Transf (AST/SGOT) 683 H Alanine Aminotransferase (ALT/SGPT) 954 H Alkaline Phosphatase 382 H Total Protein 7.1 Albumin 3.4 Globulin 3.70 H Albumin/Globulin Ratio 0.91 Medications Medications Current Medications Potassium Chloride/Dextrose/ Sod Cl 1,000 ml @ 100 mls/hr Q10H IV Last administered on 10/06/17 12:00; Admin Dose 100 MLS/HR; Start 10/02/17 at 05: 00 Levofloxacin/ Dextrose (Levaquin 500mg/ D5W 100 ml (Pmx)) 100 ml @ 100 mls/hr Q24H IVPB Last administered on 10/06/17 05:43; Admin Dose 100 MLS/HR; Start 10/02/17 at 06:00 Hydromorphone HCl (Dilaudid) 1 mg Q3H PRN IV pain Last administered on 11:59; Admin Dose 1 MG; Start 10/02/17 at 18:30 Ondansetron HCl (Zofran Inj) 4 mg Q4 PRN IV nausea/ vomiting Last administered on 10/06/17 08:42; Admin Dose 4 MG; Start 10/04/17 at 13:55 Famotidine (Pepcid Iv) 20 mg BID IV Last administered on 10/06/17 08:42; Admin Dose 20 MG; Start 10/04/17 at 21:00 Metoclopramide HCl (Reglan) 10 mg Q6 IV Last administered on 10/06/17 11:59; Admin Dose 10 MG; Start 10/05/17 at 12:00 JAROCHO YOUNG Oct 06, 2017 15:46
[2017-10-06 19:08] LABS: ALANINE AMINOTRANSFERASE 942 IU/L (13-69); ALBUMIN/GLOBULIN RATIO 1.11; ALKALINE PHOSPHATASE 441 IU/L (42-121); ANION GAP 17 (8-16); ASPARTATE AMINO TRANSFERASE 640 IU/L (15-46); BILIRUBIN,INDIRECT 1.1 mg/dl (0-1.1); BILIRUBIN,TOTAL 1.2 mg/dl (0.2-1.3); CALCIUM 9.5 mg/dl (8.4-10.2); CARBON DIOXIDE 24 mmol/L (21-31); CHLORIDE 102 mmol/L (97-110); CREATININE 0.76 mg/dl (0.44-1.00); GLUCOSE 110 mg/dl (70-220); POTASSIUM 3.8 mmol/L (3.5-5.1); SODIUM 139 mmol/L (135-144); TOTAL PROTEIN 7.6 g/dl (6.1-8.1)
[2017-10-06 19:10] LABS: BLOOD UREA NITROGEN < 2 mg/dl (7-20)
[2017-10-06 19:51] VITALS: BP 105/58; RESP 20
--- NOTE | 2017-10-06 20:15 | PN ---
DATE: 10/06/2017 SUBJECTIVE: States that has had several episodes of vomiting today morning. Of course, associated with nausea. Patient is still n.p.o., has required pain medications, IV Dilaudid for control of the pain. OBJECTIVE: GENERAL: Awake, alert, oriented x3. VITAL SIGNS: Temperature 98.2, heart rate 56, respirations 18, blood pressure 170/69, saturation is 98%. LABORATORY DATA: Today, sodium and potassium normal, BUN and creatinine normal , bilirubin is 1.2 total, D. is 0, indirect is 1.2. AST elevated, 683, slightly decreased comparing to yesterday. ALT 954, slightly decreased comparing to yesterday. Alkaline phosphatase 382, slightly decreased comparing to yesterday. Lipase is ____ today, but yesterday was 248, which is normal. HEART: Regular. LUNGS: Clear. ABDOMEN: Soft, mild tenderness in the epigastric area on deep pressure. RADIOLOGY: MRCP was done last night, reported as follows: 1. Multiple gallstones. No gross MRI evidence of inflammatory changes at this time. 2. There is intrahepatic dilatation and dilatation of the common bile duct measuring up to 1.7 cm. There is focal narrowing of the distal CBD concerning for stricture. No gross common bile duct stone noted at this time. Previously noted common bile duct stent not visualized on current study. Correlate with clinical history. 3. Enlarged pancreas with an irregular appearance of the borders, concerning for acute pancreatitis. This was read by Dr. David Lee. ASSESSMENT AND PLAN: This 36-year-old female who was here previously admitted on 08/18/2017 because of the abdominal pain through the emergency room, was found to have gallstones, and also elevated liver enzymes, underwent ERCP, sphincterotomy, post-ERCP developed pancreatitis, required her to be kept n.p.o. and TPN for a few weeks, and eventually lipase normalized and the patient was able to tolerate regular low fat, low cholesterol diet, was discharged on 10/01/2017, only to come back later on at night because of inability to control the pain with p.o. medication, which was Dilaudid 2 mg tablets. On this admission, the patient, at the beginning was found to have WBC slightly increased with shift to the left. Next day it was normalized. Ultrasound revealed gallstones, no evidence of cholecystitis. HIDA scan this time was done, which revealed opening of the cystic duct and common bile duct. MRCP was done per request of GI colleague, Dr. Christiansen, and the report was as above. Appears that the common bile duct stent has fallen off and the pain could be explained on the basis of some partial, probably narrowing of the distal common bile duct, which has resulted to the dilatation of the common bile duct to 147 cm per MRCP report, and elevation of enzymes. To me, appears that the cystic duct is not very dilated and the gallstones are larger than the size to be able to pass through that small cystic duct and on MRCP and ultrasound, there is evidence of acute cholecystitis, therefore the pain is difficult to be explained on the basis of biliary colic requiring such a high dose of Dilaudid, so still I assume that even though patient may have some real pain due to the pathology in that area, but appears that patient is abusing the pain medication, that is why I still recommend to be seen by pain management colleagues to evaluate patient from this regard as well. I discussed the findings on MRCP with Dr. Christiansen, he is going to see the patient today after noon, and he said that probably he is going to plan to proceed with another sphincterotomy and ERCP, and probably another stent. From surgical point of view, we are waiting to see how our GI colleagues will manage the problem and when the patient is stable, then Dr. Smith will proceed with cholecystectomy. Dictated By: BRANDO ENRIQUEZ MD PS/NTS Conf#: [id number] DID#: [id number] CC: KATHLEEN CASAREZ MD;*EndCC* MTDD
[2017-10-07] VITALS (14 sets, daily range): BP systolic 112–137; BP diastolic 58–77; PULSE 66–100; RESP 11–20
[2017-10-07] MEDS: HYDROmorphONE 1 MG/ML SYG IV PRN ×7 (03:03→23:35)
[2017-10-07] MEDS: ONDANSETRON 4 MG INJ IV PRN ×2 (03:03→07:46)
[2017-10-07 05:16] LABS: BASOPHILS % 0.3 % (0.0-2.0); EOSINOPHILS # 0.2 10^3/ul (0.0-0.5); EOSINOPHILS % 1.9 % (0.0-7.0); HEMATOCRIT 37.4 % (37.0-47.0); HEMOGLOBIN 12.5 g/dl (12.0-16.0); LYMPHOCYTES # 1.7 10^3/ul (0.8-2.9); MEAN CORPUSCULAR HEMOGLOBIN 27.7 pg (29.0-33.0); MEAN CORPUSCULAR HGB CONC 33.4 g/dl (32.0-37.0); MEAN CORPUSCULAR VOLUME 82.7 fl (82.0-101.0); MEAN PLATELET VOLUME 10.4 fl (7.4-10.4); MONOCYTE # 0.7 10^3/ul (0.3-0.9); MONOCYTES % 7.9 % (0.0-11.0); NEUTROPHIL # 6.2 10^3/ul (1.6-7.5); NEUTROPHILS % 70.7 % (39.0-77.0); PLATELET COUNT 311 10^3/UL (140-415); RED BLOOD COUNT 4.52 10^6/ul (4.20-5.40); RED CELL DISTRIBUTION WIDTH 13.6 % (11.5-14.5); WHITE BLOOD COUNT 8.8 10^3/ul (4.8-10.8)
[2017-10-07] MEDS: LEVOFLOXACIN 500MG/D5W (PMX) 100 ML IVPB SCH (05:55)
[2017-10-07] MEDS: METOCLOPRAMIDE 10 MG INJ IV SCH ×5 (05:55→23:35)
[2017-10-07] MEDS ORDERED: ONDANSETRON 4 MG INJ ONE (07:00)
[2017-10-07] MEDS: D5W-0.45 NACL + KCL 20 MEQ 1,000 ML IV SCH ×3 (09:13→23:35)
[2017-10-07] MEDS: FAMOTIDINE 20 MG INJ IV SCH ×2 (09:13→21:38)
--- NOTE | 2017-10-07 13:32 | PN ---
Date/Time of Note Date/Time of Note DATE: 10/07/17 TIME: 13:27 Assessment/Plan VTE Prophylaxis VTE Prophylaxis Intervention: SCD's Lines/Catheters IV Catheter Type (from [facility]): Peripheral IV Assessment/Plan Chief Complaint/Hosp Course Plan for ERCP today. Assessment/Plan - Intractable abdominal pain. Continue Dilaudid p.r.n. for pain and Zofran p.r.n. for nausea. Dr. Alcaraz is asked to see patient in pain management consultation. -Narrowing of the distal CBD concerning for stricture MRCP. Pending ERCP today at [address] Christiansen is following patient in gastroenterology consultation. -Possible cholecystitis, continue Flagyl and Levaquin. Dr. Smith is following in general surgery consultation. - S/P ERCP and common bile duct stent placement at previous admission by Dr Christiansen. - S/p pancreatitis - Status post EGD with notion of gastritis on 09/08. Continue Pepcid. - Depression Further recommendations based on clinical course. Plan of care discussed with Dr. Wright. Problems: Exam/Review of Systems Vital Signs Vitals Vital Signs Date Time Temp Pulse Resp B/P Pulse Ox O2 Delivery O2 Flow Rate FiO2 10/07/17 07:19 97.5 61 18 112/61 98 Intake and Output 10/06/17 10/06/17 10/07/17 15:00 23:00 07:00 Intake Total 1000 ml 1000 ml 965 ml Output Total 850 ml Balance 1000 ml 1000 ml 115 ml Exam Constitutional: alert, oriented Respiratory: normal air movement Cardiovascular: nl pulses Gastrointestinal: soft, tender Musculoskeletal: nl extremities to inspection Extremities: normal pulses Results Result Diagram: 10/07/17 0443 10/06/17 1840 Results 24 hrs Laboratory Tests Test 10/06/17 18:40 10/07/17 04:43 Sodium Level 139 Potassium Level 3.8 Chloride Level 102 Carbon Dioxide Level 24 Anion Gap 17 H Blood Urea Nitrogen < 2 L Creatinine 0.76 Glucose Level 110 Calcium Level 9.5 Total Bilirubin 1.2 Direct Bilirubin 0.10 Indirect Bilirubin 1.1 Aspartate Amino Transf (AST/SGOT) 640 H Alanine Aminotransferase (ALT/SGPT) 942 H Alkaline Phosphatase 441 H Total Protein 7.6 Albumin 4.0 Globulin 3.60 H Albumin/Globulin Ratio 1.11 White Blood Count 8.8 Red Blood Count 4.52 Hemoglobin 12.5 Hematocrit 37.4 Mean Corpuscular Volume 82.7 Mean Corpuscular Hemoglobin 27.7 L Mean Corpuscular Hemoglobin Concent 33.4 Red Cell Distribution Width 13.6 Platelet Count 311 Mean Platelet Volume 10.4 Neutrophils % 70.7 Lymphocytes % 19.0 Monocytes % 7.9 Eosinophils % 1.9 Basophils % 0.3 Nucleated Red Blood Cells % 0.0 Neutrophils # 6.2 Lymphocytes # 1.7 Monocytes # 0.7 Eosinophils # 0.2 Basophils # 0.0 Nucleated Red Blood Cells # 0.0 Medications Medications Current Medications Potassium Chloride/Dextrose/ Sod Cl 1,000 ml @ 100 mls/hr Q10H IV Last administered on 10/07/17 09:13; Admin Dose 100 MLS/HR; Start 10/02/17 at 05: 00 Levofloxacin/ Dextrose (Levaquin 500mg/ D5W 100 ml (Pmx)) 100 ml @ 100 mls/hr Q24H IVPB Last administered on 10/07/17 05:55; Admin Dose 100 MLS/HR; Start 10/02/17 at 06:00 Hydromorphone HCl (Dilaudid) 1 mg Q3H PRN IV pain Last administered on 09:13; Admin Dose 1 MG; Start 10/02/17 at 18:30 Ondansetron HCl (Zofran Inj) 4 mg Q4 PRN IV nausea/ vomiting Last administered on 10/07/17 07:46; Admin Dose 4 MG; Start 10/04/17 at 13:55 Famotidine (Pepcid Iv) 20 mg BID IV Last administered on 10/07/17 09:13; Admin Dose 20 MG; Start 10/04/17 at 21:00 Metoclopramide HCl (Reglan) 10 mg Q6 IV Last administered on 10/07/17 12:58; Admin Dose 10 MG; Start 10/05/17 at 12:00 JAROCHO YOUNG Oct 07, 2017 13:31
[2017-10-07] MEDS ORDERED: MIDAZOLAM 1 MG/ML 2 ML INJ ONE (18:11)
[2017-10-07] MEDS ORDERED: VANCOMYCIN 1 GM (PMX) 250 ML ONE (18:22)
[2017-10-07] MEDS ORDERED: INDOMETHACIN 50 MG SUPP PR ONE ×2 (18:22→18:30)
[2017-10-07] MEDS ORDERED: LIDOCAINE 2% (SDV) 5 ML INJ ONE (18:30)
[2017-10-07] MEDS ORDERED: SUCCINYLCHOLINE CHLORIDE 100 MG/5 ML SYG IV ONE (18:30)
[2017-10-07] MEDS ORDERED: PROPOFOL 20 ML ONE (18:30)
[2017-10-07] MEDS ORDERED: FAMOTIDINE 20 MG INJ ONE (18:57)
[2017-10-07] MEDS ORDERED: DEXAMETHASONE 4 MG/ML 1 ML INJ ONE (18:57)
[2017-10-07] MEDS ORDERED: PHENYLephrine (100 MCG/ML) 5ML SYG ONE (19:30)
--- NOTE | 2017-10-07 19:55 | OPR ---
Date/Time of Note Date/Time of Note DATE: 10/07/17 TIME: 19:52 Operative Report Procedure Date: Oct 07, 2017 Preoperative Diagnosis cbgd obstruction clogged cbd stent Postoperative Diagnosis cbd stricture clogged cbd stent cbd stones Operation/Procedure Performed ercp see dictation Surgeon see signature line Field Sales Engineer none Anesthesia Type: general Anesthesiologist: ALEENA DEL RIO MD Estimated Blood Loss: none Transfusion none Specimen cbd brushing Grafts/Implants none Tubes/Drains cbd stent Complications none Pt Condition Post Procedure: stable Indications cbd obstruction Procedure Description ercp see dictation BREA FRANKLIN MD Oct 07, 2017 19:55
--- NOTE | 2017-10-07 20:53 | PN ---
DATE: 10/07/2017 SUBJECTIVE: Still complaining of pain which is almost controlled by Dilaudid IV , also has nausea, has vomited several times last night and today morning. Dr. Christiansen, GI colleague is planning to do ERCP today. OBJECTIVE: GENERAL: Alert, awake, oriented, appears depressed. VITAL SIGNS: Temperature 98, heart rate 67, regular, respirations 20, blood pressure 129/68, saturation 97% room air. LABORATORY DATA: Sodium, potassium normal. BUN 2, creatinine 0.76. Bilirubin total 1.2, direct 0.1, indirect 1.1. AST 640, high. ALT 942, high. Alkaline phosphatase 441, high. No lipase was done today. HEART: Regular. LUNGS: Clear. ABDOMEN: Soft, mild tenderness on deep pressure, epigastric area and bilat. subcostal area. EXTREMITIES: Lower extremities, no calf tenderness. ASSESSMENT AND PLAN: A 36-year-old female who was here before because of the symptomatic cholelithiasis and elevated enzymes. Underwent ERCP, a sphincterotomy, a stent placement, later on developed pancreatitis, was treated for pancreatitis with n.p.o., TPN, eventually on 10/01/2017 was discharged home , only to come back later at night, the same day with intractable epigastric pain that did not respond to p.o. 2 mg of Dilaudid every 4 hours by mouth. The patient was found to have a slight elevation of leukocytosis on admission, on , and some elevation of liver enzymes, was admitted. Ultrasound, gallstones, no cholecystitis. MRCP showed gallstones, no cholecystitis, but dilated common bile duct up to 1.7 mm and some stricture, distal part of the common bile duct. Notably, they previously reported a stent in the common bile duct, was not reported any more. Dr. Christiansen, GI colleague in consultation saw the patient and he is planning to do ERCP and place stent again. When the patient is stabilized, he is a candidate for cholecystectomy, but is not urgent needed. I have discussed the case with Dr. Smith, who originally was consulted with and that so far is the plan. We are going to see what is going to happen with this admission and the pain, and ERCP, and the reason for evaluation of the enzymes again. Also, CT scan of the abdomen should be ordered soon to evaluate the status of the pancreatitis. Dictated By: BRANDO ENRIQUEZ MD PS/MAVERICK Conf#: [id number] DID#: [id number] CC: KATHLEEN CASAREZ MD;*EndCC* MTDD
--- NOTE | 2017-10-07 23:29 | RADRPT ---
PROCEDURE: Intraoperative imaging for ERCP with fluoroscopy. CLINICAL INDICATION: Right upper quadrant pain. Intraoperative. TECHNIQUE: 6 images of the right upper quadrant of the abdomen were obtained in the operating room with an image intensifier. No radiologist was in attendance. Fluoroscopy time is 92 seconds. COMPARISON: MRCP dated 10/05/2017 FINDINGS: Images demonstrate the endoscope in position and contrast injected into the common bile duct. The co mmon bile duct is dilated. A balloon sweep was made. IMPRESSION: 1. ERCP as described above. RPTAT: QQ .Marcin Gross MD, MD Date Time Electronically viewed and signed by .Marcin Gross MD, on 10/07/2017 23:29 .R/
[2017-10-08 00:11] VITALS: BP 124/65; RESP 20
[2017-10-08] MEDS: HYDROmorphONE 1 MG/ML SYG IV PRN ×2 (03:12→06:15)
--- NOTE | 2017-10-08 05:48 | GILP ---
DATE OF PROCEDURE: PROCEDURE: ERCP, removal of CBD stent and removal of multiple CBD stones, brushing of the distal bi liary stricture and placement of a CBD stent. PREOPERATIVE DIAGNOSIS: The patient presenting with history of severe cholangitis, severe obstructi on into the bile duct caused by the distal bile duct stricture with severe biliary dilatation. At t his time, procedure is performed to rule out common bile duct stones and then do the brushings of th e bile duct where there is stricture and then place a stent. POSTOPERATIVE DIAGNOSIS: The patient presenting with history of severe cholangitis, severe obstruct ion into the bile duct caused by the distal bile duct stricture with severe biliary dilatation. At this time, procedure is performed to rule out common bile duct stones and then do the brushings of t he bile duct where there is stricture and then place a stent. DESCRIPTION OF PROCEDURE: After informed written consent is obtained, the patient was intubated by anesthesiologist, Dr. Goldberg. While the patient was in the prone position, Pentax video side-view ing duodenoscope was inserted into the oropharynx, then into the esophagus, subsequently into the st omach and then into the duodenum. Ampulla was located in normal location. There is a CBD stent not ed in place, although MRCP did not pick it up. By using the snare, the CBD stent was removed. By u sing the Dreamtome, cannulation was performed. When the cannulation was performed, contrast was inj ected. Distal biliary stricture was noted which appears to be benign. Significant biliary dilatati on was noted. At this time, Dreamtome was removed. A 9 x 12 stone extraction balloon was inserted into the common hepatic duct. Balloon sweeping was performed, and when the balloon sweeping was per formed, multiple stones, multiple sludge material and dark black bile all was removed, indicating si gnificant stricture, significant biliary obstruction, also probably clogged CBD stent. After several sweeping attempts of the common bile duct, no more filling defects were noted. At thi s time, over the guidewire, a 10 x 7 [place]-type of endobiliary prosthesis was inserted into the bile duct, across the ampulla into the duodenum, and photographs were obtained and the procedure was terminated. PLAN: Recommend watch the liver functions and wait for the results of the cytology of the distal bi le duct. Dictated By: BREA HOOK/MAVERICK Conf#: [id number] DID#: [id number] CC: KATHLEEN CASAREZ MD; ANUEL PENA MD; BRANDO ENRIQUEZ MD;*EndCC*
[2017-10-08] MEDS: LEVOFLOXACIN 500MG/D5W (PMX) 100 ML IVPB SCH (06:14)
[2017-10-08] MEDS: METOCLOPRAMIDE 10 MG INJ IV SCH ×3 (06:14→18:13)
[2017-10-08 06:15] VITALS: BP 118/63; PULSE 61; RESP 18
[2017-10-08 06:34] LABS: BASOPHILS % 0.2 % (0.0-2.0); HEMATOCRIT 38.1 % (37.0-47.0); HEMOGLOBIN 12.9 g/dl (12.0-16.0); LYMPHOCYTES # 0.9 10^3/ul (0.8-2.9); LYMPHOCYTES % 8.5 % (15.0-51.0); MEAN CORPUSCULAR HEMOGLOBIN 27.4 pg (29.0-33.0); MEAN CORPUSCULAR HGB CONC 33.9 g/dl (32.0-37.0); MEAN CORPUSCULAR VOLUME 81.1 fl (82.0-101.0); MEAN PLATELET VOLUME 10.8 fl (7.4-10.4); MONOCYTE # 0.3 10^3/ul (0.3-0.9); MONOCYTES % 2.9 % (0.0-11.0); NEUTROPHIL # 9.3 10^3/ul (1.6-7.5); PLATELET COUNT 322 10^3/UL (140-415); RED CELL DISTRIBUTION WIDTH 13.2 % (11.5-14.5); WHITE BLOOD COUNT 10.6 10^3/ul (4.8-10.8)
--- NOTE | 2017-10-08 06:37 | CONS ---
Date/Time of Note Date/Time of Note DATE: 10/08/17 TIME: 06:34 Assessment/Plan Assessment/Plan Additional Assessment/Plan Abdominal discomfort currently on Dilaudid. Patient states she is improving since yesterday. Theoretical consideration at opioids may cause spasm of the sphincter of Oddi although this is less noted with Dilaudid as compared to morphine. However patient has other etiologies for abdominal discomfort. I would discontinue Dilaudid at this time switch over just IV Tylenol scheduled for now follow her clinical course. Consultation Date/Type/Reason Admit Date/Time Oct 02, 2017 at 01:01 Hx of Present Illness Chart reviewed patient examined. This is a 36-year-old female who underwent ERCP October 06 stent was placed at that time MRCP consistent with gallstones and dilated common bile block to 1.7 cm. Patient subsequently developed pancreatitis with excruciating abdominal discomfort today she is improved. States that she was initially nauseous but denies vomiting fevers chills rigors. Patient rated her pain as 7/10 today she is 3/10, she is currently taking Dilaudid IV she is n.p.o. Pain is interfering with her sleeping patterns overall functioning she has had bouts of diarrhea otherwise no mental cloudiness sweating fatigue drowsiness. This patient is not drug-seeking there is no purposeful oversedation is no past medical history of drug use smoking or alcohol addiction is not Axon for increasing doses or interval changes for her currently administered pain medication. Social History Smoking Status: Never smoker Exam/Review of Systems Vital Signs Vitals Vital Signs Date Time Temp Pulse Resp B/P Pulse Ox O2 Delivery O2 Flow Rate FiO2 10/08/17 00:11 98.4 58 20 124/65 95 10/07/17 20:30 Room Air Intake and Output 10/07/17 10/07/17 10/08/17 15:00 23:00 07:00 Intake Total 1000 ml 910 ml Output Total 600 ml 700 ml Balance 400 ml 210 ml Exam Constitutional: alert, oriented, well developed Head: atraumatic, normocephalic Respiratory: clear to auscultation, normal air movement Cardiovascular: nl pulses, regular rate and rhythm Gastrointestinal: other (Low active bowel sounds trickles all 4 quadrants moderately distended without organomegaly masses moderate tenderness bilateral upper quadrant without rebound or peritoneal signs) Results Result Diagram: 10/07/17 0443 10/06/17 1840 Results 24 hrs Laboratory Tests Test 10/08/17 04:47 White Blood Count Pending Red Blood Count Pending Hemoglobin Pending Hematocrit Pending Mean Corpuscular Volume Pending Mean Corpuscular Hemoglobin Pending Mean Corpuscular Hemoglobin Concent Pending Red Cell Distribution Width Pending Platelet Count Pending Mean Platelet Volume Pending Medications Medications Current Medications Potassium Chloride/Dextrose/ Sod Cl 1,000 ml @ 100 mls/hr Q10H IV Last administered on 10/07/17 23:35; Admin Dose 100 MLS/HR; Start 10/02/17 at 05: 00 Levofloxacin/ Dextrose (Levaquin 500mg/ D5W 100 ml (Pmx)) 100 ml @ 100 mls/hr Q24H IVPB Last administered on 10/07/17 05:55; Admin Dose 100 MLS/HR; Start 10/02/17 at 06:00 Hydromorphone HCl (Dilaudid) 1 mg Q3H PRN IV pain Last administered on 03:12; Admin Dose 1 MG; Start 10/02/17 at 18:30 Ondansetron HCl (Zofran Inj) 4 mg Q4 PRN IV nausea/ vomiting Last administered on 10/07/17 07:46; Admin Dose 4 MG; Start 10/04/17 at 13:55 Famotidine (Pepcid Iv) 20 mg BID IV Last administered on 10/07/17 21:38; Admin Dose 20 MG; Start 10/04/17 at 21:00 Metoclopramide HCl (Reglan) 10 mg Q6 IV Last administered on 10/07/17 23:35; Admin Dose 10 MG; Start 10/05/17 at 12:00 KALYAN HILL Oct 08, 2017 06:37
[2017-10-08 06:41] LABS: ANION GAP 14 (8-16); CALCIUM 9.3 mg/dl (8.4-10.2); CARBON DIOXIDE 25 mmol/L (21-31); CHLORIDE 104 mmol/L (97-110); CREATININE 0.68 mg/dl (0.44-1.00); GLUCOSE 136 mg/dl (70-220); POTASSIUM 4.2 mmol/L (3.5-5.1); SODIUM 139 mmol/L (135-144)
[2017-10-08 06:48] LABS: BLOOD UREA NITROGEN < 2 mg/dl (7-20)
[2017-10-08] MEDS: ACETAMINOPHEN 1000MG/100ML IV 100 ML IVPB SCH ×2 (07:19→11:32)
[2017-10-08 07:50] VITALS: BP 109/55; RESP 18
[2017-10-08] MEDS: ONDANSETRON 4 MG INJ IV PRN (08:37)
[2017-10-08] MEDS: FAMOTIDINE 20 MG INJ IV SCH ×2 (08:37→20:41)
[2017-10-08] MEDS ORDERED: HYDROmorphONE 2 MG TAB PO PRN (10:00)
[2017-10-08 10:52] LABS: ALBUMIN/GLOBULIN RATIO 1.17; BILIRUBIN,INDIRECT 0.5 mg/dl (0-1.1); BILIRUBIN,TOTAL 0.5 mg/dl (0.2-1.3); CALCIUM 9.5 mg/dl (8.4-10.2); CREATININE 0.66 mg/dl (0.44-1.00); TOTAL PROTEIN 7.4 g/dl (6.1-8.1)
[2017-10-08] MEDS: D5W-0.45 NACL + KCL 20 MEQ 1,000 ML IV SCH ×2 (11:24→22:34)
[2017-10-08] MEDS: HYDROmorphONE 2 MG/ML SYG IV PRN ×3 (12:41→20:41)
[2017-10-08 14:31] VITALS: BP 104/55; RESP 18
--- NOTE | 2017-10-08 15:10 | CONS ---
DATE OF ADMISSION: 10/05/2017 DATE OF CONSULTATION: HISTORY OF PRESENT ILLNESS: The patient underwent ERCP yesterday, multiple stones were removed from the common bile duct and a large dilated common bile duct was noted. After removing the stones, br ushings of the common bile duct was done and CBD stent was placed. This morning, when I saw her around 7:30 or 8:00 she did not have abdominal pain. Subsequently, I h eard from the nurse that she has more abdominal pain. PHYSICAL EXAMINATION: This morning was unremarkable. LABORATORY WORKUP: The WBC count 10,600. Lipase is normal at 171. The alkaline phosphatase came d own to 408, AST came down to 365, ALT came down to 708. CLINICAL IMPRESSION: I suspect her abdominal pain is secondary to gallbladder disease, gallstone di sease. Discussion with Dr. Wright and Dr. Smith. The patient needs a cholecystectomy and it will be perf ormed per Dr. Smith. Dictated By: BREA FRANKLIN MD NC/NTS Conf#: [id number] DID#: [id number] CC: KATHLEEN WRIGHT MD;*EndCC*
--- NOTE | 2017-10-08 15:57 | PN ---
Date/Time of Note Date/Time of Note DATE: 10/08/17 TIME: 15:52 Assessment/Plan VTE Prophylaxis VTE Prophylaxis Intervention: SCD's Lines/Catheters IV Catheter Type (from Nrs): Peripheral IV Assessment/Plan Chief Complaint/Hosp Course Patient's pain is better controlled with IV Dilaudid patient status post ERCP yesterday with multiple stones removed from the common bile duct. Assessment/Plan - S/p ERCP on 10/07, multiple stones were removed from the common bile duct. - Intractable abdominal pain. Continue Dilaudid p.r.n. for pain and Zofran p.r.n. for nausea. Dr. Alcaraz is following in pain management consultation. -Narrowing of the distal CBD concerning for stricture MRCP. Pending ERCP today at [address] Christiansen is following patient in gastroenterology consultation. -Possible cholecystitis, continue Flagyl and Levaquin. Dr. Smith is following in general surgery consultation. - S/P ERCP and common bile duct stent placement at previous admission by Dr Christiansen. - S/p pancreatitis - Status post EGD with notion of gastritis on 09/08. Continue Pepcid. - Depression Further recommendations based on clinical course. Plan of care discussed with Dr. Wright. Problems: Exam/Review of Systems Vital Signs Vitals Vital Signs Date Time Temp Pulse Resp B/P Pulse Ox O2 Delivery O2 Flow Rate FiO2 10/08/17 14:31 97.8 56 18 104/55 96 10/08/17 06:15 Room Air Intake and Output 10/07/17 10/07/17 10/08/17 15:00 23:00 07:00 Intake Total 1000 ml 910 ml Output Total 600 ml 700 ml Balance 400 ml 210 ml Exam Constitutional: alert, oriented Respiratory: normal air movement Cardiovascular: nl pulses Gastrointestinal: soft, tender Musculoskeletal: nl extremities to inspection Extremities: normal pulses Results Result Diagram: 10/08/17 0447 10/08/17 0923 Results 24 hrs Laboratory Tests Test 10/08/17 04:47 10/08/17 09:23 White Blood Count 10.6 # Red Blood Count 4.70 Hemoglobin 12.9 Hematocrit 38.1 Mean Corpuscular Volume 81.1 L Mean Corpuscular Hemoglobin 27.4 L Mean Corpuscular Hemoglobin Concent 33.9 Red Cell Distribution Width 13.2 Platelet Count 322 Mean Platelet Volume 10.8 H Neutrophils % 88.0 H Lymphocytes % 8.5 L Monocytes % 2.9 Eosinophils % 0.0 Basophils % 0.2 Nucleated Red Blood Cells % 0.0 Neutrophils # 9.3 H Lymphocytes # 0.9 Monocytes # 0.3 Eosinophils # 0.0 Basophils # 0.0 Nucleated Red Blood Cells # 0.0 Sodium Level 139 138 Potassium Level 4.2 4.0 Chloride Level 104 102 Carbon Dioxide Level 25 24 Anion Gap 14 16 Blood Urea Nitrogen < 2 L 3 L Creatinine 0.68 0.66 Glucose Level 136 115 Calcium Level 9.3 9.5 Total Bilirubin 0.5 Direct Bilirubin 0.00 Indirect Bilirubin 0.5 Aspartate Amino Transf (AST/SGOT) 365 H Alanine Aminotransferase (ALT/SGPT) 708 H Alkaline Phosphatase 408 H Total Protein 7.4 Albumin 4.0 Globulin 3.40 H Albumin/Globulin Ratio 1.17 Lipase 171 Medications Medications Current Medications Potassium Chloride/Dextrose/ Sod Cl 1,000 ml @ 100 mls/hr Q10H IV Last administered on 10/08/17 11:24; Admin Dose 100 MLS/HR; Start 10/02/17 at 05:00 Levofloxacin/ Dextrose (Levaquin 500mg/ D5W 100 ml (Pmx)) 100 ml @ 100 mls/hr Q24H IVPB Last administered on 10/08/17 06:14; Admin Dose 100 MLS/HR; Start 10/02/17 at 06:00 Ondansetron HCl (Zofran Inj) 4 mg Q4 PRN IV nausea/ vomiting Last administered on 10/08/17 08:37; Admin Dose 4 MG; Start 10/04/17 at 13:55 Famotidine (Pepcid Iv) 20 mg BID IV Last administered on 10/08/17 08:37; Admin Dose 20 MG; Start 10/04/17 at 21:00 Metoclopramide HCl 10 mg 10 mg Q6 IV Last administered on 10/08/17 11:28; Admin Dose 10 MG; Start 10/05/17 at 12:00 Acetaminophen (Ofirmev 1000mg/ 100ml Iv) 100 ml @ 400 mls/hr Q6H IVPB Last administered on 10/08/17 11:32; Admin Dose 400 MLS/HR; Start 10/08/17 at 06:30 Hydromorphone HCl (Dilaudid) 2 mg Q4H PRN IV PAIN Last administered on t 12:41; Admin Dose 2 MG; Start 10/08/17 at 12:30 JAROCHO YOUNG Oct 08, 2017 15:57
[2017-10-08 20:15] VITALS: BP 123/59; RESP 20
[2017-10-08] MEDS: DOCUSATE SODIUM 100 MG CAP PO SCH (20:41)
[2017-10-08] MEDS: ACETAMINOPHEN 325 MG TAB PO PRN (20:41)
[2017-10-09] MEDS: METOCLOPRAMIDE 10 MG INJ IV SCH ×4 (00:05→17:34)
[2017-10-09] MEDS: HYDROmorphONE 2 MG/ML SYG IV PRN ×6 (00:42→21:26)
[2017-10-09 02:39] VITALS: BP 126/59; RESP 20
--- NOTE | 2017-10-09 02:47 | PN ---
DATE: 10/08/2017 Today is postop day #1 status post endoscopy, ERCP, removal of the common bile duct stone and placement of the stent in the common bile duct. SUBJECTIVE: The patient still has been suffering from epigastric and right- side abdominal pain with some nausea and a couple of times vomiting. Dr. Maynard, pain specialist, had discontinued the Dilaudid and put the patient on 1 g of acetaminophen IV q.6 hours p.r.n., but apparently they had to restart her back on Dilaudid. LABORATORY DATA: Sodium, potassium normal. BUN and creatinine normal. Total bilirubin 0.5. AST has dropped to 365, still is elevated. ALT has dropped from 942 to 708, it still is high. Alkaline phosphatase is 408, slightly less than yesterday. Total protein 7.4, albumin 4. Lipase today at 9:30 a.m. is 141. OBJECTIVE GENERAL: Awake, oriented x3, appears comfortable. VITAL SIGNS: Temperature 98.4, heart rate 56, respirations 18, blood pressure 104/65, saturation 96% on room air. HEART: Regular. LUNGS: Clear. ABDOMEN: Slight tenderness on deep pressure in the epigastric area, of course the patient is on Dilaudid; she is getting 2 mg IV q.4 hours p.r.n. pain. ASSESSMENT AND PLAN: A 36-year-old female who was readmitted after being discharged and having had a long course of post-ERCP pancreatitis. The patient was discharged on 10/01/2017 and came back later that night complaining of intractable epigastric abdominal pain. The patient was readmitted. Enzymes, AST, ALT, alkaline phosphatase are highly elevated. Bilirubin was 1.2, maximum ; very slightly elevated. Dr. Christiansen saw the patient. IMPRESSION: Cholangitis. Decided to proceed back with ERCP again, so yesterday ERCP was done. They found presence of stones in the common duct, the stones were removed and swept with the balloon, then a stent was placed again in the common bile duct. It also appears that the patient is doing better. The lipase yesterday was normal and the other enzymes are gradually coming down , but the patient is still complaining of too much pain. Of course, it is quite possible that with the presence of a stone in the common duct, the patient has a lot pain and some nausea and even vomiting, but still I think that some evidence of tolerance of pain medication has developed in this patient due to chronic use of Dilaudid while she was in the hospital on previous admission for like maybe 3 weeks or so. In any case, we will watch the patient and all the surgeons, Dr. Smith and other surgeons, may believe that they would proceed with doing cholecystectomy when the patient is stabilized from this episode. Dictated By: BRANDO ENRIQUEZ MD PS/NTS Conf#: [id number] DID#: [id number] CC: ANUEL SMITH MD; KATHLEEN CASAREZ MD;*EndCC* MTDD
[2017-10-09] MEDS: ONDANSETRON 4 MG INJ IV PRN (04:40)
[2017-10-09] MEDS: LEVOFLOXACIN 500MG/D5W (PMX) 100 ML IVPB SCH (06:15)
[2017-10-09 06:32] LABS: ALANINE AMINOTRANSFERASE 478 IU/L (13-69); ALBUMIN 3.2 g/dl (3.3-4.9); ALKALINE PHOSPHATASE 294 IU/L (42-121); ANION GAP 14 (8-16); ASPARTATE AMINO TRANSFERASE 167 IU/L (15-46); BILIRUBIN,INDIRECT 0.7 mg/dl (0-1.1); BILIRUBIN,TOTAL 0.7 mg/dl (0.2-1.3); CALCIUM 8.6 mg/dl (8.4-10.2); CARBON DIOXIDE 25 mmol/L (21-31); CHLORIDE 103 mmol/L (97-110); CREATININE 0.76 mg/dl (0.44-1.00); GLUCOSE 104 mg/dl (70-220); POTASSIUM 3.7 mmol/L (3.5-5.1); SODIUM 138 mmol/L (135-144); TOTAL PROTEIN 6.4 g/dl (6.1-8.1)
[2017-10-09 07:02] LABS: ABNORMAL IP MESSAGE 1; BASOPHIL # 0.1 10^3/ul (0.0-0.1); BASOPHILS % 0.3 % (0.0-2.0); EOSINOPHILS # 0.1 10^3/ul (0.0-0.5); EOSINOPHILS % 0.4 % (0.0-7.0); HEMATOCRIT 34.9 % (37.0-47.0); HEMOGLOBIN 11.7 g/dl (12.0-16.0); LYMPHOCYTES # 1.9 10^3/ul (0.8-2.9); LYMPHOCYTES % 10.7 % (15.0-51.0); MEAN CORPUSCULAR HEMOGLOBIN 27.9 pg (29.0-33.0); MEAN CORPUSCULAR HGB CONC 33.5 g/dl (32.0-37.0); MEAN CORPUSCULAR VOLUME 83.1 fl (82.0-101.0); MEAN PLATELET VOLUME 10.9 fl (7.4-10.4); MONOCYTE # 1.5 10^3/ul (0.3-0.9); MONOCYTES % 8.6 % (0.0-11.0); NEUTROPHIL # 14.1 10^3/ul (1.6-7.5); NEUTROPHILS % 79.5 % (39.0-77.0); PLATELET COUNT 278 10^3/UL (140-415); RED CELL DISTRIBUTION WIDTH 14.2 % (11.5-14.5); WHITE BLOOD COUNT 17.8 10^3/ul (4.8-10.8)
[2017-10-09 07:08] LABS: BLOOD UREA NITROGEN < 2 mg/dl (7-20); POSITIVE DIFF @See below
[2017-10-09] MEDS: ACETAMINOPHEN 325 MG TAB PO PRN (07:29)
[2017-10-09 08:27] VITALS: BP 102/62; RESP 18
[2017-10-09] MEDS: FAMOTIDINE 20 MG INJ IV SCH ×2 (08:45→20:55)
[2017-10-09] MEDS: DOCUSATE SODIUM 100 MG CAP PO SCH ×2 (08:45→20:56)
[2017-10-09] MEDS: D5W-0.45 NACL + KCL 20 MEQ 1,000 ML IV SCH ×2 (11:40→21:00)
--- NOTE | 2017-10-09 13:27 | PN ---
DATE: 10/09/2017 CHIEF COMPLAINT: Status post ERCP placement and removal of the stone from common duct and placement of a new stent. Postop day #3. SUBJECTIVE: States that today feels better than the other days. The pain is much less. Nausea is less and vomiting; she vomited just once. OBJECTIVE: GENERAL: Alert, awake, appears comfortable. VITAL SIGNS: Temperature today maximum 98.8, heart rate 80, respirations 20, blood pressure 126/59, saturation 97% on room air. LABORATORY DATA: WBC increased to 17,800 with 79.5% neutrophils. Hemoglobin is stable at 11.7, hematocrit 34.9. Chemistry: Bilirubin total is 0.7. AST dropped more to 167. It still is slightly high. ALT dropped to 478, still is high. Alkaline phosphatase has dropped to 209. still is high. Lipase today 162, which is normal range. ABDOMEN: Soft, mild tenderness on deep pressure in the epigastric area, not left upper quadrant, not right upper quadrant. EXTREMITIES: No calf tenderness. ASSESSMENT: A 36-year-old female who underwent ERCP for the second time in the past 2 months. The stones were removed from the common bile duct 2 days ago and common bile duct stent was placed. Also the patient has gallstones, but no evidence of cholecystitis on MRCP and ultrasound. Also, the patient is status post pancreatitis following the first ERCP, about 4 to 5 weeks ago. Today, patient is better. Nausea is better. Vomiting is better. Pain tolerance is slightly better. PLAN: From the surgeon's prospective and especially from Dr. Smith's point of view, he is waiting for the patient to stabilize after this procedure, and in appropriate time, they are going to proceed with cholecystectomy. This could be in this admission or could be after discharge as an elective case. Dictated By: BRANDO ENRIQUEZ MD PS/NTS Conf#: [id number] DID#: [id number] CC: KATHLEEN CASAREZ MD;*EndCC* MTDD
--- NOTE | 2017-10-09 14:46 | PN ---
Date/Time of Note Date/Time of Note DATE: 10/09/17 TIME: 14:35 Assessment/Plan VTE Prophylaxis VTE Prophylaxis Intervention: other Lines/Catheters IV Catheter Type (from Nrsg): Peripheral IV Assessment/Plan Assessment/Plan - Intractable abdominal pain and nausea- none at present. on clear diet - nausea at times - Continue Dilaudid p.r.n. for pain and Zofran p.r.n. for nausea. Dr. Alcaraz is following in pain management consultation. - IVF -Narrowing of the distal CBD concerning for stricture MRCP. - per GI - sp ERCP 10/08/2017 - S/p ERCP on 10/07, multiple stones were removed from the common bile duct. - Possible cholecystitis, continue Flagyl and Levaquin. Dr. Smith is following in general surgery consultation. - S/P ERCP and common bile duct stent placement at previous admission by Dr Christiansen. - S/p pancreatitis - Status post EGD with notion of gastritis on 09/08. Continue Pepcid. - Depression Further recommendations based on clinical course. Plan of care discussed with Dr. Wright. Subjective 24 Hr Interval Summary Free Text/Dictation - Intractable abdominal pain and nausea- none at present. on clear liquid diet - - sp ERCP 10/08/2017 - afebrile - no new issues reported overnight dw staff Cardiovascular: no complaints Gastrointestinal: pain Genitourinary: no complaints Musculoskeletal: no complaints Skin: no complaints Neurologic: no complaints Exam/Review of Systems Vital Signs Vitals Vital Signs Date Time Temp Pulse Resp B/P Pulse Ox O2 Delivery O2 Flow Rate FiO2 10/09/17 08:27 97.6 83 18 102/62 96 10/08/17 06:15 Room Air Intake and Output 10/08/17 10/08/17 10/09/17 15:00 23:00 07:00 Intake Total 300 ml 1710 ml 1130 ml Output Total 950 ml 900 ml Balance 300 ml 760 ml 230 ml Exam Constitutional: alert, well developed Respiratory: clear to auscultation, normal air movement Cardiovascular: nl pulses Gastrointestinal: soft, tender Musculoskeletal: nl extremities to inspection Extremities: normal pulses Results Result Diagram: 10/09/17 0459 10/09/17 0459 Results 24 hrs Laboratory Tests Test 10/09/17 04:59 White Blood Count 17.8 #H Red Blood Count 4.20 Hemoglobin 11.7 L Hematocrit 34.9 L Mean Corpuscular Volume 83.1 Mean Corpuscular Hemoglobin 27.9 L Mean Corpuscular Hemoglobin Concent 33.5 Red Cell Distribution Width 14.2 Platelet Count 278 Mean Platelet Volume 10.9 H Neutrophils % 79.5 H Lymphocytes % 10.7 L Monocytes % 8.6 Eosinophils % 0.4 Basophils % 0.3 Nucleated Red Blood Cells % 0.0 Neutrophils # 14.1 H Lymphocytes # 1.9 Monocytes # 1.5 H Eosinophils # 0.1 Basophils # 0.1 Nucleated Red Blood Cells # 0.0 Sodium Level 138 Potassium Level 3.7 Chloride Level 103 Carbon Dioxide Level 25 Anion Gap 14 Blood Urea Nitrogen < 2 L Creatinine 0.76 Glucose Level 104 Calcium Level 8.6 Total Bilirubin 0.7 Direct Bilirubin 0.00 Indirect Bilirubin 0.7 Aspartate Amino Transf (AST/SGOT) 167 H Alanine Aminotransferase (ALT/SGPT) 478 H Alkaline Phosphatase 294 H Total Protein 6.4 # Albumin 3.2 L Globulin 3.20 Albumin/Globulin Ratio 1.00 Lipase 162 Medications Medications Current Medications Potassium Chloride/Dextrose/ Sod Cl 1,000 ml @ 100 mls/hr Q10H IV Last administered on 10/09/17 11:40; Admin Dose 100 MLS/HR; Start 10/02/17 at 05:00 Levofloxacin/ Dextrose (Levaquin 500mg/ D5W 100 ml (Pmx)) 100 ml @ 100 mls/hr Q24H IVPB Last administered on 10/09/17 06:15; Admin Dose 100 MLS/HR; Start 10/02/17 at 06:00 Ondansetron HCl (Zofran Inj) 4 mg Q4 PRN IV nausea/ vomiting Last administered on 10/09/17 04:40; Admin Dose 4 MG; Start 10/04/17 at 13:55 Famotidine (Pepcid Iv) 20 mg BID IV Last administered on 10/09/17 08:45; Admin Dose 20 MG; Start 10/04/17 at 21:00 Metoclopramide HCl (Reglan) 10 mg Q6 IV Last administered on 10/09/17 06:15; Admin Dose 10 MG; Start 10/05/17 at 12:00 Hydromorphone HCl (Dilaudid) 2 mg Q4H PRN IV PAIN Last administered on 12:43; Admin Dose 2 MG; Start 10/08/17 at 12:30 Acetaminophen (Tylenol Tab) 650 mg Q6H PRN PO PAIN AND OR ELEVATED TEMP Last administered on 10/09/17 07:29; Admin Dose 650 MG; Start 10/08/17 at 20:30 Docusate Sodium (Colace) 100 mg BID PO Last administered on 10/09/17 08:45; Admin Dose 100 MG; Start 10/08/17 at 21:00 GABRIEL EPSTEIN Oct 09, 2017 14:46
[2017-10-09 19:35] VITALS: BP 112/56; RESP 18
[2017-10-10] MEDS: METOCLOPRAMIDE 10 MG INJ IV SCH ×5 (00:28→23:43)
[2017-10-10] MEDS: D5W-0.45 NACL + KCL 20 MEQ 1,000 ML IV SCH ×2 (00:31→15:38)
[2017-10-10] MEDS: HYDROmorphONE 2 MG/ML SYG IV PRN ×6 (01:21→22:33)
[2017-10-10 02:11] VITALS: BP 93/53; RESP 18
[2017-10-10] MEDS: LEVOFLOXACIN 500MG/D5W (PMX) 100 ML IVPB SCH (05:19)
[2017-10-10 07:43] VITALS: BP 100/62; RESP 18
[2017-10-10] MEDS: DOCUSATE SODIUM 100 MG CAP PO SCH ×2 (07:57→20:39)
[2017-10-10] MEDS: ONDANSETRON 4 MG INJ IV PRN (07:57)
[2017-10-10] MEDS: FAMOTIDINE 20 MG INJ IV SCH ×2 (07:57→20:41)
[2017-10-10] MEDS: ACETAMINOPHEN 1000MG/100ML IV 100 ML IVPB PRN (12:17)
[2017-10-10 14:00] VITALS: BP 109/66; RESP 18
--- NOTE | 2017-10-10 15:10 | PN ---
DATE: 10/10/2017 SUBJECTIVE: States that still is nauseous, but just vomited once, a little bit of fluid, gastric juice probably. Almost tolerating liquid diet and has required Dilaudid for pain control every 4 hours almost around the clock per nurse. OBJECTIVE GENERAL: Awake, alert, oriented x3. VITAL SIGNS: Temperature 98.4, heart rate 81, respirations 18, blood pressure 93/53, saturation 93% on room air. LABORATORY DATA: Today, we do not have any lab results. Will repeat it tomorrow. PHYSICAL EXAMINATION: HEART: Regular. LUNGS: Clear. ABDOMEN: Epigastric tenderness on deep pressure. ASSESSMENT/PLAN: A 36-year-old female admitted on with intractable epigastric abdominal pain following the same day discharge.pt.was in the hospital for about 3-4 weeks because of gall stones and pancreatitis. She underwent ERCP again on the 10/07/2017, several common bile duct stones were removed, stent was replaced with another one. The patient is doing relatively fine post-second ERCP. The concern is because of so much pain that the patient has, it was expected to be okay if the patient has got a common bile duct stone , but not if the stones have been removed. The pain should be much less per my opinion. I think the patient has become tolerant to Dilaudid. I talked to her today we are trying to taper down the dose of Dilaudid and decrease it to 1.5 mg today and hopefully as of tomorrow, Wednesday, make it 1 mg every 4 hours p.r.n. and in between she can have x1000 mg IV for breakthrough pain. Dictated By: BRANDO ENRIQUEZ MD PS/NTS Conf#: [id number] DID#: [id number] CC: KATHLEEN CASAREZ MD;*EndCC* MTDD
--- NOTE | 2017-10-10 17:26 | PN ---
Date/Time of Note Date/Time of Note DATE: 10/10/17 TIME: 17:24 Assessment/Plan Lines/Catheters IV Catheter Type (from Nrsg): Peripheral IV Assessment/Plan Assessment/Plan --Anvxity- will give her ativan 1 mg po x1 - Intractable abdominal pain and nausea- none at present. on clear diet - nausea at times - Continue Dilaudid p.r.n. for pain and Zofran p.r.n. for nausea. Dr. Alcaraz is following in pain management consultation. - IVF -Narrowing of the distal CBD concerning for stricture MRCP. - per GI - sp ERCP 10/08/2017 - S/p ERCP on 10/07, multiple stones were removed from the common bile duct. - Possible cholecystitis, continue Flagyl and Levaquin. Dr. Smith is following in general surgery consultation. - S/P ERCP and common bile duct stent placement at previous admission by Dr Christiansen. - S/p pancreatitis - Status post EGD with notion of gastritis on 09/08. Continue Pepcid. - Depression - resume Lexapro 10 mg po daily Further recommendations based on clinical course. Plan of care discussed with Dr. Wright. Subjective 24 Hr Interval Summary Free Text/Dictation - c/o abdominal pain and nausea- none at present. on clear diet - c/o anvxity- will give her ativan 1 mg po x1 Exam/Review of Systems Vital Signs Vitals Vital Signs Date Time Temp Pulse Resp B/P Pulse Ox O2 Delivery O2 Flow Rate FiO2 10/10/17 14:00 97.9 57 18 109/66 97 10/08/17 06:15 Room Air Intake and Output 10/09/17 10/09/17 10/10/17 15:00 23:00 07:00 Intake Total 450 ml 980 ml 1530 ml Balance 450 ml 980 ml 1530 ml Exam Gastrointestinal: soft, tender Results Result Diagram: 10/09/17 0459 10/09/17 0459 Medications Medications Current Medications Potassium Chloride/Dextrose/ Sod Cl 1,000 ml @ 100 mls/hr Q10H IV Last administered on 10/10/17t 15:38; Admin Dose 100 MLS/HR; Start 10/02/17 at 05:00 Levofloxacin/ Dextrose (Levaquin 500mg/ D5W 100 ml (Pmx)) 100 ml @ 100 mls/hr Q24H IVPB Last administered on 10/10/17 05:19; Admin Dose 100 MLS/HR; Start 10/02/17 at 06:00 Ondansetron HCl (Zofran Inj) 4 mg Q4 PRN IV nausea/ vomiting Last administered on 10/10/17 07:57; Admin Dose 4 MG; Start 10/04/17 at 13:55 Famotidine (Pepcid Iv) 20 mg BID IV Last administered on 10/10/17 07:57; Admin Dose 20 MG; Start 10/04/17 at 21:00 Metoclopramide HCl (Reglan) 10 mg Q6 IV Last administered on 10/10/17 12:17; Admin Dose 10 MG; Start 10/05/17 at 12:00 Acetaminophen (Tylenol Tab) 650 mg Q6H PRN PO PAIN AND OR ELEVATED TEMP Last administered on 10/09/17 07:29; Admin Dose 650 MG; Start 10/08/17 at 20:30 Docusate Sodium 100 mg 100 mg BID PO Last administered on 10/10/17 07:57; Admin Dose 100 MG; Start 10/08/17 at 21:00 Acetaminophen (Ofirmev 1000mg/ 100ml Iv) 100 ml @ 400 mls/hr Q8 PRN IVPB PAIN LEVEL 1-5 Last administered on 10/10/17 12:17; Admin Dose 400 MLS/HR; Start at 17:00 Hydromorphone HCl (Dilaudid) 1.5 mg Q4H PRN IV PAIN Last administered on 13:53; Admin Dose 1.5 MG; Start 10/10/17 at 12:30 GABRIEL EPSTEIN Oct 10, 2017 17:26
[2017-10-10] MEDS: LORAZEPAM 1 MG TAB PO ONE ×2 (17:27→17:29)
[2017-10-10 20:09] VITALS: BP 113/60; RESP 16
[2017-10-11 01:42] VITALS: BP 105/58; RESP 16
[2017-10-11] MEDS: D5W-0.45 NACL + KCL 20 MEQ 1,000 ML IV SCH ×3 (02:21→23:00)
[2017-10-11] MEDS: HYDROmorphONE 2 MG/ML SYG IV PRN ×6 (02:24→22:26)
[2017-10-11 05:29] LABS: BASOPHIL # 0.1 10^3/ul (0.0-0.1); BASOPHILS % 0.4 % (0.0-2.0); EOSINOPHILS # 0.3 10^3/ul (0.0-0.5); EOSINOPHILS % 2.3 % (0.0-7.0); HEMATOCRIT 36.5 % (37.0-47.0); HEMOGLOBIN 12.3 g/dl (12.0-16.0); LYMPHOCYTES # 2.3 10^3/ul (0.8-2.9); LYMPHOCYTES % 16.9 % (15.0-51.0); MEAN CORPUSCULAR HEMOGLOBIN 27.6 pg (29.0-33.0); MEAN CORPUSCULAR HGB CONC 33.7 g/dl (32.0-37.0); MEAN CORPUSCULAR VOLUME 81.8 fl (82.0-101.0); MEAN PLATELET VOLUME 10.3 fl (7.4-10.4); MONOCYTE # 0.9 10^3/ul (0.3-0.9); MONOCYTES % 6.3 % (0.0-11.0); NEUTROPHIL # 10.1 10^3/ul (1.6-7.5); NEUTROPHILS % 73.8 % (39.0-77.0); PLATELET COUNT 305 10^3/UL (140-415); RED BLOOD COUNT 4.46 10^6/ul (4.20-5.40); RED CELL DISTRIBUTION WIDTH 13.8 % (11.5-14.5); WHITE BLOOD COUNT 13.7 10^3/ul (4.8-10.8)
[2017-10-11] MEDS: METOCLOPRAMIDE 10 MG INJ IV SCH ×4 (05:50→23:35)
[2017-10-11] MEDS: LEVOFLOXACIN 500MG/D5W (PMX) 100 ML IVPB SCH (05:51)
[2017-10-11 06:18] LABS: ALANINE AMINOTRANSFERASE 243 IU/L (13-69); ALBUMIN/GLOBULIN RATIO 0.85; ALKALINE PHOSPHATASE 228 IU/L (42-121); ANION GAP 12 (8-16); ASPARTATE AMINO TRANSFERASE 44 IU/L (15-46); BILIRUBIN,INDIRECT 0.4 mg/dl (0-1.1); BILIRUBIN,TOTAL 0.4 mg/dl (0.2-1.3); CALCIUM 8.7 mg/dl (8.4-10.2); CARBON DIOXIDE 27 mmol/L (21-31); CHLORIDE 103 mmol/L (97-110); CREATININE 0.67 mg/dl (0.44-1.00); GLUCOSE 113 mg/dl (70-220); POTASSIUM 3.4 mmol/L (3.5-5.1); SODIUM 139 mmol/L (135-144); TOTAL PROTEIN 6.5 g/dl (6.1-8.1)
[2017-10-11 06:20] LABS: BLOOD UREA NITROGEN < 2 mg/dl (7-20)
--- NOTE | 2017-10-11 07:02 | PN ---
DATE: 10/09/2017 CLINICAL IMPRESSION: The patient at this time is still having abdominal pain mostly in the epigastr ic region. PHYSICAL EXAMINATION: GENERAL: The patient is alert. VITAL SIGNS: Afebrile, blood pressure 102/62. ABDOMEN: Shows no significant tenderness. LABORATORY WORKUP: WBC count today has gone up to 17,800. The total bilirubin is 0.7, ALT is 478, AST is 294. CLINICAL IMPRESSION: Improving cholangitis, status post removal of the common bile duct stone and p lacement of a CBD stent. In fact, there was an old common bile duct stent, which was clogged. PLAN: At this time, will proceed with a cholecystectomy. Dictated By: BREA FRANKLIN MD [place]/MAVERICK Conf#: [id number] DID#: [id number] CC: KATHLEEN CASAREZ MD;*EndCC*
[2017-10-11 07:58] VITALS: BP 107/56; RESP 19
[2017-10-11] MEDS: DOCUSATE SODIUM 100 MG CAP PO SCH ×2 (09:32→20:13)
[2017-10-11] MEDS: ONDANSETRON 4 MG INJ IV PRN (09:32)
[2017-10-11] MEDS: ESCITALOPRAM 10 MG TAB PO SCH (09:32)
[2017-10-11] MEDS: FAMOTIDINE 20 MG INJ IV SCH ×2 (09:32→20:13)
--- NOTE | 2017-10-11 13:00 | PN ---
DATE: 10/11/2017 SUBJECTIVE: The patient states that the pain is around 4 to 5 on a scale of 10, mainly is in the ep igastric area, has been nauseous and received Zofran as usual. Has vomited a little bit of gastric juice today morning. She states that she is hungry. She wants to eat. Has had a small bowel movem ent. No chills, no fever. OBJECTIVE: GENERAL: Alert, awake, oriented x3. Clinically stable. Appears to be quite. No acute distress. VITAL SIGNS: Temperature 98, heart rate 57, respirations 19, blood pressure 107/56, saturation 98% on room air. HEART: Regular. LUNGS: Clear. ABDOMEN: Some tenderness to deep pressure in the epigastric area. Minimal tenderness to deep press ure in right upper quadrant and left upper quadrant. Bowel sound normal. LABORATORY DATA: Today, WBC which has gone up two days ago to 17,800 now today is down to 13,700, w ith 73% segmented which is normal differential. Hemoglobin 12.3, hematocrit 36.5. Chemistry: Sodi um, potassium are normal with normal range BUN and creatinine. Total bilirubin 0.4, normal. AST lam s dropped to 44, which is normal range. ALT seems slightly up to 43. Alkaline phosphatase is still slightly up at 228, but is coming down. Lipase today 110 which is normal. ASSESSMENT: A 36-year-old female status post second ERCP and removal of the stones from common bile duct and placement of the stent. Also the patient has gallstones, of course, but no evidence of ch olecystitis. The patient has had pancreatitis with elevated enzymes, but now the enzymes are normal . This admission the patient had highly elevated AST, alkaline phosphatase and ALT, shows gradually trending down the liver enzymes after putting new stent and removing the stones. The pain could lam ve been due to presence of a stone in the common bile duct, but considering that the patient is requ esting Dilaudid q.4 hours around the clock, appears that more she has become tolerant to this pain m edication. Yesterday I decreased the dose to 1.5 and apparently the patient has not complained abou t it, so we will go ahead and decrease the dose tomorrow to 1 mg q.4 hours and continue to trend norm n the narcotic dose and hopefully we can wean her off this Dilaudid dose. I will discuss the case a gain with Dr. Smith. We will see if he is planning to proceed with the operation for cholecystectom y at this admission or later on. We are going to increase the diet to the soft diet, low fat, low c holesterol. Dictated By: BRANDO ENRIQUEZ MD PS/NTS Conf#: [id number] DID#: [id number] CC: KATHLEEN CASAREZ MD;*EndCC*
--- NOTE | 2017-10-11 14:49 | PN ---
Date/Time of Note Date/Time of Note DATE: 10/11/17 TIME: 14:44 Assessment/Plan VTE Prophylaxis VTE Prophylaxis Intervention: SCD's Lines/Catheters IV Catheter Type (from Nrs): Peripheral IV Assessment/Plan Chief Complaint/Hosp Course Patient is started on mechanical soft diet,pain is well controlled on current medication regimen. Assessment/Plan - S/p ERCP on 10/07, multiple stones were removed from the common bile duct. - Intractable abdominal pain. Continue Dilaudid p.r.n. for pain and Zofran p.r.n. for nausea. Dr. Alcaraz is following in pain management consultation. -Narrowing of the distal CBD concerning for stricture MRCP. Pending ERCP today at [address] Christiansen is following patient in gastroenterology consultation. -Possible cholecystitis, continue Flagyl and Levaquin. Dr. Smith is following in general surgery consultation. - S/P ERCP and common bile duct stent placement at previous admission by Dr Christiansen. - S/p pancreatitis - Status post EGD with notion of gastritis on 09/08. Continue Pepcid. - Depression Further recommendations based on clinical course. Plan of care discussed with Dr. Wright. Problems: Exam/Review of Systems Vital Signs Vitals Vital Signs Date Time Temp Pulse Resp B/P Pulse Ox O2 Delivery O2 Flow Rate FiO2 10/11/17 07:58 98.0 57 19 107/56 98 10/08/17 06:15 Room Air Intake and Output 10/10/17 10/10/17 10/11/17 15:00 23:00 07:00 Intake Total 100 ml 1550 ml 1150 ml Balance 100 ml 1550 ml 1150 ml Exam Constitutional: alert, oriented Respiratory: normal air movement Cardiovascular: nl pulses Gastrointestinal: soft, tender Musculoskeletal: nl extremities to inspection Extremities: normal pulses Results Result Diagram: 10/11/17 0435 10/11/17 0435 Results 24 hrs Laboratory Tests Test 10/11/17 04:35 White Blood Count 13.7 #H Red Blood Count 4.46 Hemoglobin 12.3 Hematocrit 36.5 L Mean Corpuscular Volume 81.8 L Mean Corpuscular Hemoglobin 27.6 L Mean Corpuscular Hemoglobin Concent 33.7 Red Cell Distribution Width 13.8 Platelet Count 305 Mean Platelet Volume 10.3 Neutrophils % 73.8 Lymphocytes % 16.9 Monocytes % 6.3 Eosinophils % 2.3 Basophils % 0.4 Nucleated Red Blood Cells % 0.0 Neutrophils # 10.1 H Lymphocytes # 2.3 Monocytes # 0.9 Eosinophils # 0.3 Basophils # 0.1 Nucleated Red Blood Cells # 0.0 Sodium Level 139 Potassium Level 3.4 L Chloride Level 103 Carbon Dioxide Level 27 Anion Gap 12 Blood Urea Nitrogen < 2 L Creatinine 0.67 Glucose Level 113 Calcium Level 8.7 Total Bilirubin 0.4 Direct Bilirubin 0.00 Indirect Bilirubin 0.4 Aspartate Amino Transf (AST/SGOT) 44 Alanine Aminotransferase (ALT/SGPT) 243 H Alkaline Phosphatase 228 H Total Protein 6.5 Albumin 3.0 L Globulin 3.50 H Albumin/Globulin Ratio 0.85 Lipase 110 Medications Medications Current Medications Potassium Chloride/Dextrose/ Sod Cl 1,000 ml @ 100 mls/hr Q10H IV Last administered on 10/11/17 14:38; Admin Dose 100 MLS/HR; Start 10/02/17 at 05:00 Levofloxacin/ Dextrose (Levaquin 500mg/ D5W 100 ml (Pmx)) 100 ml @ 100 mls/hr Q24H IVPB Last administered on 10/11/17 05:51; Admin Dose 100 MLS/HR; Start 10/02/17 at 06:00 Ondansetron HCl (Zofran Inj) 4 mg Q4 PRN IV nausea/ vomiting Last administered on 10/11/17 09:32; Admin Dose 4 MG; Start 10/04/17 at 13:55 Famotidine (Pepcid Iv) 20 mg BID IV Last administered on 10/11/17 09:32; Admin Dose 20 MG; Start 10/04/17 at 21:00 Metoclopramide HCl (Reglan) 10 mg Q6 IV Last administered on 10/11/17 13:44; Admin Dose 10 MG; Start 10/05/17 at 12:00 Acetaminophen (Tylenol Tab) 650 mg Q6H PRN PO PAIN AND OR ELEVATED TEMP Last administered on 10/09/17 07:29; Admin Dose 650 MG; Start 10/08/17 at 20:30 Docusate Sodium 100 mg 100 mg BID PO Last administered on 10/11/17 09:32; Admin Dose 100 MG; Start 10/08/17 at 21:00 Acetaminophen (Ofirmev 1000mg/ 100ml Iv) 100 ml @ 400 mls/hr Q8 PRN IVPB PAIN LEVEL 1-5 Last administered on 10/10/17 12:17; Admin Dose 400 MLS/HR; Start at 17:00 Hydromorphone HCl (Dilaudid) 1.5 mg Q4H PRN IV PAIN Last administered on 14:38; Admin Dose 1.5 MG; Start 10/10/17 at 12:30 Escitalopram Oxalate (Lexapro) 10 mg DAILY PO Last administered on 10/11/17 09 :32; Admin Dose 10 MG; Start 10/11/17 at 09:00 JAROCHO YOUNG Oct 11, 2017 14:49
[2017-10-11 19:11] VITALS: BP 97/54; RESP 16
[2017-10-11] MEDS: metroNIDAZOLE 500 MG/NS (PMX) 100 ML IVPB SCH (22:26)
[2017-10-12 01:38] VITALS: BP 92/52; RESP 16
[2017-10-12] MEDS: ACETAMINOPHEN 1000MG/100ML IV 100 ML IVPB PRN ×3 (02:21→20:29)
[2017-10-12] MEDS: HYDROmorphONE 2 MG/ML SYG IV PRN ×5 (04:08→20:59)
[2017-10-12] MEDS: D5W-0.45 NACL + KCL 20 MEQ 1,000 ML IV SCH ×2 (04:08→19:00)
[2017-10-12] MEDS: METOCLOPRAMIDE 10 MG INJ IV SCH ×4 (05:14→23:56)
[2017-10-12] MEDS: metroNIDAZOLE 500 MG/NS (PMX) 100 ML IVPB SCH ×3 (05:14→21:51)
[2017-10-12 05:17] LABS: BASOPHIL # 0.1 10^3/ul (0.0-0.1); BASOPHILS % 0.4 % (0.0-2.0); EOSINOPHILS # 0.4 10^3/ul (0.0-0.5); EOSINOPHILS % 3.1 % (0.0-7.0); HEMOGLOBIN 12.2 g/dl (12.0-16.0); LYMPHOCYTES % 16.6 % (15.0-51.0); MEAN CORPUSCULAR HEMOGLOBIN 27.8 pg (29.0-33.0); MEAN CORPUSCULAR HGB CONC 33.9 g/dl (32.0-37.0); MEAN PLATELET VOLUME 10.2 fl (7.4-10.4); MONOCYTE # 0.9 10^3/ul (0.3-0.9); MONOCYTES % 7.3 % (0.0-11.0); NEUTROPHIL # 8.6 10^3/ul (1.6-7.5); NEUTROPHILS % 72.3 % (39.0-77.0); PLATELET COUNT 299 10^3/UL (140-415); RED BLOOD COUNT 4.39 10^6/ul (4.20-5.40); RED CELL DISTRIBUTION WIDTH 13.3 % (11.5-14.5); WHITE BLOOD COUNT 11.9 10^3/ul (4.8-10.8)
[2017-10-12 05:55] LABS: ALBUMIN 2.9 g/dl (3.3-4.9); ALBUMIN/GLOBULIN RATIO 0.87; BILIRUBIN,INDIRECT 0.2 mg/dl (0-1.1); BILIRUBIN,TOTAL 0.2 mg/dl (0.2-1.3); CALCIUM 8.7 mg/dl (8.4-10.2); CREATININE 0.74 mg/dl (0.44-1.00); POTASSIUM 3.5 mmol/L (3.5-5.1); TOTAL PROTEIN 6.2 g/dl (6.1-8.1)
[2017-10-12] MEDS: LEVOFLOXACIN 500MG/D5W (PMX) 100 ML IVPB SCH (06:13)
[2017-10-12 07:40] VITALS: BP 102/61; RESP 18
[2017-10-12] MEDS: DOCUSATE SODIUM 100 MG CAP PO SCH ×2 (08:08→20:59)
[2017-10-12] MEDS: FAMOTIDINE 20 MG INJ IV SCH ×2 (08:08→20:58)
[2017-10-12] MEDS: ESCITALOPRAM 10 MG TAB PO SCH (08:08)
--- NOTE | 2017-10-12 13:54 | PN ---
Date/Time of Note Date/Time of Note DATE: 10/12/17 TIME: 13:53 Assessment/Plan VTE Prophylaxis VTE Prophylaxis Intervention: SCD's Lines/Catheters IV Catheter Type (from Nrs): Peripheral IV Assessment/Plan Chief Complaint/Hosp Course Patient tolerates mechanical soft diet, will gradually titrate down Dilaudid. Assessment/Plan - S/p ERCP on 10/07, multiple stones were removed from the common bile duct. - Intractable abdominal pain. Continue Dilaudid p.r.n. for pain and Zofran p.r.n. for nausea. Dr. Alcaraz is following in pain management consultation. -Narrowing of the distal CBD concerning for stricture MRCP. Pending ERCP today at [address] Christiansen is following patient in gastroenterology consultation. -Possible cholecystitis, continue Flagyl and Levaquin. Dr. Smith is following in general surgery consultation. - S/P ERCP and common bile duct stent placement at previous admission by Dr Christiansen. - S/p pancreatitis - Status post EGD with notion of gastritis on 09/08. Continue Pepcid. - Depression Further recommendations based on clinical course. Plan of care discussed with Dr. Wright. Problems: Exam/Review of Systems Vital Signs Vitals Vital Signs Date Time Temp Pulse Resp B/P Pulse Ox O2 Delivery O2 Flow Rate FiO2 10/12/17 07:40 97.4 55 18 102/61 97 Intake and Output 10/11/17 10/11/17 10/12/17 14:59 22:59 06:59 Intake Total 1100 ml 1780 ml Balance 1100 ml 1780 ml Exam Constitutional: alert, oriented Respiratory: normal air movement Cardiovascular: nl pulses Gastrointestinal: soft, tender Musculoskeletal: nl extremities to inspection Extremities: normal pulses Results Result Diagram: 10/12/17 0443 10/12/17442 Results 24 hrs Laboratory Tests Test 10/12/17 04:43 White Blood Count 11.9 H Red Blood Count 4.39 Hemoglobin 12.2 Hematocrit 36.0 L Mean Corpuscular Volume 82.0 Mean Corpuscular Hemoglobin 27.8 L Mean Corpuscular Hemoglobin Concent 33.9 Red Cell Distribution Width 13.3 Platelet Count 299 Mean Platelet Volume 10.2 Neutrophils % 72.3 Lymphocytes % 16.6 Monocytes % 7.3 Eosinophils % 3.1 Basophils % 0.4 Nucleated Red Blood Cells % 0.0 Neutrophils # 8.6 H Lymphocytes # 2.0 Monocytes # 0.9 Eosinophils # 0.4 Basophils # 0.1 Nucleated Red Blood Cells # 0.0 Sodium Level 139 Potassium Level 3.5 Chloride Level 106 Carbon Dioxide Level 24 Anion Gap 13 Blood Urea Nitrogen 2 L Creatinine 0.74 Glucose Level 117 Calcium Level 8.7 Total Bilirubin 0.2 Direct Bilirubin 0.00 Indirect Bilirubin 0.2 Aspartate Amino Transf (AST/SGOT) 30 Alanine Aminotransferase (ALT/SGPT) 172 H Alkaline Phosphatase 219 H Total Protein 6.2 Albumin 2.9 L Globulin 3.30 H Albumin/Globulin Ratio 0.87 Medications Medications Current Medications Potassium Chloride/Dextrose/ Sod Cl 1,000 ml @ 100 mls/hr Q10H IV Last administered on 10/12/17 04:08; Admin Dose 100 MLS/HR; Start 10/02/17 at 05:00 Levofloxacin/ Dextrose (Levaquin 500mg/ D5W 100 ml (Pmx)) 100 ml @ 100 mls/hr Q24H IVPB Last administered on 10/12/17 06:13; Admin Dose 100 MLS/HR; Start 10/02/17 at 06:00 Ondansetron HCl (Zofran Inj) 4 mg Q4 PRN IV nausea/ vomiting Last administered on 10/11/17 09:32; Admin Dose 4 MG; Start 10/04/17 at 13:55 Famotidine (Pepcid Iv) 20 mg BID IV Last administered on 10/12/17 08:08; Admin Dose 20 MG; Start 10/04/17 at 21:00 Metoclopramide HCl (Reglan) 10 mg Q6 IV Last administered on 10/12/17 12:01; Admin Dose 10 MG; Start 10/05/17 at 12:00 Acetaminophen (Tylenol Tab) 650 mg Q6H PRN PO PAIN AND OR ELEVATED TEMP Last administered on 10/09/17 07:29; Admin Dose 650 MG; Start 10/08/17 at 20:30 Docusate Sodium 100 mg 100 mg BID PO Last administered on 10/12/17 08:08; Admin Dose 100 MG; Start 10/08/17 at 21:00 Acetaminophen (Ofirmev 1000mg/ 100ml Iv) 100 ml @ 400 mls/hr Q8 PRN IVPB PAIN LEVEL 1-5 Last administered on 10/12/17 11:17; Admin Dose 400 MLS/HR; Start at 17:00 Escitalopram Oxalate 10 mg 10 mg DAILY PO Last administered on 10/12/17 08:08 ; Admin Dose 10 MG; Start 10/11/17 at 09:00 Metronidazole (Flagyl 500 Mg (Pmx)) 100 ml @ 100 mls/hr Q8 IVPB Last administered on 10/12/17 05:14; Admin Dose 100 MLS/HR; Start 10/11/17 at 22:00 Hydromorphone HCl (Dilaudid) 1 mg Q4H PRN IV PAIN Last administered on 12:01; Admin Dose 1 MG; Start 10/12/17 at 12:30 JAROCHO YOUNG Oct 12, 2017 13:54
--- NOTE | 2017-10-12 14:30 | PN ---
DATE: 10/12/2017 SUBJECTIVE: Feels better, has had nausea, no vomiting, also, the intensity of the pain has decrease d to at most 3/10. The patient has requested pain medication (Dilaudid) almost around the clock korin ry 4 hours as was mentioned before. OBJECTIVE GENERAL: Awake, alert, oriented x3, in no acute distress. VITAL SIGNS: Temperature 97.4, heart rate 65, respiration 18, blood pressure 102/61, saturation 97% on room air. LABORATORY DATA: WBC decreasing today to 11,900 with 72% segmented, hemoglobin and hematocrit are s table. Chemistry: Sodium, potassium, BUN, creatinine normal. AST dropped to 30, which is normal, ALT has been decreasing and today is 172, it still is high. Alkaline phosphatase has been decreasin g after ERCP and placement of the stent and today is 219, it still is high, but lower than before. Lipase was not done today, yesterday was 110 normal. PHYSICAL EXAMINATION: HEART: Regular. ABDOMEN: Soft. Question of mild tenderness to deep pressure in the epigastric area. ASSESSMENT AND PLAN: A 36-year-old female who is being admitted because of intractable abdominal pa in, it was found that the liver enzymes were elevated and ultrasound showed gallstones, no cholecyst itis. MRI showed dilated common bile duct up to [address] Christiansen did another ERCP and found sever al stones in the common bile duct, removed them. The previous stent had been clogged, therefore, it was removed too. A new stent was placed. Postop, the patient still complained of pain and require d pain medication, Dilaudid 2 mg every 4 hours, but the enzymes gradually decreased and patient star belem tolerating a regular low fat diet last night. We know that the patient has gallstones, but the pain that the patient has been experiencing, supposedly appears that patient got more used to Dilaud id and was developing a tolerance to Dilaudid, so since the past 2 days, I gradually have decreased it from 2 mg to 1 mg and patient is not complaining anymore and just taking 1 mg. Hopefully by james pimentel, the patient can be discharged home on oral pain medication, to go to Dr. Smith' office and ben guthrie an appointment and to be seen by Dr. Smith in his office and he will schedule the patient as an ou tpatient. At this time, Dr. Smith does not want to operate because he still believes that there is swelling of the pancreas because he had severe pancreatitis before and technically probably makes it very difficult. So after patient goes home and tolerates staying home with minimal pain medication , then she should call and make an appointment with Dr. Smith and then he will schedule the patient for elective cholecystectomy. I discussed this matter with the patient in detail, she agrees. Dictated By: BRANDO CHRISTINE/MAVERICK Conf#: [id number] DID#: [id number]
[2017-10-12 19:38] VITALS: BP 112/64; RESP 18
[2017-10-12] MEDS: ONDANSETRON 4 MG INJ IV PRN (20:56)
[2017-10-13] MEDS: HYDROmorphONE 2 MG/ML SYG IV PRN ×2 (01:01→05:17)
[2017-10-13 01:42] VITALS: BP 99/58; RESP 18
[2017-10-13] MEDS: LEVOFLOXACIN 500MG/D5W (PMX) 100 ML IVPB SCH (05:16)
[2017-10-13] MEDS: D5W-0.45 NACL + KCL 20 MEQ 1,000 ML IV SCH ×2 (05:16→18:02)
[2017-10-13] MEDS: metroNIDAZOLE 500 MG/NS (PMX) 100 ML IVPB SCH ×3 (05:16→21:07)
[2017-10-13] MEDS: METOCLOPRAMIDE 10 MG INJ IV SCH ×3 (05:17→18:02)
[2017-10-13] MEDS: ACETAMINOPHEN 1000MG/100ML IV 100 ML IVPB PRN ×2 (05:17→11:52)
[2017-10-13 05:22] LABS: BASOPHILS % 0.4 % (0.0-2.0); EOSINOPHILS # 0.3 10^3/ul (0.0-0.5); EOSINOPHILS % 3.4 % (0.0-7.0); HEMOGLOBIN 12.6 g/dl (12.0-16.0); LYMPHOCYTES # 2.5 10^3/ul (0.8-2.9); LYMPHOCYTES % 27.6 % (15.0-51.0); MEAN CORPUSCULAR HEMOGLOBIN 27.8 pg (29.0-33.0); MEAN CORPUSCULAR HGB CONC 34.1 g/dl (32.0-37.0); MEAN CORPUSCULAR VOLUME 81.5 fl (82.0-101.0); MEAN PLATELET VOLUME 10.2 fl (7.4-10.4); MONOCYTE # 0.9 10^3/ul (0.3-0.9); NEUTROPHIL # 5.3 10^3/ul (1.6-7.5); NEUTROPHILS % 58.4 % (39.0-77.0); PLATELET COUNT 315 10^3/UL (140-415); RED BLOOD COUNT 4.54 10^6/ul (4.20-5.40); RED CELL DISTRIBUTION WIDTH 13.4 % (11.5-14.5); WHITE BLOOD COUNT 9.1 10^3/ul (4.8-10.8)
[2017-10-13 05:49] LABS: ALBUMIN 3.1 g/dl (3.3-4.9); ALBUMIN/GLOBULIN RATIO 0.91; BILIRUBIN,INDIRECT 0.2 mg/dl (0-1.1); BILIRUBIN,TOTAL 0.2 mg/dl (0.2-1.3); CALCIUM 8.9 mg/dl (8.4-10.2); CREATININE 0.69 mg/dl (0.44-1.00); POTASSIUM 3.7 mmol/L (3.5-5.1); TOTAL PROTEIN 6.5 g/dl (6.1-8.1)
[2017-10-13 07:40] VITALS: BP 103/59; RESP 18
[2017-10-13] MEDS ORDERED: HYDROmorphONE 0.5 MG/0.5 ML SYG IV PRN (08:25)
[2017-10-13] MEDS: DOCUSATE SODIUM 100 MG CAP PO SCH ×2 (09:40→21:06)
[2017-10-13] MEDS: FAMOTIDINE 20 MG INJ IV SCH ×2 (09:40→21:06)
[2017-10-13] MEDS: ONDANSETRON 4 MG INJ IV PRN (09:40)
[2017-10-13] MEDS: ESCITALOPRAM 10 MG TAB PO SCH (09:41)
--- NOTE | 2017-10-13 13:01 | PN ---
Date/Time of Note Date/Time of Note DATE: 10/13/17 TIME: 12:59 Assessment/Plan VTE Prophylaxis VTE Prophylaxis Intervention: SCD's Lines/Catheters IV [facility] Saline [facility] Assessment/Plan Chief Complaint/Hosp Course Patient complains of significant abdominal pain, crying. Discussed with Dr. Daly and RN, will start Xanax as needed for anxiety. Assessment/Plan - S/p ERCP on 10/07, multiple stones were removed from the common bile duct. - Intractable abdominal pain. Continue Dilaudid p.r.n. for pain and Zofran p.r.n. for nausea. Dr. Alcaraz is following in pain management consultation. -Narrowing of the distal CBD concerning for stricture MRCP. Pending ERCP today at [address] Christiansen is following patient in gastroenterology consultation. -Possible cholecystitis, continue Flagyl and Levaquin. Dr. Smith is following in general surgery consultation. - S/P ERCP and common bile duct stent placement at previous admission by Dr Christiansen. - S/p pancreatitis - Status post EGD with notion of gastritis on 09/08. Continue Pepcid. - Depression Further recommendations based on clinical course. Plan of care discussed with Dr. Wright. Problems: Exam/Review of Systems Vital Signs Vitals Vital Signs Date Time Temp Pulse Resp B/P Pulse Ox O2 Delivery O2 Flow Rate FiO2 10/13/17 07:40 97.7 58 18 103/59 97 Intake and Output 10/12/17 10/12/17 10/13/17 15:00 23:00 07:00 Intake Total 200 ml 2000 ml 1480 ml Balance 200 ml 2000 ml 1480 ml Exam Constitutional: alert, oriented Respiratory: normal air movement Cardiovascular: nl pulses Gastrointestinal: soft, tender Musculoskeletal: nl extremities to inspection Extremities: normal pulses Results Result Diagram: 10/13/17 0454 10/13/17 0454 Results 24 hrs Laboratory Tests Test 10/13/17 04:54 White Blood Count 9.1 # Red Blood Count 4.54 Hemoglobin 12.6 Hematocrit 37.0 Mean Corpuscular Volume 81.5 L Mean Corpuscular Hemoglobin 27.8 L Mean Corpuscular Hemoglobin Concent 34.1 Red Cell Distribution Width 13.4 Platelet Count 315 Mean Platelet Volume 10.2 Neutrophils % 58.4 Lymphocytes % 27.6 Monocytes % 10.0 Eosinophils % 3.4 Basophils % 0.4 Nucleated Red Blood Cells % 0.0 Neutrophils # 5.3 Lymphocytes # 2.5 Monocytes # 0.9 Eosinophils # 0.3 Basophils # 0.0 Nucleated Red Blood Cells # 0.0 Sodium Level 140 Potassium Level 3.7 Chloride Level 106 Carbon Dioxide Level 24 Anion Gap 14 Blood Urea Nitrogen 2 L Creatinine 0.69 Glucose Level 81 Calcium Level 8.9 Total Bilirubin 0.2 Direct Bilirubin 0.00 Indirect Bilirubin 0.2 Aspartate Amino Transf (AST/SGOT) 24 Alanine Aminotransferase (ALT/SGPT) 141 H Alkaline Phosphatase 193 H Total Protein 6.5 Albumin 3.1 L Globulin 3.40 H Albumin/Globulin Ratio 0.91 Lipase 146 Medications Medications Current Medications Potassium Chloride/Dextrose/ Sod Cl 1,000 ml @ 100 mls/hr Q10H IV Last administered on 10/13/17 05:16; Admin Dose 100 MLS/HR; Start 10/02/17 at 05:00 Levofloxacin/ Dextrose (Levaquin 500mg/ D5W 100 ml (Pmx)) 100 ml @ 100 mls/hr Q24H IVPB Last administered on 10/13/17 05:16; Admin Dose 100 MLS/HR; Start 10/02/17 at 06:00 Ondansetron HCl (Zofran Inj) 4 mg Q4 PRN IV nausea/ vomiting Last administered on 10/13/17 09:40; Admin Dose 4 MG; Start 10/04/17 at 13:55 Famotidine (Pepcid Iv) 20 mg BID IV Last administered on 10/13/17 09:40; Admin Dose 20 MG; Start 10/04/17 at 21:00 Metoclopramide HCl (Reglan) 10 mg Q6 IV Last administered on 10/13/17 11:52; Admin Dose 10 MG; Start 10/05/17 at 12:00 Acetaminophen (Tylenol Tab) 650 mg Q6H PRN PO PAIN AND OR ELEVATED TEMP Last administered on 10/09/17 07:29; Admin Dose 650 MG; Start 10/08/17 at 20:30 Docusate Sodium 100 mg 100 mg BID PO Last administered on 10/13/17 09:40; Admin Dose 100 MG; Start 10/08/17 at 21:00 Acetaminophen (Ofirmev 1000mg/ 100ml Iv) 100 ml @ 400 mls/hr Q8 PRN IVPB PAIN LEVEL 1-5 Last administered on 10/13/17 11:52; Admin Dose 400 MLS/HR; Start at 17:00 Escitalopram Oxalate 10 mg 10 mg DAILY PO Last administered on 10/13/17 09:41 ; Admin Dose 10 MG; Start 10/11/17 at 09:00 Metronidazole (Flagyl 500 Mg (Pmx)) 100 ml @ 100 mls/hr Q8 IVPB Last administered on 10/13/17 05:16; Admin Dose 100 MLS/HR; Start 10/11/17 at 22:00 Hydromorphone HCl (Dilaudid) 0.5 mg Q3H PRN IV PAIN; Start 10/13/17 at 13:00; Status JAROCHO LUTHER Oct 13, 2017 13:01
[2017-10-13] MEDS: HYDROmorphONE 0.5 MG/0.5 ML SYG IV PRN ×3 (13:52→21:06)
[2017-10-13] MEDS: ALPRAZOLAM 0.5 MG TAB PO PRN ×2 (13:52→21:06)
--- NOTE | 2017-10-13 13:59 | PN ---
DATE: 10/13/2017 SUBJECTIVE: The patient has been complaining of too much pain in epigastric area today with some nausea and vomiting and Dilaudid 0.5 mg has not been enough to relieve the pain. Also, patient was given acetaminophen 1 gram IV, but apparently Patient also stated that she is very anxious PHYSICAL EXAMINATION: GENERAL: Awake, alert, oriented, appears very anxious. VITAL SIGNS: Temperature 97.7, heart rate 58, respirations 18, blood pressure 130/59, saturation 97% on room air. HEART: Regular. LUNGS: Clear. ABDOMEN: Soft, some tenderness on deep pressure in the epigastric area. LABORATORY DATA: Sodium normal, potassium normal, bilirubin total 0.2 normal, AST 24 normal, ALT has dropped to 141, which is still up a little bit, alkaline phosphatase down to 193 which is still a little bit high. Albumin is 3.1, bilirubin 0.40. Lipase today is 146. ASSESSMENT: A 36-year-old female who was admitted about 4-5 weeks ago with gallstone, possibly biliary colic was found to have elevated liver enzymes. ercp , A sphincterotomy was done, sludge was removed, a stent was placed, _ n.p.o. and TPN for about 3 weeks. Gradually started to tolerate diet. Lipase came down, eventually it stayed stable down, but CT scan showed still quite swollen pancreas. The patient was discharged to be followed by Dr. Smith in the office for elective cholecystectomy in the future, but the same day, later on at night , patient came back with intractable abdominal epigastric pain, was admitted. WBC was slightly up and liver enzymes were very up except bilirubin which was not up, so we had an impression of cholangitis. Again, patient was admitted. The next day patient had endoscopic retrograde cholangiopancreatography done which showed several stones in the common bile duct which was removed and per gastrointestinal colleague the previous stent was removed and new stent was placed. Postop this time patient did not develop pancreatitis, albumin and lipase stayed down all the time. Gradually the enzymes which were in the range of 700 to 800, all of them started coming down and today is very low, below 200 , all of them; but the patient has been complaining of epigastric pain all the way in the hospital every 4 hours requiring narcotics 2 mg of Dilaudid. I have tried to taper her down, so we came down to 1 mg yesterday, eventually today we tapered it down to 0.5 mg q.4h. Patient requesting more pain medication and is very anxious, so we are going to make it 0.5 mg every [address] Smith, surgeon, believes that he wants the patient to wait a few more weeks until the swelling of the pancreas completely comes down so that it makes it technically easier to do cholecystectomy. The surgeons do not believe that the patient's pain is from the gallbladder, but apparently medical doctors and gastrointestinal think that it is probably from the gallbladder. I think the patient has developed a tolerance to narcotics and that is where she is experiencing all this pain or verbalizing that she has a lot of pain. I discussed with Dr. Smith the case again today. He is trying to see if he can find a spot in the operating room to accommodate in his schedule for doing possibly cholecystectomy. Meanwhile, we continue narcotic 0.5 mg IV q.3h. and we will see how the patient responds to that. Dictated By: BRANDO CHRISTINE/MAVERICK Conf#: [id number] DID#: [id number] MTDD
[2017-10-13 20:04] VITALS: BP 121/63; RESP 19
--- NOTE | 2017-10-13 23:11 | RADRPT ---
PROCEDURE: MRCP. CLINICAL INDICATION: Abdominal pain status post surgery times 1 week status post ERCP, stent placem ent, removal of common bile duct stone TECHNIQUE: MRCP was performed on the a high-resolution, high Elsy field strength scanner. Patien t was examined without contrast. The patient could not complete the examination. COMPARISON: MR 10/05/2017, ERCP of 10/07/2017 FINDINGS: The length of the liver equals 18.7 cm which could be secondary to Michelle lobe, normal variant. Ther e is cholelithiasis with multiple gallstones in the gallbladder. There is the suggestion of mild dif fuse gallbladder wall edema. The biliary tree is not dilated. The maximal diameter of the extrahepa tic bile duct appears to be approximately 4.7 mm. No intrahepatic nor extrahepatic biliary dilatatio n is present. There is likely pneumobilia due to sphincterotomy which limits evaluation for the poss ibility of small stones in the extrahepatic bile duct. There is no stricture or obstruction seen in the extrahepatic bile duct. No definite abnormality of the pancreatic duct is seen. IMPRESSION: Cholelithiasis. Suggestion of mild diffuse gallbladder wall edema. There is likely pneumobilia due t o sphincterotomy which limits evaluation for the possibility of small stones in the extrahepatic ana e duct. Please see above. RPTAT: HJES .Phan Marinelli MD, MD Date Time Electronically viewed and signed by .Phan Marinelli MD, on 10/13/2017 23:11 .S/
[2017-10-14] MEDS: METOCLOPRAMIDE 10 MG INJ IV SCH ×4 (00:09→17:26)
[2017-10-14] MEDS: HYDROmorphONE 0.5 MG/0.5 ML SYG IV PRN ×5 (00:12→21:28)
[2017-10-14] MEDS: D5W-0.45 NACL + KCL 20 MEQ 1,000 ML IV SCH ×3 (01:00→21:36)
[2017-10-14] MEDS: metroNIDAZOLE 500 MG/NS (PMX) 100 ML IVPB SCH ×3 (05:09→21:35)
[2017-10-14 05:50] LABS: BASOPHIL # 0.1 10^3/ul (0.0-0.1); BASOPHILS % 0.7 % (0.0-2.0); EOSINOPHILS # 0.2 10^3/ul (0.0-0.5); EOSINOPHILS % 2.2 % (0.0-7.0); HEMOGLOBIN 12.9 g/dl (12.0-16.0); LYMPHOCYTES # 2.4 10^3/ul (0.8-2.9); MEAN CORPUSCULAR HGB CONC 34.9 g/dl (32.0-37.0); MEAN CORPUSCULAR VOLUME 80.3 fl (82.0-101.0); MEAN PLATELET VOLUME 10.1 fl (7.4-10.4); MONOCYTE # 0.8 10^3/ul (0.3-0.9); MONOCYTES % 9.8 % (0.0-11.0); NEUTROPHIL # 4.7 10^3/ul (1.6-7.5); NEUTROPHILS % 57.9 % (39.0-77.0); PLATELET COUNT 369 10^3/UL (140-415); RED BLOOD COUNT 4.61 10^6/ul (4.20-5.40); RED CELL DISTRIBUTION WIDTH 13.3 % (11.5-14.5); WHITE BLOOD COUNT 8.2 10^3/ul (4.8-10.8)
[2017-10-14] MEDS: LEVOFLOXACIN 500MG/D5W (PMX) 100 ML IVPB SCH (06:09)
[2017-10-14 06:15] LABS: ANION GAP 11 (8-16); CARBON DIOXIDE 25 mmol/L (21-31); CHLORIDE 108 mmol/L (97-110); CREATININE 0.66 mg/dl (0.44-1.00); GLUCOSE 96 mg/dl (70-220); POTASSIUM 3.6 mmol/L (3.5-5.1); SODIUM 140 mmol/L (135-144)
[2017-10-14 06:16] LABS: BLOOD UREA NITROGEN < 2 mg/dl (7-20)
[2017-10-14 07:56] VITALS: BP 120/73; RESP 18
[2017-10-14] MEDS: ALPRAZOLAM 0.5 MG TAB PO PRN ×2 (09:04→17:27)
[2017-10-14] MEDS: ESCITALOPRAM 10 MG TAB PO SCH (09:04)
[2017-10-14] MEDS: DOCUSATE SODIUM 100 MG CAP PO SCH ×2 (09:04→21:34)
[2017-10-14] MEDS: ONDANSETRON 4 MG INJ IV PRN (09:04)
[2017-10-14] MEDS: FAMOTIDINE 20 MG INJ IV SCH ×2 (09:06→21:34)
[2017-10-14] MEDS ORDERED: HYDROmorphONE 0.5 MG/0.5 ML SYG IV PRN (13:00)
[2017-10-14] MEDS: KETOROLAC 15 MG INJ IV PRN (14:28)
[2017-10-14 14:51] VITALS: BP 124/71; RESP 18
[2017-10-14] MEDS ORDERED: HYDROCODONE/APAP (10/325) TAB PO PRN (16:00)
--- NOTE | 2017-10-14 18:05 | PN ---
Date/Time of Note Date/Time of Note DATE: 10/14/17 TIME: 18:01 Assessment/Plan Lines/Catheters IV Catheter Type (from Nrsg): Peripheral IV Assessment/Plan Assessment/Plan -Possible cholecystitis, continue Flagyl and Levaquin. Dr. Smith is following in general surgery consultation. - possible sx on Wednesday - S/p ERCP on 10/07, multiple stones were removed from the common bile duct. - Intractable abdominal pain. Continue Dilaudid p.r.n. for pain and Zofran p.r.n. for nausea. Dr. Alcaraz is following in pain management consultation. -Narrowing of the distal CBD concerning for stricture MRCP. Pending ERCP today at [address] Christiansen is following patient in gastroenterology consultation. - S/P ERCP and common bile duct stent placement at previous admission by Dr Christiansen. - S/p pancreatitis - Status post EGD with notion of gastritis on 09/08. Continue Pepcid. - Depression Further recommendations based on clinical course. Plan of care discussed with Dr. Wright. Subjective 24 Hr Interval Summary Free Text/Dictation NAD -afebrile - possible sx on Wednesday no new issues overnight Respiratory: no complaints Cardiovascular: no complaints Gastrointestinal: pain Genitourinary: no complaints Musculoskeletal: no complaints Exam/Review of Systems Vital Signs Vitals Vital Signs Date Time Temp Pulse Resp B/P Pulse Ox O2 Delivery O2 Flow Rate FiO2 10/14/17 14:51 98.0 64 18 124/71 98 Intake and Output 10/13/17 10/13/17 10/14/17 14:59 22:59 06:59 Intake Total 100 ml 900 ml 1400 ml Balance 100 ml 900 ml 1400 ml Exam Constitutional: alert, oriented, well developed Respiratory: clear to auscultation, normal air movement Cardiovascular: nl pulses Gastrointestinal: other, soft Musculoskeletal: nl extremities to inspection Results Result Diagram: 10/14/1744710/14/17447 Results 24 hrs Laboratory Tests Test 10/14/17 04:48 White Blood Count 8.2 Red Blood Count 4.61 Hemoglobin 12.9 Hematocrit 37.0 Mean Corpuscular Volume 80.3 L Mean Corpuscular Hemoglobin 28.0 L Mean Corpuscular Hemoglobin Concent 34.9 Red Cell Distribution Width 13.3 Platelet Count 369 Mean Platelet Volume 10.1 Neutrophils % 57.9 Lymphocytes % 29.0 Monocytes % 9.8 Eosinophils % 2.2 Basophils % 0.7 Nucleated Red Blood Cells % 0.0 Neutrophils # 4.7 Lymphocytes # 2.4 Monocytes # 0.8 Eosinophils # 0.2 Basophils # 0.1 Nucleated Red Blood Cells # 0.0 Sodium Level 140 Potassium Level 3.6 Chloride Level 108 Carbon Dioxide Level 25 Anion Gap 11 Blood Urea Nitrogen < 2 L Creatinine 0.66 Glucose Level 96 Calcium Level 9.0 Medications Medications Current Medications Potassium Chloride/Dextrose/ Sod Cl 1,000 ml @ 100 mls/hr Q10H IV Last administered on 10/14/17 09:06; Admin Dose 100 MLS/HR; Start 10/02/17 at 05:00 Levofloxacin/ Dextrose (Levaquin 500mg/ D5W 100 ml (Pmx)) 100 ml @ 100 mls/hr Q24H IVPB Last administered on 10/14/17 06:09; Admin Dose 100 MLS/HR; Start 10/02/17 at 06:00 Ondansetron HCl (Zofran Inj) 4 mg Q4 PRN IV nausea/ vomiting Last administered on 10/14/17 09:04; Admin Dose 4 MG; Start 10/04/17 at 13:55 Famotidine (Pepcid Iv) 20 mg BID IV Last administered on 10/14/17 09:06; Admin Dose 20 MG; Start 10/04/17 at 21:00 Metoclopramide HCl (Reglan) 10 mg Q6 IV Last administered on 10/14/17 17:26; Admin Dose 10 MG; Start 10/05/17 at 12:00 Acetaminophen (Tylenol Tab) 650 mg Q6H PRN PO PAIN AND OR ELEVATED TEMP Last administered on 10/09/17 07:29; Admin Dose 650 MG; Start 10/08/17 at 20:30 Docusate Sodium 100 mg 100 mg BID PO Last administered on 10/14/17 09:04; Admin Dose 100 MG; Start 10/08/17 at 21:00 Acetaminophen (Ofirmev 1000mg/ 100ml Iv) 100 ml @ 400 mls/hr Q8 PRN IVPB PAIN LEVEL 1-5 Last administered on 10/13/17 11:52; Admin Dose 400 MLS/HR; Start at 17:00 Escitalopram Oxalate 10 mg 10 mg DAILY PO Last administered on 10/14/17 09:04 ; Admin Dose 10 MG; Start 10/11/17 at 09:00 Metronidazole (Flagyl 500 Mg (Pmx)) 100 ml @ 100 mls/hr Q8 IVPB Last administered on 10/14/17 14:29; Admin Dose 100 MLS/HR; Start 10/11/17 at 22:00 Alprazolam (Xanax) 1 mg Q8H PRN PO ANXIETY Last administered on 10/14/17 17:27 ; Admin Dose 1 MG; Start 10/14/17 at 05:00 Ketorolac Tromethamine (Toradol) 15 mg Q6H PRN IV PAIN Last administered on 14:28; Admin Dose 15 MG; Start 10/14/17 at 13:00; Stop 10/17/17 at 12:59 Acetaminophen/ Hydrocodone Bitart ([place] (10/325)) 1 tab Q6H PRN PO PAIN LEVEL 4-6; Start 10/14/17 at 16:00 Hydromorphone HCl (Dilaudid) 0.3 mg Q3H PRN IV PAIN; Start 10/14/17 at 16:00 GABRIEL EPSTEIN Oct 14, 2017 18:05
--- NOTE | 2017-10-14 18:25 | PN ---
DATE: 10/14/2017 SUBJECTIVE: States that she is better today, less nausea, less vomiting. Pain is tolerable, and she has been tolerating only 0.5 mg of Dilaudid every 4 hours or more. OBJECTIVE: VITAL SIGNS: Stable, no fever. Temperature 98, heart rate 64, blood pressure normal, saturation 98% on room air. HEART: Regular. ABDOMEN: Soft. LABORATORIES: WBC 8200 with 57% neutrophils. Hemoglobin and hematocrit stable. Chemistry: Sodium, potassium, BUN, creatinine normal. No liver function test was done today. ASSESSMENT: A 36-year-old female status post ERCP, sphincterotomy, removal of stones from common bile duct and placement of a stent. Enzymes gradually tapering down. The last day was yesterday which shows AST was almost normalized , ALT is down to 141 and alkaline phosphatase 193, bilirubin total is 0.2. Lipase was 146. Therefore, the patient is responding very well to the treatment with ERCP and sphincterotomy and pancreatitis is resolving with a normal lipase. PLAN: Dr. Smith is planning to find a spot in the operating room as soon as possible to proceed with cholecystectomy, most probably on Wednesday, and if they cannot do it, then the patient should be discharged to go as an outpatient if the patient can tolerate the pain at home. We are trying to also taper the Dilaudid and we have been successful the past several days to cut it down from 2 mg every 4 hours to 0.5 mg every 4 hours. I am going to decrease in more tomorrow. I have discussed the case with Dr. Christiansen and will discuss the case with Dr. Casarez. Dictated By: BRANDO ENRIQUEZ MD PS/NTS Conf#: [id number] DID#: [id number] CC: KATHLEEN CASAREZ MD;*EndCC* MTDD
[2017-10-14 19:30] VITALS: BP 114/69; RESP 18
[2017-10-15] VITALS: BP 135/65; RESP 19
[2017-10-15] MEDS: ALPRAZOLAM 0.5 MG TAB PO PRN ×3 (01:35→17:53)
[2017-10-15] MEDS: HYDROmorphONE 0.5 MG/0.5 ML SYG IV PRN ×5 (01:45→21:07)
[2017-10-15 01:55] VITALS: BP 118/67; RESP 18
[2017-10-15] MEDS: METOCLOPRAMIDE 10 MG INJ IV SCH ×4 (06:11→17:54)
[2017-10-15] MEDS: metroNIDAZOLE 500 MG/NS (PMX) 100 ML IVPB SCH (06:12)
[2017-10-15] MEDS: D5W-0.45 NACL + KCL 20 MEQ 1,000 ML IV SCH ×2 (06:15→15:49)
[2017-10-15 06:16] LABS: BASOPHIL # 0.1 10^3/ul (0.0-0.1); BASOPHILS % 0.9 % (0.0-2.0); EOSINOPHILS # 0.2 10^3/ul (0.0-0.5); EOSINOPHILS % 2.7 % (0.0-7.0); HEMATOCRIT 36.3 % (37.0-47.0); HEMOGLOBIN 12.4 g/dl (12.0-16.0); LYMPHOCYTES # 2.4 10^3/ul (0.8-2.9); LYMPHOCYTES % 28.5 % (15.0-51.0); MEAN CORPUSCULAR HEMOGLOBIN 27.4 pg (29.0-33.0); MEAN CORPUSCULAR HGB CONC 34.2 g/dl (32.0-37.0); MEAN CORPUSCULAR VOLUME 80.3 fl (82.0-101.0); MEAN PLATELET VOLUME 9.8 fl (7.4-10.4); MONOCYTE # 0.8 10^3/ul (0.3-0.9); MONOCYTES % 9.2 % (0.0-11.0); NEUTROPHILS % 58.3 % (39.0-77.0); PLATELET COUNT 360 10^3/UL (140-415); RED BLOOD COUNT 4.52 10^6/ul (4.20-5.40); RED CELL DISTRIBUTION WIDTH 13.1 % (11.5-14.5); WHITE BLOOD COUNT 8.6 10^3/ul (4.8-10.8)
[2017-10-15 06:36] LABS: INR 0.94; PARTIAL THROMBOPLASTIN TIME 26.7 Sec (25.0-35.0); PROTIME 12.7 Sec (11.9-14.9)
[2017-10-15 07:06] LABS: ALANINE AMINOTRANSFERASE 92 IU/L (13-69); ALKALINE PHOSPHATASE 158 IU/L (42-121); ANION GAP 12 (8-16); ASPARTATE AMINO TRANSFERASE 31 IU/L (15-46); BILIRUBIN,INDIRECT 0.2 mg/dl (0-1.1); BILIRUBIN,TOTAL 0.2 mg/dl (0.2-1.3); CARBON DIOXIDE 24 mmol/L (21-31); CHLORIDE 108 mmol/L (97-110); CREATININE 0.66 mg/dl (0.44-1.00); GLUCOSE 88 mg/dl (70-220); POTASSIUM 3.4 mmol/L (3.5-5.1); SODIUM 141 mmol/L (135-144); TOTAL PROTEIN 6.3 g/dl (6.1-8.1)
[2017-10-15 07:09] LABS: BLOOD UREA NITROGEN < 2 mg/dl (7-20)
[2017-10-15] MEDS: LEVOFLOXACIN 500MG/D5W (PMX) 100 ML IVPB SCH (07:50)
[2017-10-15 08:21] VITALS: BP 114/73; PULSE 63; RESP 18
[2017-10-15] MEDS: ESCITALOPRAM 10 MG TAB PO SCH (08:46)
[2017-10-15] MEDS: DOCUSATE SODIUM 100 MG CAP PO SCH ×2 (08:46→20:37)
[2017-10-15] MEDS: FAMOTIDINE 20 MG INJ IV SCH ×2 (08:46→20:37)
[2017-10-15] MEDS: ONDANSETRON 4 MG INJ IV PRN (09:15)
--- NOTE | 2017-10-15 17:31 | PN ---
Date/Time of Note Date/Time of Note DATE: 10/15/17 TIME: 17:29 Assessment/Plan VTE Prophylaxis VTE Prophylaxis Intervention: SCD's Lines/Catheters IV Catheter Type (from Nrsg): Peripheral IV Assessment/Plan Chief Complaint/Hosp Course Pain is well controlled, plan for lap anthony on Wednesday. Assessment/Plan - S/p ERCP on 10/07, multiple stones were removed from the common bile duct. - Intractable abdominal pain. Continue Dilaudid p.r.n. for pain and Zofran p.r.n. for nausea. Dr. Alcaraz is following in pain management consultation. -Narrowing of the distal CBD concerning for stricture MRCP. Pending ERCP today at [address] Christiansen is following patient in gastroenterology consultation. -Possible cholecystitis, continue Flagyl and Levaquin. Dr. Smith is following in general surgery consultation. - S/P ERCP and common bile duct stent placement at previous admission by Dr Christiansen. - S/p pancreatitis - Status post EGD with notion of gastritis on 09/08. Continue Pepcid. - Depression Further recommendations based on clinical course. Plan of care discussed with Dr. Wright. Problems: Exam/Review of Systems Vital Signs Vitals Vital Signs Date Time Temp Pulse Resp B/P Pulse Ox O2 Delivery O2 Flow Rate FiO2 10/15/17 08:21 97.9 63 18 114/73 97 Room Air Intake and Output 10/14/17 10/14/17 10/15/17 14:59 22:59 06:59 Intake Total 100 ml 2600 ml 1000 ml Balance 100 ml 2600 ml 1000 ml Exam Constitutional: alert, oriented Respiratory: normal air movement Cardiovascular: nl pulses Gastrointestinal: soft, tender Musculoskeletal: nl extremities to inspection Extremities: normal pulses Results Result Diagram: 10/15/17 0452 10/15/17 0452 Results 24 hrs Laboratory Tests Test 10/15/17 04:52 White Blood Count 8.6 Red Blood Count 4.52 Hemoglobin 12.4 Hematocrit 36.3 L Mean Corpuscular Volume 80.3 L Mean Corpuscular Hemoglobin 27.4 L Mean Corpuscular Hemoglobin Concent 34.2 Red Cell Distribution Width 13.1 Platelet Count 360 Mean Platelet Volume 9.8 Neutrophils % 58.3 Lymphocytes % 28.5 Monocytes % 9.2 Eosinophils % 2.7 Basophils % 0.9 Nucleated Red Blood Cells % 0.0 Neutrophils # 5.0 Lymphocytes # 2.4 Monocytes # 0.8 Eosinophils # 0.2 Basophils # 0.1 Nucleated Red Blood Cells # 0.0 Prothrombin Time 12.7 Prothrombin Time Ratio 1.0 INR International Normalized Ratio 0.94 Activated Partial Thromboplast Time 26.7 Sodium Level 141 Potassium Level 3.4 L Chloride Level 108 Carbon Dioxide Level 24 Anion Gap 12 Blood Urea Nitrogen < 2 L Creatinine 0.66 Glucose Level 88 Calcium Level 9.0 Total Bilirubin 0.2 Direct Bilirubin 0.00 Indirect Bilirubin 0.2 Aspartate Amino Transf (AST/SGOT) 31 Alanine Aminotransferase (ALT/SGPT) 92 H Alkaline Phosphatase 158 H Total Protein 6.3 Albumin 3.0 L Globulin 3.30 H Albumin/Globulin Ratio 0.90 Medications Medications Current Medications Potassium Chloride/Dextrose/ Sod Cl 1,000 ml @ 100 mls/hr Q10H IV Last administered on 10/15/17 15:49; Admin Dose 100 MLS/HR; Start 10/02/17 at 05:00 Levofloxacin/ Dextrose (Levaquin 500mg/ D5W 100 ml (Pmx)) 100 ml @ 100 mls/hr Q24H IVPB Last administered on 10/15/17 07:50; Admin Dose 100 MLS/HR; Start 10/02/17 at 06:00 Ondansetron HCl (Zofran Inj) 4 mg Q4 PRN IV nausea/ vomiting Last administered on 10/15/17 09:15; Admin Dose 4 MG; Start 10/04/17 at 13:55 Famotidine (Pepcid Iv) 20 mg BID IV Last administered on 10/15/17 08:46; Admin Dose 20 MG; Start 10/04/17 at 21:00 Metoclopramide HCl (Reglan) 10 mg Q6 IV Last administered on 10/15/17 13:19; Admin Dose 10 MG; Start 10/05/17 at 12:00 Acetaminophen (Tylenol Tab) 650 mg Q6H PRN PO PAIN AND OR ELEVATED TEMP Last administered on 10/09/17 07:29; Admin Dose 650 MG; Start 10/08/17 at 20:30 Docusate Sodium 100 mg 100 mg BID PO Last administered on 10/15/17 08:46; Admin Dose 100 MG; Start 10/08/17 at 21:00 Acetaminophen (Ofirmev 1000mg/ 100ml Iv) 100 ml @ 400 mls/hr Q8 PRN IVPB PAIN LEVEL 1-5 Last administered on 10/13/17 11:52; Admin Dose 400 MLS/HR; Start at 17:00 Escitalopram Oxalate (Lexapro) 10 mg DAILY PO Last administered on 10/15/17 08 :46; Admin Dose 10 MG; Start 10/11/17 at 09:00 Alprazolam (Xanax) 1 mg Q8H PRN PO ANXIETY Last administered on 10/15/17 09:18 ; Admin Dose 1 MG; Start 10/14/17 at 05:00 Ketorolac Tromethamine (Toradol) 15 mg Q6H PRN IV PAIN Last administered on 14:28; Admin Dose 15 MG; Start 10/14/17 at 13:00; Stop 10/17/17 at 12:59 Acetaminophen/ Hydrocodone Bitart ([place] (10/325)) 1 tab Q6H PRN PO PAIN LEVEL 4-6 Last administered on 10/14/17 23:12; Admin Dose 1 TAB; Start 10/14/17 at 16 :00 Hydromorphone HCl (Dilaudid) 0.2 mg Q3H PRN IV PAIN Last administered on 15:46; Admin Dose 0.2 MG; Start 10/15/17 at 12:00 JAROCHO YOUNG Oct 15, 2017 17:30
[2017-10-15 19:00] VITALS: BP 117/67; RESP 18
[2017-10-15] MEDS: ACETAMINOPHEN 1000MG/100ML IV 100 ML IVPB PRN (23:03)
[2017-10-16] MEDS: HYDROmorphONE 0.5 MG/0.5 ML SYG IV PRN ×7 (00:08→23:51)
[2017-10-16] MEDS: METOCLOPRAMIDE 10 MG INJ IV SCH ×5 (00:12→23:51)
[2017-10-16] MEDS: ALPRAZOLAM 0.5 MG TAB PO PRN ×3 (01:36→20:02)
--- NOTE | 2017-10-16 01:59 | PN ---
DATE: 10/15/2017 SUBJECTIVE: Feels better, pain is better. She has been tolerating and has not been using so freque ntly pain medications. OBJECTIVE: VITAL SIGNS: Temperature 97.9, heart rate 63, respirations 18, blood pressure 114/73, saturation 97 % on room air. HEART: Regular. LUNGS: Clear. ABDOMEN: Soft, minimal tenderness in epigastric area. LABORATORY DATA: WBC 8600, hemoglobin 12.4. Chemistry: Sodium normal, potassium slightly low, BUN and creatinine normal. AST is down to 31, which is normal; ALT down to 92, which is slightly high. Alkaline phosphatase down to 158, slightly up. Coagulation profile normal. ASSESSMENT AND PLAN: A 36-year-old female who was treated for the second time because of the cholan gitis and a stone in the common bile duct. ERCP was done and sphincterotomy, removal of the stone a nd placement of a stent was performed. Under antibiotic, Flagyl and Levaquin, gradually the cholang itis got better. Enzymes gradually came down. AST normal, ALT and alkaline phosphatase slightly el evated. Patient has gallstone as well. The plan is to proceed with cholecystectomy on Wednesday. Of course the patient before that was admitted with gallstone and biliary colic for which she underwent ERCP and sphincterotomy. Post-ERCP, the patient developed pancreatitis which required her to be n. p.o. and on TPN for about 3 weeks, gradually subsided. Last amylase and lipase are normal. Swellin g of the gallbladder ____ pancreas gradually has started to get less now. According to the surgeon, Dr. Smith, the patient is an acceptable risk for proceeding with cholecystectomy and he is going to do it on Wednesday. Dictated By: BRANDO ENRIQUEZ MD PS/NTS Conf#: [id number] DID#: [id number] CC: KATHLEEN CASAREZ MD;*EndCC*
[2017-10-16 02:03] VITALS: BP 120/69; RESP 18
[2017-10-16] MEDS: D5W-0.45 NACL + KCL 20 MEQ 1,000 ML IV SCH ×3 (03:03→23:00)
[2017-10-16 05:57] LABS: ANION GAP 13 (8-16); CARBON DIOXIDE 25 mmol/L (21-31); CHLORIDE 108 mmol/L (97-110); CREATININE 0.67 mg/dl (0.44-1.00); GLUCOSE 101 mg/dl (70-220); POTASSIUM 3.6 mmol/L (3.5-5.1); SODIUM 142 mmol/L (135-144)
[2017-10-16 06:00] LABS: BLOOD UREA NITROGEN < 2 mg/dl (7-20)
[2017-10-16] MEDS: LEVOFLOXACIN 500MG/D5W (PMX) 100 ML IVPB SCH (06:11)
[2017-10-16 08:47] VITALS: BP 123/64; RESP 18
[2017-10-16] MEDS: DOCUSATE SODIUM 100 MG CAP PO SCH ×2 (09:17→20:25)
[2017-10-16] MEDS: FAMOTIDINE 20 MG INJ IV SCH ×2 (09:17→20:25)
[2017-10-16] MEDS: ESCITALOPRAM 10 MG TAB PO SCH (09:17)
--- NOTE | 2017-10-16 11:27 | PN ---
Date/Time of Note Date/Time of Note DATE: 10/16/17 TIME: 11:27 Assessment/Plan VTE Prophylaxis VTE Prophylaxis Intervention: other Lines/Catheters IV Catheter Type (from Nrs): Peripheral IV Assessment/Plan Chief Complaint/Hosp Course - S/p ERCP on 10/07, multiple stones were removed from the common bile duct. - Intractable abdominal pain. Continue Dilaudid p.r.n. for pain and Zofran p.r.n. for nausea. Dr. Alcaraz is following in pain management consultation. -Narrowing of the distal CBD concerning for stricture MRCP. Pending ERCP today at [address] Christiansen is following patient in gastroenterology consultation. -Possible cholecystitis, continue Flagyl and Levaquin. Dr. Smith is following in general surgery consultation. - S/P ERCP and common bile duct stent placement at previous admission by Dr Christiansen. - S/p pancreatitis - Status post EGD with notion of gastritis on 09/08. Continue Pepcid. - Depression Problems: Subjective 24 Hr Interval Summary Free Text/Dictation Abdominal pain is better Exam/Review of Systems Vital Signs Vitals Vital Signs Date Time Temp Pulse Resp B/P Pulse Ox O2 Delivery O2 Flow Rate FiO2 10/16/17 08:47 98.6 72 18 123/64 99 10/15/17 08:21 Room Air Intake and Output 10/15/17 10/15/17 10/16/17 15:00 23:00 07:00 Intake Total 200 ml 1400 ml 1580 ml Output Total 50 ml Balance 200 ml 1350 ml 1580 ml Exam Constitutional: well developed Head: atraumatic, normocephalic Neck: supple Respiratory: clear to auscultation Cardiovascular: regular rate and rhythm Gastrointestinal: non-tender, soft Extremities: normal pulses Results Result Diagram: 10/15/17 0452 10/16/17 0456 Results 24 hrs Laboratory Tests Test 10/16/17 04:56 Sodium Level 142 Potassium Level 3.6 Chloride Level 108 Carbon Dioxide Level 25 Anion Gap 13 Blood Urea Nitrogen < 2 L Creatinine 0.67 Glucose Level 101 Calcium Level 9.0 Medications Medications Current Medications Potassium Chloride/Dextrose/ Sod Cl 1,000 ml @ 100 mls/hr Q10H IV Last administered on 10/16/17t 03:03; Admin Dose 100 MLS/HR; Start 10/02/17 at 05:00 Levofloxacin/ Dextrose (Levaquin 500mg/ D5W 100 ml (Pmx)) 100 ml @ 100 mls/hr Q24H IVPB Last administered on 10/16/17 06:11; Admin Dose 100 MLS/HR; Start 10/02/17 at 06:00 Ondansetron HCl (Zofran Inj) 4 mg Q4 PRN IV nausea/ vomiting Last administered on 10/15/17 09:15; Admin Dose 4 MG; Start 10/04/17 at 13:55 Famotidine (Pepcid Iv) 20 mg BID IV Last administered on 10/16/17 09:17; Admin Dose 20 MG; Start 10/04/17 at 21:00 Metoclopramide HCl (Reglan) 10 mg Q6 IV Last administered on 10/16/17 06:11; Admin Dose 10 MG; Start 10/05/17 at 12:00 Acetaminophen (Tylenol Tab) 650 mg Q6H PRN PO PAIN AND OR ELEVATED TEMP Last administered on 10/09/17 07:29; Admin Dose 650 MG; Start 10/08/17 at 20:30 Docusate Sodium 100 mg 100 mg BID PO Last administered on 10/16/17 09:17; Admin Dose 100 MG; Start 10/08/17 at 21:00 Acetaminophen (Ofirmev 1000mg/ 100ml Iv) 100 ml @ 400 mls/hr Q8 PRN IVPB PAIN LEVEL 1-5 Last administered on 10/15/17 23:03; Admin Dose 400 MLS/HR; Start at 17:00 Escitalopram Oxalate (Lexapro) 10 mg DAILY PO Last administered on 10/16/17 09 :17; Admin Dose 10 MG; Start 10/11/17 at 09:00 Alprazolam (Xanax) 1 mg Q8H PRN PO ANXIETY Last administered on 10/16/17 01:36 ; Admin Dose 1 MG; Start 10/14/17 at 05:00 Ketorolac Tromethamine (Toradol) 15 mg Q6H PRN IV PAIN Last administered on 14:28; Admin Dose 15 MG; Start 10/14/17 at 13:00; Stop 10/17/17 at 12:59 Acetaminophen/ Hydrocodone Bitart ([place] (10/325)) 1 tab Q6H PRN PO PAIN LEVEL 4-6 Last administered on 10/14/17 23:12; Admin Dose 1 TAB; Start 10/14/17 at 16 :00 Hydromorphone HCl (Dilaudid) 0.2 mg Q3H PRN IV PAIN Last administered on 11:04; Admin Dose 0.2 MG; Start 10/15/17 at 12:00 JESSI FAUST Oct 16, 2017 11:27
[2017-10-16 15:33] VITALS: BP 114/73; RESP 18
--- NOTE | 2017-10-16 15:57 | PN ---
DATE: 10/16/2017 SUBJECTIVE: Feels better, pain is much less, tolerating diet. No nausea today. No vomiting. OBJECTIVE GENERAL: Awake, alert, oriented x3. VITAL SIGNS: Stable. She is walking around the floor. LABORATORY DATA: Sodium, potassium, BUN, creatinine normal. HEART: Regular. LUNGS: Clear. ABDOMEN: Soft. EXTREMITIES: Legs: No calf tenderness. ASSESSMENT: A 36-year-old female status post ERCP for the second time and placement of the stent af ter removing several stones in the common bile duct. Cholangitis is under control now. Patient has been having a lot of pain, but gradually the pain is becoming under control. PLAN: The patient is scheduled for Wednesday to have laparoscopic cholecystectomy, possible open. Dictated By: BRANDO ENRIQUEZ MD PS/NTS Conf#: [id number] DID#: [id number] CC: KATHLEEN CASAREZ MD;*EndCC*
[2017-10-16] MEDS: HYDROCODONE/APAP (5/325) TAB PO PRN (17:39)
[2017-10-16 19:20] VITALS: BP 121/70; RESP 18
[2017-10-17] MEDS: KETOROLAC 15 MG INJ IV PRN ×2 (02:38→09:48)
[2017-10-17] MEDS: D5W-0.45 NACL + KCL 20 MEQ 1,000 ML IV SCH ×3 (02:39→19:17)
[2017-10-17] MEDS: HYDROmorphONE 0.5 MG/0.5 ML SYG IV PRN ×5 (04:45→22:23)
[2017-10-17] MEDS: METOCLOPRAMIDE 10 MG INJ IV SCH ×3 (05:12→18:32)
[2017-10-17] MEDS: LEVOFLOXACIN 500MG/D5W (PMX) 100 ML IVPB SCH (05:12)
[2017-10-17 06:20] LABS: ALANINE AMINOTRANSFERASE 74 IU/L (13-69); ALBUMIN 3.2 g/dl (3.3-4.9); ALKALINE PHOSPHATASE 153 IU/L (42-121); ANION GAP 10 (8-16); ASPARTATE AMINO TRANSFERASE 37 IU/L (15-46); BILIRUBIN,INDIRECT 0.2 mg/dl (0-1.1); BILIRUBIN,TOTAL 0.2 mg/dl (0.2-1.3); BLOOD UREA NITROGEN < 2 mg/dl (7-20); CALCIUM 9.1 mg/dl (8.4-10.2); CARBON DIOXIDE 25 mmol/L (21-31); CHLORIDE 108 mmol/L (97-110); CREATININE 0.75 mg/dl (0.44-1.00); GLUCOSE 92 mg/dl (70-220); POTASSIUM 3.8 mmol/L (3.5-5.1); SODIUM 139 mmol/L (135-144); TOTAL PROTEIN 6.4 g/dl (6.1-8.1)
[2017-10-17 07:29] VITALS: BP 118/72; RESP 18
[2017-10-17] MEDS: DOCUSATE SODIUM 100 MG CAP PO SCH ×2 (09:22→20:42)
[2017-10-17] MEDS: FAMOTIDINE 20 MG INJ IV SCH ×2 (09:22→20:42)
[2017-10-17] MEDS: ALPRAZOLAM 0.5 MG TAB PO PRN ×2 (09:22→17:41)
[2017-10-17] MEDS: ESCITALOPRAM 10 MG TAB PO SCH (09:22)
--- NOTE | 2017-10-17 11:33 | PN ---
Date/Time of Note Date/Time of Note DATE: 10/17/17 TIME: 11:32 Assessment/Plan VTE Prophylaxis VTE Prophylaxis Intervention: other Lines/Catheters IV Catheter Type (from Nrs): Peripheral IV Assessment/Plan Chief Complaint/Hosp Course - S/p ERCP on 10/07, multiple stones were removed from the common bile duct. - Intractable abdominal pain. Continue Dilaudid p.r.n. for pain and Zofran p.r.n. for nausea. Dr. Alcaraz is following in pain management consultation. -Narrowing of the distal CBD concerning for stricture MRCP. Pending ERCP today at [address] Christiansen is following patient in gastroenterology consultation. -Possible cholecystitis, continue Flagyl and Levaquin. Dr. Smith is following in general surgery consultation. - S/P ERCP and common bile duct stent placement at previous admission by Dr Christiansen. - S/p pancreatitis - Status post EGD with notion of gastritis on 09/08. Continue Pepcid. - Depression Problems: Subjective 24 Hr Interval Summary Free Text/Dictation Patient has no abdominal pain currently Exam/Review of Systems Vital Signs Vitals Vital Signs Date Time Temp Pulse Resp B/P Pulse Ox O2 Delivery O2 Flow Rate FiO2 10/17/17 07:29 98.0 62 18 118/72 97 10/15/17 08:21 Room Air Intake and Output 10/16/17 10/16/17 10/17/17 15:00 23:00 07:00 Intake Total 100 ml 1650 ml 2290 ml Output Total 1250 ml Balance 100 ml 1650 ml 1040 ml Exam Constitutional: well developed Head: atraumatic, normocephalic Neck: supple Respiratory: clear to auscultation Cardiovascular: regular rate and rhythm Gastrointestinal: non-tender, soft Extremities: normal pulses Results Result Diagram: 10/15/17 0452 10/17/17 0438 Results 24 hrs Laboratory Tests Test 10/17/17 04:38 Sodium Level 139 Potassium Level 3.8 Chloride Level 108 Carbon Dioxide Level 25 Anion Gap 10 Blood Urea Nitrogen < 2 L Creatinine 0.75 Glucose Level 92 Calcium Level 9.1 Total Bilirubin 0.2 Direct Bilirubin 0.00 Indirect Bilirubin 0.2 Aspartate Amino Transf (AST/SGOT) 37 Alanine Aminotransferase (ALT/SGPT) 74 H Alkaline Phosphatase 153 H Total Protein 6.4 Albumin 3.2 L Globulin 3.20 Albumin/Globulin Ratio 1.00 Medications Medications Current Medications Potassium Chloride/Dextrose/ Sod Cl 1,000 ml @ 100 mls/hr Q10H IV Last administered on 10/17/17 09:23; Admin Dose 100 MLS/HR; Start 10/02/17 at 05: 00 Levofloxacin/ Dextrose (Levaquin 500mg/ D5W 100 ml (Pmx)) 100 ml @ 100 mls/hr Q24H IVPB Last administered on 10/17/17 05:12; Admin Dose 100 MLS/HR; Start 10/02/17 at 06:00 Ondansetron HCl (Zofran Inj) 4 mg Q4 PRN IV nausea/ vomiting Last administered on 10/15/17 09:15; Admin Dose 4 MG; Start 10/04/17 at 13:55 Famotidine (Pepcid Iv) 20 mg BID IV Last administered on 10/17/17 09:22; Admin Dose 20 MG; Start 10/04/17 at 21:00 Metoclopramide HCl (Reglan) 10 mg Q6 IV Last administered on 10/17/17 05:12; Admin Dose 10 MG; Start 10/05/17 at 12:00 Acetaminophen (Tylenol Tab) 650 mg Q6H PRN PO PAIN AND OR ELEVATED TEMP Last administered on 10/09/17 07:29; Admin Dose 650 MG; Start 10/08/17 at 20:30 Docusate Sodium 100 mg 100 mg BID PO Last administered on 10/17/17 09:22; Admin Dose 100 MG; Start 10/08/17 at 21:00 Acetaminophen (Ofirmev 1000mg/ 100ml Iv) 100 ml @ 400 mls/hr Q8 PRN IVPB PAIN LEVEL 1-5 Last administered on 10/15/17 23:03; Admin Dose 400 MLS/HR; Start at 17:00 Escitalopram Oxalate (Lexapro) 10 mg DAILY PO Last administered on 10/17/17 09:22; Admin Dose 10 MG; Start 10/11/17 at 09:00 Alprazolam (Xanax) 1 mg Q8H PRN PO ANXIETY Last administered on 10/17/17 09: 22; Admin Dose 1 MG; Start 10/14/17 at 05:00 Ketorolac Tromethamine (Toradol) 15 mg Q6H PRN IV PAIN Last administered on 09:48; Admin Dose 15 MG; Start 10/14/17 at 13:00; Stop 10/17/17 at 12: 59 Hydromorphone HCl (Dilaudid) 0.2 mg Q3H PRN IV PAIN Last administered on 10:35; Admin Dose 0.2 MG; Start 10/15/17 at 12:00 Acetaminophen/ Hydrocodone Bitart ([place] (5/325)) 1 tab Q6H PRN PO pain Last administered on 10/16/17 17:39; Admin Dose 1 TAB; Start 10/16/17 at 13:00 JESSI FAUST Oct 17, 2017 11:33
[2017-10-17] MEDS: HYDROCODONE/APAP (5/325) TAB PO PRN ×2 (14:08→23:54)
--- NOTE | 2017-10-17 14:18 | PN ---
DATE: 10/17/2017 SUBJECTIVE: Feels much better, pain is much less. The IV pain medications is Toradol 0.2 mg which is down from 2 mg about a week ago. Also, in between, the patient gets Toradol IV 30 mg. Also, p.o. pain medication, [place] 5/325 p.r.n. every 4 to 6 hours. Has had bowel movement, no nausea, no vomiting. Tolerating diet. OBJECTIVE GENERAL: Awake, alert, oriented x3. VITAL SIGNS: Afebrile, heart rate 62 regular, blood pressure 118/72. LABORATORY DATA: Within normal limits, except the ALT and AST is elevated 74 and alkaline phosphatase is elevated 463. Bilirubin total is 0.2. ABDOMEN: Soft. ASSESSMENT: A 76-year-old female with status post endoscopic retrograde cholangiopancreatography, sphincterotomy, removal of stone from common bile duct and placement of a stent, status post cholangitis too. Gradually, the enzymes are coming down. The patient has also been nauseous and vomiting several times in the past week, but after discontinuing the Flagyl, the vomiting and nausea has been stopped. PLAN: The patient is going to have laparoscopic cholecystectomy, possible open tomorrow, by Dr. Smith. Dictated By: BRANDO ENRIQUEZ MD PS/MAVERICK Conf#: [id number] DID#: [id number] CC: KATHLEEN CASAREZ MD;*EndCC* MTDD
[2017-10-17 15:24] VITALS: BP 115/72; RESP 18
[2017-10-17 19:35] VITALS: BP 124/70; RESP 18
[2017-10-18] VITALS (20 sets, daily range): BP systolic 108–132; BP diastolic 53–79; PULSE 60–76; RESP 14–20
[2017-10-18] MEDS: METOCLOPRAMIDE 10 MG INJ IV SCH ×4 (00:06→17:37)
[2017-10-18] MEDS: ALPRAZOLAM 0.5 MG TAB PO PRN ×2 (01:30→18:19)
[2017-10-18] MEDS: D5W-0.45 NACL + KCL 20 MEQ 1,000 ML IV SCH ×4 (01:57→23:33)
[2017-10-18] MEDS: LEVOFLOXACIN 500MG/D5W (PMX) 100 ML IVPB SCH (06:25)
[2017-10-18] MEDS: HYDROmorphONE 0.5 MG/0.5 ML SYG IV PRN (06:32)
[2017-10-18] MEDS: FAMOTIDINE 20 MG INJ IV SCH ×2 (08:06→20:09)
[2017-10-18] MEDS: ACETAMINOPHEN 1000MG/100ML IV 100 ML IVPB PRN (08:06)
[2017-10-18] MEDS: DOCUSATE SODIUM 100 MG CAP PO SCH ×2 (08:17→20:09)
[2017-10-18] MEDS: ESCITALOPRAM 10 MG TAB PO SCH (08:17)
[2017-10-18] MEDS ORDERED: MIDAZOLAM 1 MG/ML 2 ML INJ ONE (10:05)
[2017-10-18] MEDS ORDERED: FENTAnyl 50 MCG/ML VIAL ONE (10:06)
[2017-10-18] MEDS ORDERED: CLINDAMYCIN 900 MG/D5W (PMX) 50 ML IVPB ONE (10:52)
[2017-10-18] MEDS ORDERED: PROPOFOL 20 ML ONE (10:57)
[2017-10-18] MEDS ORDERED: SUCCINYLCHOLINE CHLORIDE 100 MG/5 ML SYG IV ONE (10:57)
[2017-10-18] MEDS ORDERED: LIDOCAINE 2% (SDV) 5 ML INJ ONE (10:57)
[2017-10-18] MEDS ORDERED: ROCURONIUM 50 MG INJ ONE (10:57)
[2017-10-18] MEDS ORDERED: SUGAMMADEX SODIUM 200 MG/2 ML VIAL IV ONE (10:58)
[2017-10-18] MEDS ORDERED: FENTAnyl 50 MCG/ML VIAL IV PRN ×2 (11:00)
[2017-10-18] MEDS ORDERED: HYDROmorphONE (0.2 MG/ML) 10ML SYG IV PRN ×3 (11:00)
[2017-10-18] MEDS ORDERED: MEPERIDINE 25 MG INJ IV PRN (11:00)
[2017-10-18] MEDS ORDERED: ONDANSETRON 4 MG INJ IV PRN ×2 (11:00→12:30)
[2017-10-18] MEDS ORDERED: METOCLOPRAMIDE 10 MG INJ IV PRN (11:00)
[2017-10-18] MEDS ORDERED: DIPHENHYDRAMINE 50 MG INJ IV PRN (11:00)
--- NOTE | 2017-10-18 12:07 | SIPON ---
Date/Time of Note Date/Time of Note DATE: 10/18/17 TIME: 12:06 Operative Report Preoperative Diagnosis Symptomatic cholelithiasis Postoperative Diagnosis Same Operation/Procedure Performed Laparoscopic cholecystectomy Surgeon see signature line food service assistant Dr Daly Anesthesia: general Estimated blood loss: 10 - 50 ml's Transfusion Required none Specimen Gallbladder Grafts/Implants none Complications none ANUEL PENA MD Oct 18, 2017 12:07
[2017-10-18] MEDS: ONDANSETRON 4 MG INJ IV PRN (12:16)
[2017-10-18] MEDS ORDERED: HYDROCODONE/APAP (5/325) TAB PO PRN (12:30)
--- NOTE | 2017-10-18 13:24 | OPR ---
DATE OF OPERATION: 10/18/2017 PREOPERATIVE DIAGNOSIS: History of biliary pancreatitis and symptomatic cholelithiasis.. POSTOPERATIVE DIAGNOSIS: Symptomatic cholelithiasis and history of biliary pancreatitis. OPERATION PERFORMED: Laparoscopic cholecystectomy. ANESTHESIA: General. ANESTHESIOLOGIST: Dr. Hill. SURGEON: Edenilson Smith MD MICA PATCHER: Dr. Daniel Daly. INDICATIONS FOR PROCEDURE: The patient is a 36-year-old female who was admitted to the [facility] 1 month ago with severe abdominal pain. She underwent ERCP and stone removal, but develo ped severe pancreatitis. She was treated with hyperalimentation and n.p.o. status. Eventually her pancreatitis resolve and she was counseled as to the need for cholecystectomy. She consented and wa s scheduled for surgery. DESCRIPTION OF PROCEDURE: The patient was brought to the operating theater, placed under general an esthesia. The abdomen was prepped and draped in usual sterile fashion. Approximately 2 cm incision was made in the midline just above the umbilicus. Subcutaneous tissue was dissected with cautery d own to the anterior rectus sheath, 0 Vicryl stay sutures were placed on either side of the linea alb a. The linea alba was incised and the abdomen was entered without difficulty. Jarrett trocar was th en placed in standard fashion. The abdomen was insufflated to a pressure of approximately 14 mmHg w ith carbon dioxide. Laparoscope was introduced. Attention was directed to the right upper quadrant where a thick walled gallbladder was identified. Three accessory ports were placed under direct vi gayla in standard fashion. Through the lateral port sites the gallbladder was grasped at the fundus and neck and retracted cephalad and lateral. Peritoneum overlying the gallbladder was then incised with cautery, both medially and laterally to facilitate mobilization of the triangle of [place]. With meticulous dissection, the cystic duct was isolated. Two clips were placed across it distally and it was then transected with the endovascular GRICEL stapler at its junction with the neck of the gallbl adder. Subsequently, the cystic artery was identified, triply clipped and transected. Gallbladder was then dissected out of the gallbladder fossa. Prior to final transection, irrigation and inspect ion took place. Minimal bleeding was controlled with cautery. Gallbladder was then transected. Th e laparoscope was moved to the 12-mm subcostal port site, and the gallbladder was retrieved from the abdomen using the gallbladder retrieval bag through the umbilical port site. Jarrett trocar was tur delroy back into the abdomen. The abdomen was reinsufflated. Final irrigation and inspection took mike ce. There was no evidence of bleeding. The 3 accessory ports were then removed under direct vision . Again, there was no evidence of bleeding. Finally, the umbilical port was removed. The midline umbilical fascia was reapproximated with 0 Prolene sutures in [id number] fashion. All wounds w ere irrigated with Betadine and skin incisions were reapproximated with skin armin. Patient andry ated the procedure well. The estimated blood loss was approximately 30 mL. There were no complicat ions and the patient was transported in stable condition to the recovery room. Dictated By: EDENILSON SAUCEDO/MAVERICK Conf#: [id number] DID#: [id number]
[2017-10-18] MEDS: morphine 2 MG INJ IV PRN ×4 (13:37→22:35)
--- NOTE | 2017-10-18 16:04 | PN ---
Date/Time of Note Date/Time of Note DATE: 10/18/17 TIME: 15:59 Assessment/Plan VTE Prophylaxis VTE Prophylaxis Intervention: SCD's Lines/Catheters IV Catheter Type (from [facility]): [place] Assessment/Plan Chief Complaint/Hosp Course Patient is status post lap cholecystectomy today, patient looks comfortable, pain is well controlled. Assessment/Plan - Symptomatic cholelithiasis status post laparoscopic cholecystectomy on 10/[address] Smith - S/p ERCP on 10/07, multiple stones were removed from the common bile duct. - Intractable abdominal pain. Continue Dilaudid p.r.n. for pain and Zofran p.r.n. for nausea. Dr. Alcaraz is following in pain management consultation. -Narrowing of the distal CBD concerning for stricture MRCP. Pending ERCP today at [address] Christiansen is following patient in gastroenterology consultation. - S/P ERCP and common bile duct stent placement at previous admission by Dr Christiansen. - S/p pancreatitis - Status post EGD with notion of gastritis on 09/08. Continue Pepcid. - Depression Further recommendations based on clinical course. Plan of care discussed with Dr. Wright. Problems: Exam/Review of Systems Vital Signs Vitals Vital Signs Date Time Temp Pulse Resp B/P Pulse Ox O2 Delivery O2 Flow Rate FiO2 10/18/17 14:38 97.4 71 20 118/64 97 10/18/17 12:58 Room Air 10/18/17 12:08 10.0 Intake and Output 10/17/17 10/17/17 10/18/17 15:00 23:00 07:00 Intake Total 760 ml 1600 ml 1600 ml Balance 760 ml 1600 ml 1600 ml Exam Constitutional: alert, oriented Head: normocephalic Neck: supple Respiratory: normal air movement Cardiovascular: nl pulses Gastrointestinal: non-tender, other (Status post surgery), soft Extremities: normal pulses Neurological: nl mental status Results Result Diagram: 10/15/17 0452 10/17/17 0438 Medications Medications Current Medications Levofloxacin/ Dextrose (Levaquin 500mg/ D5W 100 ml (Pmx)) 100 ml @ 100 mls/hr Q24H IVPB Last administered on 10/18/17t 06:25; Admin Dose 100 MLS/HR; Start 10/02/17 at 06:00 Ondansetron HCl (Zofran Inj) 4 mg Q4 PRN IV nausea/ vomiting Last administered on 10/18/17 12:16; Admin Dose 4 MG; Start 10/04/17 at 13:55 Famotidine (Pepcid Iv) 20 mg BID IV Last administered on 10/18/17 08:06; Admin Dose 20 MG; Start 10/04/17 at 21:00 Metoclopramide HCl (Reglan) 10 mg Q6 IV Last administered on 10/18/17 06:26; Admin Dose 10 MG; Start 10/05/17 at 12:00 Acetaminophen (Tylenol Tab) 650 mg Q6H PRN PO PAIN AND OR ELEVATED TEMP Last administered on 10/09/17 07:29; Admin Dose 650 MG; Start 10/08/17 at 20:30 Docusate Sodium (Colace) 100 mg BID PO Last administered on 10/17/17 20:42; Admin Dose 100 MG; Start 10/08/17 at 21:00 Escitalopram Oxalate (Lexapro) 10 mg DAILY PO Last administered on 10/17/17 09:22; Admin Dose 10 MG; Start 10/11/17 at 09:00 Alprazolam (Xanax) 1 mg Q8H PRN PO ANXIETY Last administered on 10/18/17 01: 30; Admin Dose 1 MG; Start 10/14/17 at 05:00 Hydromorphone HCl (Dilaudid) 0.2 mg Q3H PRN IV PAIN Last administered on 06:32; Admin Dose 0.2 MG; Start 10/15/17 at 12:00 Acetaminophen/ Hydrocodone Bitart ([place] (5/325)) 1 tab Q6H PRN PO pain Last administered on 10/17/17 23:54; Admin Dose 1 TAB; Start 10/16/17 at 13:00 Ondansetron HCl (Zofran Inj) 4 mg Q6H PRN IV NAUSEA AND/OR VOMITING; Start 09/24 at 12:30 Morphine Sulfate 2 mg 2 mg Q1H PRN IV PAIN Last administered on 10/18/17 13: 37; Admin Dose 2 MG; Start 10/18/17 at 12:30 Acetaminophen 100 ml @ 400 mls/hr Q6H PRN IVPB PAIN; Start 10/18/17 at 12:30 Potassium Chloride/Dextrose/ Sod Cl (D5-1/2ns + KCl 20 Meq) 1,000 ml @ 125 mls/ hr Q8H IV Last administered on 10/18/17t 13:21; Admin Dose 125 MLS/HR; Start 10/18/17 at 12:07 JAROCHO YOUNG Oct 18, 2017 16:04
[2017-10-18] MEDS: HYDROCODONE/APAP (5/325) TAB PO PRN (17:37)
[2017-10-19] MEDS: HYDROmorphONE 1 MG/ML SYG IV PRN ×3 (00:13→09:04)
[2017-10-19] MEDS: METOCLOPRAMIDE 10 MG INJ IV SCH ×5 (00:13→23:35)
[2017-10-19 02:20] VITALS: BP 108/59; RESP 19
[2017-10-19] MEDS: ZOLPIDEM 5 MG TAB PO PRN ×2 (02:25→23:47)
[2017-10-19 02:30] VITALS: BP 148/77; RESP 20
[2017-10-19] MEDS: D5W-0.45 NACL + KCL 20 MEQ 1,000 ML IV SCH ×3 (04:07→17:40)
[2017-10-19] MEDS: LEVOFLOXACIN 500MG/D5W (PMX) 100 ML IVPB SCH (05:01)
[2017-10-19 06:10] LABS: BASOPHIL # 0.1 10^3/ul (0.0-0.1); BASOPHILS % 0.5 % (0.0-2.0); EOSINOPHILS # 0.3 10^3/ul (0.0-0.5); EOSINOPHILS % 2.2 % (0.0-7.0); HEMATOCRIT 34.8 % (37.0-47.0); LYMPHOCYTES # 2.4 10^3/ul (0.8-2.9); LYMPHOCYTES % 18.1 % (15.0-51.0); MEAN CORPUSCULAR HEMOGLOBIN 27.8 pg (29.0-33.0); MEAN CORPUSCULAR HGB CONC 34.5 g/dl (32.0-37.0); MEAN CORPUSCULAR VOLUME 80.6 fl (82.0-101.0); MEAN PLATELET VOLUME 9.5 fl (7.4-10.4); MONOCYTE # 0.8 10^3/ul (0.3-0.9); MONOCYTES % 6.4 % (0.0-11.0); NEUTROPHIL # 9.4 10^3/ul (1.6-7.5); NEUTROPHILS % 72.4 % (39.0-77.0); PLATELET COUNT 338 10^3/UL (140-415); RED BLOOD COUNT 4.32 10^6/ul (4.20-5.40); RED CELL DISTRIBUTION WIDTH 13.4 % (11.5-14.5)
[2017-10-19 06:34] LABS: ALANINE AMINOTRANSFERASE 64 IU/L (13-69); ALKALINE PHOSPHATASE 118 IU/L (42-121); ANION GAP 13 (8-16); BILIRUBIN,INDIRECT 0.4 mg/dl (0-1.1); BILIRUBIN,TOTAL 0.4 mg/dl (0.2-1.3); CARBON DIOXIDE 25 mmol/L (21-31); CHLORIDE 104 mmol/L (97-110); CREATININE 0.71 mg/dl (0.44-1.00); GLUCOSE 102 mg/dl (70-220); POTASSIUM 3.8 mmol/L (3.5-5.1); SODIUM 138 mmol/L (135-144); TOTAL PROTEIN 6.3 g/dl (6.1-8.1)
[2017-10-19 06:49] LABS: ASPARTATE AMINO TRANSFERASE 50 IU/L (15-46); BLOOD UREA NITROGEN < 2 mg/dl (7-20)
[2017-10-19] MEDS: HYDROCODONE/APAP (5/325) TAB PO PRN ×2 (06:49→15:36)
[2017-10-19 08:14] VITALS: BP 104/57; RESP 18
[2017-10-19] MEDS: DOCUSATE SODIUM 100 MG CAP PO SCH ×2 (09:00→20:36)
[2017-10-19] MEDS: FAMOTIDINE 20 MG INJ IV SCH (09:11)
[2017-10-19] MEDS: ESCITALOPRAM 10 MG TAB PO SCH (09:11)
[2017-10-19] MEDS: ALPRAZOLAM 0.5 MG TAB PO PRN ×2 (11:33→20:36)
[2017-10-19] MEDS: ACETAMINOPHEN 1000MG/100ML IV 100 ML IVPB PRN ×2 (11:35→18:05)
[2017-10-19] MEDS ORDERED: HYDROmorphONE 2 MG TAB PO PRN (12:00)
[2017-10-19] MEDS: HYDROmorphONE 2 MG TAB PO PRN ×3 (13:31→19:49)
[2017-10-19 15:44] VITALS: BP 102/55; RESP 18
--- NOTE | 2017-10-19 16:00 | PN ---
DATE: 10/19/2017 Postoperative day #1 is status post laparoscopic cholecystectomy. SUBJECTIVE: Complains of pain at the incision line. OBJECTIVE GENERAL: Awake, alert, oriented x3. No nausea, no vomiting. VITAL SIGNS: Temperature 98.2, heart rate 82 on one occasion, 101 on another occasion, respirations 18, blood pressure 104/57, saturation 90% on room air. HEART: Regular. LUNGS: Clear. ABDOMEN: Soft. Incision intact. LABORATORY DATA: WBC 13,000 with 72% segmented, hemoglobin 12, hematocrit 34.8, stable. Chemistry: Sodium, potassium normal, BUN and creatinine normal, total bilirubin 0.4. AST elevated slightly 5 0, ALT and alkaline phosphatase is down to normal. Lipase 86. ASSESSMENT AND PLAN: 1. A 36-year-old female status post endoscopic retrograde cholangiopancreatography, sphincterotomy, removal of the stone from common bile duct and placement of a stent. 2. Status post laparoscopic cholecystectomy, postop day #1. Patient is doing fine post-operation. Diet was advanced today to full liquid. If patient tolerates the diet and the pain is controllable with p.o. medication, patient should be discharged tomorrow w ith pain medication. Dictated By: BRANDO ENRIQUEZ MD PS/MAVERICK Conf#: [id number] DID#: [id number]
--- NOTE | 2017-10-19 18:24 | PN ---
Date/Time of Note Date/Time of Note DATE: 10/19/17 TIME: 18:22 Assessment/Plan VTE Prophylaxis VTE Prophylaxis Intervention: SCD's Lines/Catheters IV Catheter Type (from Nrs): Peripheral IV Assessment/Plan Chief Complaint/Hosp Course Patient tolerates clear liquid diet, diet is advanced to full liquids, pain is well controlled. Encouraged getting out of bed and ambulate. IF patient's continues to improve anticipate discharge home tomorrow Assessment/Plan - Symptomatic cholelithiasis status post laparoscopic cholecystectomy on 10/[address] Smith - S/p ERCP on 10/07, multiple stones were removed from the common bile duct. - Intractable abdominal pain. Continue Dilaudid p.r.n. for pain and Zofran p.r.n. for nausea. -Narrowing of the distal CBD concerning for stricture MRCP. Pending ERCP today at [address] Christiansen is following patient in gastroenterology consultation. - S/P ERCP and common bile duct stent placement at previous admission by Dr Christiansen. - S/p pancreatitis - Status post EGD with notion of gastritis on 09/08. Continue Pepcid. - Depression Further recommendations based on clinical course. Plan of care discussed with Dr. Wright. Problems: Exam/Review of Systems Vital Signs Vitals Vital Signs Date Time Temp Pulse Resp B/P Pulse Ox O2 Delivery O2 Flow Rate FiO2 10/19/17 15:44 97.8 64 18 102/55 97 10/18/17 16:00 Room Air 10/18/17 12:08 10.0 Intake and Output 10/18/17 10/18/17 10/19/17 15:00 23:00 07:00 Intake Total 700 ml 1325 ml 1200 ml Output Total 10 ml Balance 690 ml 1325 ml 1200 ml Exam Constitutional: alert, oriented Head: normocephalic Neck: supple Respiratory: normal air movement Cardiovascular: nl pulses Gastrointestinal: non-tender, other (Status post surgery), soft Extremities: normal pulses Neurological: nl mental status Results Result Diagram: 10/19/17 0447 10/19/177 Results 24 hrs Laboratory Tests Test 10/19/17 04:47 White Blood Count 13.0 #H Red Blood Count 4.32 Hemoglobin 12.0 Hematocrit 34.8 L Mean Corpuscular Volume 80.6 L Mean Corpuscular Hemoglobin 27.8 L Mean Corpuscular Hemoglobin Concent 34.5 Red Cell Distribution Width 13.4 Platelet Count 338 Mean Platelet Volume 9.5 Neutrophils % 72.4 Lymphocytes % 18.1 Monocytes % 6.4 Eosinophils % 2.2 Basophils % 0.5 Nucleated Red Blood Cells % 0.0 Neutrophils # 9.4 H Lymphocytes # 2.4 Monocytes # 0.8 Eosinophils # 0.3 Basophils # 0.1 Nucleated Red Blood Cells # 0.0 Sodium Level 138 Potassium Level 3.8 Chloride Level 104 Carbon Dioxide Level 25 Anion Gap 13 Blood Urea Nitrogen < 2 L Creatinine 0.71 Glucose Level 102 Calcium Level 9.0 Total Bilirubin 0.4 Direct Bilirubin 0.00 Indirect Bilirubin 0.4 Aspartate Amino Transf (AST/SGOT) 50 H Alanine Aminotransferase (ALT/SGPT) 64 Alkaline Phosphatase 118 Total Protein 6.3 Albumin 3.0 L Globulin 3.30 H Albumin/Globulin Ratio 0.90 Lipase 86 Medications Medications Current Medications Levofloxacin/ Dextrose (Levaquin 500mg/ D5W 100 ml (Pmx)) 100 ml @ 100 mls/hr Q24H IVPB Last administered on 10/19/17 05:01; Admin Dose 100 MLS/HR; Start 10/02/17 at 06:00 Ondansetron HCl (Zofran Inj) 4 mg Q4 PRN IV nausea/ vomiting Last administered on 10/18/17 12:16; Admin Dose 4 MG; Start 10/04/17 at 13:55 Metoclopramide HCl (Reglan) 10 mg Q6 IV Last administered on 10/19/17 17:39; Admin Dose 10 MG; Start 10/05/17 at 12:00 Acetaminophen (Tylenol Tab) 650 mg Q6H PRN PO PAIN AND OR ELEVATED TEMP Last administered on 10/09/17 07:29; Admin Dose 650 MG; Start 10/08/17 at 20:30 Docusate Sodium (Colace) 100 mg BID PO Last administered on 10/18/17 20:09; Admin Dose 100 MG; Start 10/08/17 at 21:00 Escitalopram Oxalate (Lexapro) 10 mg DAILY PO Last administered on 10/19/17 09:11; Admin Dose 10 MG; Start 10/11/17 at 09:00 Alprazolam (Xanax) 1 mg Q8H PRN PO ANXIETY Last administered on 10/19/17 11: 33; Admin Dose 1 MG; Start 10/14/17 at 05:00 Acetaminophen/ Hydrocodone Bitart ([place] (5/325)) 1 tab Q6H PRN PO pain Last administered on 10/19/17 15:36; Admin Dose 1 TAB; Start 10/16/17 at 13:00 Ondansetron HCl 4 mg 4 mg Q6H PRN IV NAUSEA AND/OR VOMITING; Start 10/18/17 at 12:30 Acetaminophen 100 ml @ 400 mls/hr Q6H PRN IVPB PAIN Last administered on 10/19 18:05; Admin Dose 400 MLS/HR; Start 10/18/17 at 12:30 Potassium Chloride/Dextrose/ Sod Cl (D5-1/2ns + KCl 20 Meq) 1,000 ml @ 125 mls/ hr Q8H IV Last administered on 10/19/17 17:40; Admin Dose 125 MLS/HR; Start 10/18/17 at 12:07 Zolpidem Tartrate (Ambien) 10 mg HS PRN PO INSOMNIA Last administered on 02:25; Admin Dose 10 MG; Start 10/19/17 at 00:00 Hydromorphone HCl (Dilaudid) 2 mg Q3H PRN PO PAIN Last administered on 16:33; Admin Dose 2 MG; Start 10/19/17 at 12:21 Famotidine (Pepcid) 20 mg BID PO ; Start 10/19/17 at 21:00 JAROCHO YOUNG Oct 19, 2017 18:24
[2017-10-19 19:20] VITALS: BP 111/67; RESP 19
[2017-10-19] MEDS: FAMOTIDINE 20 MG TAB PO SCH (20:37)
[2017-10-19] MEDS: morphine 4 MG/ML VIAL IV PRN (23:10)
[2017-10-20 02:17] VITALS: BP 115/68; RESP 18
[2017-10-20] MEDS: morphine 4 MG/ML VIAL IV PRN ×2 (02:43→07:22)
[2017-10-20] MEDS: D5W-0.45 NACL + KCL 20 MEQ 1,000 ML IV SCH (02:48)
[2017-10-20] MEDS: ACETAMINOPHEN 1000MG/100ML IV 100 ML IVPB PRN (05:10)
[2017-10-20] MEDS: METOCLOPRAMIDE 10 MG INJ IV SCH ×2 (05:11→12:04)
[2017-10-20] MEDS: HYDROmorphONE 2 MG TAB PO PRN ×2 (05:17→13:50)
[2017-10-20] MEDS: LEVOFLOXACIN 500MG/D5W (PMX) 100 ML IVPB SCH (05:30)
[2017-10-20 05:54] LABS: BASOPHIL # 0.1 10^3/ul (0.0-0.1); BASOPHILS % 0.4 % (0.0-2.0); EOSINOPHILS # 0.4 10^3/ul (0.0-0.5); EOSINOPHILS % 3.1 % (0.0-7.0); HEMATOCRIT 34.7 % (37.0-47.0); LYMPHOCYTES # 2.4 10^3/ul (0.8-2.9); LYMPHOCYTES % 20.7 % (15.0-51.0); MEAN CORPUSCULAR HEMOGLOBIN 27.7 pg (29.0-33.0); MEAN CORPUSCULAR HGB CONC 34.6 g/dl (32.0-37.0); MEAN CORPUSCULAR VOLUME 80.1 fl (82.0-101.0); MEAN PLATELET VOLUME 9.4 fl (7.4-10.4); MONOCYTE # 0.9 10^3/ul (0.3-0.9); NEUTROPHIL # 7.9 10^3/ul (1.6-7.5); NEUTROPHILS % 67.4 % (39.0-77.0); PLATELET COUNT 342 10^3/UL (140-415); RED BLOOD COUNT 4.33 10^6/ul (4.20-5.40); RED CELL DISTRIBUTION WIDTH 13.2 % (11.5-14.5); WHITE BLOOD COUNT 11.8 10^3/ul (4.8-10.8)
[2017-10-20 06:38] LABS: ANION GAP 14 (8-16); CALCIUM 8.9 mg/dl (8.4-10.2); CARBON DIOXIDE 25 mmol/L (21-31); CHLORIDE 103 mmol/L (97-110); CREATININE 0.68 mg/dl (0.44-1.00); GLUCOSE 97 mg/dl (70-220); POTASSIUM 3.8 mmol/L (3.5-5.1); SODIUM 138 mmol/L (135-144)
[2017-10-20 06:43] LABS: BLOOD UREA NITROGEN < 2 mg/dl (7-20)
[2017-10-20 07:34] VITALS: BP 104/55; RESP 17
[2017-10-20] MEDS: KETOROLAC 30 MG INJ IV SCH ×2 (08:26→12:04)
[2017-10-20] MEDS: ESCITALOPRAM 10 MG TAB PO SCH (08:27)
[2017-10-20] MEDS: FAMOTIDINE 20 MG TAB PO SCH (08:27)
[2017-10-20] MEDS: DOCUSATE SODIUM 100 MG CAP PO SCH (08:33)
[2017-10-20] MEDS ORDERED: ZOLP5TAB PO (13:44)
--- NOTE | 2017-10-20 13:45 | PN ---
DATE: 10/20/2017 Status post laparoscopy cholecystectomy, postop day #2. SUBJECTIVE: Without new complaint. She has had some pain in epigastric area and at the site of the incision. She requested morphine last night and the nurses asked the internal medicine doctor, and they gave her morphine last night. I stopped the morphine today. I gave her Toradol instead. OBJECTIVE GENERAL: Awake, alert, oriented x3 and is playing with her kids. VITAL SIGNS: 97.5, heart rate 69 and regular, respirations 17, blood pressure 104/55, saturation 96 %. ABDOMEN: Soft. Incisions clean. LABORATORY DATA: WBC decreased to 11,800 with 67 neutrophils as a differential, which is normal dif ferential. Hemoglobin and hematocrit is stable. Chemistry: Sodium, potassium, BUN, creatinine nor mal. ASSESSMENT/PLAN: 1. A 36-year-old female status post laparoscopic cholecystectomy on Wednesday, which was 2 days ago al so. 2. Status post ERCP, sphincterotomy, removal of stone from common bile duct and placement of a sten t in the common bile duct. From a surgical point of view, the patient can be discharged home today to be followed by Dr. Smith in his office, and the patient is to call and make an appointment. The patient does not need IV amberly cotics anymore. Other kinds of pain medication can be given as it suits requirements. The internal medicine service will discharge the patient and give necessary medications. Dictated By: BRANDO ENRIQUEZ MD PS/NTS Conf#: [id number] DID#: [id number] CC: KATHLEEN CASAREZ MD;*End*
[2017-10-20 14:00] VITALS: BP 119/62; RESP 18
--- NOTE | 2017-10-20 14:13 | DS ---
Date/Time of Note Date/Time of Note DATE: 10/20/17 TIME: 14:10 Discharge Summary Admission/Discharge Info Admit Date/Time Oct 05, 2017 at 21:28 Discharge Date/Time Patient Condition: Stable Hx of Present Illness The patient is a 36-year-old female who is just discharged from the hospital this afternoon. The patient was admitted to the hospital with gallstones with subsequent development of pancreatitis after gallbladder stent was placed with the development of a phlegmon. Patient was discharged home with Dilaudid 2 mg tablets. The patient states she is back in the ER because she is having severe pain and is unable to tolerate any liquids or food and his pain out of control. No chest pain or shortness of breath. Hospital Course - Symptomatic cholelithiasis status post laparoscopic cholecystectomy on 10/[address] Smith. And is able to tolerate diet pain is well controlled patient able to ambulate in the hallway with no problem. - S/p ERCP on 10/07, multiple stones were removed from the common bile duct. - Intractable abdominal pain. Continue Dilaudid p.r.n. for pain and Zofran p.r.n. for nausea. -Narrowing of the distal CBD concerning for stricture MRCP. Pending ERCP today at [address] Christiansen is following patient in gastroenterology consultation. - S/P ERCP and common bile duct stent placement at previous admission by Dr Christiansen. - S/p pancreatitis - Status post EGD with notion of gastritis on 09/08. Continue Pepcid. - Depression, continue Lexapro Plan of care discussed with Dr. Wright. Home Meds Active Scripts Zolpidem Tartrate (Ambien Richard) 5 Mg Tablet, 10 MG PO HS Y for INSOMNIA for 30 Days, TAB Prov:JAROCHO YOUNG 10/20/17 Hydromorphone Hcl* (Dilaudid*) 2 Mg Tablet, 2 MG PO Q4H Y for PAIN LEVEL 7-10, # 30 TAB Prov:JAROCHO YOUNG 10/01/17 Escitalopram Oxalate* (Escitalopram Oxalate*) 10 Mg Tablet, 10 MG PO DAILY for 30 Days, TAB Prov:JAROCHO YOUNG 10/01/17 Discontinued Scripts Metoclopramide Hcl* (Metoclopramide Hcl*) 10 Mg Tablet, 10 MG PO TID for 10 Days , TAB Prov:JAROCHO YOUNG 10/01/17 Follow-up Plan Follow-up with Dr. Smith in 1 week, follow-up with Dr. Christiansen in 2-3 weeks for stent removal Primary Care Provider Leo Spicer Time spent on discharge: > 30 minutes Pending Labs Laboratory Tests Test 10/20/17 05:09 White Blood Count 11.810^3/ul (4.8-10.8) Red Blood Count 4.3310^6/ul (4.20-5.40) Hemoglobin 12.0g/dl (12.0-16.0) Hematocrit 34.7% (37.0-47.0) Mean Corpuscular Volume 80.1fl (82.0-101.0) Mean Corpuscular Hemoglobin 27.7pg (29.0-33.0) Mean Corpuscular Hemoglobin Concent 34.6g/dl (32.0-37.0) Red Cell Distribution Width 13.2% (11.5-14.5) Platelet Count 66835^3/UL (140-415) Mean Platelet Volume 9.4fl (7.4-10.4) Neutrophils % 67.4% (39.0-77.0) Lymphocytes % 20.7% (15.0-51.0) Monocytes % 8.0% (0.0-11.0) Eosinophils % 3.1% (0.0-7.0) Basophils % 0.4% (0.0-2.0) Nucleated Red Blood Cells % 0.0/100WBC (0.0-0.0) Neutrophils # 7.910^3/ul (1.6-7.5) Lymphocytes # 2.410^3/ul (0.8-2.9) Monocytes # 0.910^3/ul (0.3-0.9) Eosinophils # 0.410^3/ul (0.0-0.5) Basophils # 0.110^3/ul (0.0-0.1) Nucleated Red Blood Cells # 0.010^3/ul (0.0-0.0) Sodium Level 138mmol/L (135-144) Potassium Level 3.8mmol/L (3.5-5.1) Chloride Level 103mmol/L (97-110) Carbon Dioxide Level 25mmol/L (21-31) Anion Gap 14 (8-16) Blood Urea Nitrogen < 2mg/dl (7-20) Creatinine 0.68mg/dl (0.44-1.00) Glucose Level 97mg/dl (70-220) Calcium Level 8.9mg/dl (8.4-10.2) JAROCHO YOUNG Oct 20, 2017 14:13
--- NOTE | 2017-10-20 14:14 | PDOCDIS ---
Discharge Instructions CONDITION Patient Condition: Stable HOME CARE INSTRUCTIONS: Diet Instructions: low fat/low cholesterol ACTIVITY: Activity Restrictions: Slowly Increase Activity Rest between Activity Avoid heavy lifting Do not Drive Avoid Heavy Housework Bathing Restrictions: ShowerActivity Restrictions Comment: Do not scrub or soak incision FOLLOW UP/APPOINTMENTS Follow-up Plan Follow-up with Dr. Smith in 1 week, follow-up with Dr. Christiansen in 2-3 weeks for stent removal JAROCHO YOUNG Oct 20, 2017 14:14
== END 2017-10-20 15:10 | disposition home or self-care (01) | DRG 417 ==
LOC: FTE 20:41 → MS1 10-02 01:01 → OBSVTOIN 10-05 21:28 → MS1 10-09 21:20
PROVIDERS: ADMIT Internal Medicine; ATTEND Internal Medicine
PROC: 0F798DZ Dilation of Common Bile Duct with Intraluminal Device, Via Natural or Artificial Opening Endoscopic (ICD-10-PCS; 2017-10-07)
PROC: 0FC98ZZ Extirpation of Matter from Common Bile Duct, Via Natural or Artificial Opening Endoscopic (ICD-10-PCS; 2017-10-07)
PROC: 0FB98ZX Excision of Common Bile Duct, Via Natural or Artificial Opening Endoscopic, Diagnostic (ICD-10-PCS; 2017-10-07)
PROC: 0FPB8DZ Removal of Intraluminal Device from Hepatobiliary Duct, Via Natural or Artificial Opening Endoscopic (ICD-10-PCS; principal; 2017-10-07 18:00)
PROC: 0FT44ZZ Resection of Gallbladder, Percutaneous Endoscopic Approach (ICD-10-PCS; 2017-10-18)
DX: K80.71 Calculus of gallbladder and bile duct without cholecystitis with obstruction (principal); K85.90 Acute pancreatitis without necrosis or infection, unspecified; F32.9 Major depressive disorder, single episode, unspecified; F41.9 Anxiety disorder, unspecified
CPT/HCPCS: 74181; 74330; 76705; 78226; 80048; 80053; 81003; 82150; 83690; 85025; 85610; 85730; 88104; 88304; 88305; 96374; 96375; 96376; A9537; C2617; C9113; G0378; J0131; J1100; J1170; J1885; J1956; J2175; J2250; J2270; J2370; J2405; J2765; J3010; J3370; J3480; J7030

== ENCOUNTER 2018-02-24 10:36 | Day surgery (SDC) | END 2018-02-24 15:49 | disposition home or self-care (01) ==